=== PATIENT | male | born 1975 | race Caucasian/White ===

== ENCOUNTER 2018-12-25 16:19 | Inpatient (IN) | payer MEDICAID, SELFPAY ==
[2018-12-25] VITALS (9 sets, daily range): BP systolic 140–163; BP diastolic 78–88; PULSE 87–121; RESP 17–20; TEMP 36.7–37.1; O2SAT 92–99; BMI 40.1; BMI 36.1; BMI 36.2
--- NOTE | 2018-12-25 16:33 | EKG12_ITS ---
Test Reason : Blood Pressure : / mmHG Vent. Rate : 119 BPM Atrial Rate : 119 BPM P-R Int : 146 ms QRS Dur : 096 ms QT Int : 334 ms P-R-T Axes : 067 111 047 degrees QTc Int : 469 ms Sinus tachycardia Left posterior fascicular block Abnormal ECG Confirmed by HERB CHAIREZ, DAQUAN ([id number]), editorial specialist ELIZABETH JACQUES ([id number] on 12/29/2018 12:01:39 PM Referred By: Nichelle Salazar Confirmed By:RIO ESTEVEZ MD
--- NOTE | 2018-12-25 16:33 | RAD_ITS ---
STUDY: X-RAY CHEST REASON FOR EXAM: Male, 43 years old. Shortness of breath TECHNIQUE: Single AP portable view of the chest. COMPARISON: Previous study of 07/13/2016 FINDINGS: There is a right-sided dialysis catheter with tip projecting over the atriocaval junction. There is linear fibrosis or atelectasis of the left lung base. There is a small calcified granuloma of the right lung base. There is a small left-sided effusion. Normal size heart. Normal mediastinum and tony. Normal visualized pulmonary arteries. Normal visualized aortic arch and descending thoracic aorta. Normal visualized thoracic spine. Normal visualized ribs, clavicles, and shoulders. There is no demonstrated abnormality of the visualized soft tissue structures of the upper abdomen. RAD/Chest 1 View (Portable) IMPRESSION: Right-sided dialysis catheter with tip projecting over the atriocaval junction. Left basilar fibrosis or atelectasis and small left basilar effusion, representing new interval findings. Electronically Signed: Kelvin Dubose MD at 17:06 EDT , Service support ,
--- NOTE | 2018-12-25 17:00 | ED.RN ---
PATIENT IS REFUSING IVF AT THIS TIME
[2018-12-25 17:37] LABS: Absolute Lymphocyte Count 1.58 X10^3/uL (0.83-4.51); Absolute Neutrophil Count 3.2 X10^3/uL (2.0-7.7); Basophil# 0.02 X10^3/uL; Basophil% 0.4 % (0-1); Eosinophil# 0.29 X10^3/uL; Eosinophils% 5.3 % (0-5); Hematocrit 32.4 % (40-54); Hemoglobin 10.6 g/dL (13.0-16.5); Lymphocyte # 1.58 X10^3/ul (4.0); Lymphocyte % 28.6 % (19-41); Mean Corp Hgb Conc 32.7 g/dL (32-36); Mean Corpuscular Hgb 31.5 pg (27.0-32.0); Mean Corpuscular Volume 96.4 fL (80-94); Mean Platelet Vol. 10.9 fl (6.2-12.0); Monocyte# 0.44 X10^3/uL; NRBC Flagged by Analyzer 0 % (0-5); Neutrophil # 3.17 X10^3/uL (2.7-7.7); Neutrophil % 57.3 % (47-70); Platelet Count 142 K/mm3 (150-450); RBC Distribution Width CV 17.6 % (11.6-14.6); RBC Distribution Width SD 62.8 fl (35.1-43.9); Red Blood Count 3.36 M/mm3 (4.6-6.2); White Blood Count 5.5 K/mm3 (4.4-11.0)
[2018-12-25 17:45] LABS: Anion Gap 7 (5-15); BUN 14 mg/dL (7-18); Chloride 115 mmol/L (98-107); Creatinine, Serum 1.08 mg/dL (0.70-1.30); EST Glomerular Filtration Rate 79 mL/min (>60); Est Glom Filt Rate - Afr Amer 95 mL/min (>60); Glucose 129 mg/dL (74-106); Potassium 3.7 mmol/L (3.5-5.1); Sodium Level 143 mmol/L (136-145)
[2018-12-25 17:59] LABS: Lactic Acid 2.8 mmol/L (0.4-2.0)
--- NOTE | 2018-12-25 18:01 | ED.RN ---
lactic2.8 called from [address] lab. dr jack aware
--- NOTE | 2018-12-25 18:06 | ED.RN ---
lactic 2.8 called from [address] lab. dr jack aware
--- NOTE | 2018-12-25 18:08 | ED.RN ---
PATIENT STATES THE MED LIST FROM DOCTOR'S VISIT IS NOT CORRECT. HE STATES THOSE ARE THE MEDS HE WANTED ME TO TAKE BUT I DIDN'T LIKE THAT DOCTOR HE IS UNSURE OF ALL THE MEDS THAT ARE MISSING, BUT KNOWS XANAX AND FLEXERIL ARE TWO OF THEM.
[2018-12-25 18:52] LABS: D-Dimer Quantitative (DVT/PE) 6.25 FEU/ug/m (0.27-0.49)
--- NOTE | 2018-12-25 18:52 | ED.RN ---
dr. jack aware of d-dimer 6.25.
--- NOTE | 2018-12-25 18:54 | CT_ITS ---
We are attempting to reach an attending provider to discuss findings. An addendum with communication details will be sent when the communication is complete. STUDY: CTA CHEST REASON FOR EXAM: Male, 43 years old. Shortness of breath and elevated d-dimer. History of hypertension, hypothyroidism, alcoholic cirrhosis. Prior surgery: Hernia repair and cholecystectomy. RADIATION DOSAGE (If Supplied By Facility): CTDIvol = ( 15.75 ) mGy, DLP = ( 536.62 ) mGycm TECHNIQUE: The examination was performed with the intravenous administration of 100ML IV Isovue 370. Post-processing of the angiographic images was performed, with multiplanar reformation and 3D reconstruction. Individualized dose optimization techniques were used for this CT. COMPARISON: None. FINDINGS: The study is not optimal for visualization of pulmonary embolus secondary to a diffuse bolus which causes considerable nonopacified flow defect in the pulmonary arteries. Nevertheless, I am certain that there is at least one substantial embolus in a right upper lobe segmental branch extending into subsegmental branches. Additionally exam of the lung bases/lower lobes and middle lung zones limited by motion artifact. Normal thoracic aorta and visualized great vessels. There is no demonstrated aortic dissection. Normal heart and pericardium. Normal mediastinum. Calcified right hilar lymph nodes. The right lung is expanded. Calcified granulomata of the right lower lobe. Minimal atelectasis or scarring in the anterior right costophrenic angle. Moderate size dependent left pleural effusion with multifocal areas of platelike atelectasis and generalized atelectatic changes. Normal chest wall structures. There are degenerative changes of thoracic spine. Nodular liver consistent with cirrhosis, splenomegaly and ascites. CT/CTA Chest W/WO Contrast IMPRESSION: Limited exam for pulmonary embolus secondary to a diffuse pulmonary bolus and motion artifact. However, nevertheless positive for at least one moderate size embolus in a large segmental artery of the right upper lobe. Additional emboli may certainly be present in the peripheral arteries particularly the lower lobes where motion artifact also degrades imaging. Moderate size dependent left pleural effusion with multifocal areas of platelike atelectasis as well as generalized atelectatic changes of the left lower lobe. Minimal anterior basilar atelectasis of the right lung without pleural effusion. Stigmata of old granulomatous disease. Cirrhosis, ascites and splenomegaly. Electronically Signed: Maral David MD at 19:51 EDT , Service support ,
--- NOTE | 2018-12-25 20:01 | HP.PCM_ITS ---
Problem List (1) Acute pulmonary embolism Status: Acute Qualifiers: Pulmonary embolism type: unspecified Acute cor pulmonale presence: without acute cor pulmonale Qualified Code(s): I26.99 - Other pulmonary embolism without acute cor pulmonale (2) Acute kidney injury Status: Resolved (3) Patient requiring acute dialysis Status: Resolved (4) Polysubstance abuse Status: Chronic (5) Hypothyroidism Status: Chronic Qualifiers: Hypothyroidism type: unspecified Qualified Code(s): E03.9 - Hypothyroidism, unspecified (6) HTN (hypertension) Status: Chronic Qualifiers: Hypertension type: essential hypertension Qualified Code(s): I10 - Essential (primary) hypertension (7) Alcoholic cirrhosis of liver Status: Chronic Qualifiers: Ascites presence: with ascites Qualified Code(s): K70.31 - Alcoholic cirrhosis of liver with ascites History of Present Illness Date of Admission: 12/25/18 Chief Complaint: Dyspnea, ESRD access discomfort The patient is a 43 y/o M w/ PMHx: Polysubstance abuse, previously incarcerated, Hx EtOH Abuse, Anxiety and Depression, Seizure disorder, Alcoholic Cirrhosis, Hypothyroidism, HTN, HLD, Morbid Obesity, Hx recent [facility] evaluation secondary to encephalopathy w/ recent ALEKSEY requiring HD with temporary access placement with questionable dressing change timeline and patient/family concern for site infection with resolution of renal function, transitioned to SNF and then home but R chest catheter remained with ongoing dyspnea, worse with any exertional effort with no specific cough, congestion or recent upper respiratory symptoms with ongoing right-sided chest discomfort since discharge from hospital, more pronounced at the insertion site of the dialysis catheter with patient admission that he has not been caring for the site with unclear last timeline of dressing change. He does note that the chest discomfort is sharp in nature, 10 out of 10 when it does occur and again primarily focally around the dialysis catheter region. He denies any worsened chest discomfort with deep inspiratory and expiratory effort. Work-up in the ED included T 98.1, heart rate 121, BP 163/3, respiratory rate 17, 93% on room air, CBC with W BC 5.5, heme globin 10.6, platelet 142 with out any left shift evident, d-dimer elevated 6.25, BMP with quad 115, glucose 129, lactic acid 2.8, calcium 8, troponin less than 0.015, chest x-ray with right-sided dialysis catheter with tip projecting over the atriocaval junction, left basilar fibrosis or atelectasis and small left basilar effusion, CTPA limited secondary to diffuse pulmonary bolus and motion artifact however nevertheless positive for at least one moderate sized embolus and a large segmental artery of the right upper lobe, additional emboli possibly present in the peripheral arteries particularly lower lobes were motion artifact also degrades imaging, moderate size dependent left pleural effusion with multifocal areas of platelike atelectasis as well as generalized atelectatic changes of the left lower lobe, minimal anterior basilar atelectasis of the right lung without pleural effusion, stigmata of old granulomatous disease, cirrhosis, ascites and splenomegaly evident. In the ED patient administered Eliquis. Past Medical History Past Medical History (Chronic Problems): Chronic Problems Polysubstance abuse (Chronic) Heroin abuse (Chronic) Cocaine abuse (Chronic) Hypothyroidism (Chronic) HTN (hypertension) (Chronic) Alcoholic cirrhosis of liver (Chronic) Allergies iron Adverse Reaction (Verified 12/25/18 16:24) Nausea Home Medications: Ambulatory Orders Medication Instructions Recorded levETIRAcetam tablet [Keppra] 1,000 mg PO Q12H #30 tablet 11/06/15 Carbidopa/Levodopa [Carbidopa-Levo 1 ea PO DAILY 12/25/18 25-100 mg Odt] Cyclobenzaprine HCl 10 mg PO TID PRN 12/25/18 Flexeril 12/25/18 Ibuprofen 800 mg PO Q6H PRN 12/25/18 Levothyroxine [Synthroid] 100 mcg PO DAILY 12/25/18 Omeprazole 20 mg PO DAILY 12/25/18 Pantoprazole Sodium 40 mg PO DAILY 12/25/18 Potassium Chloride 10 meq PO DAILY 12/25/18 Propranolol HCl 40 mg PO BID 12/25/18 Rifaximin [Xifaxan] 550 mg PO BID 12/25/18 Spironolactone [Aldactone] 25 mg PO BID 12/25/18 Tizanidine HCl 2 mg PO DAILY 12/25/18 Triamcinolone 0.1% Cream [Kenalog] 1 applic TOPICAL BID 12/25/18 Xanax 12/25/18 Surgical History: cholecystectomy, herniorrhaphy, - - Temporary HD access. Psychiatric History: Anxiety, Depression Lives: Alone Smoking Status: Current every day smoker - 3 to 5 cigarettes daily currently. Tobacco Use: Cigarettes Alcohol: Occasional - Patient does state that he is not completely sober but has rare alcohol intake these days, 2 beers today because he saw family. Drugs: - - Patient notes that he is currently clean, prior history of cocaine, heroin, cannabis usage. - *Family History Maternal History Items: - - Patient denies any market maternal family history including heart disease, diabetes, cancer. Paternal History Items: Heart Disease Review of Systems Constitutional: Reports: Malaise, Weakness, Fatigue. Denies: Chills, Fever, Weight Change HEENT: Denies: Head Aches, Sinus Congestion, Sinus Drainage Cardiovascular: Reports: Chest Pain. Denies: Light Headedness, Orthopnea, Palpitations, Syncope Respiratory: Reports: Shortness of Breath, Shortness of breath at rest, Shortness of breath upon exertion. Denies: Cough, Sputum production Gastrointestinal: Denies: Abdominal Pain, Nausea, Vomiting Genitourinary: Denies: Dysuria Musculoskeletal: Reports: Joint Pain. Denies: Joint Tenderness Skin: Reports: Skin Changes. Denies: Rash, Wounds Neurological: Denies: Numbness, Tingling, Focal weakness Psychiatric: Reports: Anxiety, Depression. Denies: Homicidal Ideations, S uicidal Ideations Hematologic/ Lymphatic: Reports: Easy Bruising, Easy Bleeding VTE Information - Inpt Only VTE Present on Admission: No VTE Mechan Device Prophylaxis: SCD's VTE Pharm Prophylaxis ordered?: Yes Patient Problems: Active and Suspected Problems Acute pulmonary embolism (Acute) Subjective: Seated upright in ED bed, fatigued appearance, no acute distress. Objective: Physical Examination: General: awake, alert, oriented x 3 and cooperative, seated upright in the ED bed in no apparent distress. Skin: normal color, turgor, no icterus, cyanosis temporary dialysis catheter to right chest in place, mild erythema only around insertion site specifically with no purulent drainage, no market tenderness palpation of the region, does not appear infected. HEENT: AT/NC, EOMI, PERRLA, dry MM, no carotid bruits or JVD noted. Lungs: CTA bilaterally, decreased effort, moderate decrease BL bases, no rales, ronchi or wheezing. Heart: Mildly tachycardic with regular rhythm; no gallop, rub audible. Abdomen: soft, morbidly obese, NTTP, ND, normal BS, positive HM with ascites. Extremities: no cyanosis, clubbing, bilateral lower extremity ankle to distal rodriguez edema. Neurological: patient awake, alert, oriented x 3; cognitive function intact; pupils equally reactive to light and accomodation; cranial nerves II-XII grossly normal, moving all 4 extremities, no focal deficits, strength fairly global decrease secondary to acute presentation. Psychiatric: affect appears fatigued, no acute evidence of depressive or anxiety feelings. - Physical Exam Vital Signs Temp Pulse Resp BP Pulse Ox 98.1 F 113 H 18 140/87 H 93 12/25/18 18:57 12/25/18 18:57 12/25/18 18:57 12/25/18 18:57 12/25/18 18:57 Oxygen Delivery Method Room Air Weight: 255 lb 15.307 oz Body Mass Index (BMI) 40.1 Finger Stick Blood Glucose 96 Laboratory Tests Past 24 Hrs 12/25/18 12/25/18 12/25/18 17:15 17:15 17:15 WBC 5.5 RBC 3.36 L Hgb 10.6 L Hct 32.4 L MCV 96.4 H MCH 31.5 MCHC 32.7 RDW Std Deviation 62.8 H RDW Coeff of Raghu 17.6 H Plt Count 142 L MPV 10.9 Immature Gran % (Auto) 0.400 Neut % (Auto) 57.3 Lymph % (Auto) 28.6 Dorado % (Auto) 8.0 Eos % (Auto) 5.3 H Baso % (Auto) 0.4 Absolute Neuts (auto) 3.2 Absolute Lymphs (auto) 1.58 Nucleated RBC % 0 D-Dimer Quant (PE/DVT) Sodium 143 Potassium 3.7 Chloride 115 H Carbon Dioxide 21.0 Anion Gap 7 BUN 14 Creatinine 1.08 Estim Creat Clear Calc 81.60 Est GFR (MDRD) Af Amer 95 Est GFR (MDRD) Non-Af 79 BUN/Creatinine Ratio 13.0 Glucose 129 H Lactic Acid 2.8 H Calcium 8.0 L Troponin I < 0.015 12/25/18 17:58 WBC RBC Hgb Hct MCV MCH MCHC RDW Std Deviation RDW Coeff of Raghu Plt Count MPV Immature Gran % (Auto) Neut % (Auto) Lymph % (Auto) Dorado % (Auto) Eos % (Auto) Baso % (Auto) Absolute Neuts (auto) Absolute Lymphs (auto) Nucleated RBC % D-Dimer Quant (PE/DVT) 6.25 H* Sodium Potassium Chloride Carbon Dioxide Anion Gap BUN Creatinine Estim Creat Clear Calc Est GFR (MDRD) Af Amer Est GFR (MDRD) Non-Af BUN/Creatinine Ratio Glucose Lactic Acid Calcium Troponin I Assessment/Plan All Active Problems Acute pulmonary embolism (Acute) Acute kidney injury (Resolved) Patient requiring acute dialysis (Resolved) Overdose (Resolved) The patient is a 43 y/o M w/ PMHx: Polysubstance abuse, previously incarcerated, Hx EtOH Abuse, Anxiety and Depression, Seizure disorder, Alcoholic Cirrhosis, Hypothyroidism, HTN, HLD, Morbid Obesity, Hx recent [facility] evaluation secondary to encephalopathy w/ recent ALEKSEY requiring HD with temporary access placement with questionable dressing change timeline and patient/family concern for site infection with resolution of renal function, transitioned to SNF and then home but R chest catheter remained who presents to the [facility] on 12/25/18 with ongoing dyspnea, progressively worsening and R sided chest pain more so at the dialysis catheter site. 1. Dyspnea, chest pain secondary to Pulmonary Embolism: EKG without acute findings, CXR no acute process, D-dimer elevated, CTPA limited secondary to diffuse pulmonary bolus and motion artifact however nevertheless positive for at least one moderate sized embolus and a large segmental artery of the right upper lobe, additional emboli possibly present in the peripheral arteries particularly lower lobes were motion artifact also degrades imaging, moderate size dependent left pleural effusion with multifocal areas of platelike atelectasis as well as generalized atelectatic changes of the left lower lobe, minimal anterior basilar atelectasis of the right lung without pleural effusion, stigmata of old granulomatous disease, cirrhosis, ascites and splenomegaly ev ident, trop x 1 normal. No family history of hypercoaguable state. Patient with recent hospitalization, prolonged immobility secondary to cirrhotic encephalopathy from description. Will admit to PCU, maintain on cardiac telemetry. Will obtain ECHO, BNP, defer BL LE DVT as presumed source. Will continue therapeutic eliquis regimen with pending AM insurance oral regimen investigation. 2. Recent ALEKSEY, Temporary HD: ALEKSEY with temporary HD, resolved, will consult surgery for temporary access removal as patient high risk for infection is not caring for the access and unclear last timeline of dressing change. 3. Alcoholic cirrhosis with ascites: We will continue patient home regimen propranolol, rifaximin, spironolactone. 4. Seizure disorder: Will continue home keppra regimen. 5. Hypertension: Continue home regimen including spironolactone, propranolol, PRN hydralazine. 6. Anxiety and Depression: Need clarification of regimen, will continue once obtained. 7. Hypothyroidism: Continue home synthroid regimen. 8. Hx Polysubstance abuse: Prior polysubstance abuse, EtOH abuse, previously incarcerated, encourage continued sobriety. UDS requested. 9. Morbid Obesity: Weight loss and lifestyle changes encouraged, nutrition consulted. 10. GERD: Continue home PPI. 11. DVT Prophylaxis: rasheed Vaz. Code Visit Inpatient E&M: 20268 Init Hosp L3
--- NOTE | 2018-12-25 20:02 | ED.DCSUM_ITS ---
- ER Visit Summary Date of Service: 12/25/18 Chief Complaint: [Shortness of breath and concern for dialysis catheter infection] History of Present Illness: The patient is a 43 M [presents to the emergency department with shortness of breath for several weeks. Patient states that about 4 months ago he was admitted to [facility] because he was encephalopathic and they had to induce him into a coma. Patient apparently had renal failure and had to be dialyzed as well so they placed a dialysis catheter in his right chest. Patient subsequently went to a long term for a time and he was discharged to home but they never took out his dialysis catheter. Patient was told by nephrology that he would no longer needed because his kidney function resolved and normalized. Patient states that since coming out of the coma is been feeling short of breath. He describes right-sided chest pain and i s concerned that his catheter might be infected because he has pain over that area. Patient complains of shortness of breath. He said some chills. He denies any fevers however. Patient continues to drink occasionally. He has a history of hypertension and hypothyroidism.] Physical Examination: [HEENT-PERRLA, EOMI. Cranial nerves II through XII grossly intact. TMs clear. Mucous membranes moist. No adenopathy. Cardiovascular-regular rate and rhythm without murmur or ectopy. Right chest- patient has a dialysis catheter in place there is no drainage from it or erythe ma. Patient does have some mild tenderness to palpation over the area. Lungs-clear to auscultation, chest wall stable without crepitus or subcu emphysema Abdomen-normoactive bowel sounds, soft, nontender, no rebound or rigidity, no peritoneal signs. Extremities-intact ?4, normal range of motion, normal pulses, atraumatic] Test Results: [TG obtained showed a sinus tachycardia with a ventricular rate of 119 bpm. CBC with differential shows a white count of 5.5, hemoglobin 10.6, hematocrit 32, plates 142. Chemistries unremarkable. BUN was 14 and creatinine 1.08. Troponin is less than 0.15. Lactate was elevated 2.8. His d-dimer was 6.25. Chest x-ray obtained showed left basilar fibrosis and a small left effusion. CTA of the chest obtained showed a right upper lobe moderate-sized pulmonary embolism and ascites. This study was not ideal and the timing of the bolus therefore radiology cannot exclude other peripheral PEs.] Emergency Department Course and Treatment: [Patient was started on Eliquis p.o.] Treatment Plan: [Admit] Disposition: [Admit] Impression: [Pulmonary embolism Tachycardia] This note was generated with [employer] dictation software. It may contain incorrect words, spelling, and punctuation that were not noted in review of the chart prior to signing ED Disposition - Plan for ED Patient: Referrals: Care Physician,No Primary [Primary Care Provider] -
[2018-12-25] MEDS: 0.9% Normal Saline 1,000 ML 150 ML IV (20:15)
[2018-12-25] MEDS: APIXABAN 5 MG TABLET 10 MG PO (20:33)
[2018-12-25 21:22] LABS: Reflex Lactate? Y
[2018-12-25 21:44] LABS: International Normalized Ratio 1.2; Prothrombin Time (Protime)PT. 14.9 SECONDS (11.7-14.9)
[2018-12-25 21:45] LABS: Partial Thromboplast Time 40.5 Seconds (24.1-36.2)
[2018-12-25 21:47] LABS: Magnesium 1.6 mg/dL (1.6-2.6); Phosphorus 3.3 mg/dL (2.5-4.9)
[2018-12-25 21:58] LABS: BNP,B-Type NATRIURETIC PEPTIDE 90.5 pg/mL (0-100)
[2018-12-25 22:16] LABS: Lactic Acid 1.9 mmol/L (0.4-2.0)
[2018-12-25] MEDS: 0.9% Normal Saline 1,000 ML 100 ML IV (22:38)
[2018-12-25] MEDS: Propranolol 40 MG Tablet PO (22:39)
[2018-12-25] MEDS: levETIRAcetam 1,000 MG Tablet 1000 MG PO (22:39)
[2018-12-25] MEDS: rifAXIMin 550 MG Tablet PO (22:39)
[2018-12-25] MEDS: Spironolactone 25 MG Tablet PO (22:40)
[2018-12-26] VITALS (11 sets, daily range): BP systolic 119–138; BP diastolic 71–80; PULSE 65–83; RESP 15–18; TEMP 36.6–36.7; O2SAT 91–94
[2018-12-26] MEDS: oxyCODONE 5 MG Tablet PO ×3 (01:07→21:34)
[2018-12-26] MEDS: Temazepam 15 MG Capsule PO ×2 (01:09→21:36)
[2018-12-26 02:03] LABS: Amphetamine Urine VISTA NEGATIVE (<1000 ng/mL); Barbiturate Urine VISTA NEGATIVE (< 200 ng/mL); Benzodiazepine Urine VISTA NEGATIVE (< 200 ng/mL); Cocaine Urine VISTA NEGATIVE (< 300 ng/mL); Ecstacy Urine VISTA NEGATIVE (< 500 ng/mL); Methadone Urine VISTA NEGATIVE (< 300 ng/mL); PCP Urine VISTA NEGATIVE (< 25 ng/mL); THC Urine VISTA NEGATIVE (< 50 ng/mL); Vista UDS pH Range 7
[2018-12-26] MEDS: Carbidopa/Levodopa 25/100 Tablet PO (05:55)
[2018-12-26] MEDS: Levothyroxine 100 MCG Tablet PO (05:55)
--- NOTE | 2018-12-26 05:55 | ECHOD_ITS ---
Reason For Study: Dyspnea/SOB Procedure This was a 2D Doppler, Color Flow transthoracic echocardiogram. Exam performed portable in patient room. Left Ventricle Normal LV size. The estimated ejection fraction is 65 %. Diastolic function is indeterminate. No regional wall motion abnormalities noted. Right Ventricle Mildly dilated right ventricle. Mild to moderate global right ventricular systolic dysfunction. Atria The left atrium is mildly enlarged. Normal right atrium. No doppler evidence for ASD. Mitral Valve There is no mitral valve stenosis. Trivial mitral valve insufficiency. Tricuspid Valve There is no tricuspid stenosis. Trivial tricuspid valve insufficiency. Pulmonary artery systolic pressure is 60 mmHg. Aortic Valve Trisinus/trileaflet aortic valve. There is no aortic stenosis. No aortic valve insufficiency. Pulmonic Valve There is no pulmonic valvular stenosis. Trivial pulmonic valve insufficiency. Great Vessels Normal aortic root. Pericardium/Pleural No pericardial effusion. MMode/2D Measurements & Calculations LVIDd: 4.8 cm IVSd: 1.2 cm Ao root diam: 2.9 cm LVIDs: 3.2 cm LVPWd: 1.3 cm RVDd: 4.3 cm FS: 32.8 % LAV(MOD-bp): 91.3 ml LVAd ap4: 31.6 cm2 SV(MOD-sp4): 66.3 ml LAV(MOD-bp) Indexed: 39.4 ml/m2 EDV(MOD-sp4): 101.2 ml LAV(MOD-sp2): 92.2 ml EDV(sp4-el): 101.5 ml LAV(MOD-sp4): 80.5 ml LVAs ap4: 17.3 cm2 ESV(MOD-sp4): 34.9 ml ESV(sp4-el): 36.0 ml EF(MOD-sp4): 65.5 % EF(sp4-el): 64.6 % SV(sp4-el): 65.5 ml LA A4 area: 25.4 cm2 LA dimension(2D): 5.2 cm RA A4 area: 15.7 cm2 Doppler Measurements & Calculations MV E max brenden: 111.4 cm/sec Lat Peak E' Brenden: 12.6 cm/sec Med Peak E' Brenden: 9.2 cm/sec MV A max brenden: 67.9 cm/sec E/E' lat: 8.8 E/E' med: 12.2 MV E/A: 1.6 Ao V2 max: 141.2 cm/sec LV V1 max: 118.1 cm/sec PA V2 max: 105.9 cm/sec Ao max P.0 mmHg LV V1 max P.6 mmHg Ao V2 mean: 95.7 cm/sec Ao mean P.1 mmHg Ao V2 VTI: 27.6 cm TR max brenden: 375.0 cm/sec TR max P.2 mmHg Interpretation Summary The estimated ejection fraction is 65 %. Diastolic function is indeterminate. Pulmonary artery systolic pressure is 60 mmHg. Mildly dilated right ventricle. Mild to moderate global right ventricular systolic dysfunction. The left atrium is mildly enlarged. Trivial mitral valve insufficiency. Ordering Physician: Nichelle Salazar Referring Physician: Nichelle Salazar Performed By: Ciara Crystal, CONCHITA, RVT
[2018-12-26 07:48] LABS: ALB/GLOB Ratio 0.3 RATIO (0.9-2.4); AST(SGOT) 43 U/L (15-37); Alanine Aminotransfer ALT/SGPT 14 U/L (16-61); Albumin, Serum 1.5 g/dL (3.2-5.0); Alkaline Phosphatase 153 U/L (45-117); Anion Gap 2 (5-15); BUN 13 mg/dL (7-18); BUN/Creat Ratio 13.7 RATIO (10-20); Calcium,Total 7.5 mg/dL (8.5-10.1); Chloride 115 mmol/L (98-107); Creatinine, Serum 0.95 mg/dL (0.70-1.30); EST Glomerular Filtration Rate 92 mL/min (>60); Est Glom Filt Rate - Afr Amer 111 mL/min (>60); Estimated Creatinine Clearance 102.46 ml/min; Globulin 4.5 g/dL (2.2-4.2); Glucose 99 mg/dL (74-106); Potassium 4.2 mmol/L (3.5-5.1); Sodium Level 141 mmol/L (136-145)
--- NOTE | 2018-12-26 09:00 | PCM.CONS.GEN ---
Problem List (1) Vascular catheter fitting or adjustment Status: Acute Reason for Consult Date of Consultation: 12/26/18 History of Present Illness: The patient is a 43 year old M presents to the emergency department with shortness of breath for several weeks. Patient states that about 4 months ago he was admitted to [facility] because he was encephalopathic and they had to induce him into a coma. Patient apparently had renal failure and had to be dialyzed as well so they placed a dialysis catheter in his right chest. Patient subsequently went to a [facility] for a time and he was discharged to home but they never took out his dialysis catheter. Patient was told by nephrology that he would no longer needed because his kidney function resolved and normalized. Patient states that since coming out of the coma is been feeling short of breath. He describes right-sided chest pain and is concerned that his catheter might be infected because he has pain over that area. Patient complains of shortness of breath. He said some chills. He denies any fevers however. Patient continues to drink occasionally. He has a history of hypertension and hypothyroidism. Past Medical History Past Medical History (Chronic Problems): Chronic Problems Polysubstance abuse (Chronic) Heroin abuse (Chronic) Cocaine abuse (Chronic) Hypothyroidism (Chronic) HTN (hypertension) (Chronic) Alcoholic cirrhosis of liver (Chronic) Allergies iron Adverse Reaction (Verified 12/25/18 16:24) Nausea Home Medications: Ambulatory Orders Medication Instructions Recorded levETIRAcetam tablet [Keppra] 1,000 mg PO Q12H #30 tablet 11/06/15 Carbidopa/Levodopa [Carbidopa-Levo 1 ea PO DAILY 12/25/18 25-100 mg Odt] Cyclobenzaprine HCl 10 mg PO TID PRN 12/25/18 Flexeril 12/25/18 Ibuprofen 800 mg PO Q6H PRN 12/25/18 Levothyroxine [Synthroid] 100 mcg PO DAILY 12/25/18 Omeprazole 20 mg PO DAILY 12/25/18 Pantoprazole Sodium 40 mg PO DAILY 12/25/18 Potassium Chloride 10 meq PO DAILY 12/25/18 Propranolol HCl 40 mg PO BID 12/25/18 Rifaximin [Xifaxan] 550 mg PO BID 12/25/18 Spironolactone [Aldactone] 25 mg PO BID 12/25/18 Tizanidine HCl 2 mg PO DAILY 12/25/18 Triamcinolone 0.1% Cream [Kenalog] 1 applic TOPICAL BID 12/25/18 Xanax 12/25/18 Surgical History: cholecystectomy, herniorrhaphy, - - Temporary HD access. Psychiatric History: Anxiety, Depression Lives: Alone Smoking Status: Current every day smoker Tobacco Use: Cigarettes Alcohol: Occasional - Patient does state that he is not completely sober but has rare alcohol intake these days, 2 beers today because he saw family. Drugs: - - Patient notes that he is currently clean, prior history of cocaine, heroin, cannabis usage. - *Family History Paternal History Items: Heart Disease Maternal History Items: - - Patient denies any market maternal family history including heart disease, diabetes, cancer. Review of Systems Constitutional: Denies: Chills, Fever, Weight Change Skin: Denies: Lesions, Rash, Wounds Patient Problems: Active and Suspected Problems Acute pulmonary embolism (Acute) Vascular catheter fitting or adjustment (Acute) - Physical Exam General: Alert, Oriented x3 Skin: No rashes - Catheter site is clean. There is no signs of any infection. There is no tenderness at the skin site on the chest nor in the neck., No breakdown Vital Signs Temp Pulse Resp BP Pulse Ox 97.8 F 75 18 132/80 H 91 12/26/18 05:52 12/26/18 07:39 12/26/18 05:52 12/26/18 05:52 12/26/18 07:45 Oxygen Delivery Method Room Air Weight: 254 lb 12.8 oz Body Mass Index (BMI) 36.1 Finger Stick Blood Glucose 96 Intake and Output for Last 24 Hours 12/24/18 12/25/18 12/26/18 23:59 23:59 23:59 Intake Total 230 / 590 1473.33 / 1473.33 Balance 230 / 590 1473.33 / 1473.33 Laboratory Tests Past 24 Hrs 12/25/18 12/25/18 12/25/18 17:15 17:15 17:15 WBC 5.5 Corrected WBC RBC 3.36 L Hgb 10.6 L Hct 32.4 L MCV 96.4 H MCH 31.5 MCHC 32.7 RDW Std Deviation 62.8 H RDW Coeff of Raghu 17.6 H Plt Count 142 L MPV 10.9 Immature Gran % (Auto) 0.400 Neut % (Auto) 57.3 Lymph % (Auto) 28.6 Marshall % (Auto) 8.0 Eos % (Auto) 5.3 H Baso % (Auto) 0.4 Absolute Neuts (auto) 3.2 Absolute Lymphs (auto) 1.58 Total Counted Neutrophils % (Manual) Band Neutrophils % Lymphocytes % (Manual) Monocytes % (Manual) Eosinophils % (Manual) Basophils % (Manual) Metamyelocytes % Myelocytes % Promyelocytes % Blast Cells % Plasma Cell % (Manual) Other Cells % Nucleated RBC % 0 Nucleated RBCs/100 WBC Differential Comment Diff Path Review Hypersegmented Neuts Atypical Lymphocytes Reactive Lymphocytes Smudge Cells Toxic Granulation Toxic Vacuolation Dohle Bodies Magy Rods Platelet Estimate Plt Morphology Comment RBC Morphology Polychromasia Hypochromasia Poikilocytosis Basophilic Stippling Anisocytosis Microcytosis Macrocytosis Spherocytes Sickle Cells Target Cells Tear Drop Cells Ovalocytes Stomatocytes [place]-Zarephath Bodies Constance Cells Bite Cells Crenated Cell Acanthocytes (Spur) Rouleaux Schistocytes PT INR APTT D-Dimer Quant (PE/DVT) Sodium 143 Potassium 3.7 Chloride 115 H Carbon Dioxide 21.0 Anion Gap 7 BUN 14 Creatinine 1.08 Estim Creat Clear Calc 81.60 Est GFR (MDRD) Af Amer 95 Est GFR (MDRD) Non-Af 79 BUN/Creatinine Ratio 13.0 Glucose 129 H Lactic Acid 2.8 H Calcium 8.0 L Phosphorus Magnesium Total Bilirubin AST ALT Alkaline Phosphatase Troponin I < 0.015 B-Natriuretic Peptide Total Protein Albumin Globulin Albumin/Globulin Ratio Urine Opiates Screen Urine Methadone Screen Ur Barbiturates Screen Ur Phencyclidine Scrn Ur Amphetamines Screen U Methamphetamin-MDMA U Benzodiazepines Scrn Urine Cocaine Screen U Cannabinoids Screen Ur Drug Screen Comment 12/25/18 12/25/18 12/25/18 17:15 17:15 17:58 WBC Corrected WBC RBC Hgb Hct MCV MCH MCHC RDW Std Deviation RDW Coeff of Raghu Plt Count MPV Immature Gran % (Auto) Neut % (Auto) Lymph % (Auto) Marshall % (Auto) Eos % (Auto) Baso % (Auto) Absolute Neuts (auto) Absolute Lymphs (auto) Total Counted Neutrophils % (Manual) Band Neutrophils % Lymphocytes % (Manual) Monocytes % (Manual) Eosinophils % (Manual) Basophils % (Manual) Metamyelocytes % Myelocytes % Promyelocytes % Blast Cells % Plasma Cell % (Manual) Other Cells % Nucleated RBC % Nucleated RBCs/100 WBC Differential Comment Diff Path Review Hypersegmented Neuts Atypical Lymphocytes Reactive Lymphocytes Smudge Cells Toxic Granulation Toxic Vacuolation Dohle Bodies Magy Rods Platelet Estimate Plt Morphology Comment RBC Morphology Polychromasia Hypochromasia Poikilocytosis Basophilic Stippling Anisocytosis Microcytosis Macrocytosis Spherocytes Sickle Cells Target Cells Tear Drop Cells Ovalocytes Stomatocytes [place]-Zarephath Bodies Constance Cells Bite Cells Crenated Cell Acanthocytes (Spur) Rouleaux Schistocytes PT INR APTT D-Dimer Quant (PE/DVT) 6.25 H* Sodium Potassium Chloride Carbon Dioxide Anion Gap BUN Creatinine Estim Creat Clear Calc Est GFR (MDRD) Af Amer Est GFR (MDRD) Non-Af BUN/Creatinine Ratio Glucose Lactic Acid Calcium Phosphorus 3.3 Magnesium 1.6 Total Bilirubin AST ALT Alkaline Phosphatase Troponin I B-Natriuretic Peptide 90.5 Total Protein Albumin Globulin Albumin/Globulin Ratio Urine Opiates Screen Urine Methadone Screen Ur Barbiturates Screen Ur Phencyclidine Scrn Ur Amphetamines Screen U Methamphetamin-MDMA U Benzodiazepines Scrn Urine Cocaine Screen U Cannabinoids Screen Ur Drug Screen Comment 12/25/18 12/25/18 12/26/18 17:58 21:43 01:30 WBC Corrected WBC RBC Hgb Hct MCV MCH MCHC RDW Std Deviation RDW Coeff of Raghu Plt Count MPV Immature Gran % (Auto) Neut % (Auto) Lymph % (Auto) Marshall % (Auto) Eos % (Auto) Baso % (Auto) Absolute Neuts (auto) Absolute Lymphs (auto) Total Counted Neutrophils % (Manual) Band Neutrophils % Lymphocytes % (Manual) Monocytes % (Manual) Eosinophils % (Manual) Basophils % (Manual) Metamyelocytes % Myelocytes % Promyelocytes % Blast Cells % Plasma Cell % (Manual) Other Cells % Nucleated RBC % Nucleated RBCs/100 WBC Differential Comment Diff Path Review Hypersegmented Neuts Atypical Lymphocytes Reactive Lymphocytes Smudge Cells Toxic Granulation Toxic Vacuolation Dohle Bodies Magy Rods Platelet Estimate Plt Morphology Comment RBC Morphology Polychromasia Hypochromasia Poikilocytosis Basophilic Stippling Anisocytosis Microcytosis Macrocytosis Spherocytes Sickle Cells Target Cells Tear Drop Cells Ovalocytes Stomatocytes [place]-Zarephath Bodies Constance Cells Bite Cells Crenated Cell Acanthocytes (Spur) Rouleaux Schistocytes PT 14.9 INR 1.2 APTT 40.5 H D-Dimer Quant (PE/DVT) Sodium Potassium Chloride Carbon Dioxide Anion Gap BUN Creatinine Estim Creat Clear Calc Est GFR (MDRD) Af Amer Est GFR (MDRD) Non-Af BUN/Creatinine Ratio Glucose Lactic Acid 1.9 Calcium Phosphorus Magnesium Total Bilirubin AST ALT Alkaline Phosphatase Troponin I B-Natriuretic Peptide Total Protein Albumin Globulin Albumin/Globulin Ratio Urine Opiates Screen NEGATIVE Urine Methadone Screen NEGATIVE Ur Barbiturates Screen NEGATIVE Ur Phencyclidine Scrn NEGATIVE Ur Amphetamines Screen NEGATIVE U Methamphetamin-MDMA NEGATIVE U Benzodiazepines Scrn NEGATIVE Urine Cocaine Screen NEGATIVE U Cannabinoids Screen NEGATIVE Ur Drug Screen Comment 12/26/18 12/26/18 07:12 07:12 WBC Cancelled Corrected WBC Cancelled RBC Cancelled Hgb Cancelled Hct Cancelled MCV Cancelled MCH Cancelled MCHC Cancelled RDW Std Deviation Cancelled RDW Coeff of Raghu Cancelled Plt Count Cancelled MPV Cancelled Immature Gran % (Auto) Cancelled Neut % (Auto) Cancelled Lymph % (Auto) Cancelled Marshall % (Auto) Cancelled Eos % (Auto) Cancelled Baso % (Auto) Cancelled Absolute Neuts (auto) Cancelled Absolute Lymphs (auto) Cancelled Total Counted Cancelled Neutrophils % (Manual) Cancelled Band Neutrophils % Cancelled Lymphocytes % (Manual) Cancelled Monocytes % (Manual) Cancelled Eosinophils % (Manual) Cancelled Basophils % (Manual) Cancelled Metamyelocytes % Cancelled Myelocytes % Cancelled Promyelocytes % Cancelled Blast Cells % Cancelled Plasma Cell % (Manual) Cancelled Other Cells % Cancelled Nucleated RBC % Cancelled Nucleated RBCs/100 WBC Cancelled Differential Comment Cancelled Diff Path Review Cancelled Hypersegmented Neuts Cancelled Atypical Lymphocytes Cancelled Reactive Lymphocytes Cancelled Smudge Cells Cancelled Toxic Granulation Cancelled Toxic Vacuolation Cancelled Dohle Bodies Cancelled Magy Rods Cancelled Platelet Estimate Cancelled Plt Morphology Comment Cancelled RBC Morphology Cancelled Polychromasia Cancelled Hypochromasia Cancelled Poikilocytosis Cancelled Basophilic Stippling Cancelled Anisocytosis Cancelled Microcytosis Cancelled Macrocytosis Cancelled Spherocytes Cancelled Sickle Cells Cancelled Target Cells Cancelled Tear Drop Cells Cancelled Ovalocytes Cancelled Stomatocytes Cancelled [place]-Zarephath Bodies Cancelled Kaycee Cells Cancelled Bite Cells Cancelled Crenated Cell Cancelled Acanthocytes (Spur) Cancelled Rouleaux Cancelled Schistocytes Cancelled PT INR APTT D-Dimer Quant (PE/DVT) Sodium 141 Potassium 4.2 Chloride 115 H Carbon Dioxide 24.0 Anion Gap 2 L BUN 13 Creatinine 0.95 Estim Creat Clear Calc 102.46 Est GFR (MDRD) Af Amer 111 Est GFR (MDRD) Non-Af 92 BUN/Creatinine Ratio 13.7 Glucose 99 Lactic Acid Calcium 7.5 L Phosphorus Magnesium Total Bilirubin 1.20 H AST 43 H ALT 14 L Alkaline Phosphatase 153 H Troponin I B-Natriuretic Peptide Total Protein 6.0 L Albumin 1.5 L Globulin 4.5 H Albumin/Globulin Ratio 0.3 L Urine Opiates Screen Urine Methadone Screen Ur Barbiturates Screen Ur Phencyclidine Scrn Ur Amphetamines Screen U Methamphetamin-MDMA U Benzodiazepines Scrn Urine Cocaine Screen U Cannabinoids Screen Ur Drug Screen Comment Assessment/Plan All Active Problems Acute pulmonary embolism (Acute) Acute kidney injury (Resolved) Patient requiring acute dialysis (Resolved) Vascular catheter fitting or adjustment (Acute) Overdose (Resolved) I will see the patient in the office and remove his catheter there.
[2018-12-26 09:15] LABS: Absolute Lymphocyte Count 1.14 X10^3/uL (0.83-4.51); Absolute Neutrophil Count 2.3 X10^3/uL (2.0-7.7); Basophil# 0.03 X10^3/uL; Basophil% 0.7 % (0-1); Eosinophil# 0.24 X10^3/uL; Eosinophils% 5.7 % (0-5); Hemoglobin 10.4 g/dL (13.0-16.5); Lymphocyte # 1.14 X10^3/ul (4.0); Lymphocyte % 27.2 % (19-41); Mean Corp Hgb Conc 32.5 g/dL (32-36); Mean Corpuscular Hgb 31.6 pg (27.0-32.0); Mean Corpuscular Volume 97.3 fL (80-94); Monocyte# 0.44 X10^3/uL; Monocyte% 10.5 % (0-10); NRBC Flagged by Analyzer 0 % (0-5); Neutrophil # 2.32 X10^3/uL (2.7-7.7); Neutrophil % 55.4 % (47-70); Platelet Count 127 K/mm3 (150-450); RBC Distribution Width CV 17.7 % (11.6-14.6); RBC Distribution Width SD 63.4 fl (35.1-43.9); Red Blood Count 3.29 M/mm3 (4.6-6.2); White Blood Count 4.2 K/mm3 (4.4-11.0)
[2018-12-26] MEDS: APIXABAN 5 MG TABLET 10 MG PO ×2 (11:10→21:33)
[2018-12-26] MEDS: Pantoprazole Sodium 40 MG Tablet PO (11:11)
[2018-12-26] MEDS: Propranolol 40 MG Tablet PO ×2 (11:11→21:33)
[2018-12-26] MEDS: rifAXIMin 550 MG Tablet PO ×2 (11:12→21:33)
[2018-12-26] MEDS: levETIRAcetam 1,000 MG Tablet 1000 MG PO ×2 (11:12→21:34)
[2018-12-26] MEDS: tiZANidine HCl 2 MG Tablet PO (11:12)
[2018-12-26] MEDS: Spironolactone 25 MG Tablet PO ×2 (11:13→21:33)
--- NOTE | 2018-12-26 11:42 | PCM.PN.HOSP ---
Patient Problems: Active and Suspected Problems Acute pulmonary embolism (Acute) Vascular catheter fitting or adjustment (Acute) Subjective: Patient seen and examined. He was admitted with a complaint of dyspnea and discomfort at the ESRD access. He had recently been admitted at [facility] due to encephalopathy. He was found to have ALEKSEY requiring temporary dialysis catheter placement. He was subsequently discharged to a SNF, but the right sided catheter had been left in place. He was found to have elevated lactic acid and troponin was not elevated. CTA showed at least one moderate sized embolus and a large segmental artery of the right upper lobe and additional possible emboli in the peripheral arteries, zulma lower lobes. he is being managed for PE. Patient has no complaints this morning. SOB has resolved and he denies any chest pain. Review of systems is otherwise negative. Labs and vitals reviewed. He has been started on eliquis. Vitals/I&O's: Vital Signs Temp Pulse Resp BP Pulse Ox 98 F 71 16 127/75 H 94 12/26/18 11:07 12/26/18 11:29 12/26/18 11:07 12/26/18 11:07 12/26/18 11:07 Oxygen Delivery Method Room Air Weight: 254 lb 12.8 oz Body Mass Index (BMI) 36.1 Finger Stick Blood Glucose 96 Intake and Output for Last 24 Hours 12/24/18 12/25/18 12/26/18 23:59 23:59 23:59 Intake Total 230 / 590 1473.33 / 1473.33 Balance 230 / 590 1473.33 / 1473.33 General: Alert, Oriented x3, Cooperative, No apparent distress HEENT: Atraumatic, PERRLA, EOMI, Normocephalic Oral: Moist Mucosa Neck: Supple, No JVD, Negative Carotid Bruits Lungs: - - decreased breath sounds bibasally, no wheezes or crackles. Cardiovascular: Regular rate, Regular Rhythm, Normal S1, Normal S2, No murmurs Abdomen: Bowel Sounds Present, Soft, Non Tender, - - mild distension of abdomen, with positive shifting dullness Extremities: No clubbing, No cyanosis, - - mild 2+ edema of LE bilaterally Skin: No rashes, No breakdown, - - multiple tattoos Musculoskeletal: No Tenderness to Palpation of Joints or Extremities, - - right sided dialysis catheter in place; no erythema or discharge noted. Neurological: Cranial nerves II-XII grossly intact, Neuro grossly intact, Motor Exam 5/5 strength throughout Psych/Mental Status: Normal Affect, Appropriate, Alert and oriented to time, place, person, mood and affect Laboratory Results 12/25/18 17:15: WBC 5.5, RBC 3.36 L, Hgb 10.6 L, Hct 32.4 L, MCV 96.4 H, MCH 31.5, MCHC 32.7, RDW Std Deviation 62.8 H, RDW Coeff of Raghu 17.6 H, Plt Count 142 L, MPV 10.9, Immature Gran % (Auto) 0.400, Neut % (Auto) 57.3, Lymph % (Auto) 28.6, Hopkins % (Auto) 8.0, Eos % (Auto) 5.3 H, Baso % (Auto) 0.4, Absolute Neuts (auto) 3.2, Absolute Lymphs (auto) 1.58, Nucleated RBC % 0 12/25/18 17:15: Sodium 143, Potassium 3.7, Chloride 115 H, Carbon Dioxide 21.0, Anion Gap 7, BUN 14, Creatinine 1.08, Estim Creat Clear Calc 81.60, Est GFR (MDRD) Af Amer 95, Est GFR (MDRD) Non-Af 79, BUN/Creatinine Ratio 13.0, Glucose 129 H, Calcium 8.0 L, Troponin I < 0.015 12/25/18 17:15: Lactic Acid 2.8 H 12/25/18 17:15: Phosphorus 3.3, Magnesium 1.6 12/25/18 17:15: B-Natriuretic Peptide 90.5 12/25/18 17:58: D-Dimer Quant (PE/DVT) 6.25 H* 12/25/18 17:58: PT 14.9, INR 1.2, APTT 40.5 H 12/25/18 21:43: Lactic Acid 1.9 12/26/18 01:30: Urine Opiates Screen NEGATIVE, Urine Methadone Screen NEGATIVE, Ur Barbiturates Screen NEGATIVE, Ur Phencyclidine Scrn NEGATIVE, Ur Amphetamines Screen NEGATIVE, U Methamphetamin-MDMA NEGATIVE, U Benzodiazepines Scrn NEGATIVE, Urine Cocaine Screen NEGATIVE, U Cannabinoids Screen NEGATIVE, Ur Drug Screen Comment 12/26/18 07:12: WBC Cancelled, Corrected WBC Cancelled, RBC Cancelled, Hgb Cancelled, Hct Cancelled, MCV Cancelled, MCH Cancelled, MCHC Cancelled, RDW Std Deviation Cancelled, RDW Coeff of Raghu Cancelled, Plt Count Cancelled, MPV Cancelled, Immature Gran % (Auto) Cancelled, Neut % (Auto) Cancelled, Lymph % (Auto) Cancelled, Hopkins % (Auto) Cancelled, Eos % (Auto) Cancelled, Baso % (Auto) Cancelled, Absolute Neuts (auto) Cancelled, Absolute Lymphs (auto) Cancelled, Total Counted Cancelled, Neutrophils % (Manual) Cancelled, Band Neutrophils % Cancelled, Lymphocytes % (Manual) Cancelled, Monocytes % (Manual) Cancelled, Eosinophils % (Manual) Cancelled, Basophils % (Manual) Cancelled, Metamyelocytes % Cancelled, Myelocytes % Cancelled, Promyelocytes % Cancelled, Blast Cells % Cancelled, Plasma Cell % (Manual) Cancelled, Other Cells % Cancelled, Nucleated RBC % Cancelled, Nucleated RBCs/100 WBC Cancelled, Differential Comment Cancelled, Diff Path Review Cancelled, Hypersegmented Neuts Cancelled, Atypical Lymphocytes Cancelled, Reactive Lymphocytes Cancelled, Smudge Cells Cancelled, Toxic Granulation Cancelled, Toxic Vacuolation Cancelled, Dohle Bodies Cancelled, Magy Rods Cancelled, Platelet Estimate Cancelled, Plt Morphology Comment Cancelled, RBC Morphology Cancelled, Polychromasia Cancelled, Hypochromasia Cancelled, Poikilocytosis Cancelled, Basophilic Stippling Cancelled, Anisocytosis Cancelled, Microcytosis Cancelled, Macrocytosis Cancelled, Spherocytes Cancelled, Sickle Cells Cancelled, Target Cells Cancelled, Tear Drop Cells Cancelled, Ovalocytes Cancelled, Stomatocytes Cancelled, [place] Bodies Cancelled, Constance Cells Cancelled, Bite Cells Cancelled, Crenated Cell Cancelled, Acanthocytes (Spur) Cancelled, Rouleaux Cancelled, Schistocytes Cancelled 12/26/18 07:12: Sodium 141, Potassium 4.2, Chloride 115 H, Carbon Dioxide 24.0, Anion Gap 2 L, BUN 13, Creatinine 0.95, Estim Creat Clear Calc 102.46, Est GFR (MDRD) Af Amer 111, Est GFR (MDRD) Non-Af 92, BUN/Creatinine Ratio 13.7, Glucose 99, Calcium 7.5 L, Total Bilirubin 1.20 H, AST 43 H, ALT 14 L, Alkaline Phosphatase 153 H, Total Protein 6.0 L, Albumin 1.5 L, Globulin 4.5 H, Albumin/Globulin Ratio 0.3 L 12/26/18 09:00: WBC 4.2 L, RBC 3.29 L, Hgb 10.4 L, Hct 32.0 L, MCV 97.3 H, MCH 31.6, MCHC 32.5, RDW Std Deviation 63.4 H, RDW Coeff of Raghu 17.7 H, Plt Count 127 L, MPV 11.0, Immature Gran % (Auto) 0.500, Neut % (Auto) 55.4, Lymph % (Auto) 27.2, Hopkins % (Auto) 10.5 H, Eos % (Auto) 5.7 H, Baso % (Auto) 0.7, Absolute Neuts (auto) 2.3, Absolute Lymphs (auto) 1.14, Nucleated RBC % 0 Diagnostic Data Chest X-Ray 12/25/18 16:33 IMPRESSION: Right-sided dialysis catheter with tip projecting over the atriocaval junction. Left basilar fibrosis or atelectasis and small left basilar effusion, representing new interval findings. Electronically Signed: Kelvin Dubose MD at 17:06 EDT , Service support , Chest CTA 12/25/18 18:54 IMPRESSION: Limited exam for pulmonary embolus secondary to a diffuse pulmonary bolus and motion artifact. However, nevertheless positive for at least one moderate size embolus in a large segmental artery of the right upper lobe. Additional emboli may certainly be present in the peripheral arteries particularly the lower lobes where motion artifact also degrades imaging. Moderate size dependent left pleural effusion with multifocal areas of platelike atelectasis as well as generalized atelectatic changes of the left lower lobe. Minimal anterior basilar atelectasis of the right lung without pleural effusion. Stigmata of old granulomatous disease. Cirrhosis, ascites and splenomegaly. Electronically Signed: Maral David MD at 19:51 EDT , Service support , ADDENDUM: 12/25/182009 IMPRESSION: Limited exam for pulmonary embolus secondary to a diffuse pulmonary bolus and motion artifact. However, nevertheless positive for at least one moderate size embolus in a large segmental artery of the right upper lobe. Additional emboli may certainly be present in the peripheral arteries particularly the lower lobes where motion artifact also degrades imaging. Moderate size dependent left pleural effusion with multifocal areas of platelike atelectasis as well as generalized atelectatic changes of the left lower lobe. Minimal anterior basilar atelectasis of the right lung without pleural effusion. Stigmata of old granulomatous disease. Cirrhosis, ascites and splenomegaly. N.B. : The above information has been verbally conveyed by Maral David MD to Dr. Henrry Huang MD, on 12/25/2018 20:03:47 (ET). Electronically Signed: Maral David MD at 19:51 EDT , Service support , Current Medications Acetaminophen (Tylenol) 650 mg PO Q6H PRN PRN PRN Reason: Non-cardiac pain (mod-severe) Acetaminophen (Tylenol) 650 mg PO Q6H PRN PRN PRN Reason: Mild Pain (scale 0-3)/T>100.7 Al Hydroxide/Mg Hydroxide (Mylanta Ii) 15 - 30 ml PO Q4H PRN PRN PRN Reason: INDIGESTION Albuterol Sulfate (Ventolin Aerosols) 2.5 mg INHALATION Q2H PRN PRN PRN Reason: dyspnea, wheezing Apixaban (Eliquis) 10 mg PO BID [facility] Last Admin: 12/26/18 11:10 Dose: 10 mg Documented by: Carbidopa/Levodopa (Sinemet) 1 tablet PO DAILY@0730 [facility] Last Admin: 12/26/18 05:55 Dose: 1 tablet Documented by: Cyclobenzaprine HCl (Flexeril) 10 mg PO TID PRN PRN PRN Reason: SPASMS Dextrose (D50w Syringe) 0 gm IV X1 PRN; Protocol PRN Reason: Hypoglycemia Glucagon () 1 mg IM .X1 PRN PRN Reason: Hypoglycemia Hydralazine HCl (Apresoline Iv) 10 mg IV Q4H PRN PRN PRN Reason: SBP > 160 Sodium Chloride () 250 mls @ 15 mls/hr IV .[id number] PRN PRN Reason: SALINE FLUSH Levetiracetam (Keppra Tablet) 1,000 mg PO Q12 [facility] Last Admin: 12/26/18 11:12 Dose: 1,000 mg Documented by: Levothyroxine Sodium (Synthroid) 100 mcg PO DAILY@0600 [facility] Last Admin: 12/26/18 05:55 Dose: 100 mcg Documented by: Magnesium Hydroxide (Milk Of Magnesia) 30 ml PO DAILY PRN PRN Reason: Constipation Morphine Sulfate () 2 - 4 mg IV Q3H PRN PRN PRN Reason: Severe Pain (pain scale 6-10) Morphine Sulfate () 1 - 2 mg IV Q4H PRN PRN PRN Reason: Moderate Pain (pain scale 4-5) Morphine Sulfate () 2 - 4 mg IV Q3H PRN PRN PRN Reason: Severe Pain (pain scale 6-10) Ondansetron HCl (Zofran) 4 mg IV Q8H PRN PRN PRN Reason: NAUSEA/VOMITING Oxycodone HCl (Oxyir) 5 mg PO Q4H PRN PRN PRN Reason: Moderate Pain (pain scale 4-5) Last Admin: 12/26/18 08:23 Dose: 5 mg Documented by: Pantoprazole Sodium (Protonix) 40 mg PO DAILY [facility] Last Admin: 12/26/18 11:11 Dose: 40 mg Documented by: Potassium Chloride (K-Dur) 10 meq PO DAILY [facility] Last Admin: 12/26/18 11:13 Dose: 10 meq Documented by: Propranolol HCl (Inderal) 40 mg PO BID [facility] Last Admin: 12/26/18 11:11 Dose: 40 mg Documented by: Rifaximin (Xifaxan) 550 mg PO BID [facility] Last Admin: 12/26/18 11:12 Dose: 550 mg Documented by: Sodium Chloride () 10 - 40 ml IV UD PRN PRN Reason: SALINE FLUSH Spironolactone (Aldactone) 25 mg PO BID [facility] Last Admin: 12/26/18 11:13 Dose: 25 mg Documented by: Temazepam (Restoril) 15 mg PO QHS PRN PRN PRN Reason: INSOMNIA Last Admin: 12/26/18 01:09 Dose: 15 mg Documented by: Tizanidine HCl (Zanaflex) 2 mg PO DAILY [facility] Last Admin: 12/26/18 11:12 Dose: 2 mg Documented by: Medical Necessity - Tobacco Use Smoking Status: Current every day smoker Tobacco Use: Cigarettes Assessment/Plan All Active Problems Acute pulmonary embolism (Acute) Acute kidney injury (Resolved) Patient requiring acute dialysis (Resolved) Vascular catheter fitting or adjustment (Acute) Overdose (Resolved) 1. Acute pulmonary embolism SOB and chest pain have resolved CTPA showed one moderate sized embolus (right) and possible additional emboli in peripheral arteries, particularly lower lobes. still has dialysis catheter in place, which may be a source of thombosis; bilateral LE DVT howevere cannot be ruled out also on eliquis 2D echo pending. general surgery consulted for catheter removal; per discussion wiht Dr Marques, to remove cathter on outpatient basis with follow up. Patient being on therapeutic anticoagulation shouldnt preclude removing catheter, per general surgery. 2. History of recent ALEKSEY not dialysis dependent anymore. however, catheter still in place Cr was 0.95 on admission. general surgery prefers to remove catheter on outpatient basis 3. History of alcoholic cirrhosis on propranolol, rifaximin and spironolactone. liver enzymes mildly elevated; total nick is 1.2, AST is 43 and ALP is 153 4. Seizure disorder: on Keppra 5. Hypertension: on propranolol, spironolactone and IV hydralazine prn. 6. Hypothyroidism: on synthroid. 7. Anxiety and depression: stable 8. History of polysubstance abuse: now sober. 9. GERD: on PPI DVT prophylaxis: on therapeutic eliquis Code Visit Inpatient E&M: 72162 Subs Hosp L2
--- NOTE | 2018-12-26 16:34 | CM.ED ---
SOCIAL WORK ASSESSMENT INFORMANT: DA BOOTHE REASON FOR REFERRAL: HOMELESS/RESOURCES LIVING SITUATION: PATIENT REPORTS IS HOMELESS AND UNABLE TO GO TO HOMELESS CARE HOME D/T [employer]SI CHARGE. PATIENT STATES WILL BE TALKING TO HIS SISTER ABOUT STAYING AT HER HOME. PCP: NONE TRANSPORTATION: PATIENT STATES TRANSPORTATION IS AN ISSUE. OPTIONS DISCUSSED. MENTAL HEALTH HX: PATIENT DENIES ANY HX OF MENTAL HEALTH. SUBSTANCE ABUSE HX: PATIENT DENYING ANY HX OF SUBSTANCE ABUSE. ASSESSMENT: MET WITH PATIENT AND PATIENT'S MOTHER IN ROOM. INTRODUCED ROLE AND REASON FOR REFERRAL. PATIENT GAVE PERMISSION FOR THIS WORKER TO SPEAK OPENLY WITH MOTHER IN ROOM. PATIENT REPORTS HAS BEEN HOMELESS SINCE RELEASE FROM [facility]. PATIENT STATES DOES HAVE A GSI CHARGE AND UNABLE TO FIND A CARE HOME THAT WILL ACCOMMODATE PATIENT. DISCUSSED TRANSPORTATION ISSUES AND INFORMED PATIENT IS ELIGIBLE FOR TRANSPORTATION THROUGH INSURANCE. PATIENT DOES NOT HAVE A PRIMARY CARE PHYSICIAN-LIST PROVIDED TO PATIENT. INFORMED PATIENT CASE DA NICE DID REPORT PATIENT WILL NOT HAVE ANY CO-PAYS FOR MEDICATIONS. PATIENT DENIES ANY FURTHER NEEDS. PLAN: PATIENT IS HOMELESS. RESOURCES PROVIDED. DELLA CARPENTER MSW, CERTIFIED MIDWIFE.
--- NOTE | 2018-12-26 18:23 | CM.UR ---
RN CM Assessment Met with patient earlier today, face to face. Introduced role of RN CM to patient. Patient is alert and able to participate in RN CM Assessment. Care providers, pharmacy, and demographics verified. Mother at bedside. Presentation: Chest pain Admit Dx: PE Re-Admit: No Barriers/Issues: Homeless. Animal Daycare Provider's license suspended. Alerted SW PCP: None Preferred Pharmacy: [facility] Insurance: [employer] Rx Benefit: yes [employer]. states no copays. Explained that he will have no copay with any ant-coag he is ordered, then too. LNOK: Mother Leisa Laguna LW/HPOA: none, booklet given. Living Arrangements: Homeless. Has mothers info in chart for mail purposes. ADL?s: Independent Transportation: Walks most places d/t suspended license. DME: None DME co: no preference HHC: None SNF: [facility] Goal: Home DC PLAN: TBD. Sunshine Salinas RN, CCM.
[2018-12-26] MEDS: 0.9% NaCl Peripheral Flush Adult/Peds IV (21:40)
[2018-12-27] VITALS (7 sets, daily range): BP systolic 99–127; BP diastolic 61–69; PULSE 62–70; RESP 12–16; TEMP 36.4–36.6; O2SAT 90–94
[2018-12-27] MEDS: Levothyroxine 100 MCG Tablet PO (05:22)
[2018-12-27] MEDS: rifAXIMin 550 MG Tablet PO (09:32)
[2018-12-27] MEDS: tiZANidine HCl 2 MG Tablet PO (09:33)
[2018-12-27] MEDS: Propranolol 40 MG Tablet PO (09:33)
[2018-12-27] MEDS: APIXABAN 5 MG TABLET 10 MG PO (09:33)
[2018-12-27] MEDS: Spironolactone 25 MG Tablet PO (09:33)
[2018-12-27] MEDS: levETIRAcetam 1,000 MG Tablet 1000 MG PO (09:33)
[2018-12-27] MEDS: Carbidopa/Levodopa 25/100 Tablet PO (09:33)
[2018-12-27] MEDS: Pantoprazole Sodium 40 MG Tablet PO (09:33)
--- NOTE | 2018-12-27 09:57 | DCINST_ITS ---
- Discharge Diagnoses Current Active Problems: Current Active and Chronic Problems Acute pulmonary embolism (Acute) Polysubstance abuse (Chronic) Vascular catheter fitting or adjustment (Acute) You will use the following diet at home:: Cardiac Your food should be the consistency of: Regular Discharge Activity: Return to Normal Activity Weight Bearing Status: Weight bearing as tolerated Call your doctor if you observe: Fever of 101 or Higher, Shortness of breath, Chest pain Instructions: Pulmonary Embolism Additional Instructions: will be on anticoagulants for at least 3-6 months Allergies/Adverse Reactions: Allergies iron Adverse Reaction (Verified 12/25/18 16:24) Nausea Medications to take at Discharge levETIRAcetam tablet [Keppra tablet] 1,000 mg PO Q12H #30 tablet 11/06/15 Carbidopa/Levodopa [Carbidopa-Levo 25-100 mg Odt] 1 ea PO DAILY 12/25/18 Cyclobenzaprine HCl 10 mg PO TID PRN 12/25/18 Flexeril 12/25/18 Ibuprofen 800 mg PO Q6H PRN 12/25/18 Levothyroxine [Synthroid] 100 mcg PO DAILY 12/25/18 Omeprazole 20 mg PO DAILY 12/25/18 Pantoprazole Sodium 40 mg PO DAILY 12/25/18 Potassium Chloride 10 meq PO DAILY 12/25/18 Propranolol HCl 40 mg PO BID 12/25/18 Rifaximin [Xifaxan] 550 mg PO BID 12/25/18 Spironolactone [Aldactone] 25 mg PO BID 12/25/18 Tizanidine HCl 2 mg PO DAILY 12/25/18 Triamcinolone 0.1% Cream [Kenalog] 1 applic TOPICAL BID 12/25/18 Xanax 12/25/18 Apixaban [Eliquis] 10 mg PO UD #60 tab 12/27/18 The following prescriptions were given: Apixaban [Eliquis] 10 mg PO UD #60 tab Transmission Status: Received by [id number] Primary Care Physician: Care Physician,No Primary [Primary Care Provider] - Please follow up with your Primary Care Physician in: Refer to Dr Kincaid to set up PCP appointment in 1-2 weeks- [phone] Test Results: Test results from this visit will be discussed in further detail at your follow- up appointment, if applicable. Please Follow Up With: Wilder Marques MD When: on Friday12/28/18 to arrange removal of dialysis catheter Proposed Discharge Date: 12/27/18
--- NOTE | 2018-12-27 10:01 | DS.PCM_ITS ---
Discharge Date and Diagnosis - Problem List Patient Problems: Active and Suspected Problems Acute pulmonary embolism (Acute) Vascular catheter fitting or adjustment (Acute) Date of Admission: 12/25/18 Date of Discharge: 12/27/18 - Primary Discharge Diagnosis Active and Suspected Problems Acute pulmonary embolism (Acute) - Secondary Discharge Diagnosis Chronic Problems Polysubstance abuse (Chronic) Heroin abuse (Chronic) Cocaine abuse (Chronic) Hypothyroidism (Chronic) HTN (hypertension) (Chronic) Alcoholic cirrhosis of liver (Chronic) Hospital Course and Treatment Imaging Results: Diagnostic Data Chest X-Ray 12/25/18 16:33 IMPRESSION: Right-sided dialysis catheter with tip projecting over the atriocaval junction. Left basilar fibrosis or atelectasis and small left basilar effusion, representing new interval findings. Electronically Signed: Kelvin Dubose MD at 17:06 EDT , Service support , Chest CTA 12/25/18 18:54 IMPRESSION: Limited exam for pulmonary embolus secondary to a diffuse pulmonary bolus and motion artifact. However, nevertheless positive for at least one moderate size embolus in a large segmental artery of the right upper lobe. Additional emboli may certainly be present in the peripheral arteries particularly the lower lobes where motion artifact also degrades imaging. Moderate size dependent left pleural effusion with multifocal areas of platelike atelectasis as well as generalized atelectatic changes of the left lower lobe. Minimal anterior basilar atelectasis of the right lung without pleural effusion. Stigmata of old granulomatous disease. Cirrhosis, ascites and splenomegaly. Electronically Signed: Maral David MD at 19:51 EDT , Service support , ADDENDUM: 12/25/182009 IMPRESSION: Limited exam for pulmonary embolus secondary to a diffuse pulmonary bolus and motion artifact. However, nevertheless positive for at least one moderate size embolus in a large segmental artery of the right upper lobe. Additional emboli may certainly be present in the peripheral arteries particularly the lower lobes where motion artifact also degrades imaging. Moderate size dependent left pleural effusion with multifocal areas of platelike atelectasis as well as generalized atelectatic changes of the left lower lobe. Minimal anterior basilar atelectasis of the right lung without pleural effusion. Stigmata of old granulomatous disease. Cirrhosis, ascites and splenomegaly. N.B. : The above information has been verbally conveyed by Maral David MD to Dr. Henrry Huang MD, on 12/25/2018 20:03:47 (ET). Electronically Signed: Maral David MD at 19:51 EDT , Service support , general surgery- Dr Marques Operations: None Procedures: None Summary of Care Provided: The patient is a 43 year old M with a past medical history as listed. He was admitted through the ED on 12/25/2018 with a complaint of shortness of breath and discomfort around his dialysis catheter site in his chest. Patient had recently been admitted at [facility] due to encephalopathy and was found to have ALEKSEY requiring temporary dialysis catheter placement. He was subsequently [facility] but he states that dialysis catheter was left in place. He came in with a complaint of shortness of breath and was found to have elevated lactic acid. Troponin was normal. CT angiogram done showed at least one moderate-sized embolus in the large segmental artery of the right upper lobe and additional possible emboli in the peripheral arteries especially lower lobes. He was admitted and managed for pulmonary embolism. Duplex of the lower extremities was not done as it would not change the management. Was also thought that the dialysis catheter in the chest was a thrombogenic source of his abdomen therefore several weeks. General surgery was consulted for catheter removal as patient said he was told he did not require any dialysis anymore and his creatinine was actually normal during this admission. General surgery decided to remove the catheter on outpatient basis and for patient follow-up upon discharge. Patient was started on p.o. Eliquis. He had a 2D echo which showed normal left ventricular size with EF of 65% and indeterminate diastolic dysfunction and no regional wall motion abnormalities noted. Pulmonary artery systolic pressure was 60 mmHg, with mild to moderate global right ventricular systolic dysfunction and enlarged left atrium. Patient was counseled that this is secondary pulmonary hypertension was likely due to the PE and should improve once the clot had dissolved. He remained stable and was discharged home on 12/27/2018. He is to follow-up with his primary care doctor within 1 week. Of note, patient did not have a primary care doctor so was referred to Dr. Ela moses of the [facility] internal medicine to establish PCP relationship. He is also to follow-up with Dr. Marques of general surgery on 12/28/2018 to arrange removal of catheter. Must be noted that hospitalist discussed with general surgeon about removal of catheter was patient was on anticoagulation and general surgery stated that it would not be a problem. Patient seen and examined prior to discharge. He has no complaints and felt well, ready to go home. Review of systems was otherwise negative. Labs and vitals reviewed. Home medications reviewed and reconciled. o/e: Vital Signs Height 5 ft 10 in Weight: 252 lb 3.341 oz Weight in Pounds 252.2 lbs Pulse Ox 90 Temperature 97.9 F Pulse Rate 70 Respiratory Rate 12 Blood Pressure 127/61 Blood Pressure Position Semi-Fowlers [] General: Alert, Oriented x3, Cooperative, No apparent distress HEENT: Atraumatic, PERRLA, EOMI, Normocephalic Oral: Moist Mucosa Neck: Supple, No JVD, Negative Carotid Bruits Lungs: - - decreased breath sounds bibasally, no wheezes or crackles. Cardiovascular: Regular rate, Regular Rhythm, Normal S1, Normal S2, No murmurs Abdomen: Bowel Sounds Present, Soft, Non Tender, - - mild distension of abdomen, with positive shifting dullness Extremities: No clubbing, No cyanosis, - - mild 2+ edema of LE bilaterally Skin: No rashes, No breakdown, - - multiple tattoos Musculoskeletal: No Tenderness to Palpation of Joints or Extremities, - - right sided dialysis catheter in place; no erythema or discharge noted. Neurological: Cranial nerves II-XII grossly intact, Neuro grossly intact, Motor Exam 5/5 strength throughout Psych/Mental Status: Normal Affect, Appropriate, Alert and oriented to time, place, person, mood and affect Patient counseled that he would need to be compliant with his anticoagulation and will need to be on medication for about 3 to 6 months. Patient Problems: Active and Suspected Problems Acute pulmonary embolism (Acute) Vascular catheter fitting or adjustment (Acute) - Physical Exam Vital Signs Temp Pulse Resp BP Pulse Ox 97.9 F 70 12 127/61 H 90 12/27/18 09:27 12/27/18 09:27 12/27/18 09:27 12/27/18 09:27 12/27/18 09:27 Oxygen Delivery Method Room Air Weight: 252 lb 3.341 oz Body Mass Index (BMI) 36.1 Finger Stick Blood Glucose 96 Intake and Output for Last 24 Hours 12/25/18 12/26/18 12/27/18 23:59 23:59 23:59 Intake Total 230 / 590 3073.33 / 3073.33 940 / 940 Balance 230 / 590 3073.33 / 3073.33 940 / 940 Discharge Diet: Low fat/ Low Cholesterol, - - low salt diet Discharge Activity: Return to Normal Activity Weight Bearing Status: Weight bearing as tolerated Call your doctor if you observe: Fever of 101 or Higher, Shortness of breath, Chest pain Home Medications: Medications to take at Discharge levETIRAcetam tablet [Keppra tablet] 1,000 mg PO Q12H #30 tablet 11/06/15 Carbidopa/Levodopa [Carbidopa-Levo 25-100 mg Odt] 1 ea PO DAILY 12/25/18 Cyclobenzaprine HCl 10 mg PO TID PRN 12/25/18 Flexeril 12/25/18 Ibuprofen 800 mg PO Q6H PRN 12/25/18 Levothyroxine [Synthroid] 100 mcg PO DAILY 12/25/18 Omeprazole 20 mg PO DAILY 12/25/18 Pantoprazole Sodium 40 mg PO DAILY 12/25/18 Potassium Chloride 10 meq PO DAILY 12/25/18 Propranolol HCl 40 mg PO BID 12/25/18 Rifaximin [Xifaxan] 550 mg PO BID 12/25/18 Spironolactone [Aldactone] 25 mg PO BID 12/25/18 Tizanidine HCl 2 mg PO DAILY 12/25/18 Triamcinolone 0.1% Cream [Kenalog] 1 applic TOPICAL BID 12/25/18 Xanax 12/25/18 Apixaban [Eliquis] 10 mg PO UD #60 tab 12/27/18 Following Prescrptions Were Given to Patient: Apixaban [Eliquis] 10 mg PO UD #60 tab Transmission Status: Received by [facility] Primary Care Physician: Care Physician,No Primary [Primary Care Provider] - Please follow up with your Primary Care Physician in: Refer to Dr Kincaid to set up PCP appointment in 1-2 weeks- [phone] Please Follow Up With: Wilder Marques MD When: on Friday12/28/18 to arrange removal of dialysis catheter Patient Instructions: Pulmonary Embolism Disposition: Home Minutes spent on discharge:: 45 Patient Condition:: Stable Medical Necessity - Tobacco Use Smoking Status: Current every day smoker Tobacco Use: Cigarettes Meaningful Use Info Meaningful Use Diagnoses (Choose all that apply): None applicable Code Visit Inpatient E&M: 82582 Disch Hosp
--- NOTE | 2018-12-28 15:23 | CASEMGMT ---
SHARMILA CM DC PHONE CALL DC DATE: 12/27/18 DC Disposition: Home Diagnosis on Discharge: PE LACE/STRATA: 01/14 Attempted call to phone, No answer and no message machine with name identifier. Florencio ALMARAZN RN ACM
--- NOTE | 2018-12-30 11:58 | CASEMGMT ---
Prior authorization form received from [employer] regarding pt's prescription for Xifaxan. Call placed to [employer] who confirms that pt did not receive this medication due to the need for prior authorization. No previous prescriptions noted for this medication by another provider. (This medication was listed on pt's home medication list prior to admission.) Call placed to pt. 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 Reviewed reason for this medication which pt understands it is to keep his ammonia level down. Pt states that he does have his ammonia level checked and states it has been good. Pt unable to state the last time it was checked and states Dr. Juarez was the ordering physician for these.(Last ammonia level in [facility] was in 2017. Pt may have had others obtained at [facility].) This RN CM asked pt if he currently has a primary care physician and pt states he does not. Pt states he follow-up with Dr. Mcfadden after Dr. Juarez retired but states he did not like this physician. Noted DC instructions included a referral to Dr. Kincaid which pt was amenable to trying. He has not called to schedule a follow-up appointment as instructed. Phone number to Dr. Kincaid's office provided to pt. Discussed transportation and pt states he does have people who can assist him but he doesn't like to inconvenience them. Provided pt with the phone number for the [facility] transportation service. Reinforced the need for the pt to follow-up with a PCP to maintain his prescriptions and to monitor his ammonia level. This RN CM placed a call to Dr. Kincaid's office to inform them of the anticipated call and need for Xifaxan authorization and monitoring, return call pending. Discussed follow-up with Dr. Marques regarding the removal of his hemodialysis catheter. Pt, with the assistance of his mother, was able to state that he has an appointment for this on 01/14/19. This RN CM placed a call to Dr. Marques's office and confirmed pt does have an appointment with Dr. Marques on 01/14/19 at 1315. Will continue to follow for coordination of post-acute care.
--- NOTE | 2018-12-30 12:59 | CASEMGMT ---
Return call received from Mayelin at Dr. Kincaid's office. Referral for PCP follow-up discussed including pt's past medical hx, Xifaxan preauthorization, ammonia monitoring, and planned HD cath removal. Mayelin states pt does have an appointment scheduled for January [address] Kincaid. Jamar Arredondo RN
== END 2018-12-27 16:29 | disposition home or self-care (01) | DRG 134 ==
LOC: ED 17:21 → PCU 20:27
PROVIDERS: Admitting Provider Family Medicine; Emergency Provider Emergency Medicine; Referring Provider Family Medicine; Visit Provider Student in an Organized Health Care Education/Training Program
DX: I26.99 Other pulmonary embolism without acute cor pulmonale (principal); E03.9 Hypothyroidism, unspecified; K70.31 Alcoholic cirrhosis of liver with ascites; G40.909 Epilepsy, unspecified, not intractable, without status epilepticus; E66.01 Morbid (severe) obesity due to excess calories; F14.10 Cocaine abuse, uncomplicated; F11.10 Opioid abuse, uncomplicated; I10 Essential (primary) hypertension; Z68.36 Body mass index [BMI] 36.0-36.9, adult; F17.210 Nicotine dependence, cigarettes, uncomplicated
CPT/HCPCS: 36415; 71045; 71275; 80048; 80053; 80307; 83605; 83735; 83880; 84100; 84484; 85025; 85379; 85610; 85730; 93005; 93306; 97162; 97166; 97802; 99284; 99406; J7030; Q9957; Q9967; A4216

== ENCOUNTER 2019-07-30 23:10 | Emergency (ER) | payer MEDICAID, SELFPAY ==
[2019-01-14 13:08] VITALS: BMI 36.1
[2019-07-30 23:10] VITALS: BP 163/85; PULSE 96; RESP 18; TEMP 36.3; O2SAT 95; BMI 39.5
--- NOTE | 2019-07-30 23:40 | EKG12_ITS ---
Test Reason : ABDOMINAL PAIN Blood Pressure : / mmHG Vent. Rate : 092 BPM Atrial Rate : 092 BPM P-R Int : 168 ms QRS Dur : 106 ms QT Int : 388 ms P-R-T Axes : 067 105 045 degrees QTc Int : 479 ms Normal sinus rhythm Rightward axis Borderline ECG Confirmed by TAYLOR CHAIREZ, ROBBIN ([id number]), manuscript editor ELIZABETH JACQUES ([id number]) on 08/03/2019 9:01:02 AM Referred By: LILI THOMPSON Confirmed By:ROBBIN VAZQUEZ MD
[2019-07-30] MEDS: Morphine 4 MG/ML Syringe IV (23:48)
[2019-07-30] MEDS: 0.9% Normal Saline 1,000 ML 1000 ML IV (23:48)
[2019-07-30] MEDS: Metoclopramide 10 MG/2 ML Vial IV (23:49)
[2019-07-31 00:02] LABS: Absolute Lymphocyte Count 1.78 X10^3/uL (0.83-4.51); Absolute Neutrophil Count 3.5 X10^3/uL (2.0-7.7); Basophil# 0.05 X10^3/uL; Basophil% 0.8 % (0-1); Eosinophil# 0.34 X10^3/uL; Eosinophils% 5.6 % (0-5); Hematocrit 42.9 % (40-54); Hemoglobin 14.2 g/dL (13.0-16.5); Lymphocyte # 1.78 X10^3/ul (4.0); Lymphocyte % 29.1 % (19-41); Mean Corp Hgb Conc 33.1 g/dL (32-36); Mean Corpuscular Hgb 30.9 pg (27.0-32.0); Mean Corpuscular Volume 93.5 fL (80-94); Mean Platelet Vol. 12.2 fl (6.2-12.0); Monocyte# 0.44 X10^3/uL; Monocyte% 7.2 % (0-10); NRBC Flagged by Analyzer 0 % (0-5); Neutrophil # 3.49 X10^3/uL (2.7-7.7); Neutrophil % 57.1 % (47-70); POSITIVE COUNT YES; Platelet Count 89 K/mm3 (150-450); RBC Distribution Width CV 14.6 % (11.6-14.6); RBC Distribution Width SD 49.9 fl (35.1-43.9); Red Blood Count 4.59 M/mm3 (4.6-6.2); White Blood Count 6.1 K/mm3 (4.4-11.0)
[2019-07-31 00:04] LABS: Differential Indicated SCAN CRITERIA MET
--- NOTE | 2019-07-31 00:14 | ED.RN ---
PT PULLED IV OUT OF HAND AND WALKED OUT OF ER STATING I AM FINE, I DONT NEED TO BE SEEN. IF ANYTHING GETS WORSE I WILL CALL THE [facility].
[2019-07-31 00:17] LABS: ALB/GLOB Ratio 0.7 RATIO (0.9-2.4); AST(SGOT) 100 U/L (15-37); Alanine Aminotransfer ALT/SGPT 46 U/L (16-61); Albumin, Serum 2.8 g/dL (3.2-5.0); Alkaline Phosphatase 88 U/L (45-117); Anion Gap 6 (5-15); BUN 21 mg/dL (7-18); BUN/Creat Ratio 17.8 RATIO (10-20); Calcium,Total 8.7 mg/dL (8.5-10.1); Chloride 117 mmol/L (98-107); Creatinine, Serum 1.18 mg/dL (0.70-1.30); EST Glomerular Filtration Rate 71 mL/min (>60); Est Glom Filt Rate - Afr Amer 86 mL/min (>60); Estimated Creatinine Clearance 81.63 ml/min; Glucose 96 mg/dL (74-106); Lipase 658 U/L (73-393); Potassium 4.9 mmol/L (3.5-5.1); Protein, Total 6.8 g/dL (6.4-8.2); Sodium Level 148 mmol/L (136-145)
[2019-07-31 00:24] LABS: Differential Comment SCANNED
--- NOTE | 2019-07-31 00:25 | ED.DCSUM_ITS ---
History of Present Illness Chief Complaint: Abd Pain Informant: Patient Narrative: Patient presenting with multiple symptoms. He states he came to the ER because he vomited lots of blood 3 or 4 times this evening. For the past 3 days he states he has been having diffuse chest and abdominal pain along with a sudden onset headache that started at the same time that is also diffuse. He has never had a headache like this. He states he has been chronically dyspneic and coughing up small amount of blood for 6 months or more. He states recently when he wipes after a bowel movement, he sees some small amount of bright red blood. He has had no major amounts of rectal bleeding or melena. He states he has not felt the need to urinate in 3 days. He also has had no bowel movements in the past 3 days. He does not feel the need to urinate now. He states the abdominal and chest pain radiate into his mid back. He has had no lapses in consciousness. He does have some mild photophobia and nausea with occasional blurry vision globally associated with his headache, no diplopia or peripheral neurologic symptoms in his arms/legs. He has had edema in his legs, he has no idea how long it is been there. I saw this patient back in 2016 and diagnosed him with cirrhosis of the liver based on imaging and portal venous hypertension findings. He states he followed up and had a biopsy of his liver somewhere in [place], he states as a result he was told that his cirrhosis healed. He also was seen in this ER and diagnosed with pulmonary embolus, placed on Eliquis. I asked him about that. He states that he was subsequently imprisoned and they refused to give me my blood thinner. When he got out of group home, he never followed up and so basically has been off of it for a year or 2. - Past Medical History (1) Acute pulmonary embolism Status: Suspected (2) Alcoholic cirrhosis of liver Status: Chronic (3) Cocaine abuse Status: Chronic (4) HTN (hypertension) Status: Chronic (5) Heroin abuse Status: Chronic (6) Hypothyroidism Status: Chronic (7) Polysubstance abuse Status: Chronic (8) Acute kidney injury Status: Resolved (9) Patient requiring acute dialysis Status: Resolved Past Medical History - Allergies and Home Meds Allergies/Adverse Reactions: Allergies No Known Allergies Allergy (Verified 07/30/19 23:16) Primary Care Physician: Care Physician,No Primary [Primary Care Provider] - Surgical History: cholecystectomy, herniorrhaphy Smoking Status: Current every day smoker - Family History Paternal Family History: Reports: Heart Disease Maternal Family History: Reports: - - Patient denies any market maternal family history including heart disease, diabetes, cancer. Review of Systems General: Reports: Malaise. Denies: Chills, Fever, Sweats Eyes: Reports: Blurred Vision - bilaterally. Denies: Diplopia ENT: Denies: Bilateral ear pain, Rhinorrhea, Sore throat Cardiovascular: Reports: Chest pain. Denies: Palpitations Respiratory: Reports: Dyspnea, Cough - w/ hemoptysis. Denies: Dyspnea on exertion Gastrointestinal: Reports: Abdominal pain, Nausea, Vomiting, Hematochezia. Denies: Diarrhea, Melena Genitourinary: Reports: - - decreased UOP. Denies: Dysuria, Hematuria, Frequency Musculoskeletal: Reports: Back pain, Swelling. Denies: Neck pain, Extremity Pain Skin: Denies: Rash, Wounds Neurological: Reports: Headache. Denies: Weakness, Numbness Physical Exam Vital Signs/Narrative: Vital Signs Temp Pulse Resp BP Pulse Ox 07/30/19 23:10 97.4 F L 96 18 163/85 H 95 Inital Vital Signs reviewed: Yes General: Well nourished, Well developed, No Acute Distress - conversive in full sentences, well-appearing Head: Normocephalic, Atraumatic Eyes: Perrl, EOMI, - - no objective photophobia. Negative for: Scleral icterus ENT: Moist mucous membranes, No rhinorrhea, TM's clear Neck: Supple, Nontender, No lymphadenopathy, No JVD Cardiovascular: Regular rate, Regular rhythm, No murmurs, Normal S1, Normal S2 Respiratory: No distress, CTA bilaterally, Chest nontender Abdomen: Soft, Nondistended, Normal bowel sounds, Tender - diffusely. Negative for: Guarding, Rebound tenderness, Pulsatile mass Back: Nontender, Normal Inspection. Negative for: CVA tenderness Extremities: Nontender, Edema - 2+ BLE to knees, symmetric Skin: Normal color, No rash, No Trauma Neurological: Alert, Oriented x3, Cranial nerves II-XII grossly intact, Normal Strength, Normal Sensation, Normal Gait Psychological: Normal affect, Normal Mood Diagnostic/Tx/Re-eval Laboratory Results 07/30/19 07/30/19 23:25 23:25 WBC 6.1 RBC 4.59 L Hgb 14.2 Hct 42.9 MCV 93.5 MCH 30.9 MCHC 33.1 RDW Std Deviation 49.9 H RDW Coeff of Raghu 14.6 Plt Count 89 L MPV 12.2 H Immature Gran % (Auto) 0.200 Neut % (Auto) 57.1 Lymph % (Auto) 29.1 Schleicher % (Auto) 7.2 Eos % (Auto) 5.6 H Baso % (Auto) 0.8 Absolute Neuts (auto) 3.5 Absolute Lymphs (auto) 1.78 Nucleated RBC % 0 Differential Comment SCANNED Sodium 148 H Potassium 4.9 Chloride 117 H Carbon Dioxide 25.0 Anion Gap 6 BUN 21 H Creatinine 1.18 Estim Creat Clear Calc 81.63 Est GFR (MDRD) Af Amer 86 Est GFR (MDRD) Non-Af 71 BUN/Creatinine Ratio 17.8 Glucose 96 Calcium 8.7 Total Bilirubin 1.30 H AST 100 H ALT 46 Alkaline Phosphatase 88 Troponin I < 0.015 Total Protein 6.8 Albumin 2.8 L Globulin 4.0 Albumin/Globulin Ratio 0.7 L Lipase 658 H - Rhythm Strip Rhythm Strip: Sinus Rhythm Rate: 92 Ectopy: None - EKG Initial EKG Interpretation: Sinus Rhythm, No Acute Injury Pattern - rightward axis; otherwise normal EKG - Medical Decision Making I have is concerned about this patient for multiple reasons. He could potentially have another untreated pulmonary embolus, he could have an intracranial emergency, bleeding esophageal varices or other cause of upper GI acute bleeding, perforated viscus, blood loss anemia, just to mention a few. A large work-up was ordered including CT of the head, CT angiography of the chest, and CT with IV contrast of the abdomen/pelvis. He was ordered morphine and Reglan for his symptoms. According to nursing, immediately after receiving the morphine he ripped out his IV and eloped and said I am getting out of here, EMS will bring me back if I get worse. This is suspicious for drug-seeking behavior. His labs, as above, returned well after he eloped. There certainly were some abnormalities, nothing that would necessarily require admission on their own. ED Disposition - Plan for ED Patient: Disposition: Home or Assisted Living Diagnosis: Drug-seeking behavior, Chest pain, unspecified, Diffuse abdominal pain, Hemoptysis, Hematemesis, Medical non-compliance, Acute headache Referrals: Care Physician,No Primary [Primary Care Provider] -
== END 2019-07-31 00:24 | disposition home or self-care (01) ==
LOC: ED 23:51
PROVIDERS: Emergency Provider Emergency Medicine
DX: R07.9 Chest pain, unspecified (principal); Z76.5 Malingerer [conscious simulation]; R10.84 Generalized abdominal pain; R04.2 Hemoptysis; K92.0 Hematemesis; Z91.14 Patient's other noncompliance with medication regimen; R51 Headache; K70.30 Alcoholic cirrhosis of liver without ascites; E03.9 Hypothyroidism, unspecified; F14.10 Cocaine abuse, uncomplicated; F11.10 Opioid abuse, uncomplicated; Z86.711 Personal history of pulmonary embolism; Z79.01 Long term (current) use of anticoagulants; F17.200 Nicotine dependence, unspecified, uncomplicated; Z79.899 Other long term (current) drug therapy
CPT/HCPCS: 80053; 83690; 84484; 85025; 93005; 96361; 96374; 96375; 99283; J7030; A4216

== ENCOUNTER 2019-08-09 17:20 | Emergency (ER) | payer MEDICAID, SELFPAY ==
[2019-08-09 17:21] VITALS: BP 137/88; PULSE 75; RESP 19; TEMP 36.6; O2SAT 95; BMI 38.8
--- NOTE | 2019-08-09 17:41 | ED.VIS.GEN ---
History of Present Illness Chief Complaint: Shortness of Breath Narrative: This patient is a 44-year-old male who presents with multiple complaints. He states he has been sick for about 4 days. He complains of subjective fever. He complains of headache abdominal pain and diffuse myalgias and arthralgias. He also complains of shortness of breath and productive cough. He is not anticoagulated but states that he did have bloody emesis with last episode of bloody emesis 2 days ago. He has vomited since that time but it is no longer been bloody. No diarrhea. He states he was recently admitted at [facility] [place] and discharged 2 days ago. At that time he was evaluated and diagnosed with hypothyroidism. Additionally he had an endoscopy and was told that he had varices. Per review of prior records from our facility he was previously diagnosed with liver cirrhosis. Of note he was here 10 days ago with multiple similar complaints and after administration of IV morphine pulled out his IV and left. The previous physician raised concern for possible drug-seeking behavior. Past Medical History - Allergies and Home Meds Allergies/Adverse Reactions: Allergies No Known Allergies Allergy (Verified 08/09/19 17:24) Primary Care Physician: Care Physician,No Primary [Primary Care Provider] - Past Medical History: - - Cirrhosis, gastric/esophageal varices, hypothyroidism Surgical History: cholecystectomy, herniorrhaphy Smoking Status: Current every day smoker - Family History Paternal Family History: Reports: Heart Disease Maternal Family History: Reports: - - Patient denies any market maternal family history including heart disease, diabetes, cancer. Review of Systems All systems negative except as indicated General: Denies: Fever Eyes: Denies: Visual changes - bilaterally ENT: Denies: Bilateral ear pain Respiratory: Reports: Dyspnea, Cough, Sputum Gastrointestinal: Reports: Abdominal pain, Nausea, Vomiting. Denies: Diarrhea Musculoskeletal: Reports: Myalgias, Arthralgias Skin: Denies: Rash Neurological: Reports: Headache Endocrine: Denies: Polyuria Hematologic: Denies: Easy bruising Allergy: Denies: Uticaria Physical Exam Vital Signs/Narrative: Vital Signs Temp Pulse Resp BP Pulse Ox 08/09/19 17:21 97.8 F 75 19 H 137/88 H 95 Inital Vital Signs reviewed: Yes General: Well nourished, Well developed Head: Normocephalic Eyes: EOMI ENT: Moist mucous membranes Neck: Supple Cardiovascular: Regular rate, Regular rhythm Respiratory: No distress, CTA bilaterally Abdomen: Soft, Tender - Diffuse, nonfocal. Negative for: Guarding, Rebound tenderness Extremities: Nontender Skin: Normal color Neurological: Alert Psychological: Normal affect Diagnostic/Tx/Re-eval Impressions Chest X-Ray 08/09/19 18:16 IMPRESSION: Left midlung and right basilar atelectasis. Electronically Signed: Everton Rosas MD at 18:35 EDT Tel , Service support , 08/09/19 18:16 Chest 1 View (Portable) [RAD] Stat Laboratory Results 08/09/19 08/09/19 08/09/19 18:10 18:10 18:10 WBC 5.5 RBC 4.82 Hgb 15.2 Hct 44.8 MCV 92.9 MCH 31.5 MCHC 33.9 RDW Std Deviation 51.8 H RDW Coeff of Raghu 15.4 H Plt Count 95 L MPV 11.7 Immature Gran % (Auto) 0.500 Neut % (Auto) 54.8 Lymph % (Auto) 30.3 Josephine % (Auto) 8.8 Eos % (Auto) 4.9 Baso % (Auto) 0.7 Absolute Neuts (auto) 3.0 Absolute Lymphs (auto) 1.66 Nucleated RBC % 0 Sodium 148 H Potassium 4.6 Chloride 118 H Carbon Dioxide 25.0 Anion Gap 5 BUN 15 Creatinine 1.21 Estim Creat Clear Calc 79.60 Est GFR (MDRD) Af Amer 83 Est GFR (MDRD) Non-Af 69 BUN/Creatinine Ratio 12.4 Glucose 127 H Calcium 8.6 Total Bilirubin 1.70 H AST 75 H ALT 40 Alkaline Phosphatase 100 Total Protein 6.6 Albumin 2.5 L Globulin 4.1 Albumin/Globulin Ratio 0.6 L Lipase 144 Urine Color Straw Urine Clarity Clear Urine pH 8.0 Ur Specific [place] 1.015 Urine Protein 30 H Urine Glucose (UA) Normal Urine Ketones Negative Urine Occult Blood 10 H Urine Nitrite Negative Urine Bilirubin Negative Urine Urobilinogen Normal Ur Leukocyte Esterase Negative Urine RBC 0 SEEN Urine WBC 0 SEEN Ur Squamous Epith Cells 0 SEEN Urine Bacteria 0 SEEN Urine Mucus 0 SEEN - Medical Decision Making Patient was given IV Toradol for pain as well as IV Zofran. Patient underwent the above work-up. Chest x-ray shows atelectasis, no focal infiltrate. Labs are notable for mild elevation of bilirubin and AST similar to prior. Patient does not have any acute findings on his work-up today. Given that he was recently hospitalized for this I do not see an indication for rehospitalization. Patient reports that he was referred to gastroenterology but not to a primary care physician, however Dr. Brewer is listed as a follow-up on the discharge paperwork he brought with him. He also denied ever having been prescribed pain medications however Percocet is listed as a new prescription on his discharge paperwork and [place] report shows this was filled 08/05. Patient states that it must of been his mother who picked up the prescription. Again this behavior is concerning for possible drug-seeking behavior. At this point I see no indications for hospitalization. Patient will be discharged to follow-up as an outpatient. ED Disposition - Plan for ED Patient: Disposition: Home or Assisted Living Diagnosis: Cirrhosis, Abdominal pain, Bronchitis, Headache Instructions: ED Cirrhosis, Acute Bronchitis Referrals: Care Physician,No Primary [Primary Care Provider] -
[2019-08-09] MEDS: Ondansetron 4 MG/2 ML Vial IV (18:15)
[2019-08-09] MEDS: 0.9% Normal Saline 1,000 ML 1000 ML IV (18:15)
[2019-08-09] MEDS: Ketorolac 30 MG/ML Syringe IV (18:15)
--- NOTE | 2019-08-09 18:16 | RAD_ITS ---
STUDY: X-RAY CHEST REASON FOR EXAM: Male, 44 years old. abdominal pain headache with sob and fever TECHNIQUE: Single frontal view of the chest. COMPARISON: 12/25/2018 FINDINGS: Calcified pulmonary granulomata. Left midlung and right basilar atelectasis. There is no demonstrated pleural abnormality. Normal size heart. Normal mediastinum and tony. Normal visualized pulmonary arteries. Normal visualized aortic arch and descending thoracic aorta. Normal visualized thoracic spine. Normal visualized ribs, clavicles, and shoulders. There is no demonstrated abnormality of the visualized soft tissue structures of the upper abdomen. RAD/Chest 1 View (Portable) IMPRESSION: Left midlung and right basilar atelectasis. Electronically Signed: Everton Rosas MD at 18:35 EDT Tel , Service support ,
[2019-08-09 18:17] LABS: Bacteria 0 SEEN /hpf (None Seen); Mucous, Urine 0 SEEN /hpf (<or=2+); Red Blood Cells-Urine 0 SEEN /hpf (0-5); Squamous Epithelial Cells - UA 0 SEEN /hpf (0-5); White Blood Cells 0 SEEN /hpf (0-5)
[2019-08-09 18:19] LABS: Color, Urine Straw (Yellow); Glucose, Dipstick Normal (Normal); Ketone-Dipstick Negative (Negative); Leukocyte Esterase-Dipstick Negative /ul (Negative); Nitrite-Dipstick Negative (Negative); Occult Blood-Urine 10 /ul (Negative); Protein-Dipstick 30 mg/dl (Negative); Specific Gravity, Urine 1.015 (1.002-1.030); Urine Bilirubin Dipstick Negative (Negative); Urine Clarity Clear (Clear); Urine Urobilinogen Normal (Normal)
[2019-08-09 18:21] LABS: Absolute Lymphocyte Count 1.66 X10^3/uL (0.83-4.51); Basophil# 0.04 X10^3/uL; Basophil% 0.7 % (0-1); Eosinophil# 0.27 X10^3/uL; Eosinophils% 4.9 % (0-5); Hematocrit 44.8 % (40-54); Hemoglobin 15.2 g/dL (13.0-16.5); Lymphocyte # 1.66 X10^3/ul (4.0); Lymphocyte % 30.3 % (19-41); Mean Corp Hgb Conc 33.9 g/dL (32-36); Mean Corpuscular Hgb 31.5 pg (27.0-32.0); Mean Corpuscular Volume 92.9 fL (80-94); Mean Platelet Vol. 11.7 fl (6.2-12.0); Monocyte# 0.48 X10^3/uL; Monocyte% 8.8 % (0-10); NRBC Flagged by Analyzer 0 % (0-5); Neutrophil % 54.8 % (47-70); POSITIVE COUNT YES; Platelet Count 95 K/mm3 (150-450); RBC Distribution Width CV 15.4 % (11.6-14.6); RBC Distribution Width SD 51.8 fl (35.1-43.9); Red Blood Count 4.82 M/mm3 (4.6-6.2); White Blood Count 5.5 K/mm3 (4.4-11.0)
[2019-08-09 18:29] LABS: Differential Indicated SCAN CRITERIA MET
[2019-08-09 18:40] LABS: ALB/GLOB Ratio 0.6 RATIO (0.9-2.4); AST(SGOT) 75 U/L (15-37); Alanine Aminotransfer ALT/SGPT 40 U/L (16-61); Albumin, Serum 2.5 g/dL (3.2-5.0); Alkaline Phosphatase 100 U/L (45-117); Anion Gap 5 (5-15); BUN 15 mg/dL (7-18); BUN/Creat Ratio 12.4 RATIO (10-20); Calcium,Total 8.6 mg/dL (8.5-10.1); Chloride 118 mmol/L (98-107); Creatinine, Serum 1.21 mg/dL (0.70-1.30); EST Glomerular Filtration Rate 69 mL/min (>60); Est Glom Filt Rate - Afr Amer 83 mL/min (>60); Globulin 4.1 g/dL (2.2-4.2); Glucose 127 mg/dL (74-106); Lipase 144 U/L (73-393); Potassium 4.6 mmol/L (3.5-5.1); Protein, Total 6.6 g/dL (6.4-8.2); Sodium Level 148 mmol/L (136-145)
[2019-08-09 19:11] VITALS: BP 138/72; PULSE 68; RESP 15; O2SAT 97
[2019-08-09 19:24] LABS: Anisocytosis 1+; Differential Comment SCANNED; Platelet Estimate MOD DEC (ADEQ)
[2019-08-09 19:25] LABS: Atypical Lymphocyte RARE %; Reactive Lymphocyte RARE
== END 2019-08-09 19:12 | disposition home or self-care (01) ==
PROVIDERS: Emergency Provider Emergency Medicine
DX: K74.60 Unspecified cirrhosis of liver (principal); J40 Bronchitis, not specified as acute or chronic; R51 Headache; J98.11 Atelectasis; E03.9 Hypothyroidism, unspecified; Z79.899 Other long term (current) drug therapy; F17.200 Nicotine dependence, unspecified, uncomplicated
CPT/HCPCS: 71045; 80053; 81001; 83690; 85025; 96361; 96374; 96375; 99284; J7030; A4216; J2405

== ENCOUNTER 2019-08-25 00:22 | Emergency (ER) | payer MEDICAID, SELFPAY ==
[2019-08-25 00:23] VITALS: BP 141/84; PULSE 83; RESP 19; TEMP 36.4; O2SAT 94; BMI 41.0
[2019-08-25 00:30] VITALS: BP 133/74; PULSE 82; RESP 19; TEMP 36.4; O2SAT 94
--- NOTE | 2019-08-25 00:58 | EKG12_ITS ---
Test Reason : DYSRHYTHMIA Blood Pressure : / mmHG Vent. Rate : 079 BPM Atrial Rate : 079 BPM P-R Int : 182 ms QRS Dur : 104 ms QT Int : 384 ms P-R-T Axes : 011 102 038 degrees QTc Int : 440 ms Normal sinus rhythm Normal ECG Confirmed by ROYER WORRELL ([id number]), development editor ELIZABETH JACQUES ([id number] on 08/30/2019 1:50:07 PM Referred By: DAY Confirmed By:ROYER WORRELL
[2019-08-25 01:09] LABS: Absolute Lymphocyte Count 2.37 X10^3/uL (0.83-4.51); Absolute Neutrophil Count 4.6 X10^3/uL (2.0-7.7); Basophil# 0.09 X10^3/uL; Basophil% 1.1 % (0-1); Eosinophil# 0.38 X10^3/uL; Eosinophils% 4.7 % (0-5); Hematocrit 43.4 % (40-54); Hemoglobin 14.3 g/dL (13.0-16.5); Lymphocyte # 2.37 X10^3/ul (4.0); Lymphocyte % 29.1 % (19-41); Mean Corp Hgb Conc 32.9 g/dL (32-36); Mean Corpuscular Hgb 31.5 pg (27.0-32.0); Mean Corpuscular Volume 95.6 fL (80-94); Mean Platelet Vol. 11.8 fl (6.2-12.0); Monocyte# 0.59 X10^3/uL; Monocyte% 7.2 % (0-10); NRBC Flagged by Analyzer 0 % (0-5); Neutrophil # 4.64 X10^3/uL (2.7-7.7); Neutrophil % 56.9 % (47-70); Platelet Count 138 K/mm3 (150-450); RBC Distribution Width CV 16.9 % (11.6-14.6); RBC Distribution Width SD 57.4 fl (35.1-43.9); Red Blood Count 4.54 M/mm3 (4.6-6.2); White Blood Count 8.2 K/mm3 (4.4-11.0)
[2019-08-25] MEDS: Ketorolac 15 MG/ML Vial IV (01:11)
[2019-08-25] MEDS: 0.9% Normal Saline 1,000 ML 150 ML IV (01:11)
[2019-08-25] MEDS: Ondansetron 4 MG/2 ML Vial IV (01:11)
[2019-08-25 01:16] LABS: D-Dimer Quantitative (DVT/PE) 1.12 FEU/ug/m (0.27-0.49)
--- NOTE | 2019-08-25 01:19 | CT_ITS ---
STUDY: CT ABDOMEN AND PELVIS WITHOUT CONTRAST REASON FOR EXAM: Male, 44 years old. DIFFUSE ABDOMEN AND BACK PAIN X 3 DAYS,SOB,ETOH -- HX:HTN,HYPOTHYROID,CIRRHOSIS,SEIZURES,PE, -- POLYSUBSTANCE ABUSE RADIATION DOSAGE (If Supplied By Facility): CTDIvol = ( 25.06 ) mGy, DLP = ( 2539.06 ) mGycm TECHNIQUE: Transaxial images were obtained from the dome of the diaphragm to the symphysis pubis without oral contrast, and without intravenous contrast. Sagittal and coronal images were reconstructed. Individualized dose optimization techniques were used for this CT. COMPARISON: None. FINDINGS: Minimal posterior dependent atelectasis, remainder of the lung bases are clear. The visualized portions of the heart are within normal limits. There is a diffuse contour abnormality of the liver consistent with cirrhotic changes. Questionable severe contraction versus prior cholecystectomy. Mild thyromegaly, 3 measuring 16 cm. Normal pancreas. Splenic varices noted. Normal bilateral adrenal glands. Normal right kidney. Normal left kidney. Normal visualized stomach. Nonspecific borderline thickening of the wall to the small bowel which may be due to underlying cirrhosis, cannot exclude enteritis. Normal colon. The appendix is visualized and appears normal. Normal abdominal aorta. Normal inferior vena cava. Significant dilatation of the right gonadal vein up to 1.3 cm with right intra-abdominal varicosities Normal retroperitoneum. Incompletely distended urinary bladder with thickening of the wall, nonspecific given decompression. Normal abdominal wall. Normal osseous structures. 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 No signs of bowel obstruction. No acute appendicitis. Cannot exclude mild enteritis versus small bowel changes related to cirrhosis. Mild prostatomegaly with no evidence of ascites. Electronically Signed: Jessica Mast MD at 2:37 EDT , Service support ,
--- NOTE | 2019-08-25 01:19 | CT_ITS ---
STUDY: CTA CHEST REASON FOR EXAM: Male, 44 years old. DIFFUSE ABDOMEN AND BACK PAIN X 3 DAYS,SOB,ETOH -- HX:HTN,HYPOTHYROID,CIRRHOSIS,SEIZURES,PE, -- POLYSUBSTANCE ABUSE RADIATION DOSAGE (If Supplied By Facility): CTDIvol = ( 25.06 ) mGy, DLP = ( 2539.06 ) mGycm TECHNIQUE: The examination was performed with the intravenous administration of IV 100mL [id number]-[id number]. Post-processing of the angiographic images was performed, with multiplanar reformation and 3D reconstruction. Individualized dose optimization techniques were used for this CT. COMPARISON: None. FINDINGS: Normal enhancement of the main pulmonary artery and right and left pulmonary arteries. Normal enhancement of the bilateral peripheral pulmonary arteries. There is no demonstrated pulmonary embolism. Normal thoracic aorta and visualized great vessels. There is no demonstrated aortic dissection. Normal heart and pericardium. Normal mediastinum. Normal hilar regions. Normal visualized trachea and bronchi. The lungs are well expanded. Minimal bilateral posterior subpleural atelectasis otherwise normal pulmonary parenchyma. Normal pleura. Normal chest wall structures. There are degenerative changes of thoracic spine. Calcified granuloma within the spleen measuring 3.5 mm. Spleen not entirely included in the [id number] although there is suggestion of splenomegaly. Nodular margins of the liver suggestive of cirrhosis. Tortuous vessels along the splenic region suggestive of splenic varices. Status post cholecystectomy. CT/CTA Chest W/WO Contrast IMPRESSION: Negative CTA chest examination, without a demonstrated pulmonary embolism or arterial dissection. Minimal posterior dependent atelectasis otherwise no acute cardiac disease. Underlying cirrhosis with possible splenomegaly. Electronically Signed: Jessica Mast MD at 2:32 EDT , Service support ,
--- NOTE | 2019-08-25 01:21 | ED.DCSUM_ITS ---
- ER Visit Summary Date of Service: 08/25/19 Chief Complaint: Abdominal pain History of Present Illness: The patient is a 44 M with no primary care physician. He reports that he has abdominal pain again 3 days ago. Says sharp pain that began in the right upper quadrant is now diffuse. Is 10 of 10 in héctor rity. Stated there is no change with food or movement. Is relieved by sitting up. Patient reports that he was discharged from [facility] 1 week ago. He states he was admitted for leg swelling and abdominal pain. He reports that he had a CT from head to toe. He has an appointment to see a guest relation officer Dr. Brennan in 1 week. Patient denies fever. Reports he has a sore throat is 4-10 in severity. He is had a cough for the past week this productive yellow sputum without blood. He reports that he has severe shortness of breath at worst and mild currently. He denies any wheezing. He is not been using an inhaler. He reports that he is had nausea without vomiting. No diarrhea. He reports that he is having multiple loose stools per day. No blood in his stools or black tarry stools. He complains of a headache a 7 on 10 severity. He does have a history of similar headaches. Physical Examination: Vitals: Stable. Afebrile. General: Well-nourished and well-developed. Head: Normocephalic atraumatic. Neck: Supple, no lymphadenopathy. No JVD. Nontender. Cardiovascular: Regular rate and rhythm. No murmurs. Respiratory: No respiratory distress. Clear to auscultation bilaterally. Abdominal: Soft, mild diffuse tenderness palpation is the worst in the right upper quadrant, nondistended, normal bowel sounds. No guarding, rebound, or peritoneal signs. Back: Nontender. Extremities: Nontender, 3+ pitting edema of lower extremities bilaterally. Skin: Normal color, no rash. Neurologic: Alert and oriented ?3. Cranial nerves II through XII are intact. Normal strength and sensation. Psych: Normal affect. Test Results: EKG is sinus at [address] changes. Is unchanged from July 302019. CBC shows platelets of 138 and immature granulocytes of 1%. D-dimer is 1.12. Chem-7 shows a chloride 112, glucose 125, BUN of 19. LFTs show an albumin of 2.3, globulin 4.8, AST of 67. Lipase is 315. Ammonia level is 84. Alcohol is 314. 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 No signs of bowel obstruction. No acute appendicitis. Cannot exclude mild enteritis versus small bowel changes related to cirrhosis. Mild prostatomegaly with no evidence of ascites. Electronically Signed: Jessica Mast MD at 2:37 EDT , Service support , Chest CTA 08/25/19 01:19 IMPRESSION: Negative CTA chest examination, without a demonstrated pulmonary embolism or arterial dissection. Minimal posterior dependent atelectasis otherwise no acute cardiac disease. Underlying cirrhosis with possible splenomegaly. Electronically Signed: Jessica Mast MD at 2:32 EDT , Service support , Chest X-Ray 08/25/19 01:43 IMPRESSION: Mild bilateral atelectasis, otherwise no acute process identified. Electronically Signed: Jessica Mast MD at 2:22 EDT , Service support , Emergency Department Course and Treatment: Patient had an IV placed. He was given Toradol and Zofran IV. He is resting more comfortably. Patient reports that he was not discharged from [facility] with the lactulose. Treatment Plan: Patient is asking for transfer back to [facility] as he was recently there and saw a guest relation officer and GI doctor. Patient was discussed with the transfer line at [facility] is been accepted. Disposition: Transferred in stable condition. Impression: 1. Alcohol intoxication. 2. Elevated ammonia. 3. Cirrhosis with ascites. 4. Medical noncompliance. This note was generated with [employer] software. It may contain incorrect words, spelling, and punctuation that were not noted in review of the chart prior to signing ED Disposition - Plan for ED Patient: Referrals: Care Physician,No Primary [Primary Care Provider] -
[2019-08-25 01:26] LABS: ALB/GLOB Ratio 0.5 RATIO (0.9-2.4); AST(SGOT) 67 U/L (15-37); Alanine Aminotransfer ALT/SGPT 43 U/L (16-61); Albumin, Serum 2.3 g/dL (3.2-5.0); Alkaline Phosphatase 98 U/L (45-117); Anion Gap 9 (5-15); BUN 19 mg/dL (7-18); BUN/Creat Ratio 14.8 RATIO (10-20); Calcium,Total 8.6 mg/dL (8.5-10.1); Chloride 112 mmol/L (98-107); Creatinine, Serum 1.28 mg/dL (0.70-1.30); EST Glomerular Filtration Rate 65 mL/min (>60); Est Glom Filt Rate - Afr Amer 78 mL/min (>60); Estimated Creatinine Clearance 75.25 ml/min; Globulin 4.8 g/dL (2.2-4.2); Glucose 125 mg/dL (74-106); Lipase 315 U/L (73-393); Potassium 4.1 mmol/L (3.5-5.1); Protein, Total 7.1 g/dL (6.4-8.2); Sodium Level 145 mmol/L (136-145)
[2019-08-25 01:33] VITALS: BP 135/80; PULSE 89; RESP 22; TEMP 36.6; O2SAT 95
--- NOTE | 2019-08-25 01:43 | RAD_ITS ---
STUDY: X-RAY CHEST REASON FOR EXAM: Male, 44 years old. SOB X5 DAYS -- ABD. PAIN X3 DAYS -- BACK PAIN TECHNIQUE: Single AP portable view of the chest. COMPARISON: 08/09/2019. FINDINGS: The lungs are slightly underexpanded with vascular crowding. There is mild right basilar and lingular atelectasis, stable. Small right-sided calcified granuloma, measuring 5 mm. There is no demonstrated pleural abnormality. Normal size heart. Normal mediastinum and tony. Normal visualized pulmonary arteries. Normal visualized aortic arch and descending thoracic aorta. Normal visualized thoracic spine. Normal visualized ribs, clavicles, and shoulders. There is no demonstrated abnormality of the visualized soft tissue structures of the upper abdomen. RAD/Chest 1 View (Portable) IMPRESSION: Mild bilateral atelectasis, otherwise no acute process identified. Electronically Signed: Jessica Mast MD at 2:22 EDT , Service support ,
[2019-08-25 02:36] VITALS: BP 111/68; PULSE 76; RESP 15; O2SAT 92
[2019-08-25 03:54] VITALS: BP 125/87; PULSE 74; RESP 22; O2SAT 91
== END 2019-08-25 03:00 | disposition short-term general hospital (02) ==
LOC: ED 01:55
PROVIDERS: Emergency Provider Emergency Medicine
DX: F10.129 Alcohol abuse with intoxication, unspecified (principal); Y90.9 Presence of alcohol in blood, level not specified; E72.20 Disorder of urea cycle metabolism, unspecified; K74.60 Unspecified cirrhosis of liver; R18.8 Other ascites; Z91.14 Patient's other noncompliance with medication regimen; Z86.711 Personal history of pulmonary embolism; Z79.899 Other long term (current) drug therapy; F17.200 Nicotine dependence, unspecified, uncomplicated
CPT/HCPCS: 71045; 71275; 74177; 80053; 80320; 82140; 83690; 84484; 85025; 85379; 93005; 96361; 96374; 96375; 99285; J7030; Q9967; A4216; G0480; J2405

== ENCOUNTER 2019-09-03 10:16 | Emergency (ER) | payer MEDICAID, SELFPAY ==
[2019-09-03] VITALS (10 sets, daily range): BP systolic 128–156; BP diastolic 80–99; PULSE 85–99; RESP 15–25; TEMP 36.6; O2SAT 94–100; BMI 39.6
--- NOTE | 2019-09-03 10:45 | EKG12_ITS ---
Test Reason : Blood Pressure : / mmHG Vent. Rate : 096 BPM Atrial Rate : 096 BPM P-R Int : 162 ms QRS Dur : 106 ms QT Int : 358 ms P-R-T Axes : 077 104 057 degrees QTc Int : 452 ms Normal sinus rhythm Normal ECG Confirmed by TAYLOR CHAIREZ, ROBBIN ([id number]), news editor ELIZABETH JACQUES ([id number]) on 09/07/2019 3:00:01 PM Referred By: HUSAM Confirmed By:ROBBIN VAZQUEZ MD
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
[2019-09-03 11:08] LABS: Amphetamine Urine VISTA NEGATIVE (<1000 ng/mL); Barbiturate Urine VISTA NEGATIVE (< 200 ng/mL); Benzodiazepine Urine VISTA NEGATIVE (< 200 ng/mL); Cocaine Urine VISTA NEGATIVE (< 300 ng/mL); Ecstacy Urine VISTA NEGATIVE (< 500 ng/mL); Methadone Urine VISTA NEGATIVE (< 300 ng/mL); PCP Urine VISTA NEGATIVE (< 25 ng/mL); THC Urine VISTA NEGATIVE (< 50 ng/mL); Vista UDS pH Range 6
[2019-09-03 11:19] LABS: Bacteria 0 SEEN /hpf (None Seen); Mucous, Urine 0 SEEN /hpf (<or=2+); White Blood Cells 0 SEEN /hpf (0-5)
[2019-09-03 11:20] LABS: Color, Urine Straw (Yellow); Glucose, Dipstick Normal (Normal); Ketone-Dipstick Negative (Negative); Leukocyte Esterase-Dipstick Negative /ul (Negative); Nitrite-Dipstick Negative (Negative); Occult Blood-Urine 10 /ul (Negative); Protein-Dipstick 100 mg/dl (Negative); Urine Bilirubin Dipstick Negative (Negative); Urine Clarity Clear (Clear); Urine Urobilinogen Normal (Normal); Urine pH 6.5 (5.0 - 8.0)
[2019-09-03 11:26] LABS: Red Blood Cells-Urine 0-5 SEEN /hpf (0-5); Squamous Epithelial Cells - UA 0-5 SEEN /hpf (0-5)
--- NOTE | 2019-09-03 11:40 | RAD_ITS ---
STUDY: X-RAY CHEST REASON FOR EXAM: Male, 44 years old. COUGH, SOB, SORE THROAT x1 WEEK TECHNIQUE: Single AP portable view of the chest. COMPARISON: 08/25/2019 FINDINGS: There is a calcified granuloma in the right lung base. Subsegmental atelectases are noted in the right and left lung bases. There is no demonstrated pleural abnormality. Normal size heart. Normal mediastinum and tony. Normal visualized pulmonary arteries. Normal visualized aortic arch and descending thoracic aorta. Normal visualized thoracic spine. Normal visualized ribs, clavicles, and shoulders. There is no demonstrated abnormality of the visualized soft tissue structures of the upper abdomen. RAD/Chest 1 View (Portable) IMPRESSION: No demonstrated acute cardiopulmonary process. Electronically Signed: Shantell Del Valle, at 13:19 EDT Tel , Service support ,
[2019-09-03 11:41] LABS: Absolute Neutrophil Count 2.9 X10^3/uL (2.0-7.7); Basophil# 0.02 X10^3/uL; Basophil% 0.4 % (0-1); Eosinophil# 0.11 X10^3/uL; Eosinophils% 2.2 % (0-5); Hematocrit 43.2 % (40-54); Hemoglobin 14.4 g/dL (13.0-16.5); Lymphocyte % 29.8 % (19-41); Mean Corp Hgb Conc 33.3 g/dL (32-36); Mean Corpuscular Hgb 31.6 pg (27.0-32.0); Mean Corpuscular Volume 94.7 fL (80-94); Mean Platelet Vol. 11.1 fl (6.2-12.0); Monocyte% 9.9 % (0-10); NRBC Flagged by Analyzer 0 % (0-5); Neutrophil # 2.88 X10^3/uL (2.7-7.7); Neutrophil % 57.3 % (47-70); Platelet Count 118 K/mm3 (150-450); Red Blood Count 4.56 M/mm3 (4.6-6.2)
[2019-09-03 11:46] LABS: International Normalized Ratio 1.1
[2019-09-03 11:55] LABS: ALB/GLOB Ratio 0.5 RATIO (0.9-2.4); AST(SGOT) 73 U/L (15-37); Alanine Aminotransfer ALT/SGPT 47 U/L (16-61); Albumin, Serum 2.6 g/dL (3.2-5.0); Alkaline Phosphatase 96 U/L (45-117); Anion Gap 5 (5-15); BUN 17 mg/dL (7-18); BUN/Creat Ratio 16.3 RATIO (10-20); Calcium,Total 8.5 mg/dL (8.5-10.1); Chloride 117 mmol/L (98-107); Creatinine, Serum 1.04 mg/dL (0.70-1.30); EST Glomerular Filtration Rate 82 mL/min (>60); Est Glom Filt Rate - Afr Amer 99 mL/min (>60); Estimated Creatinine Clearance 92.61 ml/min; Globulin 4.8 g/dL (2.2-4.2); Glucose 140 mg/dL (74-106); Potassium 3.8 mmol/L (3.5-5.1); Protein, Total 7.4 g/dL (6.4-8.2); Sodium Level 146 mmol/L (136-145)
[2019-09-03 12:03] LABS: Lactic Acid 1.5 mmol/L (0.4-1.9)
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
[2019-09-03] MEDS: Ketorolac 15 MG/ML Vial IV (12:18)
--- NOTE | 2019-09-03 13:33 | CM.ED ---
Social Work Patient noted to have a blood alcohol level of 303.3, patient will require an extended period of medical observation prior to being cleared for inpatient psychiatric placement. Majority of psychiatric facilities require a blood alcohol level less than 100 to be able to be accepted. Patient also continues to be pending further medical work-up. Medical team aware of above information. Will continue to follow as needed. Jamie Avila MSW, DARBY
--- NOTE | 2019-09-03 15:03 | ED.RN ---
PT ANGRY, DEPENDING GIVE ME THE PROPER PAPERWORK AND I WILL SIGN MYSELF OUT. EXPLAINED THAT HIS BLOOD ALCOHOL LEVEL IS TO HIGH, THAT HIS ALCOHOL LEVEL NEEDS TO COME DOWN BEFORE A PSYCHIATRIC HOSPITAL WILL SPEAK WITH SOCIAL WORK. AWARE.
[2019-09-03] MEDS: HYDROcodone Bitartrate/Apap 5/325 Tablet PO (15:23)
--- NOTE | 2019-09-03 17:47 | CM.ED ---
Social Work Telephone call to [facility], [facility]. They are able to review clinicals with current alcohol level of 232. Clinical information faxed. Pending review. Jamie SIMON, DARBY
--- NOTE | 2019-09-03 18:01 | CM.ED ---
Social Work Met with patient in room. Patient presenting with depressed and flat affected. Patient responding to questions and presenting as calm. Educated patient on plan to transition patient to inpatient psychiatric hospital, patient is agreeable to this plan. Patient stating to believe that patient would benefit from inpatient psychiatric placement. Patient voicing no further questions. Will continue to follow as needed. Jamie SIMON, DARBY
--- NOTE | 2019-09-03 18:04 | ED.RN ---
MOTHER, YULIANA [phone]. SPOKE WITH MOTHER EXPLAINED AT THIS TIME THAT I WAS NOT SURE WHERE HE WAS GOING AND HOW LONG HE WILL BE HERE.
--- NOTE | 2019-09-03 19:25 | CM.ED ---
Social Work Telephone call from [facility]. Per psychiatrist review, does not believe that patient is medically cleared at this time and are unable to accept patient. Telephone call to [facility], patient blood alcohol level is too high for acceptance. Updated Dr. Fulton and medical team. Patient blood alcohol level is currently too high for patient to be cleared for transfer per psychiatric facilities guidelines. Will continue to follow as needed. Jamie Avila MSW, DARBY
--- NOTE | 2019-09-03 19:27 | CM.ED ---
Social Work Met with patient in room to update on current status/plan. Patient voicing understanding but wanting to discharge to home. Educated patient on concern of patient returning to home due to suicidal thoughts. Patient stating I don't want to kill myself, I just want to go home. Patient is unable to confirm how patient will be safe at home as patient lives with patient mother and patient mother works outside of the home. Patient confirming to have been depressed lately. Patient stating reason for living is multiple past accomplishments. Patient stating that main reason for living is living for self. Voicing concern for patient safety as patient is making risky choices through consumption of alcohol that puts patient at risk for suicide completion along with current depression. Patient admitting to need help. Patient calmly resting in bed. Collaborating further with Dr. Fulton, plan continues to be for inpatient psychiatric placement once patient is medically cleared. Will continue to follow as needed. Jamie Avila MSW, DARBY
[2019-09-03] MEDS: Dicyclomine 10 MG Capsule 20 MG PO (20:26)
--- NOTE | 2019-09-03 23:45 | NURSING ---
TALKED TO TAWNYA AT CRISIS AT [phone]
[2019-09-04 02:15] VITALS: BP 137/79; PULSE 77; RESP 18; TEMP 36.8; O2SAT 93
[2019-09-04] MEDS: Ketorolac 15 MG/ML Vial IV (02:49)
--- NOTE | 2019-09-04 05:26 | NURSING ---
ACCEPTED TO [facility]
--- NOTE | 2019-09-04 05:27 | NURSING ---
CALLED [facility] AND WAS INFORMED BY THEIR TRAVEL AGENT LASHAWN THEY DID NOT SEE THEY HAD A CONTRACT WITH [facility] AND HAD NO AVAILABILITY AND WOULD NOT CALL ANY OTHER [facility] FOR [facility]. CALLED [facility] AND SET UP A 7:30AM DIRECTOR OF ADVERTISING SALES
[2019-09-04 06:10] VITALS: BP 142/95; PULSE 77; RESP 18; O2SAT 96
[2019-09-04 07:20] VITALS: BP 142/95; PULSE 77; RESP 15; TEMP 36.7; O2SAT 96
== END 2019-09-04 07:48 ==
PROVIDERS: Emergency Provider Emergency Medicine
DX: F32.9 Major depressive disorder, single episode, unspecified (principal); J06.9 Acute upper respiratory infection, unspecified; F10.129 Alcohol abuse with intoxication, unspecified; Y90.9 Presence of alcohol in blood, level not specified; K70.31 Alcoholic cirrhosis of liver with ascites; I10 Essential (primary) hypertension; E03.9 Hypothyroidism, unspecified; Z79.899 Other long term (current) drug therapy; F17.200 Nicotine dependence, unspecified, uncomplicated
CPT/HCPCS: 71045; 80053; 80307; 80320; 81001; 83605; 85025; 85610; 87635; 93005; 96374; 96375; 96376; 99285; A4216; G0480; U0004

== ENCOUNTER 2019-09-13 14:21 | Emergency (ER) | payer MEDICAID, SELFPAY ==
[2019-09-03 10:18] VITALS: BMI 39.6
[2019-09-13 14:23] VITALS: BP 137/87; PULSE 58; RESP 12; TEMP 36.3; O2SAT 95; BMI 35.3
--- NOTE | 2019-09-13 14:39 | ED.RN ---
called mother to get more information on patient. per mother, pt began acting abnormal as of this morning while on his video call with Dr. Mcfadden. Mother states pt repeats the same phrases over and over not bad, not good, not bad, not good.
--- NOTE | 2019-09-13 14:50 | CT_ITS ---
STUDY: CT BRAIN WITHOUT CONTRAST REASON FOR EXAM: Male, 44 years old. Altered mental status, elevated ammonia RADIATION DOSAGE (If Supplied By Facility): CTDIvol = ( 44.99 ) mGy, DLP = ( 863.60 ) mGycm TECHNIQUE: Transaxial CT imaging of the brain was performed without administration of intravenous contrast material. Individualized dose optimization techniques were used for this CT. COMPARISON: 2016 FINDINGS: Normal soft tissue structures. Normal calvarium. Normal size ventricles and extra-axial spaces for the patient''s age. There are areas of decreased attenuation within the white matter tracts of the supratentorial brain, consistent with microvascular disease changes. There are small punctate calcifications of the basal ganglia which are seen in the aging brain as a normal variant. Normal brainstem. Normal cerebellum. There is no intracranial hemorrhage. There are no findings of an acute ischemic infarction. Normal visualized paranasal sinuses. CT/Brain/Head without Contrast IMPRESSION: Chronic involutional changes of the brain. No acute hemorrhage or significant interval change Electronically Signed: éCsar Vinson MD at 16:41 EDT , Service support ,
--- NOTE | 2019-09-13 14:50 | EKG12_ITS ---
Test Reason : ALT LOC Blood Pressure : / mmHG Vent. Rate : 062 BPM Atrial Rate : 062 BPM P-R Int : 174 ms QRS Dur : 100 ms QT Int : 438 ms P-R-T Axes : 058 092 058 degrees QTc Int : 444 ms Normal sinus rhythm Rightward axis Borderline ECG Confirmed by ROLA CHAIREZ, BEAU ([id number]), television news video editor ELIZABETH JACQUES ([id number]) on 09/16/2019 10:34:47 AM Referred By: Confirmed By:BEAU CANELA MD
--- NOTE | 2019-09-13 14:59 | ED.VIS.GEN ---
History of Present Illness Chief Complaint: Alt LOC Informant: PCP Narrative: Patient presents to the emergency department via EMS with altered mental status. He has a history of alcoholic cirrhosis and PCP wonders if his ammonia levels are high. There was reports that he has had a couple episodes of vomiting in the past week with blood with it. He is prescribed lactulose is unknown if he has been taking it. He continues to drink notes unknown when his last drink was as he cannot tell me. Past Medical History - Allergies and Home Meds Allergies/Adverse Reactions: Allergies No Known Allergies Allergy (Verified 09/13/19 14:33) Primary Care Physician: Care Physician,No Primary [NON-STAFF] - Surgical History: cholecystectomy, herniorrhaphy Smoking Status: Current every day smoker - Family History Paternal Family History: Reports: Heart Disease Maternal Family History: Reports: - - Patient denies any market maternal family history including heart disease, diabetes, cancer. Review of Systems ROS: Unable to Obtain Physical Exam Vital Signs/Narrative: Vital Signs Temp Pulse Resp BP Pulse Ox 09/13/19 14:23 97.3 F L 58 L 12 137/87 H 95 Inital Vital Signs reviewed: Yes General: Well nourished, Well developed, No Acute Distress Head: Normocephalic, Atraumatic Eyes: EOMI, - - Pupils are 7 mm bilaterally ENT: Moist mucous membranes, No rhinorrhea Neck: Supple, Nontender Cardiovascular: Regular rate, Regular rhythm, No murmurs Respiratory: No distress, CTA bilaterally, Chest nontender Abdomen: Soft, Nontender, Nondistended, Normal bowel sounds Back: Nontender, Normal Inspection Extremities: Nontender, No edema Skin: Normal color, No rash Neurological: Cranial nerves II-XII grossly intact, Normal Strength, Normal Sensation, Lethargic Diagnostic/Tx/Re-eval Laboratory Last Values WBC 5.3 K/mm3 (4.4-11.0) 09/13/19 15:40 RBC 4.57 M/mm3 (4.6-6.2) L 09/13/19 15:40 Hgb 14.7 g/dL (13.0-16.5) 09/13/19 15:40 Hct 43.4 % (40-54) 09/13/19 15:40 MCV 95.0 fL (80-94) H 09/13/19 15:40 MCH 32.2 pg (27.0-32.0) H 09/13/19 15:40 MCHC 33.9 g/dL (32-36) 09/13/19 15:40 RDW Std Deviation 57.3 fl (35.1-43.9) H 09/13/19 15:40 RDW Coeff of Raghu 16.7 % (11.6-14.6) H 09/13/19 15:40 Plt Count 142 K/mm3 (150-450) L 09/13/19 15:40 MPV 11.6 fl (6.2-12.0) 09/13/19 15:40 Immature Gran % (Auto) 0.900 % (0.0-0.9) 09/13/19 15:40 Neut % (Auto) 69.7 % (47-70) 09/13/19 15:40 Lymph % (Auto) 14.0 % (19-41) L 09/13/19 15:40 [place] % (Auto) 9.5 % (0-10) 09/13/19 15:40 Eos % (Auto) 5.1 % (0-5) H 09/13/19 15:40 Baso % (Auto) 0.8 % (0-1) 09/13/19 15:40 Absolute Neuts (auto) 3.7 X10^3/uL (2.0-7.7) 09/13/19 15:40 Absolute Lymphs (auto) 0.74 X10^3/uL (0.83-4.51) L 09/13/19 15:40 Nucleated RBC % 0 % (0-5) 09/13/19 15:40 PT 14.3 SECONDS (11.7-14.9) 09/13/19 15:40 INR 1.2 09/13/19 15:40 APTT 38.2 Seconds (24.1-36.2) H 09/13/19 15:40 Sodium 139 mmol/L (136-145) 09/13/19 15:40 Potassium 5.1 mmol/L (3.5-5.1) 09/13/19 15:40 Chloride 107 mmol/L (98-107) 09/13/19 15:40 Carbon Dioxide 28.0 mmol/L (21.0-32.0) 09/13/19 15:40 Anion Gap 4 (5-15) L 09/13/19 15:40 BUN 24 mg/dL (7-18) H 09/13/19 15:40 Creatinine 1.38 mg/dL (0.70-1.30) H 09/13/19 15:40 Estim Creat Clear Calc 78.59 ml/min 09/13/19 15:40 Est GFR (MDRD) Af Amer 72 mL/min (>60) 09/13/19 15:40 Est GFR (MDRD) Non-Af 59 mL/min (>60) L 09/13/19 15:40 BUN/Creatinine Ratio 17.4 RATIO (10-20) 09/13/19 15:40 Glucose 177 mg/dL (74-106) H 09/13/19 15:40 Calcium 9.2 mg/dL (8.5-10.1) 09/13/19 15:40 Total Bilirubin 1.20 mg/dL (0.20-1.00) H 09/13/19 15:40 Direct Bilirubin 0.50 mg/dL (0.00-0.30) H 09/13/19 15:40 AST 36 U/L (15-37) 09/13/19 15:40 ALT 32 U/L (16-61) 09/13/19 15:40 Alkaline Phosphatase 95 U/L (45-117) 09/13/19 15:40 Ammonia 285.0 umol/L (11-32) H 09/13/19 15:41 Troponin I 0.018 ng/mL (<0.045) 09/13/19 15:40 Total Protein 7.5 g/dL (6.4-8.2) 09/13/19 15:40 Albumin 2.5 g/dL (3.2-5.0) L 09/13/19 15:40 Globulin 5.0 g/dL (2.2-4.2) H 09/13/19 15:40 Lipase 136 U/L (73-393) 09/13/19 15:40 Urine Color Yellow (Yellow) 09/13/19 16:33 Urine Clarity Clear (Clear) 09/13/19 16:33 Urine pH 8.0 (5.0 - 8.0) 09/13/19 16:33 Ur Specific [place] 1.010 (1.002-1.030) 09/13/19 16:33 Urine Protein 30 mg/dl (Negative) H 09/13/19 16:33 Urine Glucose (UA) Normal mg/dl (Normal) 09/13/19 16:33 Urine Ketones Negative mg/dl (Negative) 09/13/19 16:33 Urine Occult Blood Negative /ul (Negative) 09/13/19 16:33 Urine Nitrite Negative (Negative) 09/13/19 16:33 Urine Bilirubin Negative mg/dL (Negative) 09/13/19 16:33 Urine Urobilinogen 4 mg/dl (Normal) H 09/13/19 16:33 Ur Leukocyte Esterase Negative /ul (Negative) 09/13/19 16:33 Urine RBC 0 SEEN /hpf (0-5) 09/13/19 16:33 Urine WBC 0 SEEN /hpf (0-5) 09/13/19 16:33 Ur Squamous Epith Cells 0-5 SEEN /hpf (0-5) 09/13/19 16:33 Urine Bacteria 0 SEEN /hpf (None Seen) 09/13/19 16:33 Urine Mucus 0 SEEN /hpf (<or=2+) 09/13/19 16:33 Urine Opiates Screen NEGATIVE (< 300 ng/mL) 09/13/19 16:33 Urine Methadone Screen NEGATIVE (< 300 ng/mL) 09/13/19 16:33 Ur Barbiturates Screen NEGATIVE (< 200 ng/mL) 09/13/19 16:33 Ur Phencyclidine Scrn NEGATIVE (< 25 ng/mL) 09/13/19 16:33 Ur Amphetamines Screen NEGATIVE (<1000 ng/mL) 09/13/19 16:33 U Methamphetamin-MDMA NEGATIVE (< 500 ng/mL) 09/13/19 16:33 U Benzodiazepines Scrn NEGATIVE (< 200 ng/mL) 09/13/19 16:33 Urine Cocaine Screen NEGATIVE (< 300 ng/mL) 09/13/19 16:33 U Cannabinoids Screen NEGATIVE (< 50 ng/mL) 09/13/19 16:33 Ur Drug Screen Comment 09/13/19 16:33 Ethyl Alcohol < 3.0 mg/dL 09/13/19 15:40 - EKG Initial EKG Interpretation: Sinus Rhythm - NSR 62 without ectopy or concerning features of ACS - Medical Decision Making Patient's ammonia level is significantly elevated at 285. He received lactulose p.o. His hemoglobin is stable. There is no stool in the rectal vault to test. Though if he is having a upper GI bleed it is most likely mild given his normal vital signs and hemoglobin. Family is reportedly requesting transfer to [facility]. Did speak directly with his PCP.. ED Disposition - Plan for ED Patient: Disposition: Acute Care Hospital - Other Diagnosis: Alcoholic cirrhosis of liver, Hepatic encephalopathy Referrals: Care Physician,No Primary [NON-STAFF] -
--- NOTE | 2019-09-13 15:05 | RAD_ITS ---
STUDY: X-RAY CHEST REASON FOR EXAM: Male, 44 years old. Liver failure, patient unable to follow instructions TECHNIQUE: Single AP portable view of the chest. COMPARISON: Comparison is made with prior examination dated September 03, 2019. FINDINGS: EKG electrodes are seen. There is evidence of passive congestion. Mild increased markings at the lung bases suggestive of atelectasis. There is no demonstrated pleural abnormality. Normal size heart. Normal mediastinum and tony. Normal visualized pulmonary arteries. Normal visualized aortic arch and descending thoracic aorta. Normal visualized thoracic spine. Normal visualized ribs, clavicles, and shoulders. There is no demonstrated abnormality of the visualized soft tissue structures of the upper abdomen. RAD/Chest 1 View (Portable) IMPRESSION: Vascular congestion with mild increased markings at the lung bases possibly atelectasis. Electronically Signed: Des Gr, at 15:27 EDT , Service support ,
[2019-09-13 15:52] LABS: Absolute Lymphocyte Count 0.74 X10^3/uL (0.83-4.51); Absolute Neutrophil Count 3.7 X10^3/uL (2.0-7.7); Basophil# 0.04 X10^3/uL; Basophil% 0.8 % (0-1); Eosinophil# 0.27 X10^3/uL; Eosinophils% 5.1 % (0-5); Hematocrit 43.4 % (40-54); Hemoglobin 14.7 g/dL (13.0-16.5); Lymphocyte # 0.74 X10^3/ul (4.0); Mean Corp Hgb Conc 33.9 g/dL (32-36); Mean Corpuscular Hgb 32.2 pg (27.0-32.0); Mean Platelet Vol. 11.6 fl (6.2-12.0); Monocyte% 9.5 % (0-10); NRBC Flagged by Analyzer 0 % (0-5); Neutrophil # 3.68 X10^3/uL (2.7-7.7); Neutrophil % 69.7 % (47-70); Platelet Count 142 K/mm3 (150-450); RBC Distribution Width CV 16.7 % (11.6-14.6); RBC Distribution Width SD 57.3 fl (35.1-43.9); Red Blood Count 4.57 M/mm3 (4.6-6.2); White Blood Count 5.3 K/mm3 (4.4-11.0)
[2019-09-13] MEDS: 0.9% Normal Saline 1,000 ML 150 ML IV (15:55)
[2019-09-13 16:24] LABS: Alcohol, Blood (Medical)-Serum < 3.0 mg/dL
[2019-09-13 16:28] LABS: AST(SGOT) 36 U/L (15-37); Alanine Aminotransfer ALT/SGPT 32 U/L (16-61); Albumin, Serum 2.5 g/dL (3.2-5.0); Alkaline Phosphatase 95 U/L (45-117); Anion Gap 4 (5-15); BUN 24 mg/dL (7-18); BUN/Creat Ratio 17.4 RATIO (10-20); Calcium,Total 9.2 mg/dL (8.5-10.1); Chloride 107 mmol/L (98-107); Creatinine, Serum 1.38 mg/dL (0.70-1.30); EST Glomerular Filtration Rate 59 mL/min (>60); Est Glom Filt Rate - Afr Amer 72 mL/min (>60); Estimated Creatinine Clearance 78.59 ml/min; Glucose 177 mg/dL (74-106); Lipase 136 U/L (73-393); Potassium 5.1 mmol/L (3.5-5.1); Protein, Total 7.5 g/dL (6.4-8.2); Sodium Level 139 mmol/L (136-145)
[2019-09-13 16:39] VITALS: BP 126/75; PULSE 66; RESP 14; O2SAT 96
[2019-09-13 16:45] LABS: Bacteria 0 SEEN /hpf (None Seen); Mucous, Urine 0 SEEN /hpf (<or=2+); Red Blood Cells-Urine 0 SEEN /hpf (0-5); White Blood Cells 0 SEEN /hpf (0-5)
[2019-09-13 16:50] LABS: Color, Urine Yellow (Yellow); Glucose, Dipstick Normal (Normal); Ketone-Dipstick Negative (Negative); Leukocyte Esterase-Dipstick Negative /ul (Negative); Nitrite-Dipstick Negative (Negative); Occult Blood-Urine Negative /ul (Negative); Protein-Dipstick 30 mg/dl (Negative); Urine Bilirubin Dipstick Negative (Negative); Urine Clarity Clear (Clear); Urine Urobilinogen 4 mg/dl (Normal)
[2019-09-13 16:55] LABS: Squamous Epithelial Cells - UA 0-5 SEEN /hpf (0-5)
[2019-09-13 17:00] LABS: International Normalized Ratio 1.2; Prothrombin Time (Protime)PT. 14.3 SECONDS (11.7-14.9)
[2019-09-13 17:01] LABS: Partial Thromboplast Time 38.2 Seconds (24.1-36.2)
[2019-09-13] MEDS: Lactulose 20 GM/30 ML UDC PO (17:12)
[2019-09-13 17:37] LABS: Amphetamine Urine VISTA NEGATIVE (<1000 ng/mL); Barbiturate Urine VISTA NEGATIVE (< 200 ng/mL); Benzodiazepine Urine VISTA NEGATIVE (< 200 ng/mL); Cocaine Urine VISTA NEGATIVE (< 300 ng/mL); Ecstacy Urine VISTA NEGATIVE (< 500 ng/mL); Methadone Urine VISTA NEGATIVE (< 300 ng/mL); PCP Urine VISTA NEGATIVE (< 25 ng/mL); THC Urine VISTA NEGATIVE (< 50 ng/mL); Vista UDS pH Range 7
--- NOTE | 2019-09-13 18:02 | NURSING ---
1748 CALLED CC TRANSFER LINE, TALKED TO RALF TRIED TO FAX FACES[facility], DIDN'T GO THROUGH 1800 FAXED FACESHEET AGAIN
--- NOTE | 2019-09-13 18:03 | NURSING ---
REQUESTED RAD AND CT TO BE TRANSMITTED.
--- NOTE | 2019-09-13 18:15 | NURSING ---
DR GABI AVILA FOR DR TALAMANTES
[2019-09-13 19:09] VITALS: BP 131/84; PULSE 64; RESP 14; O2SAT 98
[2019-09-13 20:06] VITALS: PULSE 68; O2SAT 95
== END 2019-09-13 21:13 | disposition short-term general hospital (02) ==
PROVIDERS: Emergency Provider Emergency Medicine; PCP Family Medicine
DX: K70.30 Alcoholic cirrhosis of liver without ascites (principal); K72.90 Hepatic failure, unspecified without coma; Z79.899 Other long term (current) drug therapy; F17.200 Nicotine dependence, unspecified, uncomplicated
CPT/HCPCS: 70450; 71045; 80048; 80076; 80307; 80320; 81001; 82140; 83690; 84484; 85025; 85610; 85730; 93005; 96360; 96361; 99285; J7030; A4216; G0480

== ENCOUNTER 2019-10-01 11:20 | Emergency (ER) | payer MEDICAID, SELFPAY ==
--- NOTE | 2019-10-01 11:48 | ED.VISSUMM ---
- ER Visit Summary Date of Service: 10/01/19 Chief Complaint: Questing detox for alcohol and heroin abuse. History of Present Illness: The patient is a 44 M history of polysubstance abuse including alcoholism and heroin. Prior PE. History of depression. History of hypertension. Patient states he has been drinking heavily. And wants to get help. Says the last detox is only detox was around 10 years ago at [facility]. Denies any recent admissions. Denies any falls or trauma. Denies any other complaints. Physical Examination: Middle-aged male no acute distress vital signs stable afebrile. H EENT exam unremarkable. Neck nontender. Lungs clear to auscultation bilaterally. Heart regular rhythm no murmur. Abdomen soft nontender. Extremities moves all 4. Neurovascular intact. Multiple tattoos. Neurologically is awake and alert moving all 4 extremities. No signs of trauma to his head or face. Test Results: CBC shows white count of 6. Hemoglobin 13. Platelets 126. Chemistries unremarkable. Liver enzymes are slightly elevated consistent with his history of alcohol abuse. Tox screen negative. Alcohol is elevated at 454 consistent with acute intoxication. Emergency Department Course and Treatment: Patient requesting detox specifically at [facility] in [place]. Treatment Plan: Patient resting comfortably in the room at 1305 p.m. His mom is present in the room. They keep insisting he already has a bed at [facility]. I spoke to [facility] he does not have a bed nor have they even accepted him in transfer. Were going through that process at this time. Disposition: [] Impression: Requesting detox for alcoholism Acute alcohol intoxication. History of alcoholic liver disease. History of drug and alcohol abuse History of prior pulmonary emboli This note was generated with [employer] dictation software. It may contain incorrect words, spelling, and punctuation that were not noted in review of the chart prior to signing ED Disposition - Plan for ED Patient: Referrals: Pawan Mcfadden MD [Primary Care Provider] -
[2019-10-01 12:21] LABS: Absolute Lymphocyte Count 1.73 X10^3/uL (0.83-4.51); Absolute Neutrophil Count 3.4 X10^3/uL (2.0-7.7); Basophil# 0.05 X10^3/uL; Basophil% 0.8 % (0-1); Eosinophil# 0.31 X10^3/uL; Eosinophils% 5.1 % (0-5); Hematocrit 40.1 % (40-54); Hemoglobin 13.5 g/dL (13.0-16.5); Lymphocyte # 1.73 X10^3/ul (4.0); Lymphocyte % 28.7 % (19-41); Mean Corp Hgb Conc 33.7 g/dL (32-36); Mean Corpuscular Hgb 31.9 pg (27.0-32.0); Mean Corpuscular Volume 94.8 fL (80-94); Mean Platelet Vol. 11.3 fl (6.2-12.0); Monocyte# 0.47 X10^3/uL; Monocyte% 7.8 % (0-10); NRBC Flagged by Analyzer 0 % (0-5); Neutrophil # 3.44 X10^3/uL (2.7-7.7); Neutrophil % 57.3 % (47-70); Platelet Count 126 K/mm3 (150-450); RBC Distribution Width CV 15.9 % (11.6-14.6); RBC Distribution Width SD 55.2 fl (35.1-43.9); Red Blood Count 4.23 M/mm3 (4.6-6.2)
[2019-10-01 12:37] LABS: AST(SGOT) 107 U/L (15-37); Alanine Aminotransfer ALT/SGPT 70 U/L (16-61); Albumin, Serum 2.8 g/dL (3.2-5.0); Alkaline Phosphatase 123 U/L (45-117); Anion Gap 6 (5-15); BUN 18 mg/dL (7-18); BUN/Creat Ratio 14.1 RATIO (10-20); Bilirubin, Direct 0.79 mg/dL (0.00-0.30); Calcium,Total 8.2 mg/dL (8.5-10.1); Chloride 111 mmol/L (98-107); Creatinine, Serum 1.28 mg/dL (0.70-1.30); EST Glomerular Filtration Rate 65 mL/min (>60); Est Glom Filt Rate - Afr Amer 78 mL/min (>60); Globulin 4.8 g/dL (2.2-4.2); Glucose 101 mg/dL (74-106); Potassium 4.5 mmol/L (3.5-5.1); Protein, Total 7.6 g/dL (6.4-8.2); Sodium Level 139 mmol/L (136-145)
[2019-10-01 12:45] VITALS: BP 107/66; PULSE 62; RESP 18; O2SAT 90
[2019-10-01 12:47] VITALS: BP 103/66; PULSE 62; RESP 18; TEMP 37; O2SAT 88; BMI 35.9
[2019-10-01 12:47] LABS: Amphetamine Urine VISTA NEGATIVE (<1000 ng/mL); Barbiturate Urine VISTA NEGATIVE (< 200 ng/mL); Benzodiazepine Urine VISTA NEGATIVE (< 200 ng/mL); Cocaine Urine VISTA NEGATIVE (< 300 ng/mL); Ecstacy Urine VISTA NEGATIVE (< 500 ng/mL); Methadone Urine VISTA NEGATIVE (< 300 ng/mL); PCP Urine VISTA NEGATIVE (< 25 ng/mL); THC Urine VISTA NEGATIVE (< 50 ng/mL); Vista UDS pH Range 5
[2019-10-01 13:02] VITALS: BP 121/80; PULSE 84; RESP 18; O2SAT 97
--- NOTE | 2019-10-01 14:39 | ED.RN ---
180 sent pt here saying that pt had a bed at [facility] but had to go to [facility] to be evaluated. Pt angry about staying here and wants to go to [place]. Pt upset his mother and she refused to drive him to [place] and wants nothing to do with the pt. Aneudy called back and it was Laly and Dr Patiño. Dr Patiño stated that she talked to the dr at [facility] and that he would direct admit him and that they had beds. Call center was called again because they called back about pts insurance. Dr Patiño was made aware of this. She called the call center and talked to Zaheer. Laly called back and wanted us to call Bill again at the call center. I called and talked to Zaheer. Zaheer was given the information and chart was faxed to them. Now waiting on acceptance.
[2019-10-01 15:43] VITALS: BP 109/77; PULSE 66; RESP 16; O2SAT 95
[2019-10-01 19:47] VITALS: BP 104/72; PULSE 72; RESP 14; O2SAT 95
--- NOTE | 2019-10-01 20:06 | DCINST.ED_ITS ---
ED Disposition - Plan for ED Patient: Instructions: ED Alcohol Abuse Additional Instructions: Follow up at [facility] as planned.
[2019-10-01 20:15] VITALS: RESP 16
== END 2019-10-01 20:16 | disposition home or self-care (01) ==
LOC: ED 12:46
PROVIDERS: Emergency Medicine; Emergency Provider Emergency Medicine; PCP Family Medicine
DX: F10.229 Alcohol dependence with intoxication, unspecified (principal); F11.10 Opioid abuse, uncomplicated; F19.11 Other psychoactive substance abuse, in remission; F32.9 Major depressive disorder, single episode, unspecified; I10 Essential (primary) hypertension; K70.9 Alcoholic liver disease, unspecified; Z86.711 Personal history of pulmonary embolism
CPT/HCPCS: 80048; 80076; 80307; 80320; 85025; 87635; 99285; C9803; G2023; G0480; U0003

== ENCOUNTER 2019-10-11 16:55 | Inpatient (IN) | payer MEDICAID, SELFPAY ==
[2019-10-11 16:56] VITALS: BP 121/74; PULSE 73; RESP 18; TEMP 36.3; O2SAT 92; BMI 35.9
--- NOTE | 2019-10-11 18:27 | ED.DCSUM_ITS ---
History of Present Illness Chief Complaint: Fall Detail of Chief Complaint: Requesting detox Informant: Patient Narrative: Patient brought in by EMS after a fall at home. Initial report I was given was at the patient was using heroin and was too high and could not stand up and fell. Patient tells me that he tripped on his porch and fell. He states that he is here because of upper abdominal pain for the past 1 month with subjective fever and chills. He states pain does not change when he eats. He was eating [employer] when I entered the room. Patient does state that he would like help with detox from alcohol. He states his last drink was 2 hours ago. He is only had a couple cans of beer today. He states that a normal day he will drink a 12 pack of beer. He will occasionally drink vodka and red wine as well. He does report having seizures with withdrawal in the past. He does admit to using heroin with last use being last night. He states he typically uses daily. He will also occasionally smoke marijuana. - Past Medical History (1) History of depression Status: Chronic (2) Alcoholic cirrhosis of liver Status: Chronic (3) HTN (hypertension) Status: Chronic (4) Heroin abuse Status: Chronic (5) Hypothyroidism Status: Chronic (6) Polysubstance abuse Status: Chronic Past Medical History - Allergies and Home Meds Allergies/Adverse Reactions: Allergies No Known Allergies Allergy (Verified 10/11/19 16:58) Primary Care Physician: Pawan Mcfadden MD [Primary Care Provider] - Prior records reviewed: Yes Surgical History: cholecystectomy, herniorrhaphy Smoking Status: Current every day smoker - Family History Paternal Family History: Reports: Heart Disease Maternal Family History: Reports: - - Patient denies any market maternal family history including heart disease, diabetes, cancer. Review of Systems General: Reports: Chills, Fever, Subjective Eyes: Denies: Visual changes - bilaterally ENT: Denies: Bilateral ear pain Cardiovascular: Denies: Chest pain Respiratory: Denies: Dyspnea, Cough Gastrointestinal: Reports: Abdominal pain. Denies: Vomiting, Diarrhea Genitourinary: Denies: Dysuria Musculoskeletal: Denies: Swelling, Extremity Pain Skin: Denies: Rash Neurological: Denies: Headache Hematologic: Denies: Easy bruising, Easy bleeding Allergy: Denies: Uticaria Physical Exam Vital Signs/Narrative: Vital Signs Temp Pulse Resp BP Pulse Ox 10/11/19 16:56 97.4 F L 73 18 121/74 H 92 Inital Vital Signs reviewed: Yes General: Well nourished, Well developed Head: Normocephalic ENT: Moist mucous membranes Neck: Supple Cardiovascular: Regular rate, Regular rhythm Respiratory: No distress, CTA bilaterally Abdomen: Soft, Nontender, Hypoactive bowel sounds Extremities: Nontender Skin: Normal color Neurological: Alert, Oriented x3 Psychological: Normal affect Diagnostic/Tx/Re-eval Laboratory Results 10/11/19 10/11/19 10/11/19 18:55 18:55 18:55 WBC 4.8 RBC 4.40 L Hgb 14.1 Hct 42.2 MCV 95.9 H MCH 32.0 MCHC 33.4 RDW Std Deviation 55.9 H RDW Coeff of Raghu 15.9 H Plt Count 97 L MPV 11.2 Immature Gran % (Auto) 0.200 Neut % (Auto) 55.5 Lymph % (Auto) 28.9 [place] % (Auto) 10.3 H Eos % (Auto) 4.3 Baso % (Auto) 0.8 Absolute Neuts (auto) 2.7 Absolute Lymphs (auto) 1.40 Nucleated RBC % 0 Platelet Estimate MOD DEC RBC Morphology N CHROM Anisocytosis 1+ PT 15.0 H INR 1.2 Sodium 142 Potassium 3.5 Chloride 113 H Carbon Dioxide 24.0 Anion Gap 5 BUN 18 Creatinine 1.36 H Estim Creat Clear Calc 70.82 Est GFR (MDRD) Af Amer 73 Est GFR (MDRD) Non-Af 60 BUN/Creatinine Ratio 13.2 Glucose 103 Calcium 8.2 L Total Bilirubin 1.70 H AST 38 H ALT 31 Alkaline Phosphatase 88 Total Protein 7.5 Albumin 2.8 L Globulin 4.7 H Albumin/Globulin Ratio 0.6 L Lipase 150 Urine Opiates Screen Urine Methadone Screen Ur Barbiturates Screen Ur Phencyclidine Scrn Ur Amphetamines Screen U Methamphetamin-MDMA U Benzodiazepines Scrn Urine Cocaine Screen U Cannabinoids Screen Ur Drug Screen Comment Ethyl Alcohol 10/11/19 10/11/19 18:55 19:20 WBC RBC Hgb Hct MCV MCH MCHC RDW Std Deviation RDW Coeff of Raghu Plt Count MPV Immature Gran % (Auto) Neut % (Auto) Lymph % (Auto) [place] % (Auto) Eos % (Auto) Baso % (Auto) Absolute Neuts (auto) Absolute Lymphs (auto) Nucleated RBC % Platelet Estimate RBC Morphology Anisocytosis PT INR Sodium Potassium Chloride Carbon Dioxide Anion Gap BUN Creatinine Estim Creat Clear Calc Est GFR (MDRD) Af Amer Est GFR (MDRD) Non-Af BUN/Creatinine Ratio Glucose Calcium Total Bilirubin AST ALT Alkaline Phosphatase Total Protein Albumin Globulin Albumin/Globulin Ratio Lipase Urine Opiates Screen NEGATIVE Urine Methadone Screen NEGATIVE Ur Barbiturates Screen POSITIVE H Ur Phencyclidine Scrn NEGATIVE Ur Amphetamines Screen NEGATIVE U Methamphetamin-MDMA NEGATIVE U Benzodiazepines Scrn NEGATIVE Urine Cocaine Screen NEGATIVE U Cannabinoids Screen NEGATIVE Ur Drug Screen Comment Ethyl Alcohol 338.0 H* - Medical Decision Making Patient was shown the agreement that he would need to abide by if he comes in for detox. He agrees and signed the form. Blood work has returned and I will speak with hospitalist regarding admission. ED Disposition - Plan for ED Patient: Disposition: Acute Care Hospital [facility] Diagnosis: Desire for detoxification Referrals: Pawan Mcfadden MD [Primary Care Provider] -
--- NOTE | 2019-10-11 18:40 | ED.RN ---
Pt read and signed agreement for detox. verbalized understanding and asked about phones. I read that portion of the agreement aloud to him. He verbally agreed to this as well.
[2019-10-11 19:03] LABS: Absolute Neutrophil Count 2.7 X10^3/uL (2.0-7.7); Basophil# 0.04 X10^3/uL; Basophil% 0.8 % (0-1); Eosinophil# 0.21 X10^3/uL; Eosinophils% 4.3 % (0-5); Hematocrit 42.2 % (40-54); Hemoglobin 14.1 g/dL (13.0-16.5); Lymphocyte % 28.9 % (19-41); Mean Corp Hgb Conc 33.4 g/dL (32-36); Mean Corpuscular Volume 95.9 fL (80-94); Mean Platelet Vol. 11.2 fl (6.2-12.0); Monocyte% 10.3 % (0-10); NRBC Flagged by Analyzer 0 % (0-5); Neutrophil # 2.68 X10^3/uL (2.7-7.7); Neutrophil % 55.5 % (47-70); POSITIVE COUNT YES; Platelet Count 97 K/mm3 (150-450); RBC Distribution Width CV 15.9 % (11.6-14.6); RBC Distribution Width SD 55.9 fl (35.1-43.9); White Blood Count 4.8 K/mm3 (4.4-11.0)
--- NOTE | 2019-10-11 19:10 | CM.ED ---
SOCIAL WORK Informant: NurseSheila Reason for Consult: Substance Abuse Chief compliant: Patient brought to ED after fall. Patient wanted admitted for detox Marital/Social History: Single Living Situation: Patient reports lives with mother in an apartment Mental Health Treatment/History: Patient reports history of anxiety and depression. Patient states was prescribed Zoloft and Wellbutrin in the past by Dr. Juarez. Patient states no current treatment. Substance Abuse History: Patient states I've been an addict for many years. Patients states was in detox a few weeks ago at [facility]. Patient reports history of heroin and alcohol abuse. Patient reports daily use and states last use was today. Patient report injects heroin. Patient reports to have followed with [facility] in the past and is hoping after detox to complete inpatient or residential treatment. Patient reporting I want fixed. Patient has reviewed patient agreement for [facility] with nurse. Collaboration with Dr. Henderson. Anticipate admission to [facility]. This worker to update [facility] Treatment Navigator once patient admitted. Mauricio Jones, WORKING SECOND HAND, BASKETBALL COMMENTATOR.
[2019-10-11 19:11] LABS: Differential Indicated SCAN CRITERIA MET
[2019-10-11 19:14] LABS: International Normalized Ratio 1.2
[2019-10-11 19:22] LABS: ALB/GLOB Ratio 0.6 RATIO (0.9-2.4); AST(SGOT) 38 U/L (15-37); Alanine Aminotransfer ALT/SGPT 31 U/L (16-61); Albumin, Serum 2.8 g/dL (3.2-5.0); Alkaline Phosphatase 88 U/L (45-117); Anion Gap 5 (5-15); BUN 18 mg/dL (7-18); BUN/Creat Ratio 13.2 RATIO (10-20); Calcium,Total 8.2 mg/dL (8.5-10.1); Chloride 113 mmol/L (98-107); Creatinine, Serum 1.36 mg/dL (0.70-1.30); EST Glomerular Filtration Rate 60 mL/min (>60); Est Glom Filt Rate - Afr Amer 73 mL/min (>60); Estimated Creatinine Clearance 70.82 ml/min; Globulin 4.7 g/dL (2.2-4.2); Glucose 103 mg/dL (74-106); Lipase 150 U/L (73-393); Potassium 3.5 mmol/L (3.5-5.1); Protein, Total 7.5 g/dL (6.4-8.2); Sodium Level 142 mmol/L (136-145)
[2019-10-11 19:55] LABS: Amphetamine Urine VISTA NEGATIVE (<1000 ng/mL); Barbiturate Urine VISTA POSITIVE (< 200 ng/mL); Benzodiazepine Urine VISTA NEGATIVE (< 200 ng/mL); Cocaine Urine VISTA NEGATIVE (< 300 ng/mL); Ecstacy Urine VISTA NEGATIVE (< 500 ng/mL); Methadone Urine VISTA NEGATIVE (< 300 ng/mL); PCP Urine VISTA NEGATIVE (< 25 ng/mL); THC Urine VISTA NEGATIVE (< 50 ng/mL); Vista UDS pH Range 6
[2019-10-11 20:09] LABS: Anisocytosis 1+; Platelet Estimate MOD DEC (ADEQ); Red Cell Morphology N CHROM NORMAL (NORM C&C)
--- NOTE | 2019-10-11 20:48 | HP.PCM_ITS ---
Problem List (1) History of depression Status: Chronic (2) Polysubstance abuse Status: Chronic (3) Heroin abuse Status: Acute (4) Hypothyroidism Status: Chronic Qualifiers: Hypothyroidism type: unspecified Qualified Code(s): E03.9 - Hypothyroidism, unspecified (5) HTN (hypertension) Status: Chronic Qualifiers: Hypertension type: essential hypertension Qualified Code(s): I10 - Essential (primary) hypertension (6) Alcoholic cirrhosis of liver Status: Chronic Qualifiers: Ascites presence: with ascites Qualified Code(s): K70.31 - Alcoholic cirrh osis of liver with ascites (7) Alcohol abuse Status: Acute History of Present Illness Date of Admission: 10/11/19 Chief Complaint: alcohol detox and heroine abuse The patient is a 44 year old male patient with a past medical history of heroin abuse, alcohol abuse, hypertension, hypothyroidism, depression who presents to the emergency room intoxicated however he is also requesting detoxification. Patient currently denies chest pain shortness of breath, fevers or chills or na usea vomiting or diarrhea. He states his last alcohol was 3:00 PM today and he drank a screwdriver, and last use of heroin was 5 hours ago. He currently denies taking any medications and denies any allergies. He will be admitted to medical surgical floor and placed on detoxification protocol with consult in a.m. Past Medical History Past Medical History (Chronic Problems): Chronic Problems (Last Reviewed 01/14/19 @ 13:06 by Kathy Stephenson) History of depression (Chronic) Polysubstance abuse (Chronic) Cocaine abuse (Chronic) Hypothyroidism (Chronic) HTN (hypertension) (Chronic) Alcoholic cirrhosis of liver (Chronic) Medical History: Medical History (Last Reviewed 01/14/19 @ 13:06 by Kathy Stephenson) Acute pulmonary embolism (Suspected) I26.99 Polysubstance abuse (Chronic) F19.10 Acute kidney injury (Resolved) N17.9 Patient requiring acute dialysis (Resolved) Z99.2 Vascular catheter fitting or adjustment (Acute) Z45.2 Heroin abuse (Acute) F11.10 Cocaine abuse (Chronic) F14.10 Hypothyroidism (Chronic) E03.9 HTN (hypertension) (Chronic) I10 Alcoholic cirrhosis of liver (Chronic) K70.30 Allergies No Known Allergies Allergy (Verified 10/11/19 16:58) Home Medications: Ambulatory Orders Medication Instructions Recorded Furosemide [Lasix] 40 mg PO DAILY 08/25/19 Lisinopril [Zestril] 5 mg PO DAILY 08/25/19 Duloxetine Hcl [Cymbalta] 60 mg PO DAILY 09/13/19 Hydroxyzine Pamoate [Vistaril] 50 mg PO TID PRN PRN 09/13/19 Lactulose 45 ml PO Q6H 09/13/19 Levothyroxine [Synthroid] 75 mcg PO DAILY 09/13/19 Meloxicam 7.5 mg PO DAILY 09/13/19 Olanzapine 10 mg PO QHS 09/13/19 Spironolactone 25 mg PO DAILY 09/13/19 Surgical History: Surgical History (Last Updated 01/14/19 @ 13:07 by Kathy Stephenson) Status post insertion of dialysis catheter Z95.828, Z99.2 Surgical History: cholecystectomy, herniorrhaphy Psychiatric History: Anxiety, Depression Smoking Status: Current every day smoker - *Family History Paternal History Items: Heart Disease Maternal History Items: - - Patient denies any market maternal family history including heart disease, diabetes, cancer. Review of Systems Constitutional: Denies: Chills, Fever, Weight Change HEENT: Denies: Head Aches, Sinus Congestion, Sinus Drainage Cardiovascular: Denies: Chest Pain, Palpitations Respiratory: Denies: Cough, Shortness of breath at rest, Sputum production Gastrointestinal: Denies: Abdominal Pain, Nausea, Vomiting Genitourinary: Denies: Dysuria Musculoskeletal: Denies: Joint Pain, Joint Tenderness Skin: Denies: Rash, Wounds Neurological: Denies: Numbness, Tingling, Focal weakness Psychiatric: Reports: Anxiety, Depression. Denies: Homicidal Ideations, Suicidal Ideations Hematologic/ Lymphatic: Denies: Easy Bruising, Easy Bleeding VTE Information - Inpt Only VTE Present on Admission: No VTE Mechan Device Prophylaxis: None VTE Pharm Prophylaxis ordered?: Yes Patient Problems: Active and Suspected Problems Desire for detoxification (Acute) Alcohol abuse (Acute) - Physical Exam Vitals/I&O's: Vital Signs Temp Pulse Resp BP Pulse Ox 97.4 F L 73 18 121/74 H 92 10/11/19 16:56 10/11/19 16:56 10/11/19 16:56 10/11/19 16:56 10/11/19 16:56 Oxygen Delivery Method Room Air Weight: 250 lb Body Mass Index (BMI) 35.9 Finger Stick Blood Glucose 96 General: Alert, Oriented x3, Cooperative, Lethargic HEENT: Atraumatic, PERRLA, EOMI, Normocephalic Neck: Supple, Negative Carotid Bruits Lungs: Clear to auscultation, Normal air movement, No rhonchi, No wheeze, No rales Cardiovascular: Regular rate, Normal S1, Normal S2, No murmurs Abdomen: Bowel Sounds Present, Soft, Non Tender Extremities: No edema, Capillary Refill Less than 3 Seconds Skin: No rashes Musculoskeletal: No Tenderness to Palpation of Joints or Extremities Neurological: Neuro grossly intact Psych/Mental Status: Normal Affect, Appropriate Laboratory Results 10/11/19 18:55: WBC 4.8, RBC 4.40 L, Hgb 14.1, Hct 42.2, MCV 95.9 H, MCH 32.0, MCHC 33.4, RDW Std Deviation 55.9 H, RDW Coeff of Raghu 15.9 H, Plt Count 97 L, MPV 11.2, Immature Gran % (Auto) 0.200, Neut % (Auto) 55.5, Lymph % (Auto) 28.9, Montgomery % (Auto) 10.3 H, Eos % (Auto) 4.3, Baso % (Auto) 0.8, Absolute Neuts (auto) 2.7, Absolute Lymphs (auto) 1.40, Nucleated RBC % 0, Platelet Estimate MOD DEC, RBC Morphology N CHROM, Anisocytosis 1+ 10/11/19 18:55: PT 15.0 H, INR 1.2 10/11/19 18:55: Sodium 142, Potassium 3.5, Chloride 113 H, Carbon Dioxide 24.0, Anion Gap 5, BUN 18, Creatinine 1.36 H, Estim Creat Clear Calc 70.82, Est GFR (MDRD) Af Amer 73, Est GFR (MDRD) Non-Af 60, BUN/Creatinine Ratio 13.2, Glucose 103, Calcium 8.2 L, Total Bilirubin 1.70 H, AST 38 H, ALT 31, Alkaline Phosphatase 88, Total Protein 7.5, Albumin 2.8 L, Globulin 4.7 H, Albumin/Gl obulin Ratio 0.6 L, Lipase 150 06/29/20 18:55: Ethyl Alcohol 338.0 H* 10/11/19 19:20: Urine Opiates Screen NEGATIVE, Urine Methadone Screen NEGATIVE, Ur Barbiturates Screen POSITIVE H, Ur Phencyclidine Scrn NEGATIVE, Ur Amphetamines Screen NEGATIVE, U Methamphetamin-MDMA NEGATIVE, U Benzodiazepines Scrn NEGATIVE, Urine Cocaine Screen NEGATIVE, U Cannabinoids Screen NEGATIVE, Ur Drug Screen Comment Assessment/Plan All Active Problems (Last Reviewed 01/14/19 @ 13:06 by Kathy Stephenson) Desire for detoxification (Acute) Alcohol abuse (Acute) Acute kidney injury (Resolved) Patient requiring acute dialysis (Resolved) Vascular catheter fitting or adjustment (Acute) Heroin abuse (Acute) Overdose (Resolved) Chronic Problems (Last Reviewed 01/14/19 @ 13:06 by Kathy Stephenson) History of depression (Chronic) Polysubstance abuse (Chronic) Cocaine abuse (Chronic) Hypothyroidism (Chronic) HTN (hypertension) (Chronic) Alcoholic cirrhosis of liver (Chronic) Plan 1. Alcohol/heroine abuse requesting detoxification?admit patient to general medical floor, initiate alcohol withdrawal protocol, consult case management for assistance with outpatient alcohol and heroin abuse 2. Nicotine addiction?NicoDerm patch 3. DVT prophylaxis?low molecular weight heparin OBSV E&M: [id number] Initial observation care L2
[2019-10-11 20:50] VITALS: BP 94/46; PULSE 65; RESP 18; TEMP 37.2; O2SAT 93
[2019-10-11 21:28] VITALS: BMI 38.9
[2019-10-11 21:50] VITALS: BP 95/47; PULSE 66; RESP 18; TEMP 36.8; O2SAT 94
[2019-10-11 21:56] VITALS: BMI 38.9
[2019-10-11] MEDS: OLANZapine 10 MG Tablet PO (22:16)
[2019-10-11] MEDS: Methocarbamol 750 MG Tablet 1500 MG PO (22:16)
--- NOTE | 2019-10-11 23:00 | NURSING ---
Per patient request, this RN called patient's mother to have her call development officer in the morning. Patient was supposed to have meeting with development officer, mother to call and notify in morning.
[2019-10-12] VITALS (7 sets, daily range): BP systolic 102–139; BP diastolic 66–78; PULSE 64–79; RESP 18; TEMP 36–37.3; O2SAT 78–94
[2019-10-12] MEDS: Dicyclomine 10 MG Capsule 20 MG PO ×2 (00:03→09:14)
[2019-10-12] MEDS: Buprenorphine HCl 2 MG TAB.SUBL SL ×4 (00:03→22:46)
[2019-10-12] MEDS: Ondansetron 8 MG Tablet PO ×3 (00:03→22:38)
[2019-10-12] MEDS: traZODone 100 MG Tablet PO ×2 (00:03→22:38)
[2019-10-12 06:02] LABS: Absolute Lymphocyte Count 1.14 X10^3/uL (0.83-4.51); Absolute Neutrophil Count 1.9 X10^3/uL (2.0-7.7); Basophil# 0.04 X10^3/uL; Basophil% 1.1 % (0-1); Eosinophil# 0.22 X10^3/uL; Eosinophils% 5.8 % (0-5); Hemoglobin 13.4 g/dL (13.0-16.5); Lymphocyte # 1.14 X10^3/ul (4.0); Lymphocyte % 30.2 % (19-41); Mean Corp Hgb Conc 32.7 g/dL (32-36); Mean Corpuscular Hgb 32.4 pg (27.0-32.0); Mean Platelet Vol. 10.9 fl (6.2-12.0); Monocyte% 13.3 % (0-10); NRBC Flagged by Analyzer 0 % (0-5); Neutrophil # 1.86 X10^3/uL (2.7-7.7); Neutrophil % 49.3 % (47-70); POSITIVE COUNT YES; RBC Distribution Width CV 16.4 % (11.6-14.6); Red Blood Count 4.14 M/mm3 (4.6-6.2); White Blood Count 3.8 K/mm3 (4.4-11.0)
[2019-10-12 06:13] LABS: Platelet Count 92 K/mm3 (150-450)
[2019-10-12] MEDS: Levothyroxine 75 MCG Tablet PO (06:13)
[2019-10-12] MEDS: Methocarbamol 750 MG Tablet 1500 MG PO ×3 (06:49→22:38)
[2019-10-12 06:52] LABS: ALB/GLOB Ratio 0.6 RATIO (0.9-2.4); AST(SGOT) 37 U/L (15-37); Alanine Aminotransfer ALT/SGPT 29 U/L (16-61); Albumin, Serum 2.6 g/dL (3.2-5.0); Alkaline Phosphatase 89 U/L (45-117); Anion Gap 4 (5-15); BUN 20 mg/dL (7-18); BUN/Creat Ratio 15.2 RATIO (10-20); Chloride 112 mmol/L (98-107); Creatinine, Serum 1.32 mg/dL (0.70-1.30); EST Glomerular Filtration Rate 62 mL/min (>60); Est Glom Filt Rate - Afr Amer 75 mL/min (>60); Estimated Creatinine Clearance 72.97 ml/min; Globulin 4.1 g/dL (2.2-4.2); Glucose 110 mg/dL (74-106); Potassium 4.2 mmol/L (3.5-5.1); Protein, Total 6.7 g/dL (6.4-8.2); Sodium Level 143 mmol/L (136-145)
--- NOTE | 2019-10-12 08:50 | CASEMGMT ---
Social Work Note Pt is RAMP pt. SW placed a call to Sherri at [facility] and left message that pt will need to be seen. Mitra Garza SENIOR PREMIUM AUDITOR, FIRE OBSERVER
[2019-10-12] MEDS: Enoxaparin 40 MG/0.4 ML Syringe SC (09:09)
[2019-10-12] MEDS: Thiamine Hydrochloride 100 MG Tablet PO (09:09)
[2019-10-12] MEDS: DULoxetine Hcl 60 MG Capsule PO (09:10)
[2019-10-12] MEDS: Folic Acid 1 MG Tablet PO (09:10)
[2019-10-12] MEDS: Lisinopril 5 MG Tablet PO (09:10)
[2019-10-12] MEDS: hydrOXYzine PAM 25 MG Capsule 50 MG PO (09:14)
--- NOTE | 2019-10-12 09:44 | RAD_ITS ---
STUDY: X-RAY CHEST REASON FOR EXAM: Male, 44 years old. COUGH, CURRENTLY GOING THRU WITHDRAWL TECHNIQUE: Single AP portable view of the chest. COMPARISON: September 13, 2019. FINDINGS: Cardiac silhouette unremarkable. Pulmonary congestion. Aorta unremarkable. Bilateral multifocal airspace opacities. No pleural effusions. Upper abdomen unremarkable. Osseous structures intact with degenerative features. No pneumothorax. RAD/Chest PA and Lateral IMPRESSION: Multifocal bilateral airspace opacities/congestion Electronically Signed: Jonathan Youngblood DO at 10:24 EDT Tel , Service support ,
[2019-10-12] MEDS: Phenobarbital 32.4 MG Tablet 64.8 MG PO ×4 (10:26→22:39)
--- NOTE | 2019-10-12 11:12 | PN_ITS ---
Patient Problems: Active and Suspected Problems Desire for detoxification (Acute) Alcohol abuse (Acute) Reason for Visit: alcohol/heroin withdrawal Subjective: C/ restlessness, upper ext tremor, toe tingling, nausea, diarrhea, runny nose. Also hypoxic last night and has a productive cough. No fever/leukocytosis. Currently homeless. Vitals/I&O's: Vital Signs Temp Pulse Resp BP Pulse Ox 97.7 F L 74 18 115/78 94 10/12/19 08:58 10/12/19 08:58 10/12/19 08:58 10/12/19 08:58 10/12/19 08:58 Oxygen Flow Rate (L/min) 2 Oxygen Delivery Method Room Air Weight: 271 lb 2.697 oz Body Mass Index (BMI) 38.9 Finger Stick Blood Glucose 96 Intake and Output for Last 24 Hours 10/10/19 10/11/19 10/12/19 23:59 23:59 23:59 Intake Total 450 / 450 450 / 450 Balance 450 / 450 450 / 450 General: Alert, Oriented x3, Cooperative HEENT: Atraumatic, PERRLA, EOMI, Normocephalic Neck: Supple, No JVD, Negative Carotid Bruits Lungs: Normal air movement, No rales - BL L>R Cardiovascular: Regular rate, No murmurs Abdomen: Bowel Sounds Present, Soft, Non Tender Extremities: No edema, Capillary Refill Less than 3 Seconds Skin: No rashes, No breakdown Musculoskeletal: No Tenderness to Palpation of Joints or Extremities Neurological: Cranial nerves II-XII grossly intact Psych/Mental Status: Normal Affect, Appropriate, Alert and oriented to time, place, person, mood and affect Laboratory Results 10/11/19 18:55: WBC 4.8, RBC 4.40 L, Hgb 14.1, Hct 42.2, MCV 95.9 H, MCH 32.0, MCHC 33.4, RDW Std Deviation 55.9 H, RDW Coeff of Raghu 15.9 H, Plt Count 97 L, MPV 11.2, Immature Gran % (Auto) 0.200, Neut % (Auto) 55.5, Lymph % (Auto) 28.9, Amelia % (Auto) 10.3 H, Eos % (Auto) 4.3, Baso % (Auto) 0.8, Absolute Neuts (auto) 2.7, Absolute Lymphs (auto) 1.40, Nucleated RBC % 0, Platelet Estimate MOD DEC, RBC Morphology N CHROM, Anisocytosis 1+ 10/11/19 18:55: PT 15.0 H, INR 1.2 10/11/19 18:55: Sodium 142, Potassium 3.5, Chloride 113 H, Carbon Dioxide 24.0, Anion Gap 5, BUN 18, Creatinine 1.36 H, Estim Creat Clear Calc 70.82, Est GFR (MDRD) Af Amer 73, Est GFR (MDRD) Non-Af 60, BUN/Creatinine Ratio 13.2, Glucose 103, Calcium 8.2 L, Total Bilirubin 1.70 H, AST 38 H, ALT 31, Alkaline Phosphatase 88, Total Protein 7.5, Albumin 2.8 L, Globulin 4.7 H, Albumin/Globulin Ratio 0.6 L, Lipase 150 10/11/19 18:55: Ethyl Alcohol 338.0 H* 10/11/19 19:20: Urine Opiates Screen NEGATIVE, Urine Methadone Screen NEGATIVE, Ur Barbiturates Screen POSITIVE H, Ur Phencyclidine Scrn NEGATIVE, Ur Amphetamines Screen NEGATIVE, U Methamphetamin-MDMA NEGATIVE, U Benzodiazepines Scrn NEGATIVE, Urine Cocaine Screen NEGATIVE, U Cannabinoids Screen NEGATIVE, Ur Drug Screen Comment 10/12/19 05:40: Sodium 143, Potassium 4.2, Chloride 112 H, Carbon Dioxide 27.0, Anion Gap 4 L, BUN 20 H, Creatinine 1.32 H, Estim Creat Clear Calc 72.97, Est GFR (MDRD) Af Amer 75, Est GFR (MDRD) Non-Af 62, BUN/Creatinine Ratio 15.2, Glucose 110 H, Calcium 8.0 L, Total Bilirubin 1.10 H, AST 37, ALT 29, Alkaline Phosphatase 89, Total Protein 6.7, Albumin 2.6 L, Globulin 4.1, Albumin/Globulin Ratio 0.6 L 10/12/19 05:40: B-Natriuretic Peptide Pending 10/12/19 05:42: WBC 3.8 L, RBC 4.14 L, Hgb 13.4, Hct 41.0, MCV 99.0 H, MCH 32.4 H, MCHC 32.7, RDW Std Deviation 59.0 H, RDW Coeff of Raghu 16.4 H, Plt Count 92 L, MPV 10.9, Immature Gran % (Auto) 0.300, Neut % (Auto) 49.3, Lymph % (Auto) 30.2, Amelia % (Auto) 13.3 H, Eos % (Auto) 5.8 H, Baso % (Auto) 1.1 H, Absolute Neuts (auto) 1.9 L, Absolute Lymphs (auto) 1.14, Nucleated RBC % 0 Current Medications Buprenorphine HCl (Buprenorphine Hcl) 4 mg SL Q8H [facility]; Taper Stop: 10/14/19 23:44 Last Admin: 10/12/19 06:49 Dose: 4 mg Documented by: Clonidine (Catapres) 0.1 mg PO Q8H PRN PRN PRN Reason: RESTLESSNESS Dextrose (D50w Syringe) 0 gm IV X1 PRN; Protocol PRN Reason: Hypoglycemia Dicyclomine HCl (Bentyl) 20 mg PO Q6H PRN PRN PRN Reason: abdominal discomfort Last Admin: 10/12/19 09:14 Dose: 20 mg Documented by: Duloxetine HCl (Cymbalta) 60 mg PO DAILY [facility] Last Admin: 10/12/19 09:10 Dose: 60 mg Documented by: Enoxaparin Sodium (Lovenox) 40 mg SC DAILY [facility] Last Admin: 10/12/19 09:09 Dose: 40 mg Documented by: Folic Acid (Folic Acid) 1 mg PO DAILY@0800 [facility] Last Admin: 10/12/19 09:10 Dose: 1 mg Documented by: Folic Acid (Folic Acid) 1 mg PO DAILY@0800 [facility] Gabapentin (Neurontin) 300 mg PO Q8H PRN PRN PRN Reason: moderate to severe anxiety Glucagon () 1 mg IM .X1 PRN PRN Reason: Hypoglycemia Hydroxyzine Pamoate (Vistaril Pamoate Capsule) 50 mg PO Q4H PRN PRN PRN Reason: mild anxiety Last Admin: 10/12/19 09:14 Dose: 50 mg Documented by: Levothyroxine Sodium (Synthroid) 75 mcg PO DAILY@0600 [facility] Last Admin: 10/12/19 06:13 Dose: 75 mcg Documented by: Lisinopril (Zestril) 5 mg PO DAILY [facility] Last Admin: 10/12/19 09:10 Dose: 5 mg Documented by: Loperamide HCl (Imodium) 2 mg PO Q4H PRN PRN PRN Reason: LOOSE STOOLS Loperamide HCl (Imodium) 2 mg PO Q4H PRN PRN PRN Reason: LOOSE STOOLS Methocarbamol (Methocarbamol) 1,500 mg PO Q6H PRN PRN PRN Reason: MUSCLE SPASM Last Admin: 10/12/19 06:49 Dose: 1,500 mg Documented by: Olanzapine (Zyprexa) 10 mg PO QHS [facility] Last Admin: 10/11/19 22:16 Dose: 10 mg Documented by: Ondansetron HCl (Zofran) 8 mg PO Q8H PRN PRN PRN Reason: NAUSEA Last Admin: 10/12/19 09:08 Dose: 8 mg Documented by: Ondansetron HCl (Zofran) 8 mg PO Q8H PRN PRN PRN Reason: NAUSEA Phenobarbital (Phenobarbital) 97.2 mg PO Q4H [facility]; Taper Stop: 10/16/19 17:59 Last Admin: 10/12/19 10:26 Dose: 97.2 mg Documented by: Sodium Chloride () 10 - 40 ml IV UD PRN PRN Reason: SALINE FLUSH Thiamine HCl (Vitamin B1) 100 mg PO DAILYCM [facility] Last Admin: 10/12/19 09:09 Dose: 100 mg Documented by: Thi[facility]1) [facility] Trazodone [facility] (Desyrel) 100 mg PO QHS PRN PRN Reason: INSOMNIA Last Admin: 10/12/19 00:03 Dose: 100 mg Documented by: STROKE Vital Signs/Narrative: Vital Signs Temp Pulse Resp BP Pulse Ox 10/12/19 08:58 97.7 F L 74 18 115/78 94 Medical Necessity - Tobacco Use Smoking Status: Current every day smoker Tobacco Use: Cigarettes Assessment/Plan All Active Problems (Last Reviewed 01/14/19 @ 13:06 by Kathy Stephenson) Desire for detoxification (Acute) Alcohol abuse (Acute) Acute kidney injury (Resolved) Patient requiring acute dialysis (Resolved) Vascular catheter fitting or adjustment (Acute) Heroin abuse (Acute) Overdose (Resolved) 1. Polysubstance abuse with alcohol and heroin withdrawal - phenobarb and subutex tapers. 2. Acute hypoxia - unclear etiology. 78% on RA last night now stable on 2 lpm. No SOB. opacities BL on CXR and audible rales on exam. No fever/leukocytosis. Check covid. check BNP. Start IS and mucinex. 3. Alcoholic cirrhosis - LFTs mildly abnormal. Low platelets. Needs o/p follow up and complete alcohol cessation. 4. Hypothyroidism - synthroid DVT ppx: Early ambulation, hold lovenox with thrombocytopenia. This patient was seen by Rakesh Hernandez PA-C under the supervision of Dr. Ag.
[2019-10-12 11:52] LABS: BNP,B-Type NATRIURETIC PEPTIDE 128.7 pg/mL (0-100)
[2019-10-12 12:51] LABS: Probe Check PASS; Specimen Processing Control PASS
--- NOTE | 2019-10-12 14:18 | CT_ITS ---
STUDY: CT CHEST WITHOUT CONTRAST REASON FOR EXAM: Male, 44 years old. ABNORMAL CHEST XRAY RADIATION DOSAGE (If Supplied By Facility): CTDIvol = ( 19.36 ) mGy, DLP = ( 712.61 ) mGycm TECHNIQUE: Transaxial imaging was performed without the administration of intravenous contrast material. Multiplanar coronal and sagittal images were reformatted. Individualized dose optimization techniques were used for this CT. COMPARISON: Comparison is made with prior chest radiograph done earlier in the day as well as prior CT scan of thorax dated August 25, 2019. FINDINGS: Small benign-appearing bilateral axillary lymph nodes. Calcified granulomas are seen in the right upper and right middle lobes. Minimal increased linear markings are seen in the medial aspect of the right middle lobe as well as the lateral aspect of the lingular segment of the left upper lobe. Minimal increased markings are also seen in the posterior medial segments of both lower lobes suggestive of scarring. Patchy infiltrate is seen in the medial segment of the left lower lobe as well as in the anterior segment of the left lower lobe. There is no demonstrated pleural abnormality. Normal heart and pericardium. Normal mediastinum. Normal hilar regions. Normal unenhanced pulmonary arteries. Normal aorta arch and descending thoracic aorta. There are degenerative changes of the thoracic spine. There is no demonstrated abnormality of the visualized upper abdomen. CT/Chest without Contrast IMPRESSION: Mild focal infiltrate in the left lower lobe as described. Mild scarring at the lung bases. Electronically Signed: Des Gr, at 15:42 EDT , Service support ,
--- NOTE | 2019-10-12 15:37 | ADDICTION ---
This insurance underwriter was informed by nurse, Cary, and professor of social work, Mitra, that patient was not available for assessment today due to COVID screening and scheduled CT scan. This insurance underwriter will attempt to meet with patient on 10/13/2019.
[2019-10-12] MEDS: Gabapentin 300 MG Capsule PO (20:02)
[2019-10-12] MEDS: guaiFENesin 1,200 MG Tablet 1200 MG PO (22:39)
[2019-10-12] MEDS: OLANZapine 10 MG Tablet PO (22:39)
[2019-10-12] MEDS: Lactulose 20 GM/30 ML UDC 30 GM PO (22:43)
[2019-10-13] VITALS (8 sets, daily range): BP systolic 125–160; BP diastolic 65–87; PULSE 75–92; RESP 16–20; TEMP 36.6–37.1; O2SAT 85–95
[2019-10-13] MEDS: Phenobarbital 32.4 MG Tablet 64.8 MG PO ×6 (02:12→22:18)
[2019-10-13] MEDS: Lactulose 20 GM/30 ML UDC 30 GM PO ×3 (06:14→22:18)
[2019-10-13] MEDS: Levothyroxine 75 MCG Tablet PO (06:14)
[2019-10-13] MEDS: Methocarbamol 750 MG Tablet 1500 MG PO ×3 (06:18→20:50)
[2019-10-13] MEDS: Acetaminophen 325 MG Tablet 650 MG PO (06:18)
[2019-10-13 07:11] LABS: Absolute Lymphocyte Count 0.62 X10^3/uL (0.83-4.51); Absolute Neutrophil Count 3.7 X10^3/uL (2.0-7.7); Basophil# 0.03 X10^3/uL; Basophil% 0.6 % (0-1); Eosinophil# 0.27 X10^3/uL; Eosinophils% 5.3 % (0-5); Hematocrit 41.3 % (40-54); Hemoglobin 13.5 g/dL (13.0-16.5); Lymphocyte # 0.62 X10^3/ul (4.0); Lymphocyte % 12.1 % (19-41); Mean Corp Hgb Conc 32.7 g/dL (32-36); Mean Corpuscular Hgb 32.1 pg (27.0-32.0); Mean Corpuscular Volume 98.3 fL (80-94); Mean Platelet Vol. 11.8 fl (6.2-12.0); Monocyte# 0.45 X10^3/uL; Monocyte% 8.8 % (0-10); NRBC Flagged by Analyzer 0 % (0-5); Neutrophil # 3.73 X10^3/uL (2.7-7.7); Neutrophil % 72.8 % (47-70); POSITIVE COUNT YES; Platelet Count 68 K/mm3 (150-450); RBC Distribution Width CV 15.8 % (11.6-14.6); RBC Distribution Width SD 56.5 fl (35.1-43.9); White Blood Count 5.1 K/mm3 (4.4-11.0)
[2019-10-13 07:42] LABS: Differential Indicated SCAN CRITERIA MET
[2019-10-13] MEDS: guaiFENesin 1,200 MG Tablet 1200 MG PO ×2 (07:49→22:18)
[2019-10-13] MEDS: Folic Acid 1 MG Tablet PO (07:50)
[2019-10-13] MEDS: Thiamine Hydrochloride 100 MG Tablet PO (07:50)
[2019-10-13] MEDS: Furosemide 40 MG Tablet PO (07:50)
[2019-10-13] MEDS: DULoxetine Hcl 60 MG Capsule PO (07:51)
[2019-10-13] MEDS: Lisinopril 5 MG Tablet PO (07:51)
[2019-10-13] MEDS: Spironolactone 25 MG Tablet PO (07:51)
[2019-10-13] MEDS: Buprenorphine HCl 2 MG TAB.SUBL SL ×3 (07:53→23:09)
[2019-10-13] MEDS: cloNIDine HCl 0.1 MG Tablet PO ×2 (08:03→20:50)
[2019-10-13] MEDS: Gabapentin 300 MG Capsule PO ×2 (11:54→20:50)
[2019-10-13] MEDS: hydrOXYzine PAM 25 MG Capsule 50 MG PO (11:54)
--- NOTE | 2019-10-13 12:43 | ADDICTION ---
This tag writer briefly met with patient in his room to conduct ASAM assessment and begin discharge planning. He appeared to have barriers to concentration and effective communication, due to withdrawal by his report. Patient amiable to brief conversation but refused full ASAM assessment. Immediate Need Profile completed today. Patient refused to sign JOHNIE for correction officer reformatory. Patient did not sign JOHNIE for [employer] but states that he would like to engage in treatment following discharge. Patient asked to meet tomorrow 10/14/2019 to continue assessment and discharge planning due to really bad dt's. Patient's speech was slurred and he appeared to have some barriers to concentration. Patient reports that he has been unsuccessful in finding Residential placement due to sex offender status. [facility] LOC RECOMMENDATION: 4.0 Medically Managed Intensive Inpatient Services Dimension1: Acute Intoxication and/or Withdrawal Potential Patient reports that his last use was 10/11/2019. He reports that he was using alcohol and heroin. He states that he is experiencing the following symptoms of active withdrawal: anxiety, shakiness, headache, nausea, confusion, insomnia, sweating, abdominal pain, agitation, cravings to use. He will likely experience more severe symptoms if medical withdrawal management protocol is not completed. Dimension2: Biomedical Conditions and Complications Patient's chart indicates the following medical conditions: hypothyroidism, hypertension, alcoholic cirrhosis of liver. Patient reports that these conditions interfere with activities of daily life. He reports no unstable conditions at this time. Dimension3: Emotional, Behavioral or Cognitive Conditions/Concerns E: Patient presented with depressed mood and congruent affect. Reports SI history. Reports history of depression symptoms. B: Patient resistant to this interview but was emotionally regulated and in control of impulses. C: Patient reports barriers to caring for self do to ongoing AOD use. Patient was alert and oriented to person, place and situation but did not appear to understand content of conversation due to withdrawal effects. Dimension4: Readiness to Change Patient appears to be in the contemplation stage of change as evidenced by his identification of treatment needs and barriers without desire or plans to modify behaviors to increase sobriety success. Patient refused to complete full assessment and was unwilling to sign JOHNIE for his Vice President Of Talent Management. Dimension5: Relapse, Continued Use or Continued Problem Potential Patient is currently engaged in medical withdrawal management and reports that his urges to use are being addressed, however, he reports a history of relapse following treatment and believes that he will likely relapse if he does not engage in treatment following hospitalization. He will likely experience severe withdrawal if he does not complete medical withdrawal management protocol. Patient does not appear to be a danger to self or others. Dimension6: Recovery Environment Patient reports limited sober support people. Patient ended session prior to completing asam assessment. To be assessed further.
[2019-10-13] MEDS: Ipratropium/Albuterol Sulfate 3 ML AMPUL.NEB INHALATION ×2 (13:02→21:16)
--- NOTE | 2019-10-13 13:10 | PCM.PN.HOSP ---
Patient Problems: Active and Suspected Problems Desire for detoxification (Acute) Alcohol abuse (Acute) Reason for Visit: Alc/Heroin detox Subjective: Pt resting comfortably in bed NAD. C/o increased paraesthesias and itching BL LE. He noticed that he is hearing voices that are not there. He has no SOB. He does have an occasional cough with clear sputum production. No fever/chills. Vitals/I&O's: Vital Signs Temp Pulse Resp BP Pulse Ox 98.4 F 90 18 125/71 H 90 10/13/19 11:48 10/13/19 11:48 10/13/19 11:48 10/13/19 11:48 10/13/19 11:48 Oxygen Flow Rate (L/min) 2 Oxygen Delivery Method Room Air Weight: 271 lb 2.697 oz Body Mass Index (BMI) 38.9 Finger Stick Blood Glucose 96 Intake and Output for Last 24 Hours 10/11/19 10/12/19 10/13/19 23:59 23:59 23:59 Intake Total 450 / 450 1950 / 1950 600 / 600 Balance 450 / 450 1950 / 1950 600 / 600 General: Alert, Oriented x3, Cooperative HEENT: Atraumatic, PERRLA, EOMI, Normocephalic Neck: Supple, No JVD, Negative Carotid Bruits Lungs: Normal air movement, Rales - L base Cardiovascular: Regular rate, No murmurs Abdomen: Bowel Sounds Present, Soft, Non Tender Extremities: No edema, Capillary Refill Less than 3 Seconds Skin: No rashes, No breakdown Musculoskeletal: No Tenderness to Palpation of Joints or Extremities Neurological: Cranial nerves II-XII grossly intact Psych/Mental Status: Normal Affect, Appropriate, Alert and oriented to time, place, person, mood and affect Laboratory Results 10/13/19 06:44: WBC 5.1, RBC 4.20 L, Hgb 13.5, Hct 41.3, MCV 98.3 H, MCH 32.1 H, MCHC 32.7, RDW Std Deviation 56.5 H, RDW Coeff of Raghu 15.8 H, Plt Count 68 L, MPV 11.8, Immature Gran % (Auto) 0.400, Neut % (Auto) 72.8 H, Lymph % (Auto) 12.1 L, [place] % (Auto) 8.8, Eos % (Auto) 5.3 H, Baso % (Auto) 0.6, Absolute Neuts (auto) 3.7, Absolute Lymphs (auto) 0.62 L, Nucleated RBC % 0 Current Medications Acetaminophen (Tylenol) 650 mg PO Q8H PRN PRN PRN Reason: Pain Score 1-10/10 Last Admin: 10/13/19 06:18 Dose: 650 mg Documented by: Albuterol/Ipratropium (Duoneb) 3 ml INHALATION Q4HWA.RT [facility] Last Admin: 10/13/19 13:02 Dose: 3 ml Documented by: Buprenorphine HCl (Buprenorphine Hcl) 2 mg SL Q8H [facility]; Taper Stop: 10/14/19 23:44 Last Admin: 10/13/19 07:53 Dose: 2 mg Documented by: Clonidine (Catapres) 0.1 mg PO Q8H PRN PRN PRN Reason: RESTLESSNESS Last Admin: 10/13/19 08:03 Dose: 0.1 mg Documented by: Dextrose (D50w Syringe) 0 gm IV X1 PRN; Protocol PRN Reason: Hypoglycemia Dicyclomine HCl (Bentyl) 20 mg PO Q6H PRN PRN PRN Reason: abdominal discomfort Last Admin: 10/12/19 09:14 Dose: 20 mg Documented by: Duloxetine HCl (Cymbalta) 60 mg PO DAILY [facility] Last Admin: 10/13/19 07:51 Dose: 60 mg Documented by: Folic Acid (Folic Acid) 1 mg PO DAILY@0800 [facility] Last Admin: 10/13/19 07:50 Dose: 1 mg Documented by: Furosemide (Lasix) 40 mg PO DAILY [facility] Last Admin: 10/13/19 07:50 Dose: 40 mg Documented by: Gabapentin (Neurontin) 300 mg PO Q8H PRN PRN PRN Reason: moderate to severe anxiety Last Admin: 10/13/19 11:54 Dose: 300 mg Documented by: Glucagon () 1 mg IM .X1 PRN PRN Reason: Hypoglycemia Guaifenesin (Mucinex) 1,200 mg PO BID [facility] Last Admin: 10/13/19 07:49 Dose: 1,200 mg Documented by: Hydroxyzine Pamoate (Vistaril Pamoate Capsule) 50 mg PO Q4H PRN PRN PRN Reason: mild anxiety Last Admin: 10/13/19 11:54 Dose: 50 mg Documented by: Lactulose (Chronulac, Cephulac) 30 gm PO TID [facility] Last Admin: 10/13/19 06:14 Dose: 30 gm Documented by: Levothyroxine Sodium (Synthroid) 75 mcg PO DAILY@0600 [facility] Last Admin: 10/13/19 06:14 Dose: 75 mcg Documented by: Lisinopril (Zestril) 5 mg PO DAILY [facility] Last Admin: 10/13/19 07:51 Dose: 5 mg Documented by: Loperamide HCl (Imodium) 2 mg PO Q4H PRN PRN PRN Reason: LOOSE STOOLS Loperamide HCl (Imodium) 2 mg PO Q4H PRN PRN PRN Reason: LOOSE STOOLS Methocarbamol (Methocarbamol) 1,500 mg PO Q6H PRN PRN PRN Reason: MUSCLE SPASM Last Admin: 10/13/19 11:54 Dose: 1,500 mg Documented by: Olanzapine (Zyprexa) 10 mg PO QHS [facility] Last Admin: 10/12/19 22:39 Dose: 10 mg Documented by: Ondansetron HCl (Zofran) 8 mg PO Q8H PRN PRN PRN Reason: NAUSEA Last Admin: 10/12/19 22:38 Dose: 8 mg Documented by: Ondansetron HCl (Zofran) 8 mg PO Q8H PRN PRN PRN Reason: NAUSEA Phenobarbital (Phenobarbital) 97.2 mg PO Q4H [facility]; Taper Stop: 10/16/19 17:59 Last Admin: 10/13/19 10:08 Dose: 97.2 mg Documented by: Sodium Chloride () 10 - 40 ml IV UD PRN PRN Reason: SALINE FLUSH Spironolactone (Aldactone) 25 mg PO DAILY [facility] Last Admin: 10/13/19 07:51 Dose: 25 mg Documented by: [facility]) [facility] Last Admin: 10/13/19 07:50 Dose: 100 mg Documented by: Trazodone HCl (Desyrel) 100 mg PO QHS PRN PRN Reason: INSOMNIA Last Admin: 10/12/19 22:38 Dose: 100 mg Documented by: STROKE Vital Signs/Narrative: Vital Signs Temp Pulse Resp BP Pulse Ox 10/13/19 11:48 98.4 F 90 18 125/71 H 90 Medical Necessity - Tobacco Use Smoking Status: Current every day smoker Tobacco Use: Cigarettes Assessment/Plan All Active Problems (Last Reviewed 01/14/19 @ 13:06 by Kathy Stephenson) Desire for detoxification (Acute) Alcohol abuse (Acute) Acute kidney injury (Resolved) Patient requiring acute dialysis (Resolved) Vascular catheter fitting or adjustment (Acute) Heroin abuse (Acute) Overdose (Resolved) 1. Polysubstance abuse with alcohol and heroin withdrawal - phenobarb and subutex tapers. + hx withdrawal seizure. currently with auditory hallucinations. 2. Acute hypoxia - resolved. Likely underlying COPD. CTA with chronic changes poss infiltrate but does not appear to have an acute infection. Continue bronchodilators and incentive spirometer. 3. Alcoholic cirrhosis - LFTs mildly abnormal. Low platelets. Needs o/p follow up and complete alcohol cessation. 4. Hypothyroidism - synthroid 5. Nicotine abuse - patch. smokes 5 cig/day DVT ppx: Early ambulation, hold lovenox with thrombocytopenia. This patient was seen by Rakesh Hernandez PA-C under the supervision of Dr. Ag.
--- NOTE | 2019-10-13 14:18 | CASEMGMT ---
Social Work Telephone call from patient mother, Leisa. Leisa aware that this social sciences instructor is unable to give patient information. Leisa only wanting to inform this social sciences instructor that patient has been accepted at a [facility] in [place], [place] ([facility]). Leisa states that all we need is medical clearance. Leisa states that patient combat information center officer will not allow patient to be transferred due to medical complications and needs a note from a doctor stating that patient is cleared. This social sciences instructor thanked Leisa and informed Leisa that this social sciences instructor will pass this information on to the social sciences instructor managing patient care. Patient is apart of the [facility] program. Sherri SIMON, DARBY-S is following patient care for discharge planning. Telephone call to Sherri, This social sciences instructor updating Sherri on above information. Sherri also noting that patient has not given permission for Sherri to speak with patient combat information center officer. Sherri states that patient was not open to assessment today and Sherri will try to complete assessment with patient tomorrow. This social sciences instructor also updated Anneliese Garza, DIRECTOR PHARMACY SERVICES, DEBONING TEAM LEADER on above information. Jamie Avila DIRECTOR PHARMACY SERVICES, TRANSPORT CONDUCTOR
[2019-10-13 16:27] LABS: Differential Comment SCANNED; Platelet Estimate MOD DEC (ADEQ)
[2019-10-13] MEDS: Dicyclomine 10 MG Capsule 20 MG PO (20:50)
[2019-10-13] MEDS: OLANZapine 10 MG Tablet PO (22:19)
[2019-10-14] VITALS (11 sets, daily range): BP systolic 130–142; BP diastolic 56–78; PULSE 87–106; RESP 12–20; TEMP 36.4–36.9; O2SAT 80–96
[2019-10-14] MEDS: Phenobarbital 32.4 MG Tablet 64.8 MG PO ×2 (02:04→06:48)
[2019-10-14] MEDS: Levothyroxine 75 MCG Tablet PO (06:48)
[2019-10-14] MEDS: Lactulose 20 GM/30 ML UDC 30 GM PO (06:48)
[2019-10-14] MEDS: Ipratropium/Albuterol Sulfate 3 ML AMPUL.NEB INHALATION ×4 (07:31→19:39)
[2019-10-14] MEDS: Furosemide 40 MG Tablet PO (08:16)
[2019-10-14] MEDS: Lisinopril 5 MG Tablet PO (08:16)
[2019-10-14] MEDS: guaiFENesin 1,200 MG Tablet 1200 MG PO ×2 (08:16→21:53)
[2019-10-14] MEDS: Spironolactone 25 MG Tablet PO (08:16)
[2019-10-14] MEDS: Folic Acid 1 MG Tablet PO (08:16)
[2019-10-14] MEDS: DULoxetine Hcl 60 MG Capsule PO (08:16)
[2019-10-14] MEDS: Thiamine Hydrochloride 100 MG Tablet PO (08:16)
--- NOTE | 2019-10-14 10:37 | PN_ITS ---
Patient Problems: Active and Suspected Problems Desire for detoxification (Acute) Alcohol abuse (Acute) Subjective: Patient seen and examined. Talking incoherently. Drowsy during assessment. - Physical Exam Vitals/I&O's: Vital Signs Temp Pulse Resp BP Pulse Ox 98.4 F 106 H 18 130/74 H 90 10/14/19 08:15 10/14/19 08:15 10/14/19 08:15 10/14/19 08:15 10/14/19 08:15 Oxygen Flow Rate (L/min) 3 Oxygen Delivery Method Nasal Cannula Weight: 271 lb 2.697 oz Body Mass Index (BMI) 38.9 Finger Stick Blood Glucose 96 Intake and Output for Last 24 Hours 10/12/19 10/13/19 10/14/19 23:59 23:59 23:59 Intake Total 1949 1200 / 1200 1400 / 1400 Balance 1949 1200 / 1200 1400 / 1400 General: Cooperative, No apparent distress, - - Drowsy HEENT: Atraumatic, PERRLA, EOMI, Normocephalic Neck: Supple, No JVD, Negative Carotid Bruits Lungs: Clear to auscultation, Normal air movement Cardiovascular: Regular rate, No murmurs Abdomen: Bowel Sounds Present, Soft, Non Tender Extremities: No clubbing, No cyanosis, No edema, Capillary Refill Less than 3 Seconds Skin: No rashes, No breakdown Musculoskeletal: No Tenderness to Palpation of Joints or Extremities Neurological: Cranial nerves II-XII grossly intact, Neuro grossly intact Psych/Mental Status: Flat Affect Laboratory Results 10/13/19 06:44: Differential Comment SCANNED, Platelet Estimate MOD DEC Current Medications Acetaminophen (Tylenol) 650 mg PO Q8H PRN PRN PRN Reason: Pain Score 1-10/10 Last Admin: 10/13/19 06:18 Dose: 650 mg Documented by: Albuterol/Ipratropium (Duoneb) 3 ml INHALATION Q4HWA.RT [facility] Last Admin: 10/14/19 07:31 Dose: 3 ml Documented by: Buprenorphine HCl (Buprenorphine Hcl) 2 mg SL Q12H [facility]; Taper Stop: 10/14/19 23:44 Last Admin: 10/13/19 23:09 Dose: 2 mg Documented by: Duloxetine HCl (Cymbalta) 60 mg PO DAILY [facility] Last Admin: 10/14/19 08:16 Dose: 60 mg Documented by: Folic Acid (Folic Acid) 1 mg PO DAILY@0800 [facility] Last Admin: 10/14/19 08:16 Dose: 1 mg Documented by: Furosemide (Lasix) 40 mg PO DAILY [facility] Last Admin: 10/14/19 08:16 Dose: 40 mg Documented by: Guaifenesin (Mucinex) 1,200 mg PO BID [facility] Last Admin: 10/14/19 08:16 Dose: 1,200 mg Documented by: Lactulose (Chronulac, Cephulac) 30 gm PO TID [facility] Last Admin: 10/14/19 06:48 Dose: 30 gm Documented by: Levothyroxine Sodium (Synthroid) 75 mcg PO DAILY@0600 [facility] Last Admin: 10/14/19 06:48 Dose: 75 mcg Documented by: Lisinopril (Zestril) 5 mg PO DAILY [facility] Last Admin: 10/14/19 08:16 Dose: 5 mg Documented by: Loperamide HCl (Imodium) 2 mg PO Q4H PRN PRN PRN Reason: LOOSE STOOLS Loperamide HCl (Imodium) 2 mg PO Q4H PRN PRN PRN Reason: LOOSE STOOLS Olanzapine (Zyprexa) 10 mg PO QHS [facility] Last Admin: 10/13/19 22:19 Dose: 10 mg Documented by: Ondansetron HCl (Zofran) 8 mg PO Q8H PRN PRN PRN Reason: NAUSEA Last Admin: 10/12/19 22:38 Dose: 8 mg Documented by: Ondansetron HCl (Zofran) 8 mg PO Q8H PRN PRN PRN Reason: NAUSEA Phenobarbital (Phenobarbital) 64.8 mg PO Q4H [facility]; Taper Stop: 10/16/19 17:59 Last Admin: 10/14/19 06:48 Dose: 64.8 mg Documented by: Sodium Chloride () 10 - 40 ml IV UD PRN PRN Reason: SALINE FLUSH Spironolactone (Aldactone) 25 mg PO DAILY [facility] Last Admin: 10/14/19 08:16 Dose: 25 mg Documented by: Th[facility] Last Admin: 10/14/19 08:16 Dose: 100 mg Documented by: Medical Necessity - Tobacco Use Smoking Status: Current every day smoker Tobacco Use: Cigarettes Assessment/Plan All Active Problems (Last Reviewed 01/14/19 @ 13:06 by Kathy Stephenson) Desire for detoxification (Acute) Alcohol abuse (Acute) Acute kidney injury (Resolved) Patient requiring acute dialysis (Resolved) Vascular catheter fitting or adjustment (Acute) Heroin abuse (Acute) Overdose (Resolved) 1. Acute alcohol and heroin withdrawal, polysubstance abuse-medical stabilization per protocol. Will complete Subutex taper today. Phenobarb taper reduced to 32 mg twice daily given lethargy and confusion. CIWA. [employer] consult pending. 2. Transient hypoxia-resolved. CTA with chronic changes. Continue incentive spirometer, bronchodilators. 3. Alcoholic cirrhosis-outpatient follow-up. CMP, ammonia pending. 4. Hypothyroidism-continue Synthroid regimen. 5. Nicotine dependence-encourage cessation. Nicotine replacement patch. DVT prophylaxis-not indicated, early ambulation This patient was seen by NELY Harrison under the supervision of Dr. Ag.
[2019-10-14 12:10] LABS: ALB/GLOB Ratio 0.6 RATIO (0.9-2.4); AST(SGOT) 39 U/L (15-37); Alanine Aminotransfer ALT/SGPT 30 U/L (16-61); Albumin, Serum 2.9 g/dL (3.2-5.0); Alkaline Phosphatase 105 U/L (45-117); Anion Gap 7 (5-15); BUN 13 mg/dL (7-18); BUN/Creat Ratio 10.2 RATIO (10-20); Calcium,Total 8.6 mg/dL (8.5-10.1); Chloride 100 mmol/L (98-107); Creatinine, Serum 1.28 mg/dL (0.70-1.30); EST Glomerular Filtration Rate 65 mL/min (>60); Est Glom Filt Rate - Afr Amer 78 mL/min (>60); Estimated Creatinine Clearance 75.25 ml/min; Globulin 4.8 g/dL (2.2-4.2); Glucose 113 mg/dL (74-106); Potassium 3.8 mmol/L (3.5-5.1); Protein, Total 7.7 g/dL (6.4-8.2); Sodium Level 133 mmol/L (136-145)
[2019-10-14] MEDS: Buprenorphine HCl 2 MG TAB.SUBL SL (12:11)
--- NOTE | 2019-10-14 13:50 | ADDICTION ---
This law writer was informed by patient's nurse that he is not capable of completing [facility] assessment or discharge planning today due to withdrawal-related barriers. Based on nurses report, this law writer did not attempt to engage with patient today.
[2019-10-14] MEDS: Lactulose 20 GM/30 ML UDC 45 GM PO ×2 (14:02→21:54)
[2019-10-14] MEDS: OLANZapine 10 MG Tablet PO (21:54)
[2019-10-15] VITALS (10 sets, daily range): BP systolic 108–153; BP diastolic 65–91; PULSE 84–98; RESP 14–18; TEMP 36.7–37.2; O2SAT 90–96
[2019-10-15] MEDS: Lactulose 20 GM/30 ML UDC 45 GM PO ×3 (05:13→21:45)
[2019-10-15] MEDS: Levothyroxine 75 MCG Tablet PO (05:13)
[2019-10-15] MEDS: Ipratropium/Albuterol Sulfate 3 ML AMPUL.NEB INHALATION ×4 (07:14→19:47)
[2019-10-15] MEDS: Folic Acid 1 MG Tablet PO (08:13)
[2019-10-15] MEDS: Thiamine Hydrochloride 100 MG Tablet PO (08:13)
--- NOTE | 2019-10-15 08:45 | RAD_ITS ---
STUDY: X-RAY CHEST REASON FOR EXAM: Male, 44 years old. HYPOXIA TECHNIQUE: Frontal view COMPARISON: October 12, 2019 FINDINGS: The lungs are expanded. Possible right basilar infiltrate. Normal size heart. Normal mediastinum and tony. Normal visualized pulmonary arteries. Normal visualized aortic arch and descending thoracic aorta. Normal visualized thoracic spine. Normal visualized ribs, clavicles, and shoulders. There is no demonstrated abnormality of the visualized soft tissue structures of the upper abdomen. RAD/Chest 1 View (Portable) IMPRESSION: Possible right basilar focal infiltrate. Electronically Signed: Luis Tam DO at 9:20 EDT Tel [phone], Service support ,
[2019-10-15] MEDS: Furosemide 40 MG Tablet PO (10:07)
[2019-10-15] MEDS: guaiFENesin 1,200 MG Tablet 1200 MG PO ×2 (10:08→21:45)
[2019-10-15] MEDS: Spironolactone 25 MG Tablet PO (10:08)
[2019-10-15] MEDS: Lisinopril 5 MG Tablet PO (10:09)
[2019-10-15] MEDS: DULoxetine Hcl 60 MG Capsule PO (10:09)
--- NOTE | 2019-10-15 10:41 | PCM.PROGNOTE ---
<Karissa Owens - Last Filed: 10/15/19 10:51> Patient Problems: Active and Suspected Problems (Last Reviewed 01/14/19 @ 13:06 by Kathy Stephenson) Aspiration pneumonia (Suspected) Acute opioid withdrawal (Acute) Acute alcohol withdrawal (Acute) Subjective: Patient seen and examined. More alert today. Reports he saw to black birds in his room this morning and has been hallucinating. Reports diaphoresis. Patient also complains of wet, nonproductive cough. - Physical Exam Vitals/I&O's: Vital Signs Temp Pulse Resp BP Pulse Ox 98.3 F 94 18 145/75 H 93 10/15/19 10:00 10/15/19 10:00 10/15/19 10:00 10/15/19 10:00 10/15/19 10:00 Oxygen Flow Rate (L/min) 2 Oxygen Delivery Method Room Air Weight: 271 lb 2.697 oz Body Mass Index (BMI) 38.9 Finger Stick Blood Glucose 96 Intake and Output for Last 24 Hours 10/13/19 10/14/19 10/15/19 23:59 23:59 23:59 Intake Total 1200 / 1200 2100 / 2400 500 / 500 Balance 1200 / 1200 2100 / 2400 500 / 500 General: Alert, Cooperative, No apparent distress HEENT: Atraumatic, PERRLA, EOMI, Normocephalic Oral: Dry Mucosa Neck: Supple, No JVD, Negative Carotid Bruits Lungs: Diminished, - - Fine crackles bilateral bases Cardiovascular: Regular rate, No murmurs Abdomen: Bowel Sounds Present, Soft, Non Tender, Non-Distended Extremities: No clubbing, No cyanosis, No edema, Capillary Refill Less than 3 Seconds Skin: No rashes, No breakdown Musculoskeletal: No Tenderness to Palpation of Joints or Extremities Neurological: Cranial nerves II-XII grossly intact, Neuro grossly intact Psych/Mental Status: Normal Affect, Appropriate Laboratory Results 10/14/19 11:28: Sodium 133 L, Potassium 3.8, Chloride 100, Carbon Dioxide 26.0, Anion Gap 7, BUN 13, Creatinine 1.28, Estim Creat Clear Calc 75.25, Est GFR (MDRD) Af Amer 78, Est GFR (MDRD) Non-Af 65, BUN/Creatinine Ratio 10.2, Glucose 113 H, Calcium 8.6, Total Bilirubin 1.20 H, AST 39 H, ALT 30, Alkaline Phosphatase 105, Total Protein 7.7, Albumin 2.9 L, Globulin 4.8 H, Albumin/Globulin Ratio 0.6 L 10/14/19 11:28: Ammonia 88.0 H Current Medications Acetaminophen (Tylenol) 650 mg PO Q8H PRN PRN PRN Reason: Pain Score 1-10/10 Last Admin: 10/13/19 06:18 Dose: 650 mg Documented by: Albuterol/Ipratropium (Duoneb) 3 ml INHALATION Q4HWA.RT [facility] Last Admin: 10/15/19 07:14 Dose: 3 ml Documented by: Duloxetine HCl (Cymbalta) 60 mg PO DAILY [facility] Last Admin: 10/15/19 10:09 Dose: 60 mg Documented by: Folic Acid (Folic Acid) 1 mg PO DAILY@0800 [facility] Last Admin: 10/15/19 08:13 Dose: 1 mg Documented by: Furosemide (Lasix) 40 mg PO DAILY [facility] Last Admin: 10/15/19 10:07 Dose: 40 mg Documented by: Guaifenesin (Mucinex) 1,200 mg PO BID [facility] Last Admin: 10/15/19 10:08 Dose: 1,200 mg Documented by: Piperacillin Sod/Tazobactam (Sod 3.375 gm/ Sodium Chloride) 50 mls @ 12.5 mls/hr IV Q8 [facility] Lactulose (Chronulac, Cephulac) 45 gm PO TID [facility] Last Admin: 10/15/19 05:13 Dose: 45 gm Documented by: Levothyroxine Sodium (Synthroid) 75 mcg PO DAILY@0600 [facility] Last Admin: 10/15/19 05:13 Dose: 75 mcg Documented by: Lisinopril (Zestril) 5 mg PO DAILY [facility] Last Admin: 10/15/19 10:09 Dose: 5 mg Documented by: Loperamide HCl (Imodium) 2 mg PO Q4H PRN PRN PRN Reason: LOOSE STOOLS Loperamide HCl (Imodium) 2 mg PO Q4H PRN PRN PRN Reason: LOOSE STOOLS Olanzapine (Zyprexa) 10 mg PO QHS [facility] Last Admin: 10/14/19 21:54 Dose: 10 mg Documented by: Ondansetron HCl (Zofran) 8 mg PO Q8H PRN PRN PRN Reason: NAUSEA Last Admin: 10/12/19 22:38 Dose: 8 mg Documented by: Ondansetron HCl (Zofran) 8 mg PO Q8H PRN PRN PRN Reason: NAUSEA Phenobarbital (Phenobarbital) 32.4 mg PO BID [facility] Last Admin: 10/15/19 10:08 Dose: 32.4 mg Documented by: Sodium Chloride () 10 - 40 ml IV UD PRN PRN Reason: SALINE FLUSH Spironolactone (Aldactone) 25 mg PO DAILY [facility] Last Admin: 10/15/19 10:08 Dose: 25 mg Documented by: Thiamine HCl (Vitamin B1) 100 mg PO DAILYCM [facility] Last Admin: 10/15/19 08:13 Dose: 100 mg Documented by: Medical Necessity - Tobacco Use Smoking Status: Current every day smoker Tobacco Use: Cigarettes Assessment/Plan All Active Problems (Last Reviewed 01/14/19 @ 13:06 by Kathy Stephenson) Acute opioid withdrawal (Acute) Acute alcohol withdrawal (Acute) Overdose (Resolved) 1. Acute alcohol and heroin withdrawal, polysubstance abuse-medical stabilization per protocol. Completed Subutex taper 10/13. Phenobarb taper reduced to 32 mg twice daily given lethargy and confusion. More alert today. Reports hallucinations and diaphoresis. Will increase phenobarb to 32 mg 3 times daily. CIWA/CINA. [employer] consult pending. 2. Acute hypoxia, right basilar infiltrate-requiring increased O2 this morning. Prior CT showed mild infiltrate in the left lower lobe. Repeat chest x-ray this morning shows right basilar infiltrate. Possible aspiration pneumonia? Initiate IV Zosyn. Continue DuoNeb aerosols and incentive spirometer. Aspiration precautions. Continue supplement oxygen to maintain O2 at or above 90%, wean as tolerated. 3. Alcoholic cirrhosis-outpatient follow-up. Ammonia 88. Continue lactulose, Aldactone, Lasix regimen. 4. Hypothyroidism-continue Synthroid regimen. 5. Nicotine dependence-encourage cessation. Nicotine replacement patch. 6. Hypertension-stable, continue lisinopril, Aldactone, Lasix. DVT prophylaxis-not indicated, early ambulation This patient was seen by NELY Harrison under the supervision of Dr. Witt. <Maday Witt E - Last Filed: 10/15/19 11:21> - Physical Exam Vitals/I&O's: Vital Signs Temp Pulse Resp BP Pulse Ox 98.3 F 94 18 145/75 H 93 10/15/19 10:00 10/15/19 10:00 10/15/19 10:00 10/15/19 10:00 10/15/19 10:00 Oxygen Flow Rate (L/min) 2 Oxygen Delivery Method Room Air Weight: 271 lb 2.697 oz Body Mass Index (BMI) 38.9 Finger Stick Blood Glucose 96 Intake and Output for Last 24 Hours 10/13/19 10/14/19 10/15/19 23:59 23:59 23:59 Intake Total 1200 / 1200 2100 / 2400 500 / 500 Balance 1200 / 1200 2100 / 2400 500 / 500 Laboratory Results 10/14/19 11:28: Sodium 133 L, Potassium 3.8, Chloride 100, Carbon Dioxide 26.0, Anion Gap 7, BUN 13, Creatinine 1.28, Estim Creat Clear Calc 75.25, Est GFR (MDRD) Af Amer 78, Est GFR (MDRD) Non-Af 65, BUN/Creatinine Ratio 10.2, Glucose 113 H, Calcium 8.6, Total Bilirubin 1.20 H, AST 39 H, ALT 30, Alkaline Phosphatase 105, Total Protein 7.7, Albumin 2.9 L, Globulin 4.8 H, Albumin/Globulin Ratio 0.6 L 10/14/19 11:28: Ammonia 88.0 H Current Medications Acetaminophen (Tylenol) 650 mg PO Q8H PRN PRN PRN Reason: Pain Score 1-10/10 Last Admin: 10/13/19 06:18 Dose: 650 mg Documented by: Albuterol/Ipratropium (Duoneb) 3 ml INHALATION Q4HWA.RT [facility] Last Admin: 10/15/19 11:12 Dose: 3 ml Documented by: Duloxetine HCl (Cymbalta) 60 mg PO DAILY [facility] Last Admin: 10/15/19 10:09 Dose: 60 mg Documented by: Folic Acid (Folic Acid) 1 mg PO DAILY@0800 [facility] Last Admin: 10/15/19 08:13 Dose: 1 mg Documented by: Furosemide (Lasix) 40 mg PO DAILY [facility] Last Admin: 10/15/19 10:07 Dose: 40 mg Documented by: Guaifenesin (Mucinex) 1,200 mg PO BID [facility] Last Admin: 10/15/19 10:08 Dose: 1,200 mg Documented by: Piperacillin Sod/Tazobactam (Sod 3.375 gm/ Sodium Chloride) 50 mls @ 12.5 mls/hr IV Q8 [facility] Lactulose (Chronulac, Cephulac) 45 gm PO TID [facility] Last Admin: 10/15/19 05:13 Dose: 45 gm Documented by: Levothyroxine Sodium (Synthroid) 75 mcg PO DAILY@0600 [facility] Last Admin: 10/15/19 05:13 Dose: 75 mcg Documented by: Lisinopril (Zestril) 5 mg PO DAILY [facility] Last Admin: 10/15/19 10:09 Dose: 5 mg Documented by: Loperamide HCl (Imodium) 2 mg PO Q4H PRN PRN PRN Reason: LOOSE STOOLS Loperamide HCl (Imodium) 2 mg PO Q4H PRN PRN PRN Reason: LOOSE STOOLS Olanzapine (Zyprexa) 10 mg PO QHS [facility] Last Admin: 10/14/19 21:54 Dose: 10 mg Documented by: Ondansetron HCl (Zofran) 8 mg PO Q8H PRN PRN PRN Reason: NAUSEA Last Admin: 10/12/19 22:38 Dose: 8 mg Documented by: Ondansetron HCl (Zofran) 8 mg PO Q8H PRN PRN PRN Reason: NAUSEA Phenobarbital (Phenobarbital) 32.4 mg PO TID [facility] Sodium Chloride () 10 - 40 ml IV UD PRN PRN Reason: SALINE FLUSH Spironolactone (Aldactone) 25 mg PO DAILY [facility] Last Admin: 10/15/19 10:08 Dose: 25 mg Documented by: Thiamine HCl (Vitamin B1) 100 mg PO DAILYCM [facility] Last Admin: 10/15/19 08:13 Dose: 100 mg Documented by: Assessment/Plan Hospitalist note: I am seeing this patient in conjunction with Karissa Owens. I independently seen and examined the patient. Progress note above, laboratory data and imaging studies reviewed and I concur with above treatment plan. Today, patient is more alert, oriented. He goes back into sleep very quick and he has been hallucinating. He complained of cough with yellow-colored sputum. He denies fever chills. Overnight, he required up to 4 L of oxygen, down to 2 L this morning and we were able to take him off oxygen, last pulse ox was 90% on room air. He has been afebrile, other vital signs are stable. - Physical Exam General: Alert, Oriented x3, Cooperative, No apparent distress. Falls asleep very quickly. HEENT: Atraumatic, PERRLA, EOMI. Neck: Supple, No JVD, Negative Carotid Bruits, Trachea Midline, Thyroid Normal. Lungs: Decreased breath sounds at the bases, faint crackles at the bases as well, no rhonchi, No wheeze. Cardiovascular: Regular rate, Regular Rhythm, Normal S1, Normal S2, PMI Normal. Abdomen: Bowel Sounds Present, Soft, Non Tender, Non-Distended, No Hepato-splenomegaly. Extremities: No clubbing, No cyanosis, No edema Skin: No rashes, No breakdown Neurological: Cranial nerves are intact, neuro grossly intact Vital Signs are stable. Assessment and plan: #1 acute alcohol withdrawal/acute opiate withdrawal: He completed tapering course of Subutex yesterday, currently on tapering phenobarbital, dose adjusted because of oversedation. He is on thiamine and folic acid. His vital signs has been stable. He has been sleepy and lethargic but arousable, appropriate. Routine blood work reviewed. Urine drug screen was positive for barbiturates. Blood alcohol level was 338 on admission. Plan to continue same treatment. #2 probable aspiration pneumonia/hypoxia: Chest x-ray and CT chest done and reviewed. Patient has been requiring oxygen up to 4 L but oxygen requirement has been decreasing. He has been complaining of productive cough with yellow sputum. Afebrile. Right basilar infiltrate is suspected. Since patient has been sleepy and lethargic, aspiration pneumonia is a possibility. Plan to start him on IV Zosyn. PCR for COVID-19 done and came back negative on October 12, 2019. #3 other chronic medical problems: Stable, continue current medications as above. This note was generated with [employer] dictation software. It may contain incorrect words, spelling, and punctuation that were not noted in checking the note before signing. Inpatient E&M: 30484 Subs Hosp L2
[2019-10-15] MEDS: Phenobarbital 32.4 MG Tablet PO ×2 (14:33→21:45)
[2019-10-15] MEDS: 0.9% Saline Lock 10 ML Syringe IV (18:41)
--- NOTE | 2019-10-15 21:42 | NURSING ---
update given to pt's mother, Leisa. pt aware.
[2019-10-15] MEDS: OLANZapine 10 MG Tablet PO (21:45)
[2019-10-15] MEDS: Ondansetron 8 MG Tablet PO (21:45)
[2019-10-16] VITALS (8 sets, daily range): BP systolic 118–132; BP diastolic 52–80; PULSE 76–99; RESP 16–20; TEMP 36.4–36.8; O2SAT 90–96
[2019-10-16] MEDS: Phenobarbital 32.4 MG Tablet PO ×2 (05:14→22:52)
[2019-10-16] MEDS: Lactulose 20 GM/30 ML UDC 45 GM PO (05:14)
[2019-10-16] MEDS: Levothyroxine 75 MCG Tablet PO (05:14)
[2019-10-16 06:01] LABS: Hematocrit 37.9 % (40-54); Hemoglobin 12.6 g/dL (13.0-16.5); Mean Corp Hgb Conc 33.2 g/dL (32-36); Mean Corpuscular Hgb 32.5 pg (27.0-32.0); Mean Corpuscular Volume 97.7 fL (80-94); POSITIVE COUNT YES; Platelet Count 81 K/mm3 (150-450); RBC Distribution Width CV 15.9 % (11.6-14.6); RBC Distribution Width SD 56.3 fl (35.1-43.9); Red Blood Count 3.88 M/mm3 (4.6-6.2); White Blood Count 5.1 K/mm3 (4.4-11.0)
[2019-10-16 06:10] LABS: Scan Indicated on CBC? Y/N YES- FLAGS NOTED
[2019-10-16 06:26] LABS: ALB/GLOB Ratio 0.6 RATIO (0.9-2.4); AST(SGOT) 41 U/L (15-37); Alanine Aminotransfer ALT/SGPT 30 U/L (16-61); Albumin, Serum 2.4 g/dL (3.2-5.0); Alkaline Phosphatase 102 U/L (45-117); Anion Gap 6 (5-15); BUN 11 mg/dL (7-18); BUN/Creat Ratio 9.9 RATIO (10-20); Calcium,Total 7.6 mg/dL (8.5-10.1); Chloride 99 mmol/L (98-107); Creatinine, Serum 1.11 mg/dL (0.70-1.30); EST Glomerular Filtration Rate 76 mL/min (>60); Est Glom Filt Rate - Afr Amer 92 mL/min (>60); Estimated Creatinine Clearance 86.77 ml/min; Globulin 4.1 g/dL (2.2-4.2); Glucose 112 mg/dL (74-106); Potassium 3.2 mmol/L (3.5-5.1); Protein, Total 6.5 g/dL (6.4-8.2); Sodium Level 132 mmol/L (136-145)
[2019-10-16] MEDS: Thiamine Hydrochloride 100 MG Tablet PO (08:12)
[2019-10-16] MEDS: Furosemide 40 MG Tablet PO (08:12)
[2019-10-16] MEDS: Folic Acid 1 MG Tablet PO (08:12)
[2019-10-16] MEDS: DULoxetine Hcl 60 MG Capsule PO (08:12)
[2019-10-16] MEDS: guaiFENesin 1,200 MG Tablet 1200 MG PO ×2 (08:13→22:49)
[2019-10-16] MEDS: Lisinopril 5 MG Tablet PO (08:13)
[2019-10-16] MEDS: Spironolactone 25 MG Tablet PO (08:13)
--- NOTE | 2019-10-16 09:55 | PN_ITS ---
<Karissa Owens - Last Filed: 10/16/19 10:14> Patient Problems: Active and Suspected Problems (Last Updated 10/15/19 @ 11:[address] Maday Witt MD) Aspiration pneumonia (Suspected) Acute opioid withdrawal (Acute) Acute alcohol withdrawal (Acute) Subjective: Patient seen and examined. Reports continued hallucinations. Speech improved however still mildly garbled. Shortness of breath improved. Continues to have intermittent cough. - Physical Exam Vitals/I&O's: Vital Signs Temp Pulse Resp BP Pulse Ox 97.6 F L 90 16 128/77 H 96 10/16/19 08:44 10/16/19 08:44 10/16/19 08:44 10/16/19 08:44 10/16/19 08:44 Oxygen Flow Rate (L/min) 2 Oxygen Delivery Method Nasal Cannula Weight: 271 lb 2.697 oz Body Mass Index (BMI) 38.9 Finger Stick Blood Glucose 96 Intake and Output for Last 24 Hours 10/14/19 10/15/19 10/16/19 23:59 23:59 23:59 Intake Total 2100 / 2400 1850.00 / 2170.00 870 / 870 Balance 2100 / 2400 1850.00 / 2170.00 870 / 870 General: Alert, Oriented x3, Cooperative, - - Hallucinations HEENT: Atraumatic, PERRLA, EOMI, Normocephalic Oral: Dry Mucosa Neck: Supple, No JVD, Negative Carotid Bruits Lungs: Clear to auscultation, Diminished Cardiovascular: Regular rate, No murmurs Abdomen: Bowel Sounds Present, Soft, Non Tender, Non-Distended, Obese Extremities: No clubbing, No cyanosis, No edema, Capillary Refill Less than 3 Seconds Skin: No rashes, No breakdown Musculoskeletal: No Tenderness to Palpation of Joints or Extremities Neurological: Cranial nerves II-XII grossly intact, Neuro grossly intact Psych/Mental Status: Impulsive Laboratory Results 10/16/19 05:35: WBC 5.1, RBC 3.88 L, Hgb 12.6 L, Hct 37.9 L, MCV 97.7 H, MCH 32.5 H, MCHC 33.2, RDW Std Deviation 56.3 H, RDW Coeff of Raghu 15.9 H, Plt Count 81 L, MPV 12.0, Differential Comment COMMENT 10/16/19 05:35: Sodium 132 L, Potassium 3.2 L, Chloride 99, Carbon Dioxide 27.0, Anion Gap 6, BUN 11, Creatinine 1.11, Estim Creat Clear Calc 86.77, Est GFR (MDRD) Af Amer 92, Est GFR (MDRD) Non-Af 76, BUN/Creatinine Ratio 9.9 L, Glucose 112 H, Calcium 7.6 L, Total Bilirubin 1.30 H, AST 41 H, ALT 30, Alkaline Phosphatase 102, Total Protein 6.5, Albumin 2.4 L, Globulin 4.1, Albumin/Globulin Ratio 0.6 L 10/16/19 05:35: Ammonia 110.0 H Current Medications Acetaminophen (Tylenol) 650 mg PO Q8H PRN PRN PRN Reason: Pain Score 1-1010 Last Admin: 10/13/19 06:18 Dose: 650 mg Documented by: Albuterol/Ipratropium (Duoneb) 3 ml INHALATION Q4HWA.RT [facility] Last Admin: 10/16/19 07:40 Dose: Not Given Documented by: Duloxetine HCl (Cymbalta) 60 mg PO DAILY [facility] Last Admin: 10/16/19 08:12 Dose: 60 mg Documented by: Folic Acid (Folic Acid) 1 mg PO DAILY@0800 [facility] Last Admin: 10/16/19 08:12 Dose: 1 mg Documented by: Furosemide (Lasix) 40 mg PO DAILY [facility] Last Admin: 10/16/19 08:12 Dose: 40 mg Documented by: Guaifenesin (Mucinex) 1,200 mg PO BID [facility] Last Admin: 10/16/19 08:13 Dose: 1,200 mg Documented by: Piperacillin Sod/Tazobactam (Sod 3.375 gm/ Sodium Chloride) 50 mls @ 12.5 mls/hr IV Q8 [facility] Last Infusion: 10/16/19 09:15 Dose: Infused Documented by: Lactulose (Chronulac, Cephulac) 45 gm PO TID [facility] Last Admin: 10/16/19 05:14 Dose: 45 gm Documented by: Levothyroxine Sodium (Synthroid) 75 mcg PO DAILY@0600 [facility] Last Admin: 10/16/19 05:14 Dose: 75 mcg Documented by: Lisinopril (Zestril) 5 mg PO DAILY [facility] Last Admin: 10/16/19 08:13 Dose: 5 mg Documented by: Loperamide HCl (Imodium) 2 mg PO Q4H PRN PRN PRN Reason: LOOSE STOOLS Loperamide HCl (Imodium) 2 mg PO Q4H PRN PRN PRN Reason: LOOSE STOOLS Olanzapine (Zyprexa) 10 mg PO QHS [facility] Last Admin: 10/15/19 21:45 Dose: 10 mg Documented by: Ondansetron HCl (Zofran) 8 mg PO Q8H PRN PRN PRN Reason: NAUSEA Last Admin: 10/15/19 21:45 Dose: 8 mg Documented by: Ondansetron HCl (Zofran) 8 mg PO Q8H PRN PRN PRN Reason: NAUSEA Phenobarbital (Phenobarbital) 32.4 mg PO TID [facility] Last Admin: 10/16/19 05:14 Dose: 32.4 mg Documented by: Sodium Chloride () 10 - 40 ml IV UD PRN PRN Reason: SALINE FLUSH Last Admin: 10/15/19 18:41 Dose: 10 ml Documented by: Spironolactone (Aldactone) 25 mg PO DAILY [facility] Last Admin: 10/16/19 08:13 Dose: 25 mg Documented by: [facility] Last Admin: 10/16/19 08:12 Dose: 100 mg Documented by: Medical Necessity - Tobacco Use Smoking Status: Current every day smoker Tobacco Use: Cigarettes Assessment/Plan All Active Problems (Last Updated 10/15/19 @ 11:[address] Maday Witt MD) Acute opioid withdrawal (Acute) Acute alcohol withdrawal (Acute) 1. Acute alcohol and heroin withdrawal, polysubstance abuse-medical stabilization per protocol. Completed Subutex taper 10/13. Phenobarb taper. CI [place]/CINA. [employer] consult pending. 2. Acute hypoxia, right basilar infiltrate-Prior CT showed mild infiltrate in the left lower lobe. Repeat chest x-ray showed right basilar infiltrate. Possible aspiration pneumonia? Continue IV Zosyn. Continue DuoNeb aerosols and incentive spirometer. Aspiration precautions. Continue supplement oxygen to maintain O2 at or above 90%, wean as tolerated. Send sputum for culture. 3. Alcoholic cirrhosis-outpatient follow-up. Ammonia 110. Continue lactulose, Aldactone, Lasix regimen. 4. Hypothyroidism-continue Synthroid regimen. 5. Nicotine dependence-encourage cessation. Nicotine replacement patch. 6. Hypertension-stable, continue lisinopril, Aldactone, Lasix. DVT prophylaxis-not indicated, early ambulation This patient was seen by NELY Harrison under the supervision of Dr. Witt. <EduarMaday E - Last Filed: 10/16/19 10:23> - Physical Exam Vitals/I&O's: Vital Signs Temp Pulse Resp BP Pulse Ox 97.6 F L 90 16 128/77 H 96 10/16/19 08:44 10/16/19 08:44 10/16/19 08:44 10/16/19 08:44 10/16/19 08:44 Oxygen Flow Rate (L/min) 2 Oxygen Delivery Method Nasal Cannula Weight: 271 lb 2.697 oz Body Mass Index (BMI) 38.9 Finger Stick Blood Glucose 96 Intake and Output for Last 24 Hours 10/14/19 10/15/19 10/16/19 23:59 23:59 23:59 Intake Total 2100 / 2400 1850.00 / 2170.00 870 / 870 Balance 2100 / 2400 1850.00 / 2170.00 870 / 870 Laboratory Results 10/16/19 05:35: WBC 5.1, RBC 3.88 L, Hgb 12.6 L, Hct 37.9 L, MCV 97.7 H, MCH 32.5 H, MCHC 33.2, RDW Std Deviation 56.3 H, RDW Coeff of Raghu 15.9 H, Plt Count 81 L, MPV 12.0, Differential Comment COMMENT 10/16/19 05:35: Sodium 132 L, Potassium 3.2 L, Chloride 99, Carbon Dioxide 27.0, Anion Gap 6, BUN 11, Creatinine 1.11, Estim Creat Clear Calc 86.77, Est GFR (MDRD) Af Amer 92, Est GFR (MDRD) Non-Af 76, BUN/Creatinine Ratio 9.9 L, Glucose 112 H, Calcium 7.6 L, Total Bilirubin 1.30 H, AST 41 H, ALT 30, Alkaline Phosphatase 102, Total Protein 6.5, Albumin 2.4 L, Globulin 4.1, Albumin/Globulin Ratio 0.6 L 10/16/19 05:35: Ammonia 110.0 H Current Medications Acetaminophen (Tylenol) 650 mg PO Q8H PRN PRN PRN Reason: Pain Score 1-10 Last Admin: 10/13/19 06:18 Dose: 650 mg Documented by: Albuterol/Ipratropium (Duoneb) 3 ml INHALATION Q4HWA.RT [facility] Last Admin: 10/16/19 07:40 Dose: Not Given Documented by: Duloxetine HCl (Cymbalta) 60 mg PO DAILY [facility] Last Admin: 10/16/19 08:12 Dose: 60 mg Documented by: Folic Acid (Folic Acid) 1 mg PO DAILY@0800 [facility] Last Admin: 10/16/19 08:12 Dose: 1 mg Documented by: Furosemide (Lasix) 40 mg PO DAILY [facility] Last Admin: 10/16/19 08:12 Dose: 40 mg Documented by: Guaifenesin (Mucinex) 1,200 mg PO BID [facility] Last Admin: 10/16/19 08:13 Dose: 1,200 mg Documented by: Piperacillin Sod/Tazobactam (Sod 3.375 gm/ Sodium Chloride) 50 mls @ 12.5 mls/hr IV Q8 [facility] Last Infusion: 10/16/19 09:15 Dose: Infused Documented by: Lactulose (Chronulac, Cephulac) 45 gm PO TID [facility] Last Admin: 10/16/19 05:14 Dose: 45 gm Documented by: Levothyroxine Sodium (Synthroid) 75 mcg PO DAILY@0600 [facility] Last Admin: 10/16/19 05:14 Dose: 75 mcg Documented by: Lisinopril (Zestril) 5 mg PO DAILY [facility] Last Admin: 10/16/19 08:13 Dose: 5 mg Documented by: Loperamide HCl (Imodium) 2 mg PO Q4H PRN PRN PRN Reason: LOOSE STOOLS Loperamide HCl (Imodium) 2 mg PO Q4H PRN PRN PRN Reason: LOOSE STOOLS Olanzapine (Zyprexa) 10 mg PO QHS [facility] Last Admin: 10/15/19 21:45 Dose: 10 mg Documented by: Ondansetron HCl (Zofran) 8 mg PO Q8H PRN PRN PRN Reason: NAUSEA Last Admin: 07/03/20 21:45 Dose: 8 mg Documented by: Ondansetron HCl (Zofran) 8 mg PO Q8H PRN PRN PRN Reason: NAUSEA Phenobarbital (Phenobarbital) 32.4 mg PO BID [facility] Potassium Chloride (K-Dur) 40 meq PO X1 ONE Stop: 10/16/19 10:13 Sodium Chloride () 10 - 40 ml IV UD PRN PRN Reason: SALINE FLUSH Last Admin: 10/15/19 18:41 Dose: 10 ml Documented by: Spironolactone (Aldactone) 25 mg PO DAILY [facility] Last Admin: 10/16/19 08:13 Dose: 25 mg Documented by: Thiamine HCl (Vitamin B1) 100 mg PO DAILYCM [facility] Last Admin: 10/16/19 08:12 Dose: 100 mg Documented by: Assessment/Plan Hospitalist note: I am seeing this patient in conjunction with Karissa Owens. I independently seen and examined the patient. Progress note above, laboratory data and imaging studies reviewed and I concur with above treatment plan. Patient still complaining of hallucination. Still having mild cough, shortness of breath improved. He has been afebrile, blood pressure and heart rate are stable, pulse ox is 96% on 2 L. - Physical Exam General: Alert, Oriented x3, Cooperative, No apparent distress. Falls asleep very quickly. HEENT: Atraumatic, PERRLA, EOMI. Neck: Supple, No JVD, Negative Carotid Bruits, Trachea Midline, Thyroid Normal. Lungs: Decreased breath sounds at the bases, faint crackles at the bases as well, no rhonchi, No wheeze. Cardiovascular: Regular rate, Regular Rhythm, Normal S1, Normal S2, PMI Normal. Abdomen: Bowel Sounds Present, Soft, Non Tender, Non-Distended, No Hepato- splenomegaly. Extremities: No clubbing, No cyanosis, No edema Skin: No rashes, No breakdown Neurological: Cranial nerves are intact, neuro grossly intact Vital Signs are stable. Assessment and plan: #1 acute alcohol withdrawal/acute opiate withdrawal: Currently on phenobarbital taper, completed Subutex taper course. He is on thiamine and folic acid. His vital signs has been stable. Today, he is more alert and oriented but still having hallucination. Routine blood work reviewed. Urine drug screen was positive for barbiturates. Blood alcohol level was 338 on admission. Plan to continue same treatment, replace potassium. #2 probable aspiration pneumonia/hypoxia: He is on IV Zosyn. He has been afebrile, no leukocytosis. Symptoms started to improve, remained on 2 L of oxygen. PCR for COVID-19 done and came back negative on October 12, 2019. Plan to continue IV Zosyn, incentive spirometer, wean off oxygen as tolerated. #3 other chronic medical problems: Stable, continue current medications as above. This note was generated with [employer] dictation software. It may contain incorrect words, spelling, and punctuation that were not noted in checking the note before signing. Inpatient E&M: 67910 Subs Hosp L2
--- NOTE | 2019-10-16 10:58 | NURSING ---
spoke with evangelina his mother update given
[2019-10-16] MEDS: Ipratropium/Albuterol Sulfate 3 ML AMPUL.NEB INHALATION ×2 (11:28→20:36)
[2019-10-16] MEDS: OLANZapine 10 MG Tablet PO (22:49)
[2019-10-17] VITALS (8 sets, daily range): BP systolic 130–154; BP diastolic 68–88; PULSE 78–89; RESP 16–21; TEMP 36.6–36.8; O2SAT 92–97
[2019-10-17] MEDS: Levothyroxine 75 MCG Tablet PO (06:40)
[2019-10-17] MEDS: Lactulose 20 GM/30 ML UDC 45 GM PO ×3 (06:40→21:11)
[2019-10-17 08:13] LABS: Anion Gap 5 (5-15); BUN 10 mg/dL (7-18); BUN/Creat Ratio 11.3 RATIO (10-20); Calcium,Total 8.2 mg/dL (8.5-10.1); Chloride 98 mmol/L (98-107); Creatinine, Serum 0.88 mg/dL (0.70-1.30); EST Glomerular Filtration Rate 99 mL/min (>60); Est Glom Filt Rate - Afr Amer 120 mL/min (>60); Estimated Creatinine Clearance 109.45 ml/min; Glucose 111 mg/dL (74-106); Potassium 3.4 mmol/L (3.5-5.1); Sodium Level 133 mmol/L (136-145)
[2019-10-17] MEDS: Thiamine Hydrochloride 100 MG Tablet PO (08:25)
[2019-10-17] MEDS: Folic Acid 1 MG Tablet PO (08:26)
--- NOTE | 2019-10-17 10:03 | PN_ITS ---
<Karissa Owens - Last Filed: 10/17/19 10:23> Subjective: Patient seen and examined. Reports continued hallucinations. Denies other withdrawal symptoms. Denies further shortness of breath. Oxygen stable on room air. - Physical Exam Vitals/I&O's: Vital Signs Temp Pulse Resp BP Pulse Ox 98.0 F 80 18 154/80 H 94 10/17/19 08:23 10/17/19 08:23 10/17/19 08:23 10/17/19 08:23 10/17/19 08:23 Oxygen Flow Rate (L/min) 2 Oxygen Delivery Method Room Air Weight: 271 lb 2.697 oz Body Mass Index (BMI) 38.9 Finger Stick Blood Glucose 96 Intake and Output for Last 24 Hours 10/15/19 10/16/19 10/17/19 23:59 23:59 23:59 Intake Total 1850.00 / 2170.00 2370 / 2870 750 / 750 Balance 1850.00 / 2170.00 2370 / 2870 750 / 750 General: Alert, Oriented x3, Cooperative HEENT: Atraumatic, PERRLA, EOMI, Normocephalic Oral: Dry Mucosa Neck: Supple, No JVD, Negative Carotid Bruits Lungs: Clear to auscultation, Normal air movement Cardiovascular: Regular rate, No murmurs Abdomen: Bowel Sounds Present, Soft, Non Tender Extremities: No clubbing, No cyanosis, No edema, Capillary Refill Less than 3 Seconds Skin: No rashes, No breakdown Musculoskeletal: No Tenderness to Palpation of Joints or Extremities Neurological: Cranial nerves II-XII grossly intact, Neuro grossly intact Psych/Mental Status: Impulsive Laboratory Results 10/17/19 06:40: Sodium Cancelled, Potassium Cancelled, Chloride Cancelled, Carbon Dioxide Cancelled, Anion Gap Cancelled, BUN Cancelled, Creatinine Cancelled, Estim Creat Clear Calc Cancelled, Est GFR (MDRD) Af Amer Cancelled, Est GFR (MDRD) Non-Af Cancelled, BUN/Creatinine Ratio Cancelled, Glucose Cancelled, Calcium Cancelled 10/17/19 06:40: Ammonia Cancelled 10/17/19 07:36: Ammonia 116.0 H 10/17/19 07:36: Sodium 133 L, Potassium 3.4 L, Chloride 98, Carbon Dioxide 30.0, Anion Gap 5, BUN 10, Creatinine 0.88, Estim Creat Clear Calc 109.45, Est GFR (MDRD) Af Amer 120, Est GFR (MDRD) Non-Af 99, BUN/Creatinine Ratio 11.3, Glucose 111 H, Calcium 8.2 L Current Medications Acetaminophen (Tylenol) 650 mg PO Q8H PRN PRN PRN Reason: Pain Score 1-10/10 Last Admin: 10/13/19 06:18 Dose: 650 mg Documented by: Albuterol/Ipratropium (Duoneb) 3 ml INHALATION Q4HWA.RT [facility] Last Admin: 10/16/19 20:36 Dose: 3 ml Documented by: Duloxetine HCl (Cymbalta) 60 mg PO DAILY [facility] Last Admin: 10/16/19 08:12 Dose: 60 mg Documented by: Folic Acid (Folic Acid) 1 mg PO DAILY@0800 [facility] Last Admin: 10/17/19 08:26 Dose: 1 mg Documented by: Furosemide (Lasix) 40 mg PO DAILY [facility] Last Admin: 10/16/19 08:12 Dose: 40 mg Documented by: Guaifenesin (Mucinex) 1,200 mg PO BID [facility] Last Admin: 10/16/19 22:49 Dose: 1,200 mg Documented by: Piperacillin Sod/Tazobactam (Sod 3.375 gm/ Sodium Chloride) 50 mls @ 12.5 mls/h r IV Q8 [facility] Last Admin: 10/17/19 06:40 Dose: 12.5 mls/hr Documented by: Lactulose (Chronulac, Cephulac) 45 gm PO TID [facility] Last Admin: 10/17/19 06:40 Dose: 45 gm Documented by: Levothyroxine Sodium (Synthroid) 75 mcg PO DAILY@0600 [facility] Last Admin: 10/17/19 06:40 Dose: 75 mcg Documented by: Lisinopril (Zestril) 5 mg PO DAILY [facility] Last Admin: 10/16/19 08:13 Dose: 5 mg Documented by: Loperamide HCl (Imodium) 2 mg PO Q4H PRN PRN PRN Reason: LOOSE STOOLS Loperamide HCl (Imodium) 2 mg PO Q4H PRN PRN PRN Reason: LOOSE STOOLS Olanzapine (Zyprexa) 10 mg PO QHS [facility] Last Admin: 10/16/19 22:49 Dose: 10 mg Documented by: Ondansetron HCl (Zofran) 8 mg PO Q8H PRN PRN PRN Reason: NAUSEA Last Admin: 10/15/19 21:45 Dose: 8 mg Documented by: Ondansetron HCl (Zofran) 8 mg PO Q8H PRN PRN PRN Reason: NAUSEA Phenobarbital (Phenobarbital) 32.4 mg PO BID [facility] Last Admin: 10/16/19 22:52 Dose: 32.4 mg Documented by: Sodium Chloride () 10 - 40 ml IV UD PRN PRN Reason: SALINE FLUSH Last Admin: 10/15/19 18:41 Dose: 10 ml Documented by: Spironolactone (Aldactone) 25 mg PO DAILY [facility] Last Admin: 10/16/19 08:13 Dose: 25 mg Documented by: Thiamine HCl (Vitamin B1) 100 mg PO DAILYCM [facility] Last Admin: 10/17/19 08:25 Dose: 100 mg Documented by: Medical Necessity - Tobacco Use Smoking Status: Current every day smoker Tobacco Use: Cigarettes Assessment/Plan All Active Problems (Last Updated 10/15/19 @ 11:[address] Maday Witt MD) Acute opioid withdrawal (Acute) Acute alcohol withdrawal (Acute) 1. Acute alcohol and heroin withdrawal, polysubstance abuse-medical stabilization per protocol. Completed Subutex taper 10/13. Phenobarb taper completed. CIWA/CINA. [facility] consult pending. 2. Acute hypoxia, right basilar infiltrate-Prior CT showed mild infiltrate in the left lower lobe. Repeat chest x-ray showed right basilar infiltrate. Possible aspiration pneumonia? Continue IV Zosyn, transition to oral regimen in a.m. Continue DuoNeb aerosols and incentive spirometer. Aspiration precautions. Continue supplement oxygen to maintain O2 at or above 90%, wean as tolerated. Send sputum for culture. Oxygen now stable on room air. 3. Alcoholic cirrhosis with suspected hepatic encephalopathy-patient continues to have hallucinations with no other withdrawal symptoms. Ammonia 116, slightly trending up. Continue lactulose, Aldactone, Lasix regimen. Patient reports multiple bowel movements per day. 4. Hypothyroidism-continue Synthroid regimen. 5. Nicotine dependence-encourage cessation. Nicotine replacement patch. 6. Hypertension-stable, continue lisinopril, Aldactone, Lasix. DVT prophylaxis-not indicated, early ambulation This patient was seen by NELY Harrison under the supervision of Dr. Witt. <Maday Witt E - Last Filed: 10/17/19 10:45> - Physical Exam Vitals/I&O's: Vital Signs Temp Pulse Resp BP Pulse Ox 98.0 F 80 18 154/80 H 94 10/17/19 08:23 10/17/19 08:23 10/17/19 08:23 10/17/19 08:23 10/17/19 08:23 Oxygen Flow Rate (L/min) 2 Oxygen Delivery Method Room Air Weight: 271 lb 2.697 oz Body Mass Index (BMI) 38.9 Finger Stick Blood Glucose 96 Intake and Output for Last 24 Hours 10/15/19 10/16/19 10/17/19 23:59 23:59 23:59 Intake Total 1850.00 / 2170.00 2370 / 2870 750 / 750 Balance 1850.00 / 2170.00 2370 / 2870 750 / 750 Laboratory Results 10/17/19 06:40: Sodium Cancelled, Potassium Cancelled, Chloride Cancelled, Carbon Dioxide Cancelled, Anion Gap Cancelled, BUN Cancelled, Creatinine Cancelled, Estim Creat Clear Calc Cancelled, Est GFR (MDRD) Af Amer Cancelled, Est GFR (MDRD) Non-Af Cancelled, BUN/Creatinine Ratio Cancelled, Glucose Cancelled, Calcium Cancelled 10/17/19 06:40: Ammonia Cancelled 10/17/19 07:36: Ammonia 116.0 H 10/17/19 07:36: Sodium 133 L, Potassium 3.4 L, Chloride 98, Carbon Dioxide 30.0, Anion Gap 5, BUN 10, Creatinine 0.88, Estim Creat Clear Calc 109.45, Est GFR (MDRD) Af Amer 120, Est GFR (MDRD) Non-Af 99, BUN/Creatinine Ratio 11.3, Glucose 111 H, Calcium 8.2 L Current Medications Acetaminophen (Tylenol) 650 mg PO Q8H PRN PRN PRN Reason: Pain Score 1-10/10 Last Admin: 10/13/19 06:18 Dose: 650 mg Documented by: Albuterol/Ipratropium (Duoneb) 3 ml INHALATION Q4HWA.RT [facility] Last Admin: 10/17/19 10:27 Dose: Not Given Documented by: Duloxetine HCl (Cymbalta) 60 mg PO DAILY [facility] Last Admin: 10/16/19 08:12 Dose: 60 mg Documented by: Folic Acid (Folic Acid) 1 mg PO DAILY@0800 [facility] Last Admin: 10/17/19 08:26 Dose: 1 mg Documented by: Furosemide (Lasix) 40 mg PO DAILY [facility] Last Admin: 10/16/19 08:12 Dose: 40 mg Documented by: Guaifenesin (Mucinex) 1,200 mg PO BID [facility] Last Admin: 10/16/19 22:49 Dose: 1,200 mg Documented by: Piperacillin Sod/Tazobactam (Sod 3.375 gm/ Sodium Chloride) 50 mls @ 12.5 mls/hr IV Q8 [facility] Last Admin: 10/17/19 06:40 Dose: 12.5 mls/hr Documented by: Lactulose (Chronulac, Cephulac) 45 gm PO TID [facility] Last Admin: 10/17/19 06:40 Dose: 45 gm Documented by: Levothyroxine Sodium (Synthroid) 75 mcg PO DAILY@0600 [facility] Last Admin: 10/17/19 06:40 Dose: 75 mcg Documented by: Lisinopril (Zestril) 5 mg PO DAILY [facility] Last Admin: 10/16/19 08:13 Dose: 5 mg Documented by: Loperamide HCl (Imodium) 2 mg PO Q4H PRN PRN PRN Reason: LOOSE STOOLS Loperamide HCl (Imodium) 2 mg PO Q4H PRN PRN PRN Reason: LOOSE STOOLS Olanzapine (Zyprexa) 10 mg PO QHS [facility] Last Admin: 10/16/19 22:49 Dose: 10 mg Documented by: Ondansetron HCl (Zofran) 8 mg PO Q8H PRN PRN PRN Reason: NAUSEA Last Admin: 10/15/19 21:45 Dose: 8 mg Documented by: Ondansetron HCl (Zofran) 8 mg PO Q8H PRN PRN PRN Reason: NAUSEA Potassium Chloride (K-Dur) 40 meq PO X1 ONE Stop: 10/17/19 10:46 Sodium Chloride () 10 - 40 ml IV UD PRN PRN Reason: SALINE FLUSH Last Admin: 10/15/19 18:41 Dose: 10 ml Documented by: Spironolactone (Aldactone) 25 mg PO DAILY [facility] Last Admin: 10/16/19 08:13 Dose: 25 mg Documented by: Thiamine [facility] ([facility]itamin B1) [facility] Last Admin: 10/17/19 08:25 Dose: 100 mg Documented by: Assessment/Plan Hospitalist note: I am seeing this patient in conjunction with Karissa Owens. I independently seen and examined the patient. Progress note above, laboratory data and imaging studies reviewed and I concur with above treatment plan. Patient reported hallucination. Shortness of breath has been improving and he is off oxygen at this time. He has been afebrile, other vital signs are stable. - Physical Exam General: Alert, Oriented x3, Cooperative, No apparent distress. Falls asleep very quickly. HEENT: Atraumatic, PERRLA, EOMI. Neck: Supple, No JVD, Negative Carotid Bruits, Trachea Midline, Thyroid Normal. Lungs: Decreased breath sounds at the bases, faint crackles at the bases as well, no rhonchi, No wheeze. Cardiovascular: Regular rate, Regular Rhythm, Normal S1, Normal S2, PMI Normal. Abdomen: Bowel Sounds Present, Soft, Non Tender, Non-Distended, No Hepato- splenomegaly. Extremities: No clubbing, No cyanosis, No edema Skin: No rashes, No breakdown Neurological: Cranial nerves are intact, neuro grossly intact Vital Signs are stable. Assessment and plan: #1 acute alcohol withdrawal/acute opiate withdrawal: He completed Subutex and feel part stable. Withdrawal symptoms improved. He slept well last night. Still having some hallucinations. 180 program consulted. He is on thiamine and folic acid. His vital signs has been stable. Urine drug screen was positive for barbiturates. Blood alcohol level was 338 on admission. Plan to continue same treatment, 180 program consult is pending, anticipate discharge home tomorrow. #2 probable aspiration pneumonia/hypoxia: Remained on IV Zosyn. He has been afebrile, no leukocytosis. Symptoms has been improving, he is off oxygen today, pulse ox is maintained on room air. PCR for COVID-19 done and came back negative on October 12, 2019. Plan as above. #3 other chronic medical problems: Stable, continue current medications as above. This note was generated with [employer] software. It may contain incorrect words, spelling, and punctuation that were not noted in checking the note before signing. Inpatient E&M: 00674 Subs Hosp L2
[2019-10-17] MEDS: DULoxetine Hcl 60 MG Capsule PO (10:57)
[2019-10-17] MEDS: Lisinopril 5 MG Tablet PO (10:58)
[2019-10-17] MEDS: guaiFENesin 1,200 MG Tablet 1200 MG PO ×2 (10:58→21:11)
[2019-10-17] MEDS: Furosemide 40 MG Tablet PO (10:58)
[2019-10-17] MEDS: Spironolactone 25 MG Tablet PO (10:58)
--- NOTE | 2019-10-17 13:45 | NURSING ---
talked with pt's mother evangelina and gave her an update per pt's permission
[2019-10-17] MEDS: Ipratropium/Albuterol Sulfate 3 ML AMPUL.NEB INHALATION (14:10)
[2019-10-17] MEDS: Acetaminophen 325 MG Tablet 650 MG PO (18:58)
[2019-10-17] MEDS: OLANZapine 10 MG Tablet PO (21:10)
[2019-10-18 05:30] VITALS: BP 126/78; PULSE 80; RESP 16; TEMP 36.9; O2SAT 94
[2019-10-18] MEDS: Levothyroxine 75 MCG Tablet PO (05:40)
[2019-10-18] MEDS: Lactulose 20 GM/30 ML UDC 45 GM PO ×2 (05:41→14:10)
[2019-10-18 06:30] VITALS: PULSE 85; RESP 18; O2SAT 90
[2019-10-18] MEDS: Ipratropium/Albuterol Sulfate 3 ML AMPUL.NEB INHALATION (06:30)
[2019-10-18 06:36] LABS: ALB/GLOB Ratio 0.5 RATIO (0.9-2.4); AST(SGOT) 31 U/L (15-37); Alanine Aminotransfer ALT/SGPT 27 U/L (16-61); Albumin, Serum 2.3 g/dL (3.2-5.0); Alkaline Phosphatase 96 U/L (45-117); Anion Gap 4 (5-15); BUN 11 mg/dL (7-18); BUN/Creat Ratio 11.4 RATIO (10-20); Calcium,Total 8.8 mg/dL (8.5-10.1); Chloride 100 mmol/L (98-107); Creatinine, Serum 0.97 mg/dL (0.70-1.30); EST Glomerular Filtration Rate 89 mL/min (>60); Est Glom Filt Rate - Afr Amer 108 mL/min (>60); Globulin 4.3 g/dL (2.2-4.2); Glucose 102 mg/dL (74-106); Potassium 3.8 mmol/L (3.5-5.1); Protein, Total 6.6 g/dL (6.4-8.2); Sodium Level 133 mmol/L (136-145)
--- NOTE | 2019-10-18 08:54 | CASEMGMT ---
Sherri Zhou from [facility] will be here this afternoon to see pt. ERICKA Arreaga
[2019-10-18] MEDS: Furosemide 40 MG Tablet PO (09:07)
[2019-10-18] MEDS: Folic Acid 1 MG Tablet PO (09:07)
[2019-10-18] MEDS: Spironolactone 25 MG Tablet PO (09:07)
[2019-10-18] MEDS: Thiamine Hydrochloride 100 MG Tablet PO (09:08)
[2019-10-18] MEDS: DULoxetine Hcl 60 MG Capsule PO (09:08)
[2019-10-18] MEDS: guaiFENesin 1,200 MG Tablet 1200 MG PO (09:08)
[2019-10-18] MEDS: Lisinopril 5 MG Tablet PO (09:08)
[2019-10-18 11:30] VITALS: BP 133/74; PULSE 81; RESP 18; TEMP 36.7; O2SAT 96
--- NOTE | 2019-10-18 11:43 | DCINST_ITS ---
- Discharge Diagnoses Current Active Problems: Current Active and Chronic Problems Alcohol abuse (Chronic) You will use the following diet at home:: No restrictions Discharge Activity: Return to Normal Activity Call your doctor if you observe: Shortness of breath, Dizziness, Fainting spells, Chest pain Allergies/Adverse Reactions: Allergies No Known Allergies Allergy (Verified 10/11/19 16:58) Medications to take at Discharge Furosemide [Lasix] 40 mg PO DAILY 08/25/19 Hydroxyzine Pamoate [Vistaril] 50 mg PO TID PRN PRN 09/13/19 Lactulose 45 ml PO TID 09/13/19 Levothyroxine [Synthroid] 75 mcg PO DAILY 09/13/19 Olanzapine 10 mg PO QHS 09/13/19 Spironolactone 25 mg PO DAILY 09/13/19 traZODone [Desyrel] 100 mg PO QHS 10/11/19 Amox/Clavulanate Tablet [Augmentin Tablet] 875 mg PO Q12H #8 tab 10/18/19 The following prescriptions were given: Amox/Clavulanate Tablet [Augmentin Tablet] 875 mg PO Q12H #8 tab Transmission Status: Pending to [facility] [facility] Primary Care Physician: Pawan Mcfadden MD [Primary Care Provider] - Please follow up with your Primary Care Physician in: 1 Week Test Results: Test results from this visit will be discussed in further detail at your follow- up appointment, if applicable. Please Follow Up With: EIGHTY,ONE When: As scheduled Proposed Discharge Date: 10/18/19
--- NOTE | 2019-10-18 11:45 | DS.PCM_ITS ---
<Karissa Owens - Last Filed: 10/18/19 12:08> Discharge Date and Diagnosis Date of Admission: 10/11/19 Date of Discharge: 10/18/19 - Primary Discharge Diagnosis Acute Problems: 1. Acute alcohol and heroin withdrawal, polysubstance abuse 2. Acute hypoxia, right basilar infiltrate-Probable aspiration pneumonia 3. Alcoholic cirrhosis with suspected hepatic encephalopathy 4. Hypothyroidism 5. Nicotine dependence 6. Hypertension - Secondary Discharge Diagnosis Chronic Problems: Chronic Problems (Last Updated 10/15/19 @ 11:[address] Maday Witt MD) History of depression (Chronic) Alcohol abuse (Chronic) Polysubstance abuse (Chronic) Heroin abuse (Chronic) Cocaine abuse (Chronic) Hypothyroidism (Chronic) HTN (hypertension) (Chronic) Alcoholic cirrhosis of liver (Chronic) Hospital Course and Treatment Imaging Results: Diagnostic Data Chest CT 10/12/19 14:18 IMPRESSION: Mild focal infiltrate in the left lower lobe as described. Mild scarring at the lung bases. Electronically Signed: Des Gr, at 15:42 EDT , Service support , Chest X-Ray 10/15/19 08:45 IMPRESSION: Possible right basilar focal infiltrate. Electronically Signed: Luis Tam DO at 9:20 EDT Tel [phone], Service support , [facility] Operations: None Procedures: None Summary of Care Provided: The patient is a 44 year old M admitted 10/11/2019 due to alcohol detox and heroin abuse. 1. Acute alcohol and heroin withdrawal, polysubstance abuse-medical stabilization per protocol. Completed Subutex taper 10/13. Phenobarb taper completed. [facility] follow up at discharge. 2. Acute hypoxia, right basilar infiltrate-Prior CT showed mild infiltrate in the left lower lobe. Repeat chest x-ray showed right basilar infiltrate. Possible aspiration pneumonia. IV Zosyn during admission, transition to Augmentin at discharge to complete course. Oxygen is now stable on room air. 3. Alcoholic cirrhosis with suspected hepatic encephalopathy-Continue lactulose, Aldactone, Lasix regimen. Patient reports multiple bowel movements per day. Suspect patient was not taking his prescribed regimen prior to admission. 4. Hypothyroidism-continue Synthroid regimen. 5. Nicotine dependence-encourage cessation. Nicotine replacement patch. 6. Hypertension-stable, continue lisinopril, Aldactone, Lasix. General: Alert, Oriented x3, Cooperative HEENT: Atraumatic, PERRLA, EOMI, Normocephalic Oral: Dry Mucosa Neck: Supple, No JVD, Negative Carotid Bruits Lungs: Clear to auscultation, Normal air movement Cardiovascular: Regular rate, No murmurs Abdomen: Bowel Sounds Present, Soft, Non Tender Extremities: No clubbing, No cyanosis, No edema, Capillary Refill Less than 3 Seconds Skin: No rashes, No breakdown Musculoskeletal: No Tenderness to Palpation of Joints or Extremities Neurological: Cranial nerves II-XII grossly intact, Neuro grossly intact Psych/Mental Status: Impulsive Patient seen and examined prior to discharge. Physical assessment as noted above. Patient is stable for discharge with follow up recommendations as noted above. This patient was seen by NELY Harrison under the supervision of Dr. Witt. - Physical Exam Vitals/I&O's: Vital Signs Temp Pulse Resp BP Pulse Ox 98.4 F 85 18 126/78 H 90 10/18/19 05:30 10/18/19 06:30 10/18/19 06:30 10/18/19 05:30 10/18/19 06:30 Oxygen Flow Rate (L/min) 2 Oxygen Delivery Method Room Air Weight: 271 lb 2.697 oz Body Mass Index (BMI) 38.9 Finger Stick Blood Glucose 96 Intake and Output for Last 24 Hours 10/16/19 10/17/19 10/18/19 23:59 23:59 23:59 Intake Total 2370 / 2870 2550 / 2550 100 / 100 Balance 2370 / 2870 2550 / 2550 100 / 100 Laboratory Results 10/18/19 05:54: Sodium 133 L, Potassium 3.8, Chloride 100, Carbon Dioxide 29.0, Anion Gap 4 L, BUN 11, Creatinine 0.97, Estim Creat Clear Calc 99.30, Est GFR (MDRD) Af Amer 108, Est GFR (MDRD) Non-Af 89, BUN/Creatinine Ratio 11.4, Glucose 102, Calcium 8.8, Total Bilirubin 0.90, AST 31, ALT 27, Alkaline Phosphatase 96, Total Protein 6.6, Albumin 2.3 L, Globulin 4.3 H, Albumin/Globulin Ratio 0.5 L Current Medications Acetaminophen (Tylenol) 650 mg PO Q8H PRN PRN PRN Reason: Pain Score 1-10/10 Last Admin: 10/17/19 18:58 Dose: 650 mg Documented by: Albuterol/Ipratropium (Duoneb) 3 ml INHALATION Q4HWA.RT COUNT INCLUDES THE [facility] Last Admin: 10/18/19 11:27 Dose: Not Given Documented by: Duloxetine HCl (Cymbalta) 60 mg PO DAILY COUNT INCLUDES THE [facility] Last Admin: 10/18/19 09:08 Dose: 60 mg Documented by: Folic Acid (Folic Acid) 1 mg PO DAILY@0800 COUNT INCLUDES THE [facility] Last Admin: 10/18/19 09:07 Dose: 1 mg Documented by: Furosemide (Lasix) 40 mg PO DAILY COUNT INCLUDES THE [facility] Last Admin: 10/18/19 09:07 Dose: 40 mg Documented by: Guaifenesin (Mucinex) 1,200 mg PO BID COUNT INCLUDES THE [facility] Last Admin: 10/18/19 09:08 Dose: 1,200 mg Documented by: Piperacillin Sod/Tazobactam (Sod 3.375 gm/ Sodium Chloride) 50 mls @ 12.5 mls/hr IV Q8 COUNT INCLUDES THE [facility] Last Infusion: 10/18/19 09:40 Dose: Infused Documented by: Lactulose (Chronulac, Cephulac) 45 gm PO TID COUNT INCLUDES THE [facility] Last Admin: 10/18/19 05:41 Dose: 45 gm Documented by: Levothyroxine Sodium (Synthroid) 75 mcg PO DAILY@0600 COUNT INCLUDES THE [facility] Last Admin: 10/18/19 05:40 Dose: 75 mcg Documented by: Lisinopril (Zestril) 5 mg PO DAILY COUNT INCLUDES THE [facility] Last Admin: 10/18/19 09:08 Dose: 5 mg Documented by: Loperamide HCl (Imodium) 2 mg PO Q4H PRN PRN PRN Reason: LOOSE STOOLS Loperamide HCl (Imodium) 2 mg PO Q4H PRN PRN PRN Reason: LOOSE STOOLS Olanzapine (Zyprexa) 10 mg PO QHS COUNT INCLUDES THE [facility] Last Admin: 10/17/19 21:10 Dose: 10 mg Documented by: Ondansetron HCl (Zofran) 8 mg PO Q8H PRN PRN PRN Reason: NAUSEA Last Admin: 10/15/19 21:45 Dose: 8 mg Documented by: Ondansetron HCl (Zofran) 8 mg PO Q8H PRN PRN PRN Reason: NAUSEA Sodium Chloride () 10 - 40 ml IV UD PRN PRN Reason: SALINE FLUSH Last Admin: 10/15/19 18:41 Dose: 10 ml Documented by: Spironolactone (Aldactone) 25 mg PO DAILY COUNT INCLUDES THE [facility] Last Admin: 10/18/19 09:07 Dose: 25 mg Documented by: [facility] Last Admin: 10/18/19 09:08 Dose: 100 mg Documented by: Discharge Diet: No Restrictions Discharge Activity: Return to Normal Activity Call your doctor if you observe: Shortness of breath, Dizziness, Fainting spells, Chest pain Home Medications: Medications to take at Discharge Furosemide [Lasix] 40 mg PO DAILY 08/25/19 Hydroxyzine Pamoate [Vistaril] 50 mg PO TID PRN PRN 09/13/19 Lactulose 45 ml PO TID 09/13/19 Levothyroxine [Synthroid] 75 mcg PO DAILY 09/13/19 Olanzapine 10 mg PO QHS 09/13/19 Spironolactone 25 mg PO DAILY 09/13/19 traZODone [Desyrel] 100 mg PO QHS 10/11/19 Amox/Clavulanate Tablet [Augmentin Tablet] 875 mg PO Q12H #8 tab 10/18/19 Following Prescrptions Were Given to Patient: Amox/Clavulanate Tablet [Augmentin Tablet] 875 mg PO Q12H #8 tab Transmission Status: Received by [facility] Primary Care Physician: Pawan Mcfadden MD [Primary Care Provider] - Please follow up with your Primary Care Physician in: 1 Week Please Follow Up With: E[facility],ONE When: As scheduled Disposition: Home Minutes spent on discharge:: 35 Patient Condition:: Stable Medical Necessity - Tobacco Use Smoking Status: Current every day smoker Tobacco Use: Cigarettes Meaningful Use Info Meaningful Use Diagnoses (Choose all that apply): None applicable <Maday Witt - Last Filed: 10/18/19 12:53> Discharge Date and Diagnosis - Secondary Discharge Diagnosis Chronic Problems: Chronic Problems (Last Updated 10/15/19 @ 11:[address] Maday Witt MD) History of depression (Chronic) Alcohol abuse (Chronic) Polysubstance abuse (Chronic) Heroin abuse (Chronic) Cocaine abuse (Chronic) Hypothyroidism (Chronic) HTN (hypertension) (Chronic) Alcoholic cirrhosis of liver (Chronic) Hospital Course and Treatment Summary of Care Provided: Hospitalist note: Discharge summary above reviewed and I concur with above discharge treatment plan. Patient presented to the emergency room requesting admission for medical stabilization due to acute alcohol withdrawal as well as acute opioid w ithdrawal. He was started on tapering Subutex as well as tapering course of phenobarbital for acute alcohol withdrawal. During this hospital stay, patient became hypoxic and he started having cough with sputum production. Initial chest x-ray revealed multifocal bilateral airspace disease versus congestion. CT scan chest revealed mild focal infiltrate of the left lower lobe. Patient was started on IV Zosyn for probable aspiration pneumonia. PCR for COVID-19 test was done and it was negative. With above-mentioned treatment, symptoms of withdrawal improved and patient sleep also improved. With IV antibiotics, symptoms of productive cough and shortness of breath improved and patient was able to come off oxygen. His pulse ox remained normal afterwards on room air. Patient was seen and evaluated by [facility] and plan is to have him follow-up with them as outpatient. Patient discharged home in a stable medical condition, discharged on Augmentin to complete total of 7 days of treatment, discharged on Lasix and lactulose as well as Aldactone for liver cirrhosis, continued on his previous home medications, plan to follow-up with [facility] as scheduled, recommended from with PCP in 1 week. - Physical Exam General: Alert, Oriented x3, Cooperative, No apparent distress. Falls asleep very quickly. HEENT: Atraumatic, PERRLA, EOMI. Neck: Supple, No JVD, Negative Carotid Bruits, Trachea Midline, Thyroid Normal. Lungs: Decreased breath sounds at the bases, faint crackles at the bases as well, no rhonchi, No wheeze. Cardiovascular: Regular rate, Regular Rhythm, Normal S1, Normal S2, PMI Normal. Abdomen: Bowel Sounds Present, Soft, Non Tender, Non-Distended, No Hepato- splenomegaly. Extremities: No clubbing, No cyanosis, No edema Skin: No rashes, No breakdown Neurological: Cranial nerves are intact, neuro grossly intact Vital Signs are stable. This note was generated with [employer] dictation software. It may contain incorrect words, spelling, and punctuation that were not noted in checking the note before signing. - Physical Exam Vitals/I&O's: Vital Signs Temp Pulse Resp BP Pulse Ox 98.0 F 81 18 133/74 H 96 10/18/19 11:30 10/18/19 11:30 10/18/19 11:30 10/18/19 11:30 10/18/19 11:30 Oxygen Flow Rate (L/min) 2 Oxygen Delivery Method Room Air Weight: 271 lb 2.697 oz Body Mass Index (BMI) 38.9 Finger Stick Blood Glucose 96 Intake and Output for Last 24 Hours 10/16/19 10/17/19 10/18/19 23:59 23:59 23:59 Intake Total 2370 / 2870 2550 / 2550 100 / 100 Balance 2370 / 2870 2550 / 2550 100 / 100 Laboratory Results 10/18/19 05:54: Sodium 133 L, Potassium 3.8, Chloride 100, Carbon Dioxide 29.0, Anion Gap 4 L, BUN 11, Creatinine 0.97, Estim Creat Clear Calc 99.30, Est GFR (MDRD) Af Amer 108, Est GFR (MDRD) Non-Af 89, BUN/Creatinine Ratio 11.4, Glucose 102, Calcium 8.8, Total Bilirubin 0.90, AST 31, ALT 27, Alkaline Phosphatase 96, Total Protein 6.6, Albumin 2.3 L, Globulin 4.3 H, Albumin/Globulin Ratio 0.5 L Current Medications Acetaminophen (Tylenol) 650 mg PO Q8H PRN PRN PRN Reason: Pain Score 1-10/10 Last Admin: 10/17/19 18:58 Dose: 650 mg Documented by: Albuterol/Ipratropium (Duoneb) 3 ml INHALATION Q4HWA.RT COUNT INCLUDES THE [facility] Last Admin: 10/18/19 11:27 Dose: Not Given Documented by: Duloxetine HCl (Cymbalta) 60 mg PO DAILY COUNT INCLUDES THE [facility] Last Admin: 10/18/19 09:08 Dose: 60 mg Documented by: Folic Acid (Folic Acid) 1 mg PO DAILY@0800 COUNT INCLUDES THE [facility] Last Admin: 10/18/19 09:07 Dose: 1 mg Documented by: Furosemide (Lasix) 40 mg PO DAILY COUNT INCLUDES THE [facility] Last Admin: 10/18/19 09:07 Dose: 40 mg Documented by: Guaifenesin (Mucinex) 1,200 mg PO BID COUNT INCLUDES THE [facility] Last Admin: 10/18/19 09:08 Dose: 1,200 mg Documented by: Piperacillin Sod/Tazobactam (Sod 3.375 gm/ Sodium Chloride) 50 mls @ 12.5 mls/hr IV Q8 COUNT INCLUDES THE [facility] Last Infusion: 10/18/19 09:40 Dose: Infused Documented by: Lactulose (Chronulac, Cephulac) 45 gm PO TID COUNT INCLUDES THE [facility] Last Admin: 10/18/19 05:41 Dose: 45 gm Documented by: Levothyroxine Sodium (Synthroid) 75 mcg PO DAILY@0600 COUNT INCLUDES THE [facility] Last Admin: 10/18/19 05:40 Dose: 75 mcg Documented by: Lisinopril (Zestril) 5 mg PO DAILY COUNT INCLUDES THE [facility] Last Admin: 10/18/19 09:08 Dose: 5 mg Documented by: Loperamide HCl (Imodium) 2 mg PO Q4H PRN PRN PRN Reason: LOOSE STOOLS Loperamide HCl (Imodium) 2 mg PO Q4H PRN PRN PRN Reason: LOOSE STOOLS Olanzapine (Zyprexa) 10 mg PO QHS COUNT INCLUDES THE [facility] Last Admin: 10/17/19 21:10 Dose: 10 mg Documented by: Ondansetron HCl (Zofran) 8 mg PO Q8H PRN PRN PRN Reason: NAUSEA Last Admin: 10/15/19 21:45 Dose: 8 mg Documented by: Ondansetron HCl (Zofran) 8 mg PO Q8H PRN PRN PRN Reason: NAUSEA Sodium Chloride () 10 - 40 ml IV UD PRN PRN Reason: SALINE FLUSH Last Admin: 10/15/19 18:41 Dose: 10 ml Documented by: Spironolactone (Aldactone) 25 mg PO DAILY COUNT INCLUDES THE [facility] Last Admin: 10/18/19 09:07 Dose: 25 mg Documented by: Thiamine [facility] B[facility]) [facility] Last Admin: 10/18/19 09:08 Dose: 100 mg Documented by: Disposition: Home Minutes spent on discharge:: 33 Patient Condition:: Stable Meaningful Use Info Meaningful Use Diagnoses (Choose all that apply): None applicable Inpatient E&M: [id number] [facility]
--- NOTE | 2019-10-18 14:57 | ADDICTION ---
This commercial underwriter met with patient, in his room, shortly before his planned discharge to encourage him to engage in follow-up care with a local agency after he is discharged from medical withdrawal management. Patient had been resistant to treatment in past conversations, however, shared that he wants to engage in services with [facility] upon discharge from [facility]. This commercial underwriter provided patient with [facility] contact information and stated that he will be able to come into the office tomorrow for a biopsychosocial assessment and to obtain a treatment recommendation. Patient stated that he will report to [facility] at 9am tomorrow to begin treatment. Patient was alert and oriented x4 and presented with euthymic mood and affect. He shared that he is feeling much better and is excited to be going home. This commercial underwriter completed ASA assessment during this visit. ASA LOC: [facility]idential 1. Acute Intoxication and/or Withdrawal Potential Patient reports ongoing restless leg, muscle cramps and sporadic nausea. Reports history of seizures due to heroin/alcohol withdrawal. 2. Biomedical Conditions/Complications Patient reports the following medical conditions/complications: Spleen issues, thyroid issues, pneumonia, HTN (currently stable)/ 3. Emotional, Behavioral, Cognitive Conditions/Complications No SI or HI reported. Was emotionally regulated. Chart indicated history of depression. 4. Readiness to Change Patient agreeable to follow-up treatment with [facility] on 10/[facility]. Presents in the preparation stage of change as evidenced by his identification of problem behaviors with some plans to modify problem behaviors. 5. Relapse/Continued Use/Continued Problem Potential Patient is at a high risk of relapse based on past relapse, early onset of use, length of use, limited understanding of addiction and limited supports. 6. Recovery Environment Patient reports safe housing and healthy family engagement. Is currently on [place].
== END 2019-10-18 14:50 | disposition home or self-care (01) | DRG 773 ==
LOC: ED 20:31 → MS3 10-12 00:41
PROVIDERS: Nurse Practitioner Family; Physician Assistant; Admitting Provider Family Medicine; Emergency Provider Emergency Medicine; PCP Family Medicine; Visit Provider Hospitalist
DX: F10.239 Alcohol dependence with withdrawal, unspecified (principal); K70.31 Alcoholic cirrhosis of liver with ascites; K70.40 Alcoholic hepatic failure without coma; Y90.8 Blood alcohol level of 240 mg/100 ml or more; F11.23 Opioid dependence with withdrawal; F12.90 Cannabis use, unspecified, uncomplicated; F14.10 Cocaine abuse, uncomplicated; F17.210 Nicotine dependence, cigarettes, uncomplicated; F32.9 Major depressive disorder, single episode, unspecified; J69.0 Pneumonitis due to inhalation of food and vomit; R09.02 Hypoxemia; I10 Essential (primary) hypertension; E03.9 Hypothyroidism, unspecified; Z59.0 Homelessness; Z79.899 Other long term (current) drug therapy
CPT/HCPCS: 36415; 71045; 71046; 71250; 80048; 80053; 80307; 80320; 82140; 83690; 83880; 85025; 85027; 85610; 87635; 94640; 99251; 99284; G2023; A4216; G0463; G0480; U0003

== ENCOUNTER 2020-01-22 22:57 | Emergency (ER) | payer MEDICAID, SELFPAY ==
[2020-01-22 22:58] VITALS: BP 161/84; PULSE 95; RESP 18; TEMP 36.4; O2SAT 97; O2SAT 98; BMI 41.8
--- NOTE | 2020-01-22 23:19 | RAD_ITS ---
STUDY: X-RAY - LEFT KNEE REASON FOR EXAM: Male, 44 years old patient with left knee pain and swelling. TECHNIQUE: 4 view(s) of the knee. COMPARISON: Radiographs of the left knee dated 12/11/2013. FINDINGS: Normal visualized distal femur. Normal visualized proximal tibia and fibula. Normal proximal tibiofibular articulation. Normal medial femorotibial compartment. Normal lateral femorotibial compartment. Normal patellofemoral articulation. There is no demonstrated joint effusion. There is soft tissue edema most noticeable within the lateral distal thigh and knee. Has the patient had recent trauma? Some of this appearance may be secondary to varicosities. RAD/Knee 4 or More Views IMPRESSION: 1. No definite evidence for acute fracture. 2. Heterogeneous attenuation of the superficial soft tissues of the left thigh and knee may be secondary to recent soft tissue contusion, infection or varicosities. Electronically Signed: Elyse Szymanski MD at 0:51 EDT , Service support ,
[2020-01-22] MEDS: Ketorolac 60 MG/2 ML Vial IM (23:25)
--- NOTE | 2020-01-23 00:26 | ED.VISSUMM ---
- ER Visit Summary Date of Service: 01/23/20 Chief Complaint: Left knee pain History of Present Illness: The patient is a [address] Mcfadden. Reports that he has left knee pain is been present for approximately 1 week. States that he had a seizure at [facility] and was in a coma. When he woke from this he had left knee pain. States has not had a seizure since then. Patient describes the knee pain as a sharp pain is 10 of 10 at worst and currently. Is worsened by walking. Is relieved by tramadol. Patient also complains of back pain is 7 on 10 severity. He states this is chronic and unchanged. He describes this as sharp. He has paresthesias in his left foot that he has not had previously. He denies any problems with his bowels or his bladder. No groin numbness. Physical Examination: Vitals: Stable. Afebrile. General: Well-nourished and well-developed. Head: Normocephalic atraumatic. Neck: Supple, no lymphadenopathy. No JVD. Nontender. Cardiovascular: Regular rate and rhythm. No murmurs. Respiratory: No respiratory distress. Clear to auscultation bilaterally. Abdominal: Soft, nontender, nondistended, normal bowel sounds. No guarding, rebound, or peritoneal signs. Back: Mild diffuse tenderness to palpation over his lumbar spine. There is no point tenderness. He has a negative straight leg raise bilaterally. Is 5-5 dorsiflexion, plantarflexion and extensor hallucis longus bilaterally. He reports decrease in station light touch in his first webspace and medial foot on the left. He has normal sensation otherwise. He has a 2+ dorsalis pedis pulse bilaterally. Extremities: Moderate diffuse tenderness to palpation. No appreciable joint effusion. He has no overlying erythema or warmth to suggest a septic joint. He has pain, but no ligamentous instability with anterior/posterior drawer and medial/lateral stress. Skin: Normal color, no rash. Neurologic: Alert and oriented ?3. Cranial nerves II through XII are intact. Normal strength and sensation. Psych: Normal affect. Test Results: Left knee x-ray shows no acute disease. Emergency Department Course and Treatment: Patient was given Toradol IM. I reviewed the discharge summary from [facility] from January 20. He had bilateral lower extremity Dopplers on the that were negative. He was actually at [facility] for alcohol and heroin withdrawal. I do not think that treating him with an opiate-based medication is in his best interest. Treatment Plan: Patient will be discharged with naproxen. He refused crutches. He is instructed to follow-up his primary care physician in 1 week if not improving. He is given the name of Dr. Cox, the orthopedic surgeon on-call, as well. Return to the emergency department for any worsening symptoms. The signs and symptoms of cauda equina syndrome were discussed. He is instructed to return for these. Disposition: To home in improved and stable condition. Impression: 1. Left knee pain, acute. 2. Chronic low back pain. This note was generated with [employer] dictation software. It may contain incorrect words, spelling, and punctuation that were not noted in review of the chart prior to signing ED Disposition - Plan for ED Patient: Disposition: Home or Assisted Living Instructions: ED Knee Pain [facility] Prescriptions: Naproxen [Naprosyn] 500 mg PO BID #14 tab Prescription Printed Referrals: Pawan Mcfadden MD [Primary Care Provider] - 1 Week if not improving Harlan Cox DO [STAFF PHYSICIAN] - 1 Week if not improving
[2020-01-23 01:16] VITALS: BP 136/69; PULSE 75; RESP 16; O2SAT 96
--- NOTE | 2020-01-23 01:18 | ED.RN ---
AT 0110 THIS NURSE LEFT A MESSAGE FOR PT TO BE PICKED UP. ARIAN IMMEDIATELY CALLED BACK AND STATED I'LL BE THERE IN A FEW
== END 2020-01-23 01:21 | disposition home or self-care (01) ==
LOC: ED 23:25
PROVIDERS: Emergency Provider Emergency Medicine; PCP Family Medicine
DX: M25.562 Pain in left knee (principal); M54.5 Low back pain; G89.29 Other chronic pain; R20.2 Paresthesia of skin; K74.60 Unspecified cirrhosis of liver; G40.909 Epilepsy, unspecified, not intractable, without status epilepticus; Z79.899 Other long term (current) drug therapy; F17.200 Nicotine dependence, unspecified, uncomplicated
CPT/HCPCS: 73564; 96372; 99281

== ENCOUNTER → 2020-02-02 22:09 | Emergency (ER) | payer MEDICAID, SELFPAY ==
[2020-01-22 22:58] VITALS: BMI 41.8
[2020-02-02 22:10] VITALS: BP 161/75; PULSE 111; RESP 26; TEMP 37.1; O2SAT 96; BMI 41.8
[2020-02-02 22:12] VITALS: O2SAT 90
[2020-02-02 22:13] VITALS: O2SAT 99
--- NOTE | 2020-02-02 22:17 | CT_ITS ---
History: SEIZURING ON AND OFF X 15 MINUTES,Tquot; DRINKING ENERGY DRINKS ALL DAYTquot;HX:HTN,HYPOTHYROID,SEIZURES,CIRRHOSIS,POLYSUBSTANCE ABUSE EXAMINATION: CT Head or Brain W/O Contrast Injection .Sagittal and coronal 2-D reformats TECHNIQUE: Multiple axial images were obtained of the head without intravenous contrast. A radiation dose optimization technique was used for this scan. IV Contrast dosage and agent: None 264 COMPARISON: Of the patient's 51 previous radiologic exams at this institution alone, the [address] scans of the brain are from September 13, 2019, July 13, 2006, November 04, 2015, and October 31, 2015. FINDINGS: Physiologic calcification within the medial aspect of bilateral lentiform nuclei persists. BRAIN PARENCHYMA: No intra- or extra-axial hemorrhage. No evidence of acute infarct. No intracranial mass or mass effect. There is preservation of the gomes/white matter interface. Posterior fossa structures are unremarkable. CSF SPACES: Appropriate for age. No hydrocephalus. Basal cisterns are patent. CALVARIUM, SKULL BASE, PARANASAL SINUSES AND MASTOID AIR CELLS: Clear. No discrete lytic or blastic abnormalities. ORBITS: Both globes, extraocular muscles, optic nerves and retrobulbar fat appear unremarkable. ASPECTS Score for Acute Strokes: 10 CT/Brain/Head without Contrast IMPRESSION: Negative Brain CT without contrast. Individualized dose optimization techniques were used for this CT. at 2307 Reported and signed by: Jackson Ridley MD Electronically Signed: Jackson Ridley MD at 23:06 EDT Tel , Service support ,
--- NOTE | 2020-02-02 22:25 | ED.DCSUM_ITS ---
- ER Visit Summary Date of Service: 02/02/20 Chief Complaint: Seizure History of Present Illness: The patient is a 44 M who presents with seizure like activity that began today. EMS reports that for the past 15 minutes the patient has been going in and out of seizure-like activity. EMS reports the patient had several energy drinks today. Patient is somnolent on examination and is a poor historian. Chart review shows that the patient has a history of alcohol abuse, substance abuse, and alcohol withdrawal seizures. Patient also has a history of hepatic encephalopathy and cirrhosis. There is no evidence of urine or stool incontinence. Physical Examination: Vital signs are stable except for mild tachycardia of 111 and mild tachypnea of 26. Patient is afebrile. Patient is in no acute distress. Pupils are equal, round, and reactive to light bilaterally. Conjunctiva is clear. Oral mucosa is pink and moist. There are no abrasions or lacerations of the mucosal surfaces or tongue. Gag reflex is intact. Neck is supple. Trachea is midline. There is no JVD. Heart was regular rate and rhythm. Lungs are clear and equal bilaterally. Abdomen is soft. Bowel sounds are normal. There is no apparent tenderness. Cranial nerves II through XII are grossly intact. When I check his gag reflex, patient opened his eyes and started to sit up. Patient was still nonverbal at that time. Patient then laid his head back down. Nursing also reports that the patient became more alert when they discussed inserting a catheter into his bladder to obtain the urine. Test Results: CBC and comprehensive metabolic profile were obtained and were essentially within normal limits. Creatinine was slightly elevated at 1.32 and total bilirubin was slightly elevated at 1.20. Lipase was normal. PT with INR and PTT were normal. Ammonia level is normal. CT scan of the brain was obtained and was within normal limits. This was interpreted by the radiologist and reviewed by myself. Urinalysis does not show any evidence of urinary tract infection. Urine tox urine was positive for barbiturates but was otherwise negative. Emergency Department Course and Treatment: Seizure precautions were maintained. Patient had no further seizure activity here in the emergency department. Reevaluation, patient was complaining of pain in his left knee and numbness to his left foot. When I touched his left foot he withdrew his foot and stated that feels funny. Strength is 5/5 bilaterally in the lower extremities. Pedal pulses are equal bilaterally. Because of the pain in his left knee, x- rays of the left knee were obtained. Disposition: Discharge home Impression: Seizure-like activity This note was generated with [employer] dictation software. It may contain incorrect words, spelling, and punctuation that were not noted in review of the chart prior to signing ED Disposition - Plan for ED Patient: Disposition: Home or Assisted Living Diagnosis: Seizure-like activity Instructions: ED Seizure Recurrent Adult Referrals: Pawan Mcfadden MD [Primary Care Provider] - 3-5 Days
[2020-02-02] MEDS: 0.9% Normal Saline 1,000 ML 1000 ML IV (22:38)
[2020-02-02 22:50] LABS: Bedside Glucose 87 mg/dL (70-110)
[2020-02-02 22:54] LABS: Absolute Lymphocyte Count 1.33 X10^3/uL (0.83-4.51); Absolute Neutrophil Count 3.9 X10^3/uL (2.0-7.7); Basophil# 0.07 X10^3/uL; Basophil% 1.1 % (0-1); Eosinophil# 0.44 X10^3/uL; Eosinophils% 6.9 % (0-5); Hematocrit 42.5 % (40-54); Hemoglobin 14.2 g/dL (13.0-16.5); International Normalized Ratio 1.2; Lymphocyte # 1.33 X10^3/ul (4.0); Lymphocyte % 20.8 % (19-41); Mean Corp Hgb Conc 33.4 g/dL (32-36); Mean Corpuscular Hgb 31.7 pg (27.0-32.0); Mean Corpuscular Volume 94.9 fL (80-94); Mean Platelet Vol. 11.9 fl (6.2-12.0); Monocyte% 9.4 % (0-10); NRBC Flagged by Analyzer 0 % (0-5); Neutrophil # 3.94 X10^3/uL (2.7-7.7); Neutrophil % 61.6 % (47-70); Platelet Count 144 K/mm3 (150-450); Prothrombin Time (Protime)PT. 14.6 SECONDS (11.7-14.9); RBC Distribution Width CV 15.5 % (11.6-14.6); RBC Distribution Width SD 54.5 fl (35.1-43.9); Red Blood Count 4.48 M/mm3 (4.6-6.2); White Blood Count 6.4 K/mm3 (4.4-11.0)
[2020-02-02 22:56] LABS: Partial Thromboplast Time 33.5 Seconds (24.1-36.2)
[2020-02-02 23:06] LABS: ALB/GLOB Ratio 0.8 RATIO (0.9-2.4); AST(SGOT) 77 U/L (15-37); Alanine Aminotransfer ALT/SGPT 53 U/L (16-61); Albumin, Serum 3.1 g/dL (3.2-5.0); Alkaline Phosphatase 90 U/L (45-117); Anion Gap 7 (5-15); BUN 11 mg/dL (7-18); BUN/Creat Ratio 8.3 RATIO (10-20); Calcium,Total 9.8 mg/dL (8.5-10.1); Chloride 108 mmol/L (98-107); Creatinine, Serum 1.32 mg/dL (0.70-1.30); EST Glomerular Filtration Rate 62 mL/min (>60); Est Glom Filt Rate - Afr Amer 75 mL/min (>60); Estimated Creatinine Clearance 75.27 ml/min; Globulin 4.1 g/dL (2.2-4.2); Glucose 87 mg/dL (74-106); Lipase 128 U/L (73-393); Potassium 3.9 mmol/L (3.5-5.1); Protein, Total 7.2 g/dL (6.4-8.2); Sodium Level 141 mmol/L (136-145)
[2020-02-02 23:09] VITALS: BP 152/79; PULSE 104; RESP 18; O2SAT 99
[2020-02-02 23:15] LABS: Bacteria 0 SEEN /hpf (None Seen); Mucous, Urine 0 SEEN /hpf (<or=2+); Red Blood Cells-Urine 0 SEEN /hpf (0-5)
[2020-02-02 23:17] LABS: Color, Urine Yellow (Yellow); Glucose, Dipstick Normal (Normal); Ketone-Dipstick Negative (Negative); Leukocyte Esterase-Dipstick Negative /ul (Negative); Nitrite-Dipstick Negative (Negative); Occult Blood-Urine 10 /ul (Negative); Protein-Dipstick 30 mg/dl (Negative); Urine Bilirubin Dipstick Negative (Negative); Urine Clarity Clear (Clear); Urine Urobilinogen Normal (Normal)
[2020-02-02 23:29] LABS: Squamous Epithelial Cells - UA 0-5 SEEN /hpf (0-5); White Blood Cells 0-5 SEEN /hpf (0-5)
[2020-02-02 23:31] LABS: Amphetamine Urine VISTA NEGATIVE (<1000 ng/mL); Barbiturate Urine VISTA POSITIVE (< 200 ng/mL); Benzodiazepine Urine VISTA NEGATIVE (< 200 ng/mL); Cocaine Urine VISTA NEGATIVE (< 300 ng/mL); Ecstacy Urine VISTA NEGATIVE (< 500 ng/mL); Methadone Urine VISTA NEGATIVE (< 300 ng/mL); PCP Urine VISTA NEGATIVE (< 25 ng/mL); THC Urine VISTA NEGATIVE (< 50 ng/mL); Vista UDS pH Range 7
--- NOTE | 2020-02-02 23:36 | RAD_ITS ---
HISTORY: LEFT KNEE PAIN. SEIZURE. Technique: Left Knee; AP, lateral, and oblique radiographs Comparison: Previous imaging of the left knee is from January 23, 2020. Findings: No acute fracture or dislocation. Osseous mineralization, joint spaces, and alignment otherwise appear preserved as imaged. The subcutaneous fat is prominent. Edema is present within the fat. This edema is greater medially than laterally. The edema within subcutaneous fat similar to that of the previous study. Lateral patellar tilting persists. RAD/Knee 4 or More Views IMPRESSION: No acute fracture. No significant arthritis. Subcutaneous edema. Lateral tilting to the patella is chronic at 2355 Reported and signed by: Jackson Ridley MD Electronically Signed: Jackson Ridley MD at 23:54 EDT Tel , Service support ,
[2020-02-03] VITALS: BP 153/81; PULSE 102; RESP 18; O2SAT 97
[2020-02-03] MEDS: Ibuprofen 600 MG Tablet PO (00:14)
== END | disposition home or self-care (01) ==
PROVIDERS: Emergency Provider Emergency Medicine; PCP Family Medicine
DX: R56.9 Unspecified convulsions (principal); K74.60 Unspecified cirrhosis of liver; K72.90 Hepatic failure, unspecified without coma; E66.9 Obesity, unspecified; Z87.898 Personal history of other specified conditions; Z79.899 Other long term (current) drug therapy
CPT/HCPCS: 70450; 73564; 80053; 80307; 80320; 81001; 82140; 82962; 83690; 85025; 85610; 85730; 96360; 99285; A4216; G0480

== ENCOUNTER 2020-02-15 12:31 | Emergency (ER) | payer MEDICAID, SELFPAY ==
[2020-02-02 22:10] VITALS: BMI 41.8
[2020-02-15 12:32] VITALS: BP 165/84; PULSE 102; RESP 18; TEMP 36.6; O2SAT 97; BMI 40.8
--- NOTE | 2020-02-15 12:50 | ED.DCSUM_ITS ---
- ER Visit Summary Date of Service: 02/15/20 Chief Complaint: Abdominal pain History of Present Illness: The patient is a 44 M who presents with abdominal pain that began last night. Patient states his pain is diffuse across his abdomen. Patient also states he has been feeling lightheaded. Patient states nothing makes it better or worse. Patient has a history of cirrhosis. Patient states he saw his primary care physician recently who dom labs. Patient states he was called by his primary care physician yesterday to come to the emergency department because his blood counts are low. Patient does not know what blood count was low but states he was told it was less than 100. Physical Examination: Vital signs are stable. Patient is afebrile. Patient is in no acute distress. Oral mucosa is pink and moist. Neck is supple. Trachea is midline. There is no JVD noted. Heart was regular rate and rhythm. Lungs are clear and equal bilaterally. Abdomen is soft. Bowel sounds are normal. There is diffuse tenderness. There is no rebound or guarding noted. Skin is wa rm dry. Cranial nerves II through XII are intact. There are no focal motor or sensory deficits noted. Extremities are intact. There is no calf tenderness or edema. Test Results: CBC shows a mild thrombocytopenia of 97. White blood cell count was normal. Comprehensive metabolic profile shows a mild hypokalemia of 3.3. Total bilirubin was 1.3. Lipase was only slightly elevated at 605. Ammonia level was normal at 32. Emergency Department Course and Treatment: Patient was given IV fluids and Zofran. Patient is feeling better on reevaluation. Patient was advised of his findings. Patient was instructed to start with a liquid diet then advance to a bland diet and then to a regular diet as he starts to feel better. Patient was instructed to follow-up with his primary care physician in 3 to 5 days. Patient understood and was agreeable with the plan. All questions were answered. Disposition: Discharge home Impression: 1. Abdominal pain This note was generated with [employer] dictation software. It may contain incorrect words, spelling, and punctuation that were not noted in review of the chart prior to signing ED Disposition - Plan for ED Patient: Disposition: Home or Assisted Living Diagnosis: Abdominal pain Instructions: ED Unknown Causes of Abdominal Pain Male, ED Pancreatitis Referrals: Pawan Mcfadden MD [Primary Care Provider] - 5-7 Days
[2020-02-15] MEDS: Ondansetron 4 MG/2 ML Vial IV (13:08)
[2020-02-15] MEDS: 0.9% Normal Saline 1,000 ML 1000 ML IV (13:08)
--- NOTE | 2020-02-15 13:38 | NURSING ---
CHEMISTRIES AND COAGS HEMOLIZED
[2020-02-15 13:45] LABS: Absolute Lymphocyte Count 1.24 X10^3/uL (0.83-4.51); Absolute Neutrophil Count 4.4 X10^3/uL (2.0-7.7); Basophil# 0.05 X10^3/uL; Basophil% 0.7 % (0-1); Eosinophil# 0.43 X10^3/uL; Eosinophils% 6.3 % (0-5); Hematocrit 48.3 % (40-54); Hemoglobin 16.3 g/dL (13.0-16.5); Lymphocyte # 1.24 X10^3/ul (4.0); Lymphocyte % 18.2 % (19-41); Mean Corp Hgb Conc 33.7 g/dL (32-36); Mean Corpuscular Hgb 31.4 pg (27.0-32.0); Mean Corpuscular Volume 93.1 fL (80-94); Mean Platelet Vol. 12.2 fl (6.2-12.0); Monocyte# 0.62 X10^3/uL; Monocyte% 9.1 % (0-10); NRBC Flagged by Analyzer 0 % (0-5); Neutrophil # 4.43 X10^3/uL (2.7-7.7); Neutrophil % 65.3 % (47-70); POSITIVE COUNT YES; Platelet Count 97 K/mm3 (150-450); RBC Distribution Width CV 14.6 % (11.6-14.6); RBC Distribution Width SD 49.9 fl (35.1-43.9); Red Blood Count 5.19 M/mm3 (4.6-6.2); White Blood Count 6.8 K/mm3 (4.4-11.0)
[2020-02-15 13:47] LABS: Differential Indicated SCAN CRITERIA MET
[2020-02-15 14:08] LABS: International Normalized Ratio 1.2; Prothrombin Time (Protime)PT. 14.9 SECONDS (11.7-14.9)
[2020-02-15 14:09] LABS: Partial Thromboplast Time 35.5 Seconds (24.1-36.2)
[2020-02-15 14:15] LABS: ALB/GLOB Ratio 0.7 RATIO (0.9-2.4); AST(SGOT) 52 U/L (15-37); Alanine Aminotransfer ALT/SGPT 39 U/L (16-61); Albumin, Serum 2.7 g/dL (3.2-5.0); Alkaline Phosphatase 92 U/L (45-117); Anion Gap 6 (5-15); BUN 11 mg/dL (7-18); BUN/Creat Ratio 9.2 RATIO (10-20); Calcium,Total 8.8 mg/dL (8.5-10.1); Chloride 108 mmol/L (98-107); Creatinine, Serum 1.19 mg/dL (0.70-1.30); EST Glomerular Filtration Rate 70 mL/min (>60); Est Glom Filt Rate - Afr Amer 85 mL/min (>60); Estimated Creatinine Clearance 80.94 ml/min; Globulin 3.8 g/dL (2.2-4.2); Glucose 95 mg/dL (74-106); Lipase 605 U/L (73-393); Potassium 3.3 mmol/L (3.5-5.1); Protein, Total 6.5 g/dL (6.4-8.2); Sodium Level 139 mmol/L (136-145)
[2020-02-15 14:16] LABS: Platelet Estimate MOD DEC (ADEQ)
[2020-02-15 14:33] VITALS: BP 149/91; PULSE 88; RESP 16; O2SAT 97
== END 2020-02-15 14:48 | disposition home or self-care (01) ==
PROVIDERS: Emergency Provider Emergency Medicine; PCP Family Medicine
DX: R10.84 Generalized abdominal pain (principal); D69.6 Thrombocytopenia, unspecified; E87.6 Hypokalemia; I10 Essential (primary) hypertension; K74.60 Unspecified cirrhosis of liver; E03.9 Hypothyroidism, unspecified; Z79.899 Other long term (current) drug therapy; F17.200 Nicotine dependence, unspecified, uncomplicated
CPT/HCPCS: 80053; 82140; 83690; 85025; 85610; 85730; 96361; 96374; 99283; J7030; A4216; J2405

== ENCOUNTER 2020-02-16 23:22 | Emergency (ER) | payer MEDICAID, SELFPAY ==
[2020-02-15 12:32] VITALS: BMI 40.8
[2020-02-16 23:24] VITALS: BP 137/118; PULSE 103; RESP 19; TEMP 36.7; O2SAT 93; BMI 41.5
[2020-02-16 23:27] VITALS: BP 137/118; PULSE 104; RESP 20; TEMP 36.7; O2SAT 96
--- NOTE | 2020-02-16 23:37 | ED.VIS.GEN ---
History of Present Illness Chief Complaint: Seizure Informant: Patient Onset: Today Context: Sudden Onset Timing: Intermittent Current Severity: Mild Maximum Severity: Moderate Narrative: Patient is a 44-year-old male with medical history significant for seizure disorder who is on Keppra presents to the emergency department 2 seizures today. Patient states he has not taken his medications in about 3 days. He states he had a partial seizure this morning. States he went to [facility] and was discharged. Tonight, he had another seizure. He states he was mildly confused afterwards but feels like he is back to his baseline. He states he has not taken his medication because I have 17 different medications and sometimes I get tired of it. He does have a prior history of alcohol abuse and dependence, but states he has been sober for a month now. He denies tongue biting or urine incontinence. He denies any head trauma. He is otherwise been in his normal state of health. Prior similar symptoms: Yes Recent Illness/Hospitalization: No Past Medical History - Allergies and Home Meds Allergies/Adverse Reactions: Allergies No Known Allergies Allergy (Verified 02/15/20 12:34) Primary Care Physician: Pawan Mcfadden MD [Primary Care Provider] - Prior records reviewed: Yes Past Medical History: - - Seizure disorder, alcohol abuse, cirrhosis, hypertension, diabetes Surgical History: cholecystectomy, herniorrhaphy Smoking Status: Current every day smoker - Family History Paternal Family History: Reports: Heart Disease Maternal Family History: Reports: - - Patient denies any market maternal family history including heart disease, diabetes, cancer. Review of Systems General: Denies: Chills, Fever, Sweats Eyes: Denies: Visual changes - bilaterally, Diplopia ENT: Denies: Rhinorrhea, Sore throat Cardiovascular: Denies: Chest pain, Palpitations Respiratory: Denies: Dyspnea, Cough, Dyspnea on exertion Gastrointestinal: Denies: Abdominal pain, Nausea, Vomiting, Diarrhea, Melena, Hematochezia Genitourinary: Denies: Dysuria, Hematuria, Frequency Musculoskeletal: Denies: Back pain, Extremity Pain Skin: Denies: Rash, Wounds Neurological: Denies: Headache, Weakness, Numbness Physical Exam Vital Signs/Narrative: Vital Signs Temp Pulse Resp BP Pulse Ox 02/16/20 23:27 98.0 F 104 H 20 H 137/118 H 96 02/16/20 23:24 98.0 F 103 H 19 H 137/118 H 93 Inital Vital Signs reviewed: Yes General: Well nourished, Well developed, No Acute Distress Head: Normocephalic, Atraumatic Eyes: Perrl, EOMI ENT: Moist mucous membranes, No rhinorrhea Neck: Supple, Nontender Cardiovascular: Regular rate, Regular rhythm, No murmurs Respiratory: No distress, CTA bilaterally, Chest nontender Abdomen: Soft, Nontender, Nondistended, Normal bowel sounds Back: Nontender, Normal Inspection Extremities: Nontender, No edema Skin: Normal color, No rash Neurological: Alert, Oriented x3, Cranial nerves II-XII grossly intact, Normal Strength, Normal Sensation Psychological: Normal affect, Normal Mood Diagnostic/Tx/Re-eval Abnormal Lab Results 02/16/20 02/16/20 02/17/20 23:50 23:50 00:30 WBC 3.6 L RBC 3.97 L Hgb 12.5 L Hct 38.1 L MCV 96.0 H MCH 31.5 MCHC 32.8 RDW Std Deviation 52.6 H RDW Coeff of Raghu 15.0 H Plt Count 68 L MPV 11.9 Immature Gran % (Auto) 0.300 Neut % (Auto) 59.7 Lymph % (Auto) 23.6 [place] % (Auto) 10.0 Eos % (Auto) 5.8 H Baso % (Auto) 0.6 Absolute Neuts (auto) 2.2 Absolute Lymphs (auto) 0.85 Nucleated RBC % 0 Differential Comment SCANNED Platelet Estimate MOD DEC Sodium 141 Potassium 3.5 Chloride 111 H Carbon Dioxide 22.0 Anion Gap 8 BUN 13 Creatinine 1.63 H Estim Creat Clear Calc 59.09 Est GFR (MDRD) Af Amer 59 L Est GFR (MDRD) Non-Af 49 L BUN/Creatinine Ratio 8.0 L Glucose 113 H Calcium 8.9 Total Bilirubin 1.30 H AST 58 H ALT 36 Alkaline Phosphatase 76 Total Protein 5.7 L Albumin 2.7 L Globulin 3.0 Albumin/Globulin Ratio 0.9 Ethyl Alcohol < 3.0 - Medical Decision Making Patient presents with breakthrough seizure. On arrival, he is awake and alert. I do feel this is secondary to his medication noncompliance. Patient was given IV dose of his Keppra. He was observed for 2 hours. Metabolic work-up was pursued and was relatively unremarkable. The patient does have pancytopenia, but has had this chronically secondary to his underlying liver disease. Electrolytes were unremarkable. The patient has had multiple negative head CTs, and a recent negative brain MRI last month. I do not feel that imaging was necessary. Patient had no further seizure activity. At this point, he will be discharged back to his sober house. Impression 1. Breakthrough seizure secondary to medication noncompliance ED Disposition - Plan for ED Patient: Instructions: ED Seizure Recurrent Adult Referrals: Pawan Mcfadden MD [Primary Care Provider] -
[2020-02-17] LABS: Absolute Lymphocyte Count 0.85 X10^3/uL (0.83-4.51); Absolute Neutrophil Count 2.2 X10^3/uL (2.0-7.7); Basophil# 0.02 X10^3/uL; Basophil% 0.6 % (0-1); Eosinophil# 0.21 X10^3/uL; Eosinophils% 5.8 % (0-5); Hematocrit 38.1 % (40-54); Hemoglobin 12.5 g/dL (13.0-16.5); Lymphocyte # 0.85 X10^3/ul (4.0); Lymphocyte % 23.6 % (19-41); Mean Corp Hgb Conc 32.8 g/dL (32-36); Mean Corpuscular Hgb 31.5 pg (27.0-32.0); Mean Platelet Vol. 11.9 fl (6.2-12.0); Monocyte# 0.36 X10^3/uL; NRBC Flagged by Analyzer 0 % (0-5); Neutrophil # 2.15 X10^3/uL (2.7-7.7); Neutrophil % 59.7 % (47-70); POSITIVE COUNT YES; Platelet Count 68 K/mm3 (150-450); RBC Distribution Width SD 52.6 fl (35.1-43.9); Red Blood Count 3.97 M/mm3 (4.6-6.2); White Blood Count 3.6 K/mm3 (4.4-11.0)
[2020-02-17] MEDS: levETIRAcetam IV 1,000 MG/100 ML BAG 400 MG IV (00:04)
[2020-02-17 00:14] LABS: Alcohol, Blood (Medical)-Serum < 3.0 mg/dL
[2020-02-17 00:16] LABS: Differential Indicated SCAN CRITERIA MET
[2020-02-17 00:34] LABS: Differential Comment SCANNED; Platelet Estimate MOD DEC (ADEQ)
[2020-02-17 01:12] LABS: ALB/GLOB Ratio 0.9 RATIO (0.9-2.4); AST(SGOT) 58 U/L (15-37); Alanine Aminotransfer ALT/SGPT 36 U/L (16-61); Albumin, Serum 2.7 g/dL (3.2-5.0); Alkaline Phosphatase 76 U/L (45-117); Anion Gap 8 (5-15); BUN 13 mg/dL (7-18); Calcium,Total 8.9 mg/dL (8.5-10.1); Chloride 111 mmol/L (98-107); Creatinine, Serum 1.63 mg/dL (0.70-1.30); EST Glomerular Filtration Rate 49 mL/min (>60); Est Glom Filt Rate - Afr Amer 59 mL/min (>60); Estimated Creatinine Clearance 59.09 ml/min; Glucose 113 mg/dL (74-106); Potassium 3.5 mmol/L (3.5-5.1); Protein, Total 5.7 g/dL (6.4-8.2); Sodium Level 141 mmol/L (136-145)
[2020-02-17 01:23] VITALS: BP 99/48; PULSE 99; RESP 23; O2SAT 95
[2020-02-17 01:54] VITALS: BP 102/52; PULSE 102; RESP 17; O2SAT 96
== END 2020-02-17 01:55 | disposition home or self-care (01) ==
LOC: ED 02-17 00:26
PROVIDERS: Emergency Provider Emergency Medicine; PCP Family Medicine
DX: G40.909 Epilepsy, unspecified, not intractable, without status epilepticus (principal); Z91.14 Patient's other noncompliance with medication regimen; I10 Essential (primary) hypertension; E11.9 Type 2 diabetes mellitus without complications; K74.60 Unspecified cirrhosis of liver; Z79.899 Other long term (current) drug therapy; F17.200 Nicotine dependence, unspecified, uncomplicated
CPT/HCPCS: 80053; 80320; 85025; 96361; 96374; 99285; J7030; G0480

== ENCOUNTER 2020-02-23 12:53 | Emergency (ER) | payer MEDICAID, SELFPAY ==
[2020-02-23] VITALS (7 sets, daily range): BP systolic 139–164; BP diastolic 73–90; PULSE 75–104; RESP 18–21; TEMP 36.1–37.1; O2SAT 93–99; BMI 39.4
[2020-02-23 13:25] LABS: Absolute Lymphocyte Count 1.32 X10^3/uL (0.83-4.51); Absolute Neutrophil Count 4.9 X10^3/uL (2.0-7.7); Basophil# 0.07 X10^3/uL; Eosinophils% 6.8 % (0-5); Hematocrit 46.5 % (40-54); Hemoglobin 15.1 g/dL (13.0-16.5); Lymphocyte # 1.32 X10^3/ul (4.0); Mean Corp Hgb Conc 32.5 g/dL (32-36); Mean Corpuscular Hgb 30.6 pg (27.0-32.0); Mean Corpuscular Volume 94.3 fL (80-94); Mean Platelet Vol. 11.2 fl (6.2-12.0); Monocyte# 0.53 X10^3/uL; Monocyte% 7.2 % (0-10); NRBC Flagged by Analyzer 0 % (0-5); Neutrophil # 4.89 X10^3/uL (2.7-7.7); Neutrophil % 66.7 % (47-70); Platelet Count 154 K/mm3 (150-450); RBC Distribution Width CV 15.1 % (11.6-14.6); RBC Distribution Width SD 52.3 fl (35.1-43.9); Red Blood Count 4.93 M/mm3 (4.6-6.2); White Blood Count 7.3 K/mm3 (4.4-11.0)
[2020-02-23 13:35] LABS: Bacteria 0 SEEN /hpf (None Seen); Mucous, Urine 0 SEEN /hpf (<or=2+); White Blood Cells 0 SEEN /hpf (0-5)
[2020-02-23] MEDS: 0.9% Normal Saline 1,000 ML 150 ML IV (13:35)
[2020-02-23 13:37] LABS: Color, Urine Yellow (Yellow); Glucose, Dipstick Normal (Normal); Ketone-Dipstick Negative (Negative); Leukocyte Esterase-Dipstick Negative /ul (Negative); Nitrite-Dipstick Negative (Negative); Occult Blood-Urine 10 /ul (Negative); Protein-Dipstick 30 mg/dl (Negative); Urine Bilirubin Dipstick Negative (Negative); Urine Clarity Clear (Clear); Urine Urobilinogen 1 mg/dl (Normal); Urine pH 6.5 (5.0 - 8.0)
[2020-02-23 13:38] LABS: Anion Gap 5 (5-15); BUN 12 mg/dL (7-18); BUN/Creat Ratio 8.9 RATIO (10-20); Calcium,Total 9.4 mg/dL (8.5-10.1); Chloride 109 mmol/L (98-107); Creatinine, Serum 1.35 mg/dL (0.70-1.30); EST Glomerular Filtration Rate 61 mL/min (>60); Est Glom Filt Rate - Afr Amer 73 mL/min (>60); Estimated Creatinine Clearance 71.35 ml/min; Glucose 77 mg/dL (74-106); Potassium 4.2 mmol/L (3.5-5.1); Sodium Level 140 mmol/L (136-145)
[2020-02-23 13:47] LABS: Amphetamine Urine VISTA NEGATIVE (<1000 ng/mL); Barbiturate Urine VISTA NEGATIVE (< 200 ng/mL); Benzodiazepine Urine VISTA NEGATIVE (< 200 ng/mL); Cocaine Urine VISTA NEGATIVE (< 300 ng/mL); Ecstacy Urine VISTA NEGATIVE (< 500 ng/mL); Methadone Urine VISTA NEGATIVE (< 300 ng/mL); PCP Urine VISTA NEGATIVE (< 25 ng/mL); THC Urine VISTA NEGATIVE (< 50 ng/mL); Vista UDS pH Range 6
[2020-02-23 14:04] LABS: Red Blood Cells-Urine 0-5 SEEN /hpf (0-5); Squamous Epithelial Cells - UA 0-5 SEEN /hpf (0-5)
--- NOTE | 2020-02-23 14:48 | ED.DCSUM_ITS ---
- ER Visit Summary Date of Service: 02/23/20 Chief Complaint: [Seizure] History of Present Illness: The patient is a 44 M [presents to the emergency department after having a seizure today. Patient's roommates apparently called EMS. Unclear how long patient seizure lasted. Patient has known seizure disor barbara and takes Keppra. He denies missing any doses. Patient denies recent illness. Also patient states that he has been depressed and is having suicidal thoughts. Patient states that he recently went through a divorce. He is having thoughts of overdosing on heroin. Patient is a recovering addict and states that he has been clean for about a year. His last alcohol drink was about 2 months ago. 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 Patient denies recent illness or fever. Patient was in bed when he had a seizure and therefore did not injure himself. He did not lose control of bowel or bladder.] Patient states that he has been without antidepressants for quite some time. Physical Examination: [HEENT-PERRLA, EOMI. Cranial nerves II through XII grossly intact. TMs clear. Mucous membranes moist. No adenopathy. No bite wounds noted to the tongue or mouth. Cardiovascular-regular rate and rhythm without murmur or ectopy Lungs-clear to auscultation, chest wall stable without crepitus or subcu emphysema Abdomen-normoactive bowel sounds, soft, nontender, no rebound or rigidity, no peritoneal signs. [id number]-glun and heel rodriguez testing within normal limits, negative Romberg, negative pronator drift. Extremities-intact ?4, normal range of motion, normal pulses, atraumatic] Test Results: [CBC with differential obtained showing a 7.3, hemoglobin 15, hematocrit 46, plates 154. Chemistries unremarkable. Urinalysis normal. Toxicology screen was negative. Alcohol was 145.] Emergency Department Course and Treatment: [IV line established. Patient was given Keppra 1 g IV. Case was discussed with continuous pillowcase cutter who will evaluate pat ient for possible placement to psychiatric facility for further treatment of his depression and suicidal ideation.] Treatment Plan: [Pending evaluation by crisis care will be turned over to evening physician.] Disposition: [Pending] Impression: [Recurrent seizure Depression Suicidal ideation] This note was generated with [employer] software. It may contain incorrect words, spelling, and punctuation that were not noted in review of the chart prior to signing ED Disposition - Plan for ED Patient: Referrals: Pawan Mcfadden MD [Primary Care Provider] -
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
[2020-02-23] MEDS: levETIRAcetam IV 1,000 MG/100 ML BAG 400 MG IV (15:58)
[2020-02-23] MEDS: Ketorolac 15 MG/ML Vial IV (16:17)
--- NOTE | 2020-02-23 17:34 | CM.ED ---
SOCIAL WORK Patient medically cleared. Negative COVID-19 results received. Referral faxed and called to [facility]. Pending review at this time. Mauricio Jones, SPONGE HOOKER, RENAL DIETITIAN
--- NOTE | 2020-02-23 18:13 | ED.RN ---
FALLING ASLEEP SPO2 DROPPED TO 87% AND SNORING. WOKEN AND OXYGEN RETURNED TO 96%. OXYGEN APPLIED WHILE SLEEPING.
--- NOTE | 2020-02-23 18:35 | CM.ED ---
SOCIAL WORK Call to [facility] to check on status of referral. Sherri reports issues with printer. Referral received and under review. Sherri to call this worker back. Mauricio Jones, BROADCAST TECHNICIAN, DIRECTOR REGULATORY AFFAIRS
--- NOTE | 2020-02-23 18:40 | CM.ED ---
SOCIAL WORK Call from Sherri with [facility] with questions regarding patient history of seizures. All questions answered. Sherri to review with physician. Mauricio Jones, CUSTOMER MANAGEMENT SPECIALIST, TESTING AND REGULATING CHIEF
--- NOTE | 2020-02-23 19:09 | CM.ED ---
Addendum entered by Iesla Jones 02/23/20 19:33: [facility] unable to provide transport. [facility] [employer] set up transport. ETA 1 hour. Original Note: SOCIAL WORK Call from Sherri with [facility]. Patient accepted by Dr. Sánchez to [address]. Nurse to call report to [phone]. Sherri to call An[facility] for transportation. Patient and staff updated. Mauricio Jones, COORDINATOR OF REHABILITATION SERVICES, CUPOLA WORKER
== END 2020-02-23 20:33 ==
LOC: ED 13:52
PROVIDERS: Emergency Provider Emergency Medicine; PCP Family Medicine
DX: G40.909 Epilepsy, unspecified, not intractable, without status epilepticus (principal); F32.9 Major depressive disorder, single episode, unspecified; R45.851 Suicidal ideations; M79.606 Pain in leg, unspecified; I10 Essential (primary) hypertension; E03.9 Hypothyroidism, unspecified; K70.30 Alcoholic cirrhosis of liver without ascites; Z90.49 Acquired absence of other specified parts of digestive tract; Z79.899 Other long term (current) drug therapy; F17.200 Nicotine dependence, unspecified, uncomplicated
CPT/HCPCS: 80048; 80307; 80320; 81001; 85025; 87635; 96361; 96365; 96375; 99285; J7030; J7050; A4216; G0480; U0002

== ENCOUNTER 2020-03-06 21:15 | Emergency (ER) | payer MEDICAID, SELFPAY ==
[2020-02-23 12:56] VITALS: BMI 39.4
[2020-03-06 21:16] VITALS: BP 153/97; PULSE 101; RESP 16; TEMP 36.4; O2SAT 92; BMI 44.2
--- NOTE | 2020-03-06 22:15 | ED.RN ---
per dr miranda no need for 1:1 sitter. rn will continue to monitor patient.
--- NOTE | 2020-03-06 22:22 | ED.DCSUM_ITS ---
History of Present Illness Chief Complaint: Back Informant: Patient Narrative: Patient is a 44-year-old male who presents to the emergency department for multiple complaints. He states that he is having low back pain that started yesterday. He denies any trauma. He was not doing anything in particular when the pain started. He currently rates the pain as an 8 out of 10. He denies having this before in the past. Does go down his left leg to the foot. He denies any saddle anesthesia or urinary incontinence/retention. He denies any fevers or chills. Patient also complaining of a cough for the past 2 days. No known sick contacts. No known coronavirus exposures. This has been mildly productive. He denies any chest pain or shortness of breath. Patient also complaining of suicidal ideation. He has been feeling this way for the past couple of days. He states that he has thought about this before in the past. He is never acted on it before. His plan would be to get something off the street to overdose. He denies any illicit drug use. He does drink alcohol. He was drinking today. Past Medical History - Allergies and Home Meds Allergies/Adverse Reactions: Allergies No Known Allergies Allergy (Verified 03/06/20 21:18) Primary Care Physician: Pawan Mcfadden MD [Primary Care Provider] - Prior records reviewed: Yes - Polysubstance abuse Surgical History: cholecystectomy, herniorrhaphy Smoking Status: Current every day smoker - Family History Paternal Family History: Reports: Heart Disease Maternal Family History: Reports: - - Patient denies any market maternal family history including heart disease, diabetes, cancer. Review of Systems All systems negative except as indicated General: Denies: Chills, Fever, Sweats Eyes: Denies: Visual changes - bilaterally, Diplopia ENT: Denies: Rhinorrhea, Sore throat Cardiovascular: Denies: Chest pain, Palpitations Respiratory: Reports: Cough, Sputum. Denies: Dyspnea, Dyspnea on exertion Gastrointestinal: Denies: Abdominal pain, Nausea, Vomiting, Diarrhea Genitourinary: Denies: Dysuria, Hematuria, Frequency Musculoskeletal: Reports: Back pain. Denies: Neck pain, Extremity Pain Skin: Denies: Rash, Wounds Neurological: Denies: Headache, Weakness, Numbness Psych: Reports: Suicidal ideations Physical Exam Vital Signs/Narrative: Vital Signs Temp Pulse Resp BP Pulse Ox 03/06/20 21:16 97.6 F L 101 H 16 153/97 H 92 Inital Vital Signs reviewed: Yes General: Well nourished, Well developed, No Acute Distress Head: Normocephalic, Atraumatic Eyes: Perrl, EOMI ENT: Moist mucous membranes, No rhinorrhea Neck: Supple, Nontender Cardiovascular: Regular rate, Regular rhythm, No murmurs Respiratory: No distress, CTA bilaterally, Chest nontender Abdomen: Soft, Nontender, Nondistended, Normal bowel sounds Back: Nontender, Normal Inspection, Spinal tenderness - Mostly on the right paraspinal musculature of the lower thoracic and upper lumbar region. Extremities: Nontender, No edema, - - Neurovascular intact. 5 out of 5 muscle strength lower extremities. Skin: Normal color, No rash Neurological: Alert, Oriented x3, Cranial nerves II-XII grossly intact, Normal Strength, Normal Sensation Psychological: Normal affect, Normal Mood Diagnostic/Tx/Re-eval Chest X-Ray - ED: 1 View - X-ray interpretation by myself. Single view chest x- ray. No evidence of consolidation. Normal cardiac silhouette. Agree with radiologist interpretation. - Medical Decision Making Patient presents the emerge department for nontraumatic back pain, cough without any fevers as well as suicidal ideations. We will give a dose of Toradol as he has been drinking so hold off on Tylenol for the back pain. No trauma so do not feel imaging necessary at this time. No red flag symptoms for acute surgical spinal emergency. Will obtain chest x-ray to evaluate for evidence of pneumonia as well as coronavirus screen. Will check basic lab work for medical clearance for psychiatric evaluation. Patient's work-up is currently pending. His x-ray does not show any acute consolidation to require antibiotic treatment for pneumonia. Patient is sleeping on my reevaluation. The is intoxicated and will be reevaluated once sober. Patient signed out due to end of shift. He otherwise has been stable throughout ED stay. ED Disposition - Plan for ED Patient: Diagnosis: Back pain, Cough, Suicidal ideation, Alcohol intoxication Referrals: Pawan Mcfadden MD [Primary Care Provider] -
[2020-03-06] MEDS: Ketorolac 30 MG/ML Syringe IM (22:24)
[2020-03-06 22:29] VITALS: RESP 18
--- NOTE | 2020-03-06 22:37 | RAD_ITS ---
STUDY: X-RAY CHEST REASON FOR EXAM: Male, 44 years old. BACK PAIN. COUGH FOR 2 DAYS. TECHNIQUE: Single AP portable view of the chest. COMPARISON: None. FINDINGS: The lungs are clear and expanded. There is no demonstrated pleural abnormality. Normal size heart. Normal mediastinum and tony. Normal visualized pulmonary arteries. Normal visualized aortic arch and descending thoracic aorta. Normal visualized thoracic spine. Normal visualized ribs, clavicles, and shoulders. There is no demonstrated abnormality of the visualized soft tissue structures of the upper abdomen. RAD/Chest 1 View (Portable) IMPRESSION: Normal x-ray examination of the chest. Electronically Signed: Garrick Napier DO at 22:47 EST Tel , Service support ,
[2020-03-06 22:42] LABS: Absolute Lymphocyte Count 1.07 X10^3/uL (0.83-4.51); Absolute Neutrophil Count 5.5 X10^3/uL (2.0-7.7); Basophil% 1.3 % (0-1); Eosinophil# 0.27 X10^3/uL; Eosinophils% 3.4 % (0-5); Hematocrit 41.7 % (40-54); Hemoglobin 13.8 g/dL (13.0-16.5); Lymphocyte # 1.07 X10^3/ul (4.0); Lymphocyte % 13.6 % (19-41); Mean Corp Hgb Conc 33.1 g/dL (32-36); Mean Corpuscular Hgb 31.5 pg (27.0-32.0); Mean Corpuscular Volume 95.2 fL (80-94); Mean Platelet Vol. 11.5 fl (6.2-12.0); Monocyte# 0.83 X10^3/uL; Monocyte% 10.6 % (0-10); NRBC Flagged by Analyzer 0 % (0-5); Neutrophil # 5.51 X10^3/uL (2.7-7.7); Neutrophil % 70.2 % (47-70); Platelet Count 120 K/mm3 (150-450); RBC Distribution Width CV 15.4 % (11.6-14.6); RBC Distribution Width SD 53.7 fl (35.1-43.9); Red Blood Count 4.38 M/mm3 (4.6-6.2); White Blood Count 7.9 K/mm3 (4.4-11.0)
[2020-03-06 22:53] LABS: Amphetamine Urine VISTA NEGATIVE (<1000 ng/mL); Barbiturate Urine VISTA NEGATIVE (< 200 ng/mL); Benzodiazepine Urine VISTA NEGATIVE (< 200 ng/mL); Cocaine Urine VISTA NEGATIVE (< 300 ng/mL); Ecstacy Urine VISTA NEGATIVE (< 500 ng/mL); Methadone Urine VISTA NEGATIVE (< 300 ng/mL); PCP Urine VISTA NEGATIVE (< 25 ng/mL); THC Urine VISTA NEGATIVE (< 50 ng/mL); Vista UDS pH Range 6
[2020-03-06 22:57] LABS: Anion Gap 5 (5-15); BUN 16 mg/dL (7-18); BUN/Creat Ratio 14.2 RATIO (10-20); Calcium,Total 9.6 mg/dL (8.5-10.1); Chloride 109 mmol/L (98-107); Creatinine, Serum 1.13 mg/dL (0.70-1.30); EST Glomerular Filtration Rate 74 mL/min (>60); Est Glom Filt Rate - Afr Amer 90 mL/min (>60); Estimated Creatinine Clearance 85.24 ml/min; Glucose 100 mg/dL (74-106); Sodium Level 138 mmol/L (136-145)
[2020-03-06 23:19] VITALS: RESP 16
[2020-03-07] VITALS (12 sets, daily range): BP systolic 123–139; BP diastolic 74–78; PULSE 81–99; RESP 16–20; O2SAT 94–98
--- NOTE | 2020-03-07 07:24 | NURSING ---
called crisis. talked to answering service
--- NOTE | 2020-03-07 08:01 | NURSING ---
0627 FAXED CHART TO [facility]
--- NOTE | 2020-03-07 08:13 | NURSING ---
[facility], CRISIS, ON PHONE FOR
--- NOTE | 2020-03-07 08:17 | NURSING ---
DAVID CONDON, FOR PATIENT.
--- NOTE | 2020-03-07 12:45 | NURSING ---
[facility]XED LABS TO [facility].
--- NOTE | 2020-03-07 13:22 | NURSING ---
CALLED [facility], ETA IS 30 MIN
== END 2020-03-07 14:07 | disposition home or self-care (01) ==
PROVIDERS: Emergency Medicine; Emergency Provider Emergency Medicine; PCP Family Medicine
DX: M54.5 Low back pain (principal); R05 Cough; R45.851 Suicidal ideations; F10.129 Alcohol abuse with intoxication, unspecified; Y90.9 Presence of alcohol in blood, level not specified; F17.200 Nicotine dependence, unspecified, uncomplicated
CPT/HCPCS: 36415; 71045; 80048; 80307; 80320; 85025; 87635; 96372; 99285; G0480; U0002

== ENCOUNTER 2020-12-03 19:12 | Observation (INO) | payer MEDICAID, SELFPAY ==
[2020-12-03] VITALS (9 sets, daily range): BP systolic 125–146; BP diastolic 74–86; PULSE 102–112; RESP 10–27; TEMP 36.6–37.2; O2SAT 83–98; BMI 42.0; BMI 41.3
--- NOTE | 2020-12-03 19:35 | RAD_ITS ---
INDICATION: SOB EXAMINATION/TECHNIQUE: X-RAY - XR Chest 1 View COMPARISON: Chest x-ray 03/06/2020. FINDINGS: LINES/DEVICES: None. LUNGS: Right renal lower lobe, thick linear airspace disease representing pneumonia or possible atelectasis. There is also a new nodule in the right costophrenic angle region. No pneumothorax. MEDIASTINUM AND CARDIOVASCULAR STRUCTURES: Cardiac silhouette not enlarged. Central airways and mediastinal contour are unremarkable. BONES AND SOFT TISSUES: No fracture or focal osseous lesion. Vascular stent projects over the right subclavian artery region. RAD/Chest 1 View (Portable) IMPRESSION: Right lower lobe thick linear airspace opacity concerning for compressive atelectasis or pneumonia. Short-term follow-up is recommended following treatment to ensure resolution. Electronically Signed: Lee Mendez DO at 20:19 EDT Tel , Service support ,
[2020-12-03] MEDS: Naloxone 2 MG/2 ML Syringe NASAL (19:40)
[2020-12-03 19:45] LABS: Absolute Lymphocyte Count 2.91 X10^3/uL (0.83-4.51); Absolute Neutrophil Count 5.4 X10^3/uL (2.0-7.7); Basophil# 0.04 X10^3/uL; Basophil% 0.4 % (0-1); Eosinophil# 0.29 X10^3/uL; Eosinophils% 3.1 % (0-5); Hematocrit 45.4 % (40-54); Hemoglobin 15.7 g/dL (13.0-16.5); Lymphocyte # 2.91 X10^3/ul (0.83-4.51); Mean Corp Hgb Conc 34.6 g/dL (32-36); Mean Corpuscular Hgb 30.7 pg (27.0-32.0); Mean Corpuscular Volume 88.7 fL (80-94); Monocyte# 0.71 X10^3/uL; Monocyte% 7.6 % (0-10); NRBC Flagged by Analyzer 0 % (0-5); Neutrophil % 57.5 % (47-70); Platelet Count 180 K/mm3 (150-450); RBC Distribution Width CV 15.7 % (11.6-14.6); RBC Distribution Width SD 50.7 fl (35.1-43.9); Red Blood Count 5.12 M/mm3 (4.6-6.2); White Blood Count 9.4 K/mm3 (4.4-11.0)
[2020-12-03 19:57] LABS: Anion Gap 9 (5-15); BUN 18 mg/dL (7-18); BUN/Creat Ratio 12.1 RATIO (10-20); Chloride 113 mmol/L (98-107); Creatinine, Serum 1.49 mg/dL (0.70-1.30); EST Glomerular Filtration Rate 54 mL/min (>60); Est Glom Filt Rate - Afr Amer 65 mL/min (>60); Estimated Creatinine Clearance 63.96 ml/min; Glucose 111 mg/dL (74-106); Potassium 3.7 mmol/L (3.5-5.1); Sodium Level 144 mmol/L (136-145)
[2020-12-03 20:16] LABS: Lactic Acid 1.8 mmol/L (0.4-1.9)
[2020-12-03 20:31] LABS: Salicylate < 1.7 mg/dL (2.8-20.0)
[2020-12-03 20:32] LABS: Acetaminophen (Tylenol) Level < 2.0 ug/mL (10.0-30.0)
--- NOTE | 2020-12-03 21:47 | EDS_ITS ---
HPI History of Present Illness Chief Complaint: Overdose Narrative Narrative: Patient presenting for evaluation secondary to an accidental opiate overdose. Patient admits to using a large amount of injection heroin. Patient states that he was also drinking a couple of beers today. Patient states that he was not trying to get high, but he was trying to forget. When questioned about whether or not he was suicidal he states no. EMS was contacted secondary to an overdose and the patient was administered Narcan was brought to the emergency department. Patient was persistently hypoxic and required supplemental oxygen. Patient denies any other somatic complaints currently. He denies any coingestants other than the heroin and the alcohol. [facility] Medical History Alcoholic cirrhosis of liver Cocaine abuse Heroin abuse HTN (hypertension) Hypothyroidism Polysubstance abuse Home Medications furosemide 40 mg PO DAILY 08/25/19 [History Last Taken 10/11/19] lactulose 45 ml PO TID 09/13/19 [History Last Taken Unknown] levothyroxine 75 mcg PO DAILY 09/13/19 [History Last Taken 10/11/19] olanzapine 10 mg PO QHS 09/13/19 [History Last Taken Unknown] levetiracetam 1,000 mg PO DAILY 01/22/20 [History Last Taken Unknown] Xifaxan 550 mg PO DAILY 02/02/20 [History Last Taken Unknown] cetirizine 10 mg PO DAILY 02/02/20 [History Last Taken Unknown] folic acid 1 mg PO DAILY 02/02/20 [History Last Taken Unknown] lisinopril 5 mg PO DAILY 02/02/20 [History Last Taken Unknown] Allergy/AdvReac Type Severity Reaction Status Date / Time No Known Allergies Allergy Verified 12/03/20 19:13 Family History Other Diabetes Heart disease Surgical History History of appendectomy Status post insertion of dialysis catheter Social History Smoking Status: Current every day smoker tobacco type: cigarettes ROS ROS ED Constitutional Constitutional ED: Denies chills, fever(s) or weight loss Eyes Eyes: Denies change in vision ENT ENT ED: Denies rhinorrhea or sore throat Cardiovascular Cardiovascular: Denies chest pain Respiratory/Chest Respiratory/Chest: Denies cough Gastrointestinal Gastrointestinal: Denies abdominal pain, constipation, diarrhea, nausea or vomiting Genitourinary Genitourinary ED: Denies dysuria Musculoskeletal Musculoskeletal: Denies myalgias Integumentary Denies rash Neurologic Neurologic: Denies paresthesias or weakness Psychiatric Psychiatric: Reports depression Endocrine Endocrinology: Denies polydipsia or polyuria Hematologic/Lymphatic Hematologic/Lymphatic: Denies easy bleeding or easy bruising Allergic/Immunologic Allergic/Immunologic ED: Denies urticaria EXAM Physical Exam Const Vital Signs: 12/03/20 19:13 12/03/20 19:28 12/03/20 20:18 Temperature 98.9 F Temperature Source Oral Pulse Rate 112 H Respiratory Rate 10 L Blood Pressure 133/77 H Blood Pressure Mean 95 Pulse Ox 92 92 89 Oxygen Delivery Method Nasal Cannula Nasal Cannula Venturi Mask Oxygen Flow Rate (L/min) 3 4 4 12/03/20 20:25 12/03/20 20:27 12/03/20 21:40 Temperature 97.9 F Temperature Source Temporal Pulse Rate 108 H 108 H Respiratory Rate 27 H 26 H Blood Pressure 125/82 H 146/74 H Blood Pressure Mean 96 98 Pulse Ox 94 89 96 Oxygen Delivery Method Non-Rebreather Venturi Mask Non-Rebreather Oxygen Flow Rate (L/min) 15 6 16 Positive well nourished and well developed Constitutional Narrative: Heavyset male that is sedate but easily arousable, not acutely distressed General Appearance ED: well developed and NAD HEENT atraumatic; Negative for tenderness Eyes EOMs intact bilaterally Eyes Narrative: There is evidence of myosis, but the pupils are not pinpoint and they are reactive General Eye ED: Negative for pale conjunctiva or scleral icterus Neck no lymphadenopathy and supple Chest Wall inspection of chest normal Resp normal respiratory effort and clear to auscultation bilaterally Cardio regular rate, regular rhythm, no murmurs and peripheral pulses 2+ throughout GI soft to palpation, non-tender, non-distended and no masses Extremity General Extremety ED: Negative for edema or tenderness General Extremity: Negative for edema Neuro oriented x3 and no sensory deficits noted Sensorium / Orientation: alert Motor Exam: strength 5/5 throughout Psych Psych Narrative: Patient is intoxicated and sedate but easily arousable No suicidal homicidal ideations, no signs of hallucinations Skin Lesions: no lesions Rashes: no rashes MDM MDM MDM Narrative Medical decision making narrative: Patient presented secondary to an overdose. Upon arrival the patient continued to be hypoxic he was administered an additional dose of Narcan this did not change his respiratory status, he continues to have a good respiratory rate but is somewhat sedate. He required supplemental oxygen. Work-up was obtained on the patient, he shows a right- sided aspiration pneumonia by my personal review as well as radiology. He was administered Unasyn. Patient's alcohol level was 390. Patient continues to be hypoxic, and I believe that he requires admission. Patient will be admitted for further antibiotics, supplemental oxygen, and further observation. Lab Data Labs: Laboratory Results - last 24 hr 12/03/20 12/03/20 12/03/20 19:22 19:22 19:22 WBC 9.4 RBC 5.12 Hgb 15.7 Hct 45.4 MCV 88.7 MCH 30.7 MCHC 34.6 RDW Std Deviation 50.7 H RDW Coeff of Raghu 15.7 H Plt Count 180 MPV 11.0 Immature Gran % (Auto) 0.400 Neut % (Auto) 57.5 Lymph % (Auto) 31.0 [place] % (Auto) 7.6 Eos % (Auto) 3.1 Baso % (Auto) 0.4 Absolute Neuts (auto) 5.4 Absolute Lymphs (auto) 2.91 Nucleated RBC % 0 Sodium 144 Potassium 3.7 Chloride 113 H Carbon Dioxide 22.0 Anion Gap 9 BUN 18 Creatinine 1.49 H Estim Creat Clear Calc 63.96 Est GFR (MDRD) Af Amer 65 Est GFR (MDRD) Non-Af 54 L BUN/Creatinine Ratio 12.1 Glucose 111 H Lactic Acid Calcium 9.0 Salicylates < 1.7 L Acetaminophen < 2.0 L Ethyl Alcohol 393.0 H* 12/03/20 19:22 WBC RBC Hgb Hct MCV MCH MCHC RDW Std Deviation RDW Coeff of Raghu Plt Count MPV Immature Gran % (Auto) Neut % (Auto) Lymph % (Auto) [place] % (Auto) Eos % (Auto) Baso % (Auto) Absolute Neuts (auto) Absolute Lymphs (auto) Nucleated RBC % Sodium Potassium Chloride Carbon Dioxide Anion Gap BUN Creatinine Estim Creat Clear Calc Est GFR (MDRD) Af Amer Est GFR (MDRD) Non-Af BUN/Creatinine Ratio Glucose Lactic Acid 1.8 Calcium Salicylates Acetaminophen Ethyl Alcohol Radiography Diagnostic Testing: Radiology Impression Chest X-Ray 12/03/20 19:35 IMPRESSION: Right lower lobe thick linear airspace opacity concerning for compressive atelectasis or pneumonia. Short-term follow-up is recommended following treatment to ensure resolution. Electronically Signed: Lee Mendez DO at 20:19 EDT Tel , Service support , Discharge Plan Triage Chief Complaint: Overdose ED Provider: Lee Littlejohn Dx/Rx/DC Orders Clinical Impression: Alcohol intoxication, Heroin abuse, Aspiration pneumonia, Hypoxia Primary Care Provider: Pawan Mcfadden Disposition Disposition: Acute Care Hospital [facility] Discharge Date/Time: 12/03/20 22:19
--- NOTE | 2020-12-03 21:50 | NURSING ---
PCU ASPIRATION PENUMONIA, ETOH INTOX, OPIATE OD DR RAINEY
--- NOTE | 2020-12-03 22:19 | PCM.HP.STD ---
HPI - General General Date of Admission: 12/03/20 HPI Narrative CHRISTIE CARTWRIGHT, is a 45 M with a significant history of polysubstance abuse who lives at the sober house presenting with altered mental status. Patient was brought by squad. Patient admitted to emergent department doctor that he gave himself heroin shot. However at hospital's examination he denied use of heroin. He reported that he was an addict but he stopped using IV drug about 2 years ago. In the last 4 months he has lived at a sober house. He reported that on the day of presentation he went to a friend's son's soccer game where he was offered beer that he drank. Reportedly the squad gave patient Narcan. Also the emergent department patient was given Narcan without any effect. At the ED patient required nonrebreather mask. [facility] Medical History Alcoholic cirrhosis of liver Cocaine abuse Heroin abuse HTN (hypertension) Hypothyroidism Polysubstance abuse Home Medications furosemide 40 mg PO DAILY 08/25/19 [History Last Taken 10/11/19] lactulose 45 ml PO TID 09/13/19 [History Last Taken Unknown] levothyroxine 75 mcg PO DAILY 09/13/19 [History Last Taken 10/11/19] olanzapine 10 mg PO QHS 09/13/19 [History Last Taken Unknown] levetiracetam 1,000 mg PO DAILY 01/22/20 [History Last Taken Unknown] Xifaxan 550 mg PO DAILY 02/02/20 [History Last Taken Unknown] cetirizine 10 mg PO DAILY 02/02/20 [History Last Taken Unknown] folic acid 1 mg PO DAILY 02/02/20 [History Last Taken Unknown] lisinopril 5 mg PO DAILY 02/02/20 [History Last Taken Unknown] Allergy/AdvReac Type Severity Reaction Status Date / Time No Known Allergies Allergy Verified 12/03/20 19:13 Family History Other Diabetes Heart disease Surgical History History of appendectomy Status post insertion of dialysis catheter Social History Smoking Status: Current every day smoker tobacco type: cigarettes ROS ROS Narrative Constitutional: Denies anorexia and change in weight Eyes: Denies blurry vision, change in eye color, change in vision, discharge from eye(s), double vision, erythema, eye pain, loss of vision or other HEENT: Denies abnormal hearing, dysphagia, ear pain, epistaxis, headache(s), hearing loss, nasal congestion, nasal discharge, post nasal drip, sinus pressure, sore throat or other Cardiovascular: Denies chest pain. Denies dyspnea on exertion, orthopnea and paroxysmal nocturnal dyspnea Respiratory/Chest: Reports nonproductive cough. Denies shortness of breath with exertion and wheezing Gastrointestinal: Denies abdominal pain, coffee ground emesis, constipation, diarrhea, dyspepsia, hematemesis, hematochezia, loose stools, melena, nausea, vomiting or other Genitourinary: Denies burning urination, difficulty urinating, dysuria, hematuria, nocturia, urinary frequency, urinary hesitancy, urinary incontinence, urinary urgency or other Musculoskeletal: Denies arthralgias, back pain, joint pain, joint stiffness, joint swelling, myalgias, neck pain or other Neurologic: Somnolent. Denies abnormal gait, abnormal speech, disequilibrium, dizziness, focal weakness, headache(s), numbness, paresthesias, seizure-like activity, seizures, tingling, tremor(s) or other Psychiatric: Denies anxiety, depression, homicidal ideation, suicidal ideation or other Endocrinology: Denies change in body appearance, cold intolerance, excessive sweating, heat intolerance, polydipsia, polyuria or other Hematologic/Lymphatic: Denies anemia, easy bleeding, easy bruising, lymphadenopathy or other Integumentary: Denies rashes Allergic/Immunologic: Denies rhinitis, hives, eczema, asthma or other Vital Signs Vital Signs Vital Signs: 12/03/20 19:13 12/03/20 19:28 12/03/20 20:18 Temperature 98.9 F Temperature Source Oral Pulse Rate 112 H Respiratory Rate 10 L Blood Pressure 133/77 H Blood Pressure Mean 95 Pulse Ox 92 92 89 Oxygen Delivery Method Nasal Cannula Nasal Cannula Venturi Mask Oxygen Flow Rate (L/min) 3 4 4 12/03/20 20:25 12/03/20 20:27 12/03/20 21:40 Temperature 97.9 F Temperature Source Temporal Pulse Rate 108 H 108 H Respiratory Rate 27 H 26 H Blood Pressure 125/82 H 146/74 H Blood Pressure Mean 96 98 Pulse Ox 94 89 96 Oxygen Delivery Method Non-Rebreather Venturi Mask Non-Rebreather Oxygen Flow Rate (L/min) 15 6 16 Weight Weight: 132.7 kg Body Mass Index (BMI) 42.0 Physical Exam Narrative Physical exam: General: Well-nourished, well-developed, no acute distress Head: Normocephalic, atraumatic, no tenderness Eyes: PERRLA, EOMI ENT, no trauma, moist mucous membranes, no rhinorrhea Neck: Nontender, full range of motion, no spinal tenderness, deformities, step-off CVS: Regular rate and rhythm Respiratory: Coughing at the time of examination. Rales, chest wall nontender, no wheezing Abdomen: Soft, nontender, nondistended, normal bowel sounds, no masses : Deferred Back: Nontender, no CVA tenderness, no midline spinal tenderness, deformities, step-offs Extremities: Nontender full range of motion, no trauma Skin: Normal color, no trauma, abrasions Neuro: Lethargic. Cranial nerves II through XII grossly intact. Psychiatry: Normal mood. Normal affect. Not depressed. Not anxious. Results Lab / Micro Data Result Diagrams: 12/03/20 19:22 12/03/20 19:22 Labs: Laboratory Results - last 24 hr 12/03/20 19:22: WBC 9.4, RBC 5.12, Hgb 15.7, Hct 45.4, MCV 88.7, MCH 30.7, MCHC 34.6, RDW Std Deviation 50.7 H, RDW Coeff of Raghu 15.7 H, Plt Count 180, MPV 11.0, Immature Gran % (Auto) 0.400, Neut % (Auto) 57.5, Lymph % (Auto) 31.0, [place] % (Auto) 7.6, Eos % (Auto) 3.1, Baso % (Auto) 0.4, Absolute Neuts (auto) 5.4, Absolute Lymphs (auto) 2.91, Nucleated RBC % 0 12/03/20 19:22: Sodium 144, Potassium 3.7, Chloride 113 H, Carbon Dioxide 22.0, Anion Gap 9, BUN 18, Creatinine 1.49 H, Estim Creat Clear Calc 63.96, Est GFR (MDRD) Af Amer 65, Est GFR (MDRD) Non-Af 54 L, BUN/Creatinine Ratio 12.1, Glucose 111 H, Calcium 9.0 12/03/20 19:22: Salicylates < 1.7 L, Acetaminophen < 2.0 L, Ethyl Alcohol 393.0 H* 12/03/20 19:22: Lactic Acid 1.8 Micro: Microbiology 12/03/20 19:35 Mucosa - Nose SARS-CoV-2 Antigen (Rapid) - Final Radiology Impression Chest X-Ray 12/03/20 19:35 IMPRESSION: Right lower lobe thick linear airspace opacity concerning for compressive atelectasis or pneumonia. Short-term follow-up is recommended following treatment to ensure resolution. Electronically Signed: Lee Mendez DO at 20:19 EDT Tel , Service support , Assessment & Plan Assessment/Plan (1) Acute encephalopathy: (2) Alcohol intoxication: QUALIFIERS: Complication of substance-induced condition: uncomplicated Qualified Code(s): F10.920 - Alcohol use, unspecified with intoxication, uncomplicated PLAN: Acute encephalopathy/alcohol intoxication/overdose Will observe at the progressive care unit on telemetry. Continue on nonrebreather mask. De-escalate/escalate to other oxygen modalities as necessary. Urine toxicology reviewed. Toxicology showed ethanol level of 393. Aspiration pneumonia Impression of chest x-ray by radiology:Right lower lobe thick linear airspace opacity concerning for compressive atelectasis or pneumonia. Actual chest xray was independently interpreted and agree with radiologist interpretation. CBC reviewed showed normal white count. Trend CBC and BMP SCD: Low risk. Charges/Coding Visit Charges OBSV E&M: [id number] Initial observation care L3
--- NOTE | 2020-12-03 22:31 | PCS.PANDOC ---
PANDEMIC DOCUMENTATION INITIATED: Date: 11/27/2020 Time: 190
[2020-12-04 00:33] VITALS: O2SAT 94
[2020-12-04 05:00] VITALS: BP 146/81; PULSE 86; RESP 18; TEMP 36.9; O2SAT 88
--- NOTE | 2020-12-04 05:22 | NURSING ---
Patient stated that is feeling better this morning and is ready to leave. I explained that he is still requiring oxygen and has more IV antibiotics that are ordered. Pt states that he still wants to leave. I explained the risks of leaving and notified the MD. Pt requested the AMA, he signed it. His IV was removed and belongings were given to patient. He ambulated off the floor on his own.
== END 2020-12-04 05:15 | disposition left against medical advice (07) ==
LOC: ED 21:54 → PCU 23:40
PROVIDERS: Admitting Provider Hospitalist; Emergency Provider Emergency Medicine; PCP Family Medicine; Visit Provider Hospitalist
DX: T40.1X1A Poisoning by heroin, accidental (unintentional), initial encounter (principal); G93.40 Encephalopathy, unspecified; F11.10 Opioid abuse, uncomplicated; J69.0 Pneumonitis due to inhalation of food and vomit; R09.02 Hypoxemia; F14.10 Cocaine abuse, uncomplicated; K70.30 Alcoholic cirrhosis of liver without ascites; I10 Essential (primary) hypertension; E03.9 Hypothyroidism, unspecified; Z79.899 Other long term (current) drug therapy; F17.210 Nicotine dependence, cigarettes, uncomplicated; Y90.8 Blood alcohol level of 240 mg/100 ml or more; F10.220 Alcohol dependence with intoxication, uncomplicated
CPT/HCPCS: 71045; 80048; 80329; 82077; 83605; 85025; 87426; 96365; 96366; 99218; 99285; J7050; A4216; G0378; G0480; J0295

== ENCOUNTER 2022-09-12 15:13 | Emergency (ER) | payer MEDICAID, SELFPAY ==
[2022-09-12] VITALS (16 sets, daily range): BP systolic 116–149; BP diastolic 76–94; PULSE 92–109; RESP 14–24; TEMP 37.1; O2SAT 86–99; BMI 49.7
--- NOTE | 2022-09-12 15:42 | ED.VIS.FALL ---
HPI HPI - Fall History of Present Illness Chief Complaint: Fall Informant: patient Occured/Mechanism Occurred: Today Mechanism/Context: Yes same level fall Usually ambulates: Without assistance Pain/Injury Pain Location: head, chest and upper extremity (Left wrist) Quality of Pain: Aching Worsened by: Hiccups Relieved by: Nothing Associated Symptoms Associated Symptoms: Positive for Weakness; Negative for Parasthesias, Loss of function, Inability to ambulate or Loss of consciousness Narrative Narrative: Patient presents after a fall that occurred today. Patient states he was walking when he fell. Patient did hit his head but denies any loss of consciousness. Patient landed on his left wrist and left chest. Patient admits to some shortness of breath since the fall. Patient states his pain is aching. Patient states it is worse whenever he has a hiccup. Patient states he did feel lightheaded prior to the fall. Patient also admits to drinking 5 beers today. Patient states he does feel weak all over. [facility] Medical History Alcoholic cirrhosis of liver Cocaine abuse Heroin abuse HTN (hypertension) Hypothyroidism Polysubstance abuse Home Medications furosemide 40 mg tablet 40 mg PO DAILY diuretic 08/25/19 [History Last Taken 10/11/19] lactulose 10 gram/15 mL oral solution 45 ml PO TID liver disease 09/13/19 [History Last Taken Unknown] levothyroxine 100 mcg tablet 75 mcg PO DAILY thyroid 09/13/19 [History Last Taken 10/11/19] olanzapine 10 mg tablet 10 mg PO QHS depression 09/13/19 [History Last Taken Unknown] levetiracetam 1,000 mg tablet 1,000 mg PO DAILY 01/22/20 [History Last Taken Unknown] Xifaxan 550 mg PO DAILY 02/02/20 [History Last Taken Unknown] cetirizine 10 mg capsule 10 mg PO DAILY 02/02/20 [History Last Taken Unknown] folic acid 1 mg tablet 1 mg PO DAILY 02/02/20 [History Last Taken Unknown] lisinopril 5 mg tablet 5 mg PO DAILY 02/02/20 [History Last Taken Unknown] Allergy/AdvReac Type Severity Reaction Status Date / Time No Known Allergies Allergy Verified 09/12/22 15:21 Family History Other Diabetes Heart disease Surgical History History of appendectomy Status post insertion of dialysis catheter Social History (Updated 09/12/22 @ 15:[address] Jonathan Johnson DO) Smoking Status: Current every day smoker tobacco type: cigarettes alcohol intake: current substance use type: marijuana ROS ROS ED Constitutional Constitutional ED: Denies chills or fever(s) Eyes Eyes: Denies blurry vision or change in vision ENT ENT ED: Denies rhinorrhea or sore throat Cardiovascular Cardiovascular: Reports chest pain; Denies palpitations Respiratory/Chest Respiratory/Chest: Denies cough or dyspnea Gastrointestinal Gastrointestinal: Denies nausea or vomiting Genitourinary Genitourinary ED: Denies dysuria or hematuria Musculoskeletal Musculoskeletal: Reports neck pain; Denies back pain Integumentary Denies abscess or rash Neurologic Neurologic: Reports headache(s); Denies weakness Allergic/Immunologic Allergic/Immunologic ED: Denies mouth swelling or urticaria EXAM Physical Exam Const Vital Signs: 09/12/22 15:14 09/12/22 15:19 09/12/22 15:21 Temperature 98.8 F 98.8 F Temperature Source Oral Pulse Rate 109 H 105 H Respiratory Rate 23 H 21 H Respiratory Effort Short of Breath Respiratory Depth Normal Respiratory Pattern Tachypnea Blood Pressure 149/80 H 149/80 H Blood Pressure Mean 103 103 Pulse Ox 88 89 89 Oxygen Delivery Method Room Air Nasal Cannula Nasal Cannula Oxygen Flow Rate (L/min) 4 4 09/12/22 15:43 09/12/22 16:26 09/12/22 17:08 Temperature Temperature Source Pulse Rate 97 109 H Respiratory Rate 24 H 14 Respiratory Effort Respiratory Depth Respiratory Pattern Blood Pressure 133/77 H 116/76 Blood Pressure Mean 95 89 Pulse Ox 90 95 97 Oxygen Delivery Method Nasal Cannula Nasal Cannula Nasal Cannula Oxygen Flow Rate (L/min) 5 5 5 09/12/22 17:56 09/12/22 18:05 09/12/22 19:15 Temperature Temperature Source Pulse Rate 98 99 100 Respiratory Rate 19 H 21 H 19 H Respiratory Effort Respiratory Depth Respiratory Pattern Blood Pressure 146/91 H 134/94 H 139/93 H Blood Pressure Mean 109 107 108 Pulse Ox 98 99 96 Oxygen Delivery Method Nasal Cannula Room Air Room Air Oxygen Flow Rate (L/min) 5 09/12/22 20:10 09/12/22 20:14 09/12/22 20:43 Temperature Temperature Source Pulse Rate 92 100 Respiratory Rate 18 Respiratory Effort Respiratory Depth Respiratory Pattern Normal Blood Pressure 136/86 H Blood Pressure Mean 102 Pulse Ox 86 93 Oxygen Delivery Method Room Air Nasal Cannula Oxygen Flow Rate (L/min) 4 09/12/22 21:07 09/12/22 22:00 09/12/22 22:10 Temperature Temperature Source Pulse Rate 101 H 100 103 H Respiratory Rate 17 20 H 16 Respiratory Effort Respiratory Depth Respiratory Pattern Blood Pressure 147/83 H 146/88 H 146/88 H Blood Pressure Mean 104 107 Pulse Ox 93 96 92 Oxygen Delivery Method Nasal Cannula Room Air Oxygen Flow Rate (L/min) 2 09/12/22 22:19 Temperature Temperature Source Pulse Rate 103 H Respiratory Rate 16 Respiratory Effort Respiratory Depth Respiratory Pattern Blood Pressure 146/88 H Blood Pressure Mean Pulse Ox 92 Oxygen Delivery Method Oxygen Flow Rate (L/min) Positive well nourished, well developed and obese General Appearance ED: well developed and NAD Nutritional Appearance: obese HEENT Reports normocephalic Neck full ROM and supple Chest Wall Chest Narrative: There is tenderness over the left anterior lateral ribs. There is no edema or ecchymosis. There is no bony crepitance or step-off. Resp normal respiratory effort and clear to auscultation bilaterally Cardio regular rhythm Rate: tachycardic GI non-tender and non-distended Palpation: soft Extremity Extremity Narrative: There is tenderness over the left wrist. There is mild edema. There is no obvious deformity. Range of motion was limited in all motions of the left wrist secondary to pain. Radial pulses are equal bilaterally. Strength is 5/5 in the radial, median, and ulnar areas. Sensation was intact to light touch in the radial, median, and ulnar areas. Neuro oriented x3, CN's II-XII intact bilaterally, moves all extremities, no focal motor deficits and no sensory deficits noted Ivette Coma Scale: document GCS findings Spontaneous Obeys Commands Oriented 15 Sensorium / Orientation: alert Motor Exam: strength 5/5 throughout Skin Skin Narrative: There are multiple areas of ecchymosis over his upper extremities, chest, and abdomen. There is mild tenderness. MDM MDM MDM Narrative Medical decision making narrative: Differential diagnosis includes alcohol intoxication, intracranial bleeding, closed head injury, anemia, coagulopathy, left wrist fracture, left rib fracture, pneumothorax, and hepatic encephalopathy. PA and lateral chest x-ray will be obtained to assess for pneumothorax and rib fracture. X-ray of the left wrist will be obtained to assess for left rib fracture. CT scan of the brain will be obtained to assess for intracranial bleeding. CBC will be obtained to assess for anemia and leukocytosis. Comprehensive metabolic profile will be obtained to assess for hepatic function, renal function, and electrolyte abnormality. Serum alcohol level will be obtained to assess for alcohol intoxication. PT with INR and PTT will be obtained to assess for coagulopathy. History & Record Review Additional record(s) reviewed:: Prior ED visit Lab Data Attestation: I reviewed the patient's lab results. Lab results narrative: CBC was reviewed and was essentially within normal limits with the exception of a mild thrombocytopenia of 98. Comprehensive metabolic profile was reviewed. Potassium was slightly low at 2.7. Total bilirubin was elevated at 4.7. AST was 285. ALT was 132. Alkaline phosphatase was 169. Serum alcohol level was elevated at 294. Labs: Laboratory Results - last 24 hr 09/12/22 09/12/22 09/12/22 15:30 15:30 15:30 WBC 5.5 RBC 3.98 L Hgb 13.5 Hct 37.9 L MCV 95.2 H MCH 33.9 H MCHC 35.6 RDW Std Deviation 60.4 H RDW Coeff of Raghu 17.6 H Plt Count 98 L MPV 12.0 Immature Gran % (Auto) 0.500 Neut % (Auto) 58.2 Lymph % (Auto) 19.2 [place] % (Auto) 14.9 H Eos % (Auto) 6.5 H Baso % (Auto) 0.7 Absolute Neuts (auto) 3.2 Absolute Lymphs (auto) 1.06 Nucleated RBC % 0 Platelet Estimate SLT DEC Plt Morphology Comment LARGE RBC Morphology N CHROM Anisocytosis RARE Macrocytosis RARE PT 15.6 H INR 1.2 APTT 32.5 Sodium 133 L Potassium 2.7 L* Chloride 99 Carbon Dioxide 24.0 Anion Gap 10 BUN 7 Creatinine 1.11 Estim Creat Clear Calc 84.03 Est GFR (MDRD) Af Amer 91 Est GFR (MDRD) Non-Af 75 BUN/Creatinine Ratio 6.3 L Glucose 146 H Calcium 10.5 H Total Bilirubin 4.70 H AST 285 H ALT 132 H Alkaline Phosphatase 169 H Total Protein 6.2 L Albumin 2.5 L Globulin 3.7 Albumin/Globulin Ratio 0.7 L Ethyl Alcohol 09/12/22 15:30 WBC RBC Hgb Hct MCV MCH MCHC RDW Std Deviation RDW Coeff of Raghu Plt Count MPV Immature Gran % (Auto) Neut % (Auto) Lymph % (Auto) [place] % (Auto) Eos % (Auto) Baso % (Auto) Absolute Neuts (auto) Absolute Lymphs (auto) Nucleated RBC % Platelet Estimate Plt Morphology Comment RBC Morphology Anisocytosis Macrocytosis PT INR APTT Sodium Potassium Chloride Carbon Dioxide Anion Gap BUN Creatinine Estim Creat Clear Calc Est GFR (MDRD) Af Amer Est GFR (MDRD) Non-Af BUN/Creatinine Ratio Glucose Calcium Total Bilirubin AST ALT Alkaline Phosphatase Total Protein Albumin Globulin Albumin/Globulin Ratio Ethyl Alcohol 294.0 Radiography Diagnostic Testing: Clinical Impression(s) from Imaging Studies Brain CT 09/12/22 15:43 IMPRESSION: No acute intracranial abnormality. No interval change. Electronically Signed: Hector Almaraz MD at 16:43 EDT , Chest X-Ray 09/12/22 16:10 IMPRESSION: No acute findings in the chest. Electronically Signed: Hector Almaraz MD at 16:47 EDT , Wrist X-Ray 09/12/22 16:10 IMPRESSION: Acute/subacute fracture of the distal ulnar shaft. Electronically Signed: Hector Almaraz MD at 16:49 EDT , Abdomen/Pelvis CT 09/12/22 20:13 IMPRESSION: Interval progression of hepatic steatosis and cirrhosis. Extensive varices unchanged. Possible gallbladder polyp or gallstone. Electronically Signed: Antwan Cortez MD at 21:13 EDT Reading Location ID and State: [facility] / [place] , Service support , Chest CTA 09/12/22 20:13 IMPRESSION: Right lower lobe subsegmental atelectasis. No major central pulmonary embolism but more peripheral emboli are difficult to exclude due to technique. COPD. Cirrhosis. Electronically Signed: Antwan Cortez MD at 21:26 EDT Reading Location ID and State: [place] / [place] , Service support , CT scan of the brain was obtained. There is no acute intracranial abnormality. This was interpreted by the radiologist and was also independently reviewed by myself. PA and lateral chest x-ray was obtained. There are 2 views. On my independent interpretation, lung phillips are clear. There is normal cardiac silhouette. Bony thorax is normal. There is no acute process noted. Radiologist also interpreted the x-ray and agrees. X-rays of the left wrist were obtained. There are 3 views. On my independent interpretation, there is a subacute fracture of the distal ulnar shaft. There are screws and a plate in place. There is no dislocation. There is no soft tissue swelling. Radiologist also interpreted the x-rays and agrees. Treatment and Re-Evaluation Narrative: Patient was advised of his findings. Patient was given a dose of oral potassium here. Patient was able to ambulate here in the emergency department on room air and maintaining oxygen saturation of 91%. Patient was advised to stop drinking alcohol as it is starting to cause more cirrhosis. Patient does not want to stay in the hospital. Patient states he will decrease his alcohol intake. Patient was instructed to follow-up with his primary care physician in 3 to 5 days. Patient understands and is agreeable with the plan. All questions were answered. Prior to discharge, patient started to have hypoxic episode on room air. Because of this, CTA of the chest was obtained. There is no evidence of pulmonary embolism or pneumonia. There is no subtle pneumothorax noted. This was interpreted by the radiologist and was also independently reviewed by myself. Since the patient was already ordered a CTA of his chest, and his liver function tests have increased, CTA of the abdomen pelvis was also ordered. There is interval progression of his hepatic steatosis and cirrhosis. There are esophageal varices which are unchanged. There is a possible gallbladder polyp or gallstone. This was interpreted by the radiologist and was also independently reviewed by myself. Patient was given a DuoNeb aerosol here. Patient was feeling better after this. Patient was noted to have pulse oximeter reading of 92% on room air on my reevaluation. Patient wants to go home. Patient does not want to be admitted to the hospital. Patient was instructed to follow-up with his primary care physician in 3 to 5 days. Patient was instructed return if worse in any way. Patient understood and was agreeable with the plan. All questions were answered. Discharge Plan Triage Chief Complaint: Fall ED Provider: Jonathan Johnson Dx/Rx/DC Orders Clinical Impression: Fall, Alcohol abuse, Left wrist sprain, Alcohol intoxication, Hypokalemia Instructions: ED Alcohol Intoxication, ED Wrist Sprain, ED Alcohol Abuse Prescriptions: No Action furosemide 40 MG tablet 40 mg PO DAILY olanzapine 10 MG tablet 10 mg PO QHS Rx Instructions: may repeat x1 lactulose 10 GM/15 ML solution 45 ml PO TID levothyroxine 100 MCG tablet 75 mcg PO DAILY levetiracetam 1,000 MG tablet 1,000 mg PO DAILY folic acid 1 MG tablet 1 mg PO DAILY lisinopril 5 MG tablet 5 mg PO DAILY cetirizine 10 MG capsule 10 mg PO DAILY Xifaxan 550 MG 550 mg PO DAILY Primary Care Provider: Pawan Mcfadden Referrals: Pawan Mcfadden MD [Primary Care Provider] - 3-5 Days Disposition Disposition: Home, Self Care Discharge Date/Time: 09/12/22 22:20
--- NOTE | 2022-09-12 15:43 | CT_ITS ---
EXAM: CT HEAD WITHOUT INTRAVENOUS CONTRAST CLINICAL INDICATION: Head injury TECHNIQUE: Multiple axial images were obtained of the head without intravenous contrast. This CT exam was performed using one or more of the following dose reduction techniques: automated exposure control, adjustment of the mA and/or kV according to patient size, and/or use of iterative reconstruction technique. COMPARISON: CT Head dated 02/02/2020 FINDINGS: BRAIN AND EXTRA-AXIAL SPACES: Bilateral basal ganglion calcification again seen. Brain attenuation is normal. No hemorrhage or mass effect is no acute ischemia. Posterior fossa is normal. Basal cisterns are normal. BONES/JOINTS: No suspicious lytic or blastic abnormality. SINUSES: No acute sinusitis. MASTOID AIR CELLS: Normal. Clear. ORBITS: Visualized globes, extraocular muscles, optic nerves and retrobulbar fat appear unremarkable. CT/Brain/Head without Contrast IMPRESSION: No acute intracranial abnormality. No interval change. Electronically Signed: Hector Almaraz MD at 16:43 EDT ,
[2022-09-12 16:08] LABS: Absolute Lymphocyte Count 1.06 X10^3/uL (0.83-4.51); Absolute Neutrophil Count 3.2 X10^3/uL (2.0-7.7); Basophil# 0.04 X10^3/uL; Basophil% 0.7 % (0-1); Eosinophil# 0.36 X10^3/uL; Eosinophils% 6.5 % (0-5); Hematocrit 37.9 % (40-54); Hemoglobin 13.5 g/dL (13.0-16.5); Lymphocyte # 1.06 X10^3/ul (0.83-4.51); Lymphocyte % 19.2 % (19-41); Mean Corp Hgb Conc 35.6 g/dL (32-36); Mean Corpuscular Hgb 33.9 pg (27.0-32.0); Mean Corpuscular Volume 95.2 fL (80-94); Monocyte# 0.82 X10^3/uL; Monocyte% 14.9 % (0-10); NRBC Flagged by Analyzer 0 % (0-5); Neutrophil % 58.2 % (47-70); POSITIVE COUNT YES; Platelet Count 98 K/mm3 (150-450); RBC Distribution Width CV 17.6 % (11.6-14.6); RBC Distribution Width SD 60.4 fl (35.1-43.9); Red Blood Count 3.98 M/mm3 (4.6-6.2); White Blood Count 5.5 K/mm3 (4.4-11.0)
--- NOTE | 2022-09-12 16:10 | RAD_ITS ---
EXAM: XR CHEST, 2 VIEWS CLINICAL INDICATION: Chest pain TECHNIQUE: Frontal and lateral views of the chest. COMPARISON: XR Chest dated 12/01/2020 FINDINGS: LUNGS AND PLEURAL SPACES: Shallow inspiration. Bilateral linear densities may represent scarring and/or atelectasis. Bilateral linear scarring/atelectasis. No pneumothorax. No effusion. HEART: Normal heart size. MEDIASTINUM: No mediastinal or hilar mass. Right subclavian vascular stent again seen. BONES/JOINTS: No acute abnormality. RAD/Chest PA and Lateral IMPRESSION: No acute findings in the chest. Electronically Signed: Hector Almaraz MD at 16:47 EDT ,
--- NOTE | 2022-09-12 16:10 | RAD_ITS ---
EXAM: XR LEFT WRIST COMPLETE, 3 OR MORE VIEWS CLINICAL INDICATION: Injury/Pain TECHNIQUE: Frontal, lateral and oblique views of the left wrist. COMPARISON: No relevant prior studies available. FINDINGS: BONES/JOINTS: Surgical plate in place across acute/subacute fracture of the distal ulna shaft. Old fracture deformity of the distal radius. SOFT TISSUES: No soft tissue swelling or gas. RAD/Wrist min 3 Views IMPRESSION: Acute/subacute fracture of the distal ulnar shaft. Electronically Signed: Hector Almaraz MD at 16:49 EDT ,
[2022-09-12 16:13] LABS: International Normalized Ratio 1.2; Prothrombin Time (Protime)PT. 15.6 SECONDS (11.7-14.9)
[2022-09-12 16:14] LABS: Partial Thromboplast Time 32.5 Seconds (24.1-36.2)
[2022-09-12 16:33] LABS: Differential Indicated SCAN CRITERIA MET
[2022-09-12 16:35] LABS: Anisocytosis RARE; Macrocytosis RARE; Platelet Estimate SLT DEC (ADEQ); Platelet Morphology LARGE; Red Cell Morphology N CHROM NORMAL (NORM C&C)
[2022-09-12 16:42] LABS: ALB/GLOB Ratio 0.7 RATIO (0.9-2.4); AST(SGOT) 285 U/L (15-37); Alanine Aminotransfer ALT/SGPT 132 U/L (16-61); Albumin, Serum 2.5 g/dL (3.2-5.0); Alkaline Phosphatase 169 U/L (45-117); Anion Gap 10 (5-15); BUN 7 mg/dL (7-18); BUN/Creat Ratio 6.3 RATIO (10-20); Calcium,Total 10.5 mg/dL (8.5-10.1); Chloride 99 mmol/L (98-107); Creatinine, Serum 1.11 mg/dL (0.70-1.30); EST Glomerular Filtration Rate 75 mL/min (>60); Est Glom Filt Rate - Afr Amer 91 mL/min (>60); Estimated Creatinine Clearance 84.03 ml/min; Globulin 3.7 g/dL (2.2-4.2); Glucose 146 mg/dL (74-106); Potassium 2.7 mmol/L (3.5-5.1); Protein, Total 6.2 g/dL (6.4-8.2); Sodium Level 133 mmol/L (136-145)
[2022-09-12] MEDS: Potassium Chloride Oral Tablet 20 MEQ 40 MEQ PO (17:16)
--- NOTE | 2022-09-12 18:08 | ED.RN ---
THIS RN SPOKE TO PT MOTHER (YULIANA BROOKS) PER PT REQUEST. UPDATED HER ON PLAN OF CARE SHE DENIES HAVING ANY OTHER QUESTIONS.
--- NOTE | 2022-09-12 20:13 | CT_ITS ---
STUDY: CTA CHEST REASON FOR EXAM: Male, 47 years old. Hypoxia RADIATION DOSAGE (If Supplied By Facility): CTDIvol = ( 20.38 ) mGy, DLP = ( 2218.70 ) mGycm TECHNIQUE: The examination was performed with the intravenous administration of IV 100mL Isovue-370. Post-processing of the angiographic images was performed, with multiplanar reformation and 3D reconstruction. Individualized dose optimization techniques were used for this CT. COMPARISON: CTA chest August 25, 2019 FINDINGS: Normal enhancement of the main pulmonary artery and right and left pulmonary arteries. There is limited enhancement of the bilateral peripheral pulmonary arteries. Beam hardening artifact limits sensitivity and specificity. No major central pulmonary embolism identified however more peripheral emboli cannot be excluded from this study. Normal thoracic aorta and visualized great vessels. There is no demonstrated aortic dissection. Normal heart and pericardium. Normal mediastinum. Normal hilar regions. Normal visualized trachea and bronchi. Right lower lobe subsegmental atelectasis. Calcified granuloma right lower lobe. Centrilobular and paraseptal emphysema. Normal pleura. Normal chest wall structures. Normal osseous structures. cirrhosis. CT/CTA Chest W/WO Contrast IMPRESSION: Right lower lobe subsegmental atelectasis. No major central pulmonary embolism but more peripheral emboli are difficult to exclude due to technique. COPD. Cirrhosis. Electronically Signed: Antwan Cortez MD at 21:26 EDT ,
--- NOTE | 2022-09-12 20:13 | CT_ITS ---
STUDY: CT ABDOMEN AND PELVIS WITH CONTRAST REASON FOR EXAM: Male, 47 years old. Transaminitis -- IV RADIATION DOSAGE (If Supplied By Facility): CTDIvol = ( 20.38 ) mGy, DLP = ( 2218.70 ) mGycm TECHNIQUE: Transaxial images were obtained from the dome of the diaphragm to the symphysis pubis without oral contrast. IV 100mL Isovue-370 was administered. Sagittal and coronal images were reconstructed. Individualized dose optimization techniques were used for this CT. COMPARISON: August 24, 2021 CT abdomen and pelvis FINDINGS: Subsegmental atelectasis right lung base and calcified granulomas. The visualized portions of the heart are within normal limits. Lobulated hypodense heterogeneous liver. Calcified granuloma right lobe. Gallbladder appears contracted with possible polyp or gallstone. Normal spleen. Normal pancreas. Multiple splenic and mesenteric varices. Normal bilateral adrenal glands. Normal right kidney. Normal left kidney. Normal visualized stomach. Normal small intestine. Normal colon. The appendix is visualized and appears normal. Right gonadal varices extending into the inguinal canal and scrotum. Normal abdominal aorta. Normal inferior vena cava. Normal retroperitoneum. Normal urinary bladder. Surgical clips right lower quadrant and right inguinal region. Normal abdominal wall. Normal osseous structures. CT/Abdomen/Pelvis W IV Cont ONLY IMPRESSION: Interval progression of hepatic steatosis and cirrhosis. Extensive varices unchanged. Possible gallbladder polyp or gallstone. Electronically Signed: Antwan Cortez MD at 21:13 EDT ,
[2022-09-12] MEDS: Ipratropium/Albuterol Sulfate 3 ML AMPUL.NEB INHALATION (20:43)
== END 2022-09-12 22:20 | disposition home or self-care (01) ==
PROVIDERS: Emergency Provider Emergency Medicine; PCP Family Medicine; Visit Provider Emergency Medicine
DX: S63.502A Unspecified sprain of left wrist, initial encounter (principal); Z99.2 Dependence on renal dialysis; K70.30 Alcoholic cirrhosis of liver without ascites; F10.129 Alcohol abuse with intoxication, unspecified; E87.6 Hypokalemia; I10 Essential (primary) hypertension; F17.210 Nicotine dependence, cigarettes, uncomplicated; Y90.8 Blood alcohol level of 240 mg/100 ml or more; E03.9 Hypothyroidism, unspecified; Z79.899 Other long term (current) drug therapy; Z90.49 Acquired absence of other specified parts of digestive tract; W18.30XA Fall on same level, unspecified, initial encounter
CPT/HCPCS: 71046; 80053; 70450; A4216; 80320; 74177; 99285; 71275; 85025; 85730; 73110; 85610; Q9967; 94640; 82077

== ENCOUNTER 2022-09-15 15:35 | Inpatient (IN) | payer MEDICAID, SELFPAY ==
[2022-09-15] VITALS (10 sets, daily range): BP systolic 136–170; BP diastolic 71–97; PULSE 96–118; RESP 12–20; TEMP 36.6–37.1; O2SAT 91–99; BMI 47.9; BMI 46.7
--- NOTE | 2022-09-15 16:10 | EKG12_ITS ---
Test Reason : GENERAL Blood Pressure : / mmHG Vent. Rate : 101 BPM Atrial Rate : 101 BPM P-R Int : 162 ms QRS Dur : 102 ms QT Int : 346 ms P-R-T Axes : 051 092 032 degrees QTc Int : 448 ms Sinus tachycardia Rightward axis Borderline ECG Confirmed by TAYLOR CHAIREZ, ROBBIN ([id number]), editor & co founder SHANE VERA ([id number]) on 09/17/2022 8:50:53 AM Referred By: Confirmed By:ROBBIN VAZQUEZ MD
--- NOTE | 2022-09-15 16:11 | EX.ED.SAOD ---
HPI History of Present Illness Chief Complaint: Substance Abuse Informant: patient Narrative Narrative: Patient is a 47-year-old male with history of polysubstance abuse, alcohol abuse, alcohol withdrawal seizure per patient, PTSD and alcoholic cirrhosis of the liver as well as leg swelling for which she is supposed to take Lasix for presenting for detox as well as shortness of breath. Patient states he uses IV heroin daily. He last use last night and feels like he is starting to withdraw from that. He feels that he is going to have diarrhea. He drinks regularly but he states his drinking is not as bad he just uses it to get rid of the sickness referring to opioid withdrawal symptoms. His last drink was earlier today. Patient also notes that he has been more short of breath. He does have a cough. He states has been off his Lasix for about a week and off his Wellbutrin for at least a month. Denies any chest pain but notes he does have some tightness in his chest. Patient was seen in our ER 3 days ago where he was evaluated for fall and shortness of breath. At that time patient alcohol level of 294. Is found to have an acute/subacute fracture of the distal ulnar shaft and had a CTA of the chest which showed COPD and CTA of the abdomen pelvis which showed cirrhotic findings and extensive varices are unchanged. [facility] Medical History Alcoholic cirrhosis of liver Cocaine abuse Heroin abuse HTN (hypertension) Hypothyroidism Polysubstance abuse Home Medications furosemide 40 mg tablet 40 mg PO DAILY diuretic 08/25/19 [History Last Taken 09/02/22 10:00] lactulose 10 gram/15 mL oral solution 45 ml PO TID liver disease 09/13/19 [History Last Taken 09/02/22 10:00] levothyroxine 100 mcg tablet 75 mcg PO DAILY thyroid 09/13/19 [History Last Taken 09/02/22 10:00] olanzapine 10 mg tablet 10 mg PO QHS depression 09/13/19 [History Last Taken 09/02/22 10:00] levetiracetam 1,000 mg tablet 1,000 mg PO DAILY DIARRHEA 01/22/20 [History Last Taken 09/02/22 10:00] Xifaxan 550 mg PO DAILY Check with primary doctor 02/02/20 [History Last Taken 09/02/22 10:00] cetirizine 10 mg capsule 10 mg PO DAILY Check with primary doctor 02/02/20 [History Last Taken 08/12/22 10:00] folic acid 1 mg tablet 1 mg PO DAILY diarrhea 02/02/20 [History Last Taken 09/02/22 10:00] lisinopril 5 mg tablet 5 mg PO DAILY diarrhea 02/02/20 [History Last Taken 09/02/22 10:00] bupropion HCl 100 mg tablet,12 hr sustained-release 100 mg PO BID ptsd 09/15/22 [History Last Taken 09/02/22 10:00] Allergy/AdvReac Type Severity Reaction Status Date / Time No Known Allergies Allergy Verified 09/15/22 15:38 Family History Other Diabetes Heart disease Surgical History History of appendectomy Status post insertion of dialysis catheter Social History Smoking Status: Current every day smoker tobacco type: cigarettes alcohol intake: current substance use type: marijuana ROS ROS ED Constitutional Constitutional ED: Denies chills or fever(s) ENT ENT ED: Denies rhinorrhea or sore throat Cardiovascular Cardiovascular: Denies chest pain or palpitations Respiratory/Chest Respiratory/Chest: Reports cough, dyspnea, dyspnea on exertion and other Details: chest tightness Gastrointestinal Gastrointestinal: Reports diarrhea and nausea; Denies abdominal pain or vomiting Musculoskeletal Musculoskeletal: Denies arthralgias or myalgias Integumentary Denies rash Neurologic Neurologic: Reports weakness; Denies headache(s) Psychiatric Psychiatric: Denies anxiety Hematologic/Lymphatic Hematologic/Lymphatic: Reports easy bleeding and easy bruising EXAM Physical Exam Const Vital Signs: 09/15/22 15:36 09/15/22 16:26 Temperature 98.8 F Temperature Source Temporal Pulse Rate 110 H 112 H Respiratory Rate 20 H 20 H Respiratory Pattern Normal Blood Pressure 170/88 H Blood Pressure Mean 115 Pulse Ox 91 Oxygen Delivery Method Room Air Positive well nourished, well developed and obese General Appearance ED: well developed Nutritional Appearance: obese HEENT Reports moist mucous membranes atraumatic Eyes PERRL and EOMs intact bilaterally General Eye ED: Yes scleral icterus Neck supple and no JVD Chest Wall inspection of chest normal Resp Resp Narrative: Tachypneic, tight breath sounds are diminished at the bases. No wheezing appreciated Cardio regular rhythm Rate: tachycardic GI soft to palpation, non-tender and non-distended Extremity General Extremety ED: Yes edema; Negative for tenderness General Extremity: edema Neuro oriented x3 Neuro Narrative: Generalized weakness. No focal deficits. No tremor at this time appreciated Sensorium / Orientation: alert Psych mental status grossly normal and thought process normal Skin Skin Narrative: Scattered ecchymosis on the extremities and very stages of healing. Intermittent track hunter. No signs of abscess. MDM MDM MDM Narrative Medical decision making narrative: Patient is evaluated for request of alcohol and heroin detox. In addition he is having shortness of breath. Patient was evaluated for shortness of breath 2 days ago and actually a CTA of his chest. It was negative for any central PE or other acute process. Patient been discharged home. Patient is given aerosol in the emergency room as he does have some tight breath sounds. He does not appear to be frankly fluid overloaded he does have some peripheral edema however he states has been off his Lasix. His BNP is normal. No signs of pleural effusion or significant vascular congestion on his chest x-ray. In addition medical screening labs are obtained for substance abuse admission. He will be admitted for his shortness of breath which I question is a COPD exacerbation as well as for detox. He does have chronic thrombocytopenia as well as chronic elevation of his liver enzymes and bilirubin which I suspect is more secondary to his cirrhosis of his liver likely secondary to his alcohol abuse. Patient is given a dose of Ativan in the emergency room as he is hypertensive and feeling like he is withdrawing. Addition he is given Zofran. Patient is mildly short of breath but is acting appropriate in the emergency room. Case discussed admitting physician, Dr. Steve. Will give the patient Lasix especially as he has been noncompliant with it, his leg swelling and has questionable cephalization of the lungs on chest x-ray however it is underpenetrated. Lab Data Attestation: I reviewed the patient's lab results. Labs: Laboratory Results - last 24 hr 09/15/22 09/15/22 09/15/22 16:30 16:30 16:30 WBC 5.6 RBC 3.94 L Hgb 13.4 Hct 39.5 L MCV 100.3 H D MCH 34.0 H MCHC 33.9 RDW Std Deviation 66.7 H RDW Coeff of Raghu 18.4 H Plt Count 83 L MPV 11.8 Immature Gran % (Auto) 0.200 Neut % (Auto) 63.7 Lymph % (Auto) 16.6 L [place] % (Auto) 10.9 H Eos % (Auto) 7.7 H Baso % (Auto) 0.9 Absolute Neuts (auto) 3.6 Absolute Lymphs (auto) 0.93 Nucleated RBC % 0 Differential Comment SCANNED Platelet Estimate SLT DEC Anisocytosis 2+ Microcytosis 1+ Macrocytosis 1+ PT INR Sodium 140 Potassium 3.5 Chloride 114 H Carbon Dioxide 21.0 Anion Gap 5 BUN 5 L Creatinine 0.86 Estim Creat Clear Calc 108.46 Est GFR (MDRD) Af Amer 121 Est GFR (MDRD) Non-Af 100 BUN/Creatinine Ratio 5.8 L Glucose 125 H Calcium 10.8 H Phosphorus 1.5 L Magnesium 1.9 Total Bilirubin 3.30 H AST 274 H ALT 136 H Alkaline Phosphatase 174 H B-Natriuretic Peptide Total Protein 6.0 L Albumin 1.6 L Globulin 4.4 H Albumin/Globulin Ratio 0.4 L Urine Opiates Screen Urine Methadone Screen Ur Barbiturates Screen Ur Phencyclidine Scrn Ur Amphetamines Screen MDMA (Ecstasy) Screen U Benzodiazepines Scrn Urine Cocaine Screen U Cannabinoids Screen Ur Drug Screen Comment Ethyl Alcohol 09/15/22 09/15/22 09/15/22 16:39 16:39 16:39 WBC RBC Hgb Hct MCV MCH MCHC RDW Std Deviation RDW Coeff of Raghu Plt Count MPV Immature Gran % (Auto) Neut % (Auto) Lymph % (Auto) [place] % (Auto) Eos % (Auto) Baso % (Auto) Absolute Neuts (auto) Absolute Lymphs (auto) Nucleated RBC % Differential Comment Platelet Estimate Anisocytosis Microcytosis Macrocytosis PT 15.2 H INR 1.2 Sodium Potassium Chloride Carbon Dioxide Anion Gap BUN Creatinine Estim Creat Clear Calc Est GFR (MDRD) Af Amer Est GFR (MDRD) Non-Af BUN/Creatinine Ratio Glucose Calcium Phosphorus Magnesium Total Bilirubin AST ALT Alkaline Phosphatase B-Natriuretic Peptide 41.8 Total Protein Albumin Globulin Albumin/Globulin Ratio Urine Opiates Screen Urine Methadone Screen Ur Barbiturates Screen Ur Phencyclidine Scrn Ur Amphetamines Screen MDMA (Ecstasy) Screen U Benzodiazepines Scrn Urine Cocaine Screen U Cannabinoids Screen Ur Drug Screen Comment Ethyl Alcohol 298.0 09/15/22 17:17 WBC RBC Hgb Hct MCV MCH MCHC RDW Std Deviation RDW Coeff of Raghu Plt Count MPV Immature Gran % (Auto) Neut % (Auto) Lymph % (Auto) [place] % (Auto) Eos % (Auto) Baso % (Auto) Absolute Neuts (auto) Absolute Lymphs (auto) Nucleated RBC % Differential Comment Platelet Estimate Anisocytosis Microcytosis Macrocytosis PT INR Sodium Potassium Chloride Carbon Dioxide Anion Gap BUN Creatinine Estim Creat Clear Calc Est GFR (MDRD) Af Amer Est GFR (MDRD) Non-Af BUN/Creatinine Ratio Glucose Calcium Phosphorus Magnesium Total Bilirubin AST ALT Alkaline Phosphatase B-Natriuretic Peptide Total Protein Albumin Globulin Albumin/Globulin Ratio Urine Opiates Screen NEGATIVE Urine Methadone Screen NEGATIVE Ur Barbiturates Screen NEGATIVE Ur Phencyclidine Scrn NEGATIVE Ur Amphetamines Screen NEGATIVE MDMA (Ecstasy) Screen NEGATIVE U Benzodiazepines Scrn NEGATIVE Urine Cocaine Screen NEGATIVE U Cannabinoids Screen POSITIVE H Ur Drug Screen Comment Ethyl Alcohol Radiography Chest X-Ray - ED: Read by ED Physician, Read by Radiologist and No Acute Disease Diagnostic Testing: Clinical Impression(s) from Imaging Studies Chest X-Ray 09/15/22 17:18 IMPRESSION: No radiographic evidence of acute cardiopulmonary disease. Electronically Signed: Tito Rose MD at 18:18 EDT Reading Location ID and State: [address] [place] [address] Tel , Service support , Rhythm Strip Rhythm Strip: Sinus Tach Rate: 101 Ectopy: None EKG Initial EKG: Attestation: I personally reviewed and interpreted this EKG as follows: Interpretation: Sinus Rhythm Comments: Sinus tachycardia at a rate of 101 bpm Right axis deviation Normal ST segments Discharge Plan Dx/Rx/DC Orders Clinical Impression: Acute hyperactive alcohol withdrawal delirium, Alcoholic cirrhosis of liver, HTN (hypertension), Heroin abuse, Thrombocytopenia Disposition Disposition: Acute Care Hospital [facility] Discharge Date/Time: 09/15/22 19:20
[2022-09-15] MEDS: Ipratropium/Albuterol Sulfate 3 ML AMPUL.NEB INHALATION (16:23)
[2022-09-15 16:38] LABS: Absolute Lymphocyte Count 0.93 X10^3/uL (0.83-4.51); Absolute Neutrophil Count 3.6 X10^3/uL (2.0-7.7); Basophil# 0.05 X10^3/uL; Basophil% 0.9 % (0-1); Eosinophil# 0.43 X10^3/uL; Eosinophils% 7.7 % (0-5); Hematocrit 39.5 % (40-54); Hemoglobin 13.4 g/dL (13.0-16.5); Lymphocyte # 0.93 X10^3/ul (0.83-4.51); Lymphocyte % 16.6 % (19-41); Mean Corp Hgb Conc 33.9 g/dL (32-36); Mean Corpuscular Volume 100.3 fL (80-94); Mean Platelet Vol. 11.8 fl (6.2-12.0); Monocyte# 0.61 X10^3/uL; Monocyte% 10.9 % (0-10); NRBC Flagged by Analyzer 0 % (0-5); Neutrophil # 3.56 X10^3/uL (2.7-7.7); Neutrophil % 63.7 % (47-70); POSITIVE COUNT YES; POSITIVE MORPHOLOGY YES; Platelet Count 83 K/mm3 (150-450); RBC Distribution Width CV 18.4 % (11.6-14.6); RBC Distribution Width SD 66.7 fl (35.1-43.9); Red Blood Count 3.94 M/mm3 (4.6-6.2); White Blood Count 5.6 K/mm3 (4.4-11.0)
[2022-09-15] MEDS: LORazepam 2 MG/ML Syringe 1 MG IV (16:50)
[2022-09-15] MEDS: Ondansetron ODT 4 MG Tablet PO (16:50)
[2022-09-15 16:56] LABS: Differential Indicated SCAN CRITERIA MET
[2022-09-15 17:00] LABS: International Normalized Ratio 1.2; Prothrombin Time (Protime)PT. 15.2 SECONDS (11.7-14.9)
[2022-09-15 17:07] LABS: ALB/GLOB Ratio 0.4 RATIO (0.9-2.4); AST(SGOT) 274 U/L (15-37); Alanine Aminotransfer ALT/SGPT 136 U/L (16-61); Albumin, Serum 1.6 g/dL (3.2-5.0); Alkaline Phosphatase 174 U/L (45-117); Anion Gap 5 (5-15); BUN 5 mg/dL (7-18); BUN/Creat Ratio 5.8 RATIO (10-20); Calcium,Total 10.8 mg/dL (8.5-10.1); Chloride 114 mmol/L (98-107); Creatinine, Serum 0.86 mg/dL (0.70-1.30); EST Glomerular Filtration Rate 100 mL/min (>60); Est Glom Filt Rate - Afr Amer 121 mL/min (>60); Estimated Creatinine Clearance 108.46 ml/min; Globulin 4.4 g/dL (2.2-4.2); Glucose 125 mg/dL (74-106); Potassium 3.5 mmol/L (3.5-5.1); Sodium Level 140 mmol/L (136-145)
[2022-09-15 17:08] LABS: BNP,B-Type NATRIURETIC PEPTIDE 41.8 pg/mL (0-100)
--- NOTE | 2022-09-15 17:18 | RAD_ITS ---
INDICATION: sob EXAMINATION/TECHNIQUE: X-RAY - XR Chest 2 Views COMPARISON: 09/12/2022, 12/03/2020 FINDINGS: LINES/DEVICES: None. LUNGS: Stable fibrosis right middle lobe. No consolidation, vascular congestion or pleural effusion. Vascular graft again projects at the right apex. MEDIASTINUM AND CARDIOVASCULAR STRUCTURES: Cardiac silhouette stable within normal limits. BONES AND SOFT TISSUES: No acute bony abnormalities. RAD/Chest PA and Lateral IMPRESSION: No radiographic evidence of acute cardiopulmonary disease. Electronically Signed: Tito Rose MD at 18:18 EDT ,
[2022-09-15 17:26] LABS: Differential Comment SCANNED
[2022-09-15 17:27] LABS: Anisocytosis 2+; Macrocytosis 1+; Microcytosis 1+; Platelet Estimate SLT DEC (ADEQ)
[2022-09-15 17:35] LABS: Amphetamine Urine VISTA NEGATIVE (<1000 ng/mL); Barbiturate Urine VISTA NEGATIVE (< 200 ng/mL); Benzodiazepine Urine VISTA NEGATIVE (< 200 ng/mL); Cocaine Urine VISTA NEGATIVE (< 300 ng/mL); Ecstacy Urine VISTA NEGATIVE (< 500 ng/mL); Methadone Urine VISTA NEGATIVE (< 300 ng/mL); PCP Urine VISTA NEGATIVE (< 25 ng/mL); THC Urine VISTA POSITIVE (< 50 ng/mL); Vista UDS pH Range 6
[2022-09-15] MEDS: Furosemide 40 MG/4 ML Vial IV (17:44)
--- NOTE | 2022-09-15 18:01 | HP.PCM.HOS_ITS ---
[facility] - General General Date of Admission: 09/15/22 Date of Service: 09/15/22 Chief Complaint: Came to ED for alcohol and opioid withdrawal symptoms but also fluid overloaded short of breath and jaundice. HPI Narrative CHRISTIE CARTWRIGHT, is a 47 M with history of chronic alcohol use and IVDA, opioid use disorder came to ED for acute alcohol and opioid withdrawal symptoms. Patient is also short of breath and is not taking his Lasix at home. Patient cannot give detailed history by himself as he is somnolent, obtunded and drowsy and does not remember well. At most he states he is short of breath for past few days denies chest pain or pressure or tightness. Patient has alcoholic decompensated cirrhosis with fluid overload, jaundice possible ascites. Last CT abdomen on September 12, 2022 reported progression of hepatic steatosis to cirrhosis with extensive splenic and mesenteric varices. He also has right gonadal varices extending into inguinal canal and scrotum. Normal spleen and pancreas reported. Patient given Lasix 40 mg IV in ED. Patient was in ED on 09/18/2022 after a fall but no loss of consciousness, landed on left wrist and left chest and some shortness of breath after fall. He had chest CTA and CT abdomen 09/12/2022 which reported right lower lobe subsegmental atelectasis with no major pulmonary embolism. COPD and cirrhosis. Chest x-ray done initially reviewed and looks underpenetrated with central venous congestion in lung phillips. Vitals in the ED shows high blood pressure 170/88, heart rate 110, respiratory rate 20 but no hypoxia. Labs reviewed and discussed in assessment and plan. [facility] Medical History Alcoholic cirrhosis of liver Cocaine abuse Heroin abuse HTN (hypertension) Hypothyroidism Polysubstance abuse Home Medications furosemide 40 mg tablet 40 mg PO DAILY diuretic 08/25/19 [History Last Taken 10/11/19] lactulose 10 gram/15 mL oral solution 45 ml PO TID liver disease 09/13/19 [History Last Taken Unknown] levothyroxine 100 mcg tablet 75 mcg PO DAILY thyroid 09/13/19 [History Last Taken 10/11/19] olanzapine 10 mg tablet 10 mg PO QHS depression 09/13/19 [History Last Taken Unknown] levetiracetam 1,000 mg tablet 1,000 mg PO DAILY 01/22/20 [History Last Taken Unknown] Xifaxan 550 mg PO DAILY 02/02/20 [History Last Taken Unknown] cetirizine 10 mg capsule 10 mg PO DAILY 02/02/20 [History Last Taken Unknown] folic acid 1 mg tablet 1 mg PO DAILY 02/02/20 [History Last Taken Unknown] lisinopril 5 mg tablet 5 mg PO DAILY 02/02/20 [History Last Taken Unknown] Allergy/AdvReac Type Severity Reaction Status Date / Time No Known Allergies Allergy Verified 09/15/22 15:38 Family History Other Diabetes Heart disease Surgical History History of appendectomy Status post insertion of dialysis catheter Social History Smoking Status: Current every day smoker tobacco type: cigarettes alcohol intake: current substance use type: marijuana ROS ROS Narrative Complete 14 ROS unobtainable as patient is confused, obtunded and somnolent with alcohol and IV heroin use. Patient currently in withdrawal. Review of Systems ROS Unobtainable: due to encephalopathy Vital Signs Vital Signs Vital Signs: 09/15/22 15:36 09/15/22 16:26 Temperature 98.8 F Temperature Source Temporal Pulse Rate 110 H 112 H Respiratory Rate 20 H 20 H Respiratory Pattern Normal Blood Pressure 170/88 H Blood Pressure Mean 115 Pulse Ox 91 Oxygen Delivery Method Room Air Weight Weight: 334 lb 7.06 oz Body Mass Index (BMI) 47.9 Physical Exam Narrative General: Alert, Oriented x3, Cooperative, BMI 48.0 kg/m?, morbid obesity HEENT: Deep icterus. Atraumatic, PERRLA, EOMI, Normocephalic Oral: Oral mucosa moist. No Gingival or Mucosal Lesions/ Ulcerations Neck: Supple, No JVD, Negative Carotid Bruits Lungs: Air entry severely diminished in all lung phillips. Lower lung phillips crepitations present bilaterally. Dyspnea at rest. Cardiovascular: Sinus tachycardia, normal S1, Normal S2, No murmurs Abdomen: Bowel Sounds Present, Soft, Non Tender, distended abdomen possible ascites. : No renal angle tenderness. No suprapubic tenderness. Extremities: Bilateral lower extremity pitting edema up to thigh level 3+, Capillary Refill Less than 3 Seconds Skin: Whole-body jaundice. Bruise over right chest and shoulder region probably from fall on 09/12/2022 Musculoskeletal: No Tenderness to Palpation of Joints or Extremities. ROM restricted due to morbid obesity habitus. Neurological: DTR 2+/4, detailed neuro exam unobtainable as patient obtunded and somnolent Psych/Mental Status: Somnolent, confused, does not remember. Results Lab / Micro Data Result Diagrams: 09/15/22 16:30 09/15/22 16:30 Labs: Laboratory Results - last 24 hr 09/15/22 16:30: WBC 5.6, RBC 3.94 L, Hgb 13.4, Hct 39.5 L, MCV 100.3 H D, MCH 34.0 H, MCHC 33.9, RDW Std Deviation 66.7 H, RDW Coeff of Raghu 18.4 H, Plt Count 83 L, MPV 11.8, Immature Gran % (Auto) 0.200, Neut % (Auto) 63.7, Lymph % (Auto) 16.6 L, [place] % (Auto) 10.9 H, Eos % (Auto) 7.7 H, Baso % (Auto) 0.9, Absolute Neuts (auto) 3.6, Absolute Lymphs (auto) 0.93, Nucleated RBC % 0, Differential Comment SCANNED, Platelet Estimate SLT DEC, Anisocytosis 2+, Microcytosis 1+, Macrocytosis 1+ 09/15/22 16:30: Sodium 140, Potassium 3.5, Chloride 114 H, Carbon Dioxide 21.0, Anion Gap 5, BUN 5 L, Creatinine 0.86, Estim Creat Clear Calc 108.46, Est GFR (MDRD) Af Amer 121, Est GFR (MDRD) Non-Af 100, BUN/Creatinine Ratio 5.8 L, Glucose 125 H, Calcium 10.8 H, Total Bilirubin 3.30 H, AST 274 H, ALT 136 H, Alkaline Phosphatase 174 H, Total Protein 6.0 L, Albumin 1.6 L, Globulin 4.4 H, Albumin/Globulin Ratio 0.4 L 09/15/22 16:39: PT 15.2 H, INR 1.2 09/15/22 16:39: Ethyl Alcohol 298.0 09/15/22 16:39: B-Natriuretic Peptide 41.8 09/15/22 17:17: Urine Opiates Screen NEGATIVE, Urine Methadone Screen NEGATIVE, Ur Barbiturates Screen NEGATIVE, Ur Phencyclidine Scrn NEGATIVE, Ur Amphetamines Screen NEGATIVE, MDMA (Ecstasy) Screen NEGATIVE, U Benzodiazepines Scrn NEGATIVE, Urine Cocaine Screen NEGATIVE, U Cannabinoids Screen POSITIVE H, Ur Drug Screen Comment Assessment & Plan Assessment/Plan (1) Acute opioid withdrawal: (2) Acute hyperactive alcohol withdrawal delirium: (3) Heart failure: PLAN: Plan This 47-year-old gentleman who came to ED for acute alcohol and opioid use w ithdrawal symptoms but found to be short of breath, fluid overloaded and jaundiced. 1. 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 Last echo in December 2018 reported EF 65%, PASP 60 mmHg, mildly dilated RV with mild to moderate global RV systolic dysfunction LA mildly enlarged overall suggestive of chronic HFpEF and moderate pulmonary hypertension from right-sided heart failure. Lasix 40 mg IV twice daily. Heart failure core measures including intake and output, fluid restriction less than 1500 mL, daily weight monitoring, kidney and electrolytes monitoring. Repeat 2D echo. 2. Possible COPD exacerbation: Patient is smokes about half pack per day. Patient is short of breath and wheezing. Bronchodilator, IV Solu-Medrol, incentive spirometry chest Peppin Mucinex ordered. BiPAP as needed during nap and night time. Patient might have also obesity hypoventilation syndrome/obstructive sleep apnea. Will need outpatient PFT and polysomnography test. 3. Decompensated alcoholic cirrhosis with jaundice, possible ascites and portosystemic anastomosis on CT scan: Patient has elevated liver chemistry ALT 136, AST 274, total bilirubin 3.3 with alkaline phosphatase 174. Albumin 1.6. Platelet count 83,000. Monitor liver chemistry daily. INR 1.[address] abdomen on September 12, 2022 reported progression of hepatic steatosis to cirrhosis with extensive splenic and mesenteric varices. He also has right gonadal varices extending into inguinal canal and scrotum. Normal spleen and pancreas reported. Avoid Tylenol and NSAIDs. Avoid hepatotoxic medications. 4. Acute alcohol withdrawal syndrome with history of chronic alcohol use disorder, dependence and tolerance and history of alcohol withdrawal seizure: Patient on phenobarbital based order set along with other adjunctive medications as needed for alcohol withdrawal symptom control. CIWA monitor. On folic acid, thiamine and multivitamin. Patient on Keppra 1000 mg daily at home but increased to 1000 mg twice daily. Patient not clear about seizure, exact type but vaguely says he had 5 seizure although when asked about details he could not answer it and does not remember. 5. Acute opioid withdrawal syndrome with history of chronic opioid use/IVDA: Patient uses IV heroin and fentanyl about 1 to 2 g daily. He states he usually is wherever he can find veins. The patient is started on buprenorphine along with other adjunctive medications as needed for medical stabilization as per order set of opioid withdrawal syndrome.Patient also on trazodone, hydroxyzine, gabapentin as needed ordered. monitoring manager consult. 6. Nonadherence with complications [place] high risk for life. Patient is not cognizant enough right now for education. Living will/advanced directive/end of life care: Patient does not have living will or advanced directive. For now when I asked about resuscitation effort he wants to to have full resuscitation effort. He does not have designated power of ic designer standard cells for health. Total time spent in [id number] encounter in discussion of advanced directive 17 minutes. Laboratory Results 09/15/22 16:30: WBC 5.6, RBC 3.94 L, Hgb 13.4, Hct 39.5 L, MCV 100.3 H D, MCH 34.0 H, MCHC 33.9, RDW Std Deviation 66.7 H, RDW Coeff of Raghu 18.4 H, Plt Count 83 L, MPV 11.8, Immature Gran % (Auto) 0.200, Neut % (Auto) 63.7, Lymph % (Auto) 16.6 L, [place] % (Auto) 10.9 H, Eos % (Auto) 7.7 H, Baso % (Auto) 0.9, Absolute Ne uts (auto) 3.6, Absolute Lymphs (auto) 0.93, Nucleated RBC % 0, Differential Comment SCANNED, Platelet Estimate SLT DEC, Anisocytosis 2+, Microcytosis 1+, Macrocytosis 1+ 09/15/22 16:30: Sodium 140, Potassium 3.5, Chloride 114 H, Carbon Dioxide 21.0, Anion Gap 5, BUN 5 L, Creatinine 0.86, Estim Creat Clear Calc 108.46, Est GFR (MDRD) Af Amer 121, Est GFR (MDRD) Non-Af 100, BUN/Creatinine Ratio 5.8 L, Glucose 125 H, Calcium 10.8 H, Total Bilirubin 3.30 H, AST 274 H, ALT 136 H, Alkaline Phosphatase 174 H, Total Protein 6.0 L, Albumin 1.6 L, Globulin 4.4 H, Albumin/Globulin Ratio 0.4 L 09/15/22 16:39: PT 15.2 H, INR 1.2 09/15/22 16:39: Ethyl Alcohol 298.0 09/15/22 16:39: B-Natriuretic Peptide 41.8 09/15/22 17:17: Urine Opiates Screen NEGATIVE, Urine Methadone Screen NEGATIVE, Ur Barbiturates Screen NEGATIVE, Ur Phencyclidine Scrn NEGATIVE, Ur Amphetamines Screen NEGATIVE, MDMA (Ecstasy) Screen NEGATIVE, U Benzodiazepines Scrn NEGATIVE, Urine Cocaine Screen NEGATIVE, U Cannabinoids Screen POSITIVE H, Ur Drug Screen Comment Charges/Coding Visit Charges Inpatient E&M: 24013 Init Hosp L3 Procedures Hospitalists Procedures: 01331 Advncd Care Plan 30 Min
--- NOTE | 2022-09-15 18:34 | ED.RN ---
PATIENT HIT CALL LIGHT TO GO TO BATHROOM. THIS RN WALKED INTO PATIENTS ROOM AND PATIENT HAD ALREADY TAKEN HIMSELF TO THE BATHROOM. WHEN HE CAME OUT, RN NOTIFIED PATIENT HAD PEED ALL OVER THE BATHROOM AND GOWN WAS ON FLOOR SOILED. PT INFORMED BEHAVIOR IS NOT TOLERATED HERE. PT STATES I HAD TO PEE AND COULDNT WAIT. PT GIVEN BATH WIPES AND NEW GOWN
[2022-09-15 19:13] LABS: Magnesium 1.9 mg/dL (1.6-2.6); Phosphorus 1.5 mg/dL (2.5-4.9)
[2022-09-15] MEDS: Phenobarbital 32.4 MG Tablet 97.2 MG PO (20:14)
[2022-09-15] MEDS: Lisinopril 5 MG Tablet PO (20:14)
[2022-09-15] MEDS: levETIRAcetam 1,000 MG Tablet 1000 MG PO (20:14)
--- NOTE | 2022-09-15 20:14 | CPS ---
[1949] Pt. has no interest in trying out the BiPAP tonight. Pt. is in agreement to wear 2-3L NC for comfort at night time.
[2022-09-15] MEDS: Dicyclomine 10 MG Capsule 20 MG PO (20:15)
[2022-09-15] MEDS: Ondansetron 8 MG Tablet PO (20:15)
[2022-09-15] MEDS: Buprenorphine HCl 2 MG TAB.SUBL SL (20:23)
[2022-09-15] MEDS: 0.9% Saline Lock 10 ML Syringe IV (22:04)
[2022-09-15] MEDS: rifAXIMin 550 MG Tablet PO (22:54)
[2022-09-15] MEDS: Carvedilol 3.125 MG TABLET PO (22:54)
[2022-09-15] MEDS: guaiFENesin 1,200 MG Tablet 1200 MG PO (22:54)
--- NOTE | 2022-09-15 23:37 | CPS ---
[2322] Pt. agreed to try BiPAP at this time.
[2022-09-16] VITALS (10 sets, daily range): BP systolic 136–148; BP diastolic 73–95; PULSE 73–98; RESP 14–18; TEMP 36.3–36.8; O2SAT 93–96
[2022-09-16] MEDS: hydrOXYzine PAM 25 MG Capsule PO (03:04)
[2022-09-16] MEDS: Buprenorphine HCl 2 MG TAB.SUBL SL ×3 (04:02→19:49)
[2022-09-16] MEDS: Phenobarbital 32.4 MG Tablet PO ×6 (04:04→23:45)
[2022-09-16] MEDS: Levothyroxine 75 MCG Tablet PO (04:06)
--- NOTE | 2022-09-16 05:55 | ECHOD_ITS ---
Reason For Study: HEART FAILURE Procedure This was a 2D Doppler, Color Flow transthoracic echocardiogram. Technically diffiuclt study due to uncooperative patient. Patient scanned in sitting position. Definity deferred due to no on axis windows. Exam performed portable in patient room. Left Ventricle Normal LV size. Left ventricular systolic function is normal. The estimated ejection fraction is 65 %. Normal diastology for age. No regional wall motion abnormalities noted. Right Ventricle Normal RV size. Normal systolic function. Atria The left atrium is mildly enlarged. Normal right atrium. Mitral Valve Normal mitral valve. Tricuspid Valve Normal tricuspid valve. Aortic Valve Trisinus/trileaflet aortic valve. Pulmonic Valve The pulmonic valve is not well visualized. Great Vessels Normal aortic root. The pulmonary artery is normal size. Normal inferior vena cava. Pericardium/Pleural No pericardial effusion. MMode/2D Measurements & Calculations LVIDd: 5.0 cm IVSd: 0.93 cm Ao root diam: 3.2 cm LVIDs: 3.7 cm LVPWd: 1.1 cm FS: 26.2 % LAV(MOD-bp): 77.4 ml LA A4 area: 25.4 cm2 LA dimension(2D): 4.1 cm LAV(MOD-bp) Indexed: 30.2 ml/m2 LAV(MOD-sp2): 60.8 ml LAV(MOD-sp4): 74.3 ml RA A4 area: 16.0 cm2 Time Measurements MV dec time: 0.30 sec Doppler Measurements & Calculations MV E max brenden: 63.7 cm/sec Lat Peak E' Brenden: 13.4 cm/sec Med Peak E' Brenden: 10.2 cm/sec MV A max brenden: 52.2 cm/sec E/E' lat: 4.8 E/E' med: 6.2 MV E/A: 1.2 MV V2 max: 87.4 cm/sec MV dec slope: 230.5 cm/sec2 Ao V2 max: 135.6 cm/sec MV max P.1 mmHg Ao max P.4 mmHg MV V2 mean: 68.2 cm/sec Ao V2 mean: 103.0 cm/sec MV mean P.9 mmHg Ao mean P.7 mmHg MV V2 VTI: 22.3 cm Ao V2 VTI: 30.0 cm LV V1 max: 95.1 cm/sec PA V2 max: 139.5 cm/sec LV V1 max P.6 mmHg PA V2 mean: 90.3 cm/sec ECHO/Echo Complete Interpretation Summary Normal LV size. Left ventricular systolic function is normal. The estimated ejection fraction is 65 %. The left atrium is mildly enlarged. Ordering Physician: Hiram Steve Referring Physician: MICHAEL HERNANDEZ Performed By: Trisha Sanchez RCS
[2022-09-16 06:44] LABS: ALB/GLOB Ratio 0.5 RATIO (0.9-2.4); AST(SGOT) 281 U/L (15-37); Alanine Aminotransfer ALT/SGPT 142 U/L (16-61); Albumin, Serum 2.1 g/dL (3.2-5.0); Alkaline Phosphatase 181 U/L (45-117); Anion Gap 7 (5-15); BUN 7 mg/dL (7-18); BUN/Creat Ratio 7.5 RATIO (10-20); Calcium,Total 10.4 mg/dL (8.5-10.1); Chloride 111 mmol/L (98-107); Cholesterol 106 mg/dL (200); Creatinine, Serum 0.94 mg/dL (0.70-1.30); EST Glomerular Filtration Rate 91 mL/min (>60); Est Glom Filt Rate - Afr Amer 110 mL/min (>60); Estimated Creatinine Clearance 99.23 ml/min; Globulin 4.1 g/dL (2.2-4.2); Glucose 135 mg/dL (74-106); High Density Lipoprotein 45 mg/dL; Potassium 4.3 mmol/L (3.5-5.1); Protein, Total 6.2 g/dL (6.4-8.2); Sodium Level 140 mmol/L (136-145); Triglycerides 58 mg/dL; Very Low Density Lipoprotein 12 mg/dL (5-40)
[2022-09-16 07:36] LABS: Absolute Lymphocyte Count 0.41 X10^3/uL (0.83-4.51); Absolute Neutrophil Count 2.9 X10^3/uL (2.0-7.7); Basophil# 0.02 X10^3/uL; Basophil% 0.6 % (0-1); Hemoglobin 13.6 g/dL (13.0-16.5); Lymphocyte # 0.41 X10^3/ul (0.83-4.51); Lymphocyte % 12.1 % (19-41); Mean Corp Hgb Conc 32.4 g/dL (32-36); Mean Corpuscular Hgb 33.7 pg (27.0-32.0); Mean Platelet Vol. 12.1 fl (6.2-12.0); Monocyte# 0.07 X10^3/uL; Monocyte% 2.1 % (0-10); NRBC Flagged by Analyzer 0 % (0-5); Neutrophil # 2.87 X10^3/uL (2.7-7.7); Neutrophil % 84.9 % (47-70); POSITIVE COUNT YES; POSITIVE DIFFERENTIAL YES; POSITIVE MORPHOLOGY YES; Platelet Count 83 K/mm3 (150-450); RBC Distribution Width CV 18.5 % (11.6-14.6); RBC Distribution Width SD 70.1 fl (35.1-43.9); Red Blood Count 4.04 M/mm3 (4.6-6.2); White Blood Count 3.4 K/mm3 (4.4-11.0)
[2022-09-16 07:54] LABS: Differential Indicated SCAN CRITERIA MET
[2022-09-16] MEDS: Folic Acid 1 MG Tablet PO (08:35)
[2022-09-16] MEDS: Thiamine Hydrochloride 100 MG Tablet PO (08:35)
[2022-09-16] MEDS: levETIRAcetam 1,000 MG Tablet 1000 MG PO ×2 (08:35→21:50)
[2022-09-16] MEDS: guaiFENesin 1,200 MG Tablet 1200 MG PO ×2 (08:35→21:50)
[2022-09-16] MEDS: Lisinopril 5 MG Tablet PO (08:35)
[2022-09-16] MEDS: rifAXIMin 550 MG Tablet PO ×2 (08:35→21:50)
[2022-09-16] MEDS: Carvedilol 3.125 MG TABLET PO ×2 (08:35→21:50)
[2022-09-16] MEDS: Furosemide 40 MG/4 ML Vial IV ×3 (08:36→17:42)
[2022-09-16 09:23] LABS: Anisocytosis 1+; Platelet Estimate MOD DEC (ADEQ)
--- NOTE | 2022-09-16 10:20 | CASEMGMT ---
Sw met with patient to complete SDOH assessment. Sw introduced self to patient and explained sw role during admission. Sw explained to patient that he expressed he has some concerns with housing. Sw completed SDOH assessment and notes that patient would benefit from resources on housing, transportation and food. Patient states that he is tired from current medications. Sw to meet with patient tomorrow to provide information on resources available to patient at this time. Sw contacted Madhavi through [employer] and made her aware that patient provided consent to engage in services. Madhavi reports she will meet with patient tomorrow morning (09/17). Archana Bernal, [employer] OPERATOR HELPER, DIVISION COMMANDER
--- NOTE | 2022-09-16 11:54 | PCM.PN.HOSP ---
Subjective Subjective Doing well, no issues overnight. Shortness of breath improved Objective Data Objective Data Vital Signs: Vital Signs Temp Pulse Resp BP Pulse Ox O2 Del Method O2 Flow Rate 98.2 F 73 18 137/73 H 95 Nasal Cannula 4 09/16/22 08:24 09/16/22 08:24 09/16/22 08:24 09/16/22 08:24 09/16/22 08:24 09/16/22 08:48 09/16/22 08:48 FiO2 30 09/16/22 00:40 Oxygen Flow Rate (L/min) 4 Oxygen Delivery Method Nasal Cannula Weight: 325 lb 6.436 oz Body Mass Index (BMI) 46.7 Intake & Output: Intake and Output for Last 24 Hours 09/15/22 09/16/22 09/17/22 03:59 03:59 03:59 Intake Total 200 / 200 Balance 200 / 200 Lab / Micro Data Result Diagrams: 09/16/22 07:25 09/16/22 04:42 Labs: Laboratory Results - last 24 hr 09/15/22 16:30: WBC 5.6, RBC 3.94 L, Hgb 13.4, Hct 39.5 L, MCV 100.3 H D, MCH 34.0 H, MCHC 33.9, RDW Std Deviation 66.7 H, RDW Coeff of Raghu 18.4 H, Plt Count 83 L, MPV 11.8, Immature Gran % (Auto) 0.200, Neut % (Auto) 63.7, Lymph % (Auto) 16.6 L, Emmons % (Auto) 10.9 H, Eos % (Auto) 7.7 H, Baso % (Auto) 0.9, Absolute Neuts (auto) 3.6, Absolute Lymphs (auto) 0.93, Nucleated RBC % 0, Differential Comment SCANNED, Platelet Estimate SLT DEC, Anisocytosis 2+, Microcytosis 1+, Macrocytosis 1+ 09/15/22 16:30: Sodium 140, Potassium 3.5, Chloride 114 H, Carbon Dioxide 21.0, Anion Gap 5, BUN 5 L, Creatinine 0.86, Estim Creat Clear Calc 108.46, Est GFR (MDRD) Af Amer 121, Est GFR (MDRD) Non-Af 100, BUN/Creatinine Ratio 5.8 L, Glucose 125 H, Calcium 10.8 H, Total Bilirubin 3.30 H, AST 274 H, ALT 136 H, Alkaline Phosphatase 174 H, Total Protein 6.0 L, Albumin 1.6 L, Globulin 4.4 H, Albumin/Globulin Ratio 0.4 L 09/15/22 16:30: Phosphorus 1.5 L, Magnesium 1.9 09/15/22 16:39: PT 15.2 H, INR 1.2 09/15/22 16:39: Ethyl Alcohol 298.0 09/15/22 16:39: B-Natriuretic Peptide 41.8 09/15/22 17:17: Urine Opiates Screen NEGATIVE, Urine Methadone Screen NEGATIVE, Ur Barbiturates Screen NEGATIVE, Ur Phencyclidine Scrn NEGATIVE, Ur Amphetamines Screen NEGATIVE, MDMA (Ecstasy) Screen NEGATIVE, U Benzodiazepines Scrn NEGATIVE, Urine Cocaine Screen NEGATIVE, U Cannabinoids Screen POSITIVE H, Ur Drug Screen Comment 09/16/22 04:42: WBC Cancelled, Corrected WBC Cancelled, RBC Cancelled, Hgb Cancelled, Hct Cancelled, MCV Cancelled, MCH Cancelled, MCHC Cancelled, RDW Std Deviation Cancelled, RDW Coeff of Raghu Cancelled, Plt Count Cancelled, MPV Cancelled, Immature Gran % (Auto) Cancelled, Neut % (Auto) Cancelled, Lymph % (Auto) Cancelled, Emmons % (Auto) Cancelled, Eos % (Auto) Cancelled, Baso % (Auto) Cancelled, Absolute Neuts (auto) Cancelled, Absolute Lymphs (auto) Cancelled, Total Counted Cancelled, Neutrophils % (Manual) Cancelled, Band Neutrophils % Cancelled, Lymphocytes % (Manual) Cancelled, Monocytes % (Manual) Cancelled, Eosinophils % (Manual) Cancelled, Basophils % (Manual) Cancelled, Metamyelocytes % Cancelled, Myelocytes % Cancelled, Promyelocytes % Cancelled, Blast Cells % Cancelled, Plasma Cell % (Manual) Cancelled, Other Cells % Cancelled, Nucleated RBC % Cancelled, Nucleated RBCs/100 WBC Cancelled, Differential Comment Cancelled, Diff Path Review Cancelled, Hypersegmented Neuts Cancelled, Atypical Lymphocytes Cancelled, Reactive Lymphocytes Cancelled, Smudge Cells Cancelled, Toxic Granulation Cancelled, Toxic Vacuolation Cancelled, Dohle Bodies Cancelled, Magy Rods Cancelled, Platelet Estimate Cancelled, Plt Morphology Comment Cancelled, RBC Morphology Cancelled, Polychromasia Cancelled, Hypochromasia Cancelled, Poikilocytosis Cancelled, Basophilic Stippling Cancelled, Anisocytosis Cancelled, Microcytosis Cancelled, Macrocytosis Cancelled, Spherocytes Cancelled, Sickle Cells Cancelled, Target Cells Cancelled, Tear Drop Cells Cancelled, Ovalocytes Cancelled, Stomatocytes Cancelled, [place] Bodies Cancelled, Constance Cells Cancelled, Bite Cells Cancelled, Crenated Cell Cancelled, Acanthocytes (Spur) Cancelled, Rouleaux Cancelled, Schistocytes Cancelled 09/16/22 04:42: Sodium 140, Potassium 4.3, Chloride 111 H, Carbon Dioxide 22.0, Anion Gap 7, BUN 7, Creatinine 0.94, Estim Creat Clear Calc 99.23, Est GFR (MDRD) Af Amer 110, Est GFR (MDRD) Non-Af 91, BUN/Creatinine Ratio 7.5 L, Glucose 135 H, Calcium 10.4 H, Total Bilirubin 3.50 H, AST 281 H, ALT 142 H, Alkaline Phosphatase 181 H, Total Protein 6.2 L, Albumin 2.1 L, Globulin 4.1, Albumin/Globulin Ratio 0.5 L, Triglycerides 58, Cholesterol 106, LDL Cholesterol 49, VLDL Cholesterol 12, HDL Cholesterol 45 09/16/22 07:25: WBC 3.4 L, RBC 4.04 L, Hgb 13.6, Hct 42.0, MCV 104.0 H, MCH 33.7 H, MCHC 32.4, RDW Std Deviation 70.1 H, RDW Coeff of Raghu 18.5 H, Plt Count 83 L, MPV 12.1 H, Immature Gran % (Auto) 0.300, Neut % (Auto) 84.9 H, Lymph % (Auto) 12.1 L, Emmons % (Auto) 2.1, Eos % (Auto) 0.0, Baso % (Auto) 0.6, Absolute Neuts (auto) 2.9, Absolute Lymphs (auto) 0.41 L, Nucleated RBC % 0, Differential Comment COMMENT, Diff Path Review August foll, Platelet Estimate MOD DEC, Anisocytosis 1+ Radiography Diagnostic Testing: Radiology Impression Chest X-Ray 09/15/22 17:18 IMPRESSION: No radiographic evidence of acute cardiopulmonary disease. Electronically Signed: Tito Rose MD at 18:18 EDT , Rhythm Strip Rhythm Strip: Sinus Tach Rate: 101 Ectopy: None Physical Exam Narrative General: Alert, Oriented x3, Cooperative, No apparent distress HEENT: Atraumatic, PERRLA, EOMI, Normocephalic Oral: Moist Mucosa Neck: Supple, No JVD Lungs: Diminished, Normal air movement, No rhonchi, No wheeze, No rales Cardiovascular: Regular rate, Regular Rhythm, Normal S1, Normal S2, No murmurs Abdomen: Soft, Non Tender, mild distended, No Hepato-splenomegaly Extremities: Bilateral edema, Capillary Refill Less than 3 Seconds Skin: No rashes, No breakdown Musculoskeletal: No Tenderness to Palpation of Joints or Extremities Neurological: Cranial nerves II-XII grossly intact, Motor Exam 5/5 strength throughout, Sensory exam intact to light touch and pain Psych/Mental Status: Normal Affect, Appropriate Assessment & Plan Assessment/Plan (1) Acute opioid withdrawal: (2) Acute hyperactive alcohol withdrawal delirium: (3) Heart failure: PLAN: Plan 1. 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 Last echo in December 2018 reported EF 65%, PASP 60 mmHg, mildly dilated RV with mild to moderate global RV systolic dysfunction LA mildly enlarged overall suggestive of chronic HFpEF and moderate pulmonary hypertension from right-sided heart failure. Lasix 40 mg IV twice daily. Heart failure core measures including intake and output, fluid restriction less than 1500 mL, daily weight monitoring, kidney and electrolytes monitoring. Repeat 2D echo. 09/16: Echo was unremarkable with no signs of heart failure and pulmonary artery systolic pressure this time around is normal continue with diuretics may need to Aldactone 2. Possible COPD exacerbation: Patient is smokes about half pack per day. Patient is short of breath and wheezing. Bronchodilator, IV Solu-Medrol, incentive spirometry chest Peppin Mucinex ordered. BiPAP as needed during nap and night time. Patient might have also obesity hypoventilation syndrome/obstructive sleep apnea. Will need outpatient PFT and polysomnography test. 09/16: Continue with steroids 3. Decompensated alcoholic cirrhosis with jaundice, possible ascites and portosystemic anastomosis on CT scan: Patient has elevated liver chemistry ALT 136, AST 274, total bilirubin 3.3 with alkaline phosphatase 174. Albumin 1.6. Platelet count 83,000. Monitor liver chemistry daily. INR 1.[address] abdomen on September 12, 2022 reported progression of hepatic steatosis to cirrhosis with extensive splenic and mesenteric varices. He also has right gonadal varices extending into inguinal canal and scrotum. Normal spleen and pancreas reported. Avoid Tylenol and NSAIDs. Avoid hepatotoxic medications. 6/5: Would benefit from outpatient follow-up with gastroenterology for management of his cirrhosis 4. Acute alcohol withdrawal syndrome with history of chronic alcohol use disorder, dependence and tolerance and history of alcohol withdrawal seizure: Patient on phenobarbital based order set along with other adjunctive medications as needed for alcohol withdrawal symptom control. CIWA monitor. On folic acid, thiamine and multivitamin. Patient on Keppra 1000 mg daily at home but increased to 1000 mg twice daily. Patient not clear about seizure, exact type but vaguely says he had 5 seizure although when asked about details he could not answer it and does not remember. 5. Acute opioid withdrawal syndrome with history of chronic opioid use/IVDA: Patient uses IV heroin and fentanyl about 1 to 2 g daily. He states he usually is wherever he can find veins. The patient is started on buprenorphine along with other adjunctive medications as needed for medical stabilization as per order set of opioid withdrawal syndrome.Patient also on trazodone, hydroxyzine, gabapentin as needed ordered. emergency department manager consult. 6. Hypothyroidism ? Stable ? Continue with Synthroid DVT: SCDs Charges/Coding Visit Charges Inpatient E&M: 78987 Subs Hosp L2
[2022-09-16] MEDS: Ondansetron 8 MG Tablet PO (16:11)
--- NOTE | 2022-09-16 16:23 | NURSING ---
Pt asked that I call the [facility] dept and inform them that he is here. He has been dealing with lieutenant Shirley and needs to check in. I spoke with another officer and he will write it down that pt is here for the next 3 days.
[2022-09-16] MEDS: 0.9% Saline Lock 10 ML Syringe IV ×3 (17:42→23:45)
[2022-09-16] MEDS: Dicyclomine 10 MG Capsule 20 MG PO (19:57)
--- NOTE | 2022-09-16 22:07 | NURSING ---
Patient is a drug user and has poor veins, Today he has pulled out 2 ivs. The second one was pulled out and was found when attempting to give him his scheduled Solumedrol. Attempted to place a new one but was unsuccessful on 1 attempt. Will get charge nurse to try.
[2022-09-17] VITALS (7 sets, daily range): BP systolic 127–155; BP diastolic 71–102; PULSE 66–81; RESP 12–18; TEMP 36.5–36.7; O2SAT 92–97
[2022-09-17] MEDS: Buprenorphine HCl 2 MG TAB.SUBL SL ×3 (03:46→20:46)
[2022-09-17] MEDS: Phenobarbital 32.4 MG Tablet PO ×5 (03:46→20:46)
[2022-09-17 05:15] LABS: Absolute Lymphocyte Count 0.52 X10^3/uL (0.83-4.51); Absolute Neutrophil Count 8.4 X10^3/uL (2.0-7.7); Basophil# 0.01 X10^3/uL; Basophil% 0.1 % (0-1); Hematocrit 40.7 % (40-54); Hemoglobin 13.4 g/dL (13.0-16.5); Lymphocyte # 0.52 X10^3/ul (0.83-4.51); Lymphocyte % 5.6 % (19-41); Mean Corp Hgb Conc 32.9 g/dL (32-36); Mean Corpuscular Hgb 34.1 pg (27.0-32.0); Mean Corpuscular Volume 103.6 fL (80-94); Mean Platelet Vol. 12.3 fl (6.2-12.0); Monocyte# 0.33 X10^3/uL; Monocyte% 3.6 % (0-10); NRBC Flagged by Analyzer 0 % (0-5); Neutrophil # 8.39 X10^3/uL (2.7-7.7); Neutrophil % 90.4 % (47-70); POSITIVE DIFFERENTIAL YES; POSITIVE MORPHOLOGY YES; Platelet Count 104 K/mm3 (150-450); RBC Distribution Width CV 18.1 % (11.6-14.6); RBC Distribution Width SD 68.1 fl (35.1-43.9); Red Blood Count 3.93 M/mm3 (4.6-6.2); White Blood Count 9.3 K/mm3 (4.4-11.0)
[2022-09-17] MEDS: Levothyroxine 75 MCG Tablet PO (05:34)
[2022-09-17] MEDS: 0.9% Saline Lock 10 ML Syringe IV (05:34)
[2022-09-17 05:36] LABS: Differential Indicated SCAN CRITERIA MET
[2022-09-17 05:48] LABS: ALB/GLOB Ratio 0.6 RATIO (0.9-2.4); AST(SGOT) 206 U/L (15-37); Alanine Aminotransfer ALT/SGPT 126 U/L (16-61); Albumin, Serum 2.3 g/dL (3.2-5.0); Alkaline Phosphatase 175 U/L (45-117); Anion Gap 5 (5-15); BUN 13 mg/dL (7-18); BUN/Creat Ratio 11.7 RATIO (10-20); Calcium,Total 10.8 mg/dL (8.5-10.1); Chloride 104 mmol/L (98-107); Creatinine, Serum 1.11 mg/dL (0.70-1.30); EST Glomerular Filtration Rate 75 mL/min (>60); Est Glom Filt Rate - Afr Amer 91 mL/min (>60); Estimated Creatinine Clearance 84.03 ml/min; Globulin 3.7 g/dL (2.2-4.2); Glucose 129 mg/dL (74-106); Sodium Level 134 mmol/L (136-145)
[2022-09-17 06:13] LABS: Differential Comment SCANNED
[2022-09-17 06:14] LABS: Anisocytosis 1+
[2022-09-17] MEDS: Thiamine Hydrochloride 100 MG Tablet PO (08:18)
[2022-09-17] MEDS: Folic Acid 1 MG Tablet PO (08:18)
[2022-09-17] MEDS: guaiFENesin 1,200 MG Tablet 1200 MG PO ×2 (10:54→20:48)
[2022-09-17] MEDS: rifAXIMin 550 MG Tablet PO ×2 (10:54→20:48)
[2022-09-17] MEDS: Lisinopril 5 MG Tablet PO (10:54)
[2022-09-17] MEDS: levETIRAcetam 1,000 MG Tablet 1000 MG PO ×2 (10:54→20:47)
[2022-09-17] MEDS: Carvedilol 3.125 MG TABLET PO ×2 (10:54→20:47)
--- NOTE | 2022-09-17 11:23 | ADDICTION ---
This policy writer sales met with PT to conduct ASAM, MSE, AUDIT, DUDIT assessments and to plan for d/c. PT A+Ox4 and participated actively. All assessments completed and placed in PT's chart. PT plans to f/u with [facility] for follow-up in patient treatment services on Friday. [facility] will transport to treatment.
--- NOTE | 2022-09-17 12:13 | PCM.PN.HOSP ---
Subjective Subjective Breathing little bit easier, no issues overnight Objective Data Objective Data Vital Signs: Vital Signs Temp Pulse Resp BP Pulse Ox O2 Del Method O2 Flow Rate 97.8 F 66 12 143/78 H 92 Nasal Cannula 3 09/17/22 07:55 09/17/22 07:55 09/17/22 07:55 09/17/22 07:55 09/17/22 07:55 09/17/22 08:30 09/17/22 08:30 FiO2 30 09/16/22 00:40 Oxygen Flow Rate (L/min) 3 Oxygen Delivery Method Nasal Cannula Weight: 325 lb 6.436 oz Body Mass Index (BMI) 46.7 Intake & Output: Intake and Output for Last 24 Hours 09/16/22 09/17/22 09/18/22 03:59 03:59 03:59 Intake Total 200 / 200 257 / 257 0 / 0 Balance 200 / 200 257 / 257 0 / 0 Lab / Micro Data Result Diagrams: 09/17/22 04:02 09/17/22 04:02 Labs: Laboratory Results - last 24 hr 09/17/22 04:02: WBC 9.3, RBC 3.93 L, Hgb 13.4, Hct 40.7, MCV 103.6 H, MCH 34.1 H, MCHC 32.9, RDW Std Deviation 68.1 H, RDW Coeff of Raghu 18.1 H, Plt Count 104 L, MPV 12.3 H, Immature Gran % (Auto) 0.300, Neut % (Auto) 90.4 H, Lymph % (Auto) 5.6 L, [place] % (Auto) 3.6, Eos % (Auto) 0.0, Baso % (Auto) 0.1, Absolute Neuts (auto) 8.4 H, Absolute Lymphs (auto) 0.52 L, Nucleated RBC % 0, Differential Comment SCANNED, Anisocytosis 1+ 09/17/22 04:02: Sodium 134 L, Potassium 4.0, Chloride 104, Carbon Dioxide 25.0, Anion Gap 5, BUN 13, Creatinine 1.11, Estim Creat Clear Calc 84.03, Est GFR (MDRD) Af Amer 91, Est GFR (MDRD) Non-Af 75, BUN/Creatinine Ratio 11.7, Glucose 129 H, Calcium 10.8 H, Total Bilirubin 3.70 H, AST 206 H, ALT 126 H, Alkaline Phosphatase 175 H, Total Protein 6.0 L, Albumin 2.3 L, Globulin 3.7, Albumin/Globulin Ratio 0.6 L Micro: Microbiology 09/16/22 15:50 Nasal Secretion SARS-CoV-2 & FLU Antigen (Rapid) - Final Radiography Diagnostic Testing: Radiology Impression Echocardiogram 09/16/22 05:55 Interpretation Summary Normal LV size. Left ventricular systolic function is normal. The estimated ejection fraction is 65 %. The left atrium is mildly enlarged. Ordering Physician: Hiram Steve Referring Physician: MICHAEL HERNANDEZ Performed By: Trisha Sanchez RCS Rhythm Strip Rhythm Strip: Sinus Tach Rate: 101 Ectopy: None Physical Exam Narrative General: Alert, Oriented x3, Cooperative, No apparent distress HEENT: Atraumatic, PERRLA, EOMI, Normocephalic Oral: Moist Mucosa Neck: Supple, No JVD Lungs: Diminished, Normal air movement, No rhonchi, No wheeze, No rales Cardiovascular: Regular rate, Regular Rhythm, Normal S1, Normal S2, No murmurs Abdomen: Soft, Non Tender, mild distended, No Hepato-splenomegaly Extremities: Bilateral edema, Capillary Refill Less than 3 Seconds Skin: No rashes, No breakdown Musculoskeletal: No Tenderness to Palpation of Joints or Extremities Neurological: Cranial nerves II-XII grossly intact, Motor Exam 5/5 strength throughout, Sensory exam intact to light touch and pain Psych/Mental Status: Normal Affect, Appropriate Assessment & Plan Assessment/Plan (1) Acute opioid withdrawal: (2) Acute hyperactive alcohol withdrawal delirium: (3) Heart failure: PLAN: Plan 1. 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 Last echo in December 2018 reported EF 65%, PASP 60 mmHg, mildly dilated RV with mild to moderate global RV systolic dysfunction LA mildly enlarged overall suggestive of chronic HFpEF and moderate pulmonary hypertension from right-sided heart failure. Lasix 40 mg IV twice daily. Heart failure core measures including intake and output, fluid restriction less than 1500 mL, daily weight monitoring, kidney and electrolytes monitoring. Repeat 2D echo. 09/16: Echo was unremarkable with no signs of heart failure and pulmonary artery systolic pressure this time around is normal continue with diuretics may need to Aldactone 2. Possible COPD exacerbation: Patient is smokes about half pack per day. Patient is short of breath and wheezing. Bronchodilator, IV Solu-Medrol, incentive spirometry chest Peppin Mucinex ordered. BiPAP as needed during nap and night time. Patient might have also obesity hypoventilation syndrome/obstructive sleep apnea. Will need outpatient PFT and polysomnography test. 09/16: Continue with steroids 3. Decompensated alcoholic cirrhosis with jaundice, possible ascites and portosystemic anastomosis on CT scan: Patient has elevated liver chemistry ALT 136, AST 274, total bilirubin 3.3 with alkaline phosphatase 174. Albumin 1.6. Platelet count 83,000. Monitor liver chemistry daily. INR 1.[address] abdomen on September 12, 2022 reported progression of hepatic steatosis to cirrhosis with extensive splenic and mesenteric varices. He also has right gonadal varices extending into inguinal canal and scrotum. Normal spleen and pancreas reported. Avoid Tylenol and NSAIDs. Avoid hepatotoxic medications. 09/16: Would benefit from outpatient follow-up with gastroenterology for management of his cirrhosis 09/17: Since plan is for discharge to inpatient drug rehab, will consult gastroenterology today to initiate evaluation while he is in inpatient rehab 4. Acute alcohol withdrawal syndrome with history of chronic alcohol use disorder, dependence and tolerance and history of alcohol withdrawal seizure: Patient on phenobarbital based order set along with other adjunctive medications as needed for alcohol withdrawal symptom control. CIWA monitor. On folic acid, thiamine and multivitamin. Patient on Keppra 1000 mg daily at home but increased to 1000 mg twice daily. Patient not clear about seizure, exact type but vaguely says he had 5 seizure although when asked about details he could not answer it and does not remember. 5. Acute opioid withdrawal syndrome with history of chronic opioid use/IVDA: Patient uses IV heroin and fentanyl about 1 to 2 g daily. He states he usually is wherever he can find veins. The patient is started on buprenorphine along with other adjunctive medications as needed for medical stabilization as per order set of opioid withdrawal syndrome.Patient also on trazodone, hydroxyzine, gabapentin as needed ordered. dairy cattle farm manager consult. 6. Hypothyroidism ? Stable ? Continue with Synthroid DVT: SCDs Charges/Coding Visit Charges Inpatient E&M: 32473 Subs Hosp L2
[2022-09-17 14:18] LABS: Pathologist Review Reviewed
[2022-09-17] MEDS: Ondansetron 8 MG Tablet PO (14:37)
[2022-09-17] MEDS: hydrOXYzine PAM 25 MG Capsule PO (14:37)
--- NOTE | 2022-09-17 17:15 | NURSING ---
upon assessing pt @ 0800, he had removed his IV in his sleep. Attempted x2 to restart. NO IV access, notified , Awaiting orders for PO meds to replace IV meds ordered.
--- NOTE | 2022-09-17 18:11 | CON.PCM.GI_ITS ---
HPI Consult Data Date of Consult: 09/17/22 HPI Narrative Reason for Consultation: Cirrhosis HPI Narrative: CHRISTIE CARTWRIGHT, is a 47 M who presents to get into a drug program. He has a history of chronic alcohol use and IVDA, opioid use disorder came to ED for acute alcohol and opioid withdrawal symptoms.? Patient is also short of breath and is not taking his Lasix at home.? Patient cannot give detailed history by himself as he is somnolent, obtunded and drowsy and does not remember well. At most he states he is short of breath for past few days denies chest pain or pressure or tightness.? Patient has alcoholic decompensated cirrhosis with fluid overload, jaundice possible ascites.? Last CT abdomen on September 12, 2022 reported progression of hepatic steatosis to cirrhosis with extensive splenic and mesenteric varices.? He also has right gonadal varices extending into inguinal canal and scrotum.? Normal spleen and pancreas reported. Patient given Lasix 40 mg IV in ED. Patient was in ED on 09/18/2022 after a fall but no loss of consciousness, landed on left wrist and left chest and some shortness of breath after fall.? He had chest CTA and CT abdomen 09/12/2022 which reported right lower lobe subsegmental atelectasis with no major pulmonary embolism.? COPD and cirrhosis.? Chest x-ray done initially reviewed and looks underpenetrated with central venous congestion in lung phillips. He has been getting diuresed very well. I was asked to see him due to his cirrhosis. [facility] Medical History Alcoholic cirrhosis of liver Cocaine abuse Heroin abuse HTN (hypertension) Hypothyroidism Polysubstance abuse Home Medications furosemide 40 mg tablet 40 mg PO DAILY diuretic 08/25/19 [History Last Taken 09/02/22 10:00] lactulose 10 gram/15 mL oral solution 45 ml PO TID liver disease 09/13/19 [History Last Taken 09/02/22 10:00] levothyroxine 100 mcg tablet 75 mcg PO DAILY thyroid 09/13/19 [History Last Taken 09/02/22 10:00] olanzapine 10 mg tablet 10 mg PO QHS depression 09/13/19 [History Last Taken 09/02/22 10:00] levetiracetam 1,000 mg tablet 1,000 mg PO DAILY DIARRHEA 10/10/20 [History Last Taken 09/02/22 10:00] Xifaxan 550 mg PO DAILY Check with primary doctor 02/02/20 [History Last Taken 09/02/22 10:00] cetirizine 10 mg capsule 10 mg PO DAILY Check with primary doctor 02/02/20 [History Last Taken 08/12/22 10:00] folic acid 1 mg tablet 1 mg PO DAILY diarrhea 02/02/20 [History Last Taken 09/02/22 10:00] lisinopril 5 mg tablet 5 mg PO DAILY diarrhea 02/02/20 [History Last Taken 09/02/22 10:00] bupropion HCl 100 mg tablet,12 hr sustained-release 100 mg PO BID ptsd 09/15/22 [History Last Taken 09/02/22 10:00] Allergy/AdvReac Type Severity Reaction Status Date / Time No Known Allergies Allergy Verified 09/15/22 15:38 Family History Other Diabetes Heart disease Surgical History History of appendectomy Status post insertion of dialysis catheter Social History Smoking Status: Current every day smoker tobacco type: cigarettes alcohol intake: current substance use type: marijuana ROS ROS Narrative Complete 14 ROS unobtainable as patient is confused, obtunded and somnolent with alcohol and IV heroin use. Patient currently in withdrawal. Review of Systems ROS Unobtainable: due to encephalopathy Physical Exam Narrative General: Alert, Oriented x3, Cooperative, No apparent distress HEENT: Atraumatic, PERRLA, EOMI, Normocephalic Oral: Moist Mucosa Neck: Supple, No JVD Lungs: Diminished, Normal air movement, No rhonchi, No wheeze, No rales Cardiovascular: Regular rate, Regular Rhythm, Normal S1, Normal S2, No murmurs Abdomen: Soft, Non Tender, mild distended, No Hepato-splenomegaly Extremities: Bilateral edema, Capillary Refill Less than 3 Seconds Skin: No rashes, No breakdown Musculoskeletal: No Tenderness to Palpation of Joints or Extremities Neurological: Cranial nerves II-XII grossly intact, Motor Exam 5/5 strength thro ughout, Sensory exam intact to light touch and pain Psych/Mental Status: Normal Affect, Appropriate Lab / Micro Data Result Diagrams: 09/17/22 04:02 09/17/22 04:02 Labs: Laboratory Results - last 24 hr 09/16/22 07:25: Diff Path Review Reviewed 09/17/22 04:02: WBC 9.3, RBC 3.93 L, Hgb 13.4, Hct 40.7, MCV 103.6 H, MCH 34.1 H , MCHC 32.9, RDW Std Deviation 68.1 H, RDW Coeff of Raghu 18.1 H, Plt Count 104 L, MPV 12.3 H, Immature Gran % (Auto) 0.300, Neut % (Auto) 90.4 H, Lymph % (Auto) 5.6 L, [place] % (Auto) 3.6, Eos % (Auto) 0.0, Baso % (Auto) 0.1, Absolute Neuts (auto) 8.4 H, Absolute Lymphs (auto) 0.52 L, Nucleated RBC % 0, Differential Comment SCANNED, Anisocytosis 1+ 09/17/22 04:02: Sodium 134 L, Potassium 4.0, Chloride 104, Carbon Dioxide 25.0, Anion Gap 5, BUN 13, Creatinine 1.11, Estim Creat Clear Calc 84.03, Est GFR (MDRD) Af Amer 91, Est GFR (MDRD) Non-Af 75, BUN/Creatinine Ratio 11.7, Glucose 129 H, Calcium 10.8 H, Total Bilirubin 3.70 H, AST 206 H, ALT 126 H, Alkaline Phosphatase 175 H, Total Protein 6.0 L, Albumin 2.3 L, Globulin 3.7, Albumin/Globulin Ratio 0.6 L Micro: Microbiology 09/16/22 15:50 Nasal Secretion SARS-CoV-2 & FLU Antigen (Rapid) - Final Rhythm Strip Rhythm Strip: Sinus Tach Rate: 101 Ectopy: None Assessment & Plan Assessment/Plan (1) Acute opioid withdrawal: (2) Acute hyperactive alcohol withdrawal delirium: (3) Heart failure: PLAN: Plan This 47-year-old gentleman who came to ED for acute alcohol and opioid use withdrawal symptoms but found to be short of breath, fluid overloaded and jaundiced. 1. 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 Lasix 40 mg IV twice daily. Heart failure core measures including intake and output, fluid restriction less than 1500 mL, daily weight monitoring, kidney and electrolytes monitoring. Repeat 2D echo. 2. Possible COPD exacerbation: Patient is smokes about half pack per day. Patient is short of breath and wheezing. Bronchodilator, IV Solu-Medrol, incentive spirometry chest Peppin Mucinex ordered. BiPAP as needed during nap and night time. Patient might have also obesity hypoventilation syndrome/obstructive sleep apnea. Will need outpatient PFT and polysomnography test. 3. Decompensated alcoholic cirrhosis with jaundice, possible ascites and portosystemic anastomosis on CT scan: Patient has elevated liver chemistry ALT 136, AST 274, total bilirubin 3.3 with alkaline phosphatase 174. Albumin 1.6. Platelet count 83,000. Monitor liver chemistry daily. INR 1.[address] abdomen on September 12, 2022 reported progression of hepatic steatosis to cirrhosis with extensive splenic and mesenteric varices. He also has right gonadal varices extending into inguinal canal and scrotum. Normal spleen and pancreas reported. Avoid Tylenol and NSAIDs. Avoid hepatotoxic medications. He needs to be on lactulose 45 cc 2-3 times a day. He also needs to be on light nadolol 10 mg p.o. twice daily, Protonix 40 mg daily and lactulose 3 times a day. 4. Acute alcohol withdrawal syndrome with history of chronic alcohol use disorder, dependence and tolerance and history of alcohol withdrawal seizure: Patient on phenobarbital based order set along with other adjunctive medications as needed for alcohol withdrawal symptom control. [facility] monitor. On folic acid, thiamine and multivitamin. Patient on Keppra 1000 mg daily at home but increased to 1000 mg twice daily. Patient not clear about seizure, exact type but vaguely says he had 5 seizure although when asked about details he could not answer it and does not remember. 5. Acute opioid withdrawal syndrome with history of chronic opioid use/IVDA: Patient uses IV heroin and fentanyl about 1 to 2 g daily. He states he usually is wherever he can find veins. The patient is started on buprenorphine along with other adjunctive medications as needed for medical stabilization as per order set of opioid withdrawal syndrome.Patient also on trazodone, hydroxyzine, gabapentin as needed ordered. recreational vehicle resort manager consult. 6. Nonadherence with complications [place] high risk for life. Patient is not cognizant enough right now for education. 7. Alcoholic hepatitis. His Madrey score is 30. He does not reach criteria for medical treatment for alcoholic hepatitis at this time. Continue to monitor INR, PT, PTT, CBC and LFTs. Living will/advanced directive/end of life care: Patient does not have living will or advanced directive. For now when I asked about resuscitation effort he wants to to have full resuscitation effort. He does not have designated power of trade mark attorney for health. Total time spent in [id number] encounter in discussion of advanced directive 17 minutes. Laboratory Results 09/15/22 16:30: WBC 5.6, RBC 3.94 L, Hgb 13.4, Hct 39.5 L, MCV 100.3 H D, MCH 34.0 H, MCHC 33.9, RDW Std Deviation 66.7 H, RDW Coeff of Raghu 18.4 H, Plt Count 83 L, MPV 11.8, Immature Gran % (Auto) 0.200, Neut % (Auto) 63.7, Lymph % (Auto) 16.6 L, [place] % (Auto) 10.9 H, Eos % (Auto) 7.7 H, Baso % (Auto) 0.9, Absolute Neuts (auto) 3.6, Absolute Lymphs (auto) 0.93, Nucleated RBC % 0, Differential Comment SCANNED, Platelet Estimate SLT DEC, Anisocytosis 2+, Microcytosis 1+, M acrocytosis 1+ 09/15/22 16:30: Sodium 140, Potassium 3.5, Chloride 114 H, Carbon Dioxide 21.0, Anion Gap 5, BUN 5 L, Creatinine 0.86, Estim Creat Clear Calc 108.46, Est GFR (MDRD) Af Amer 121, Est GFR (MDRD) Non-Af 100, BUN/Creatinine Ratio 5.8 L, Glucose 125 H, Calcium 10.8 H, Total Bilirubin 3.30 H, AST 274 H, ALT 136 H, Alkaline Phosphatase 174 H, Total Protein 6.0 L, Albumin 1.6 L, Globulin 4.4 H, Albumin/Globulin Ratio 0.4 L 09/15/22 16:39: PT 15.2 H, INR 1.2 09/15/22 16:39: Ethyl Alcohol 298.0 09/15/22 16:39: B-Natriuretic Peptide 41.8 09/15/22 17:17: Urine Opiates Screen NEGATIVE, Urine Methadone Screen NEGATIVE, Ur Barbiturates Screen NEGATIVE, Ur Phencyclidine Scrn NEGATIVE, Ur Amphetamines Screen NEGATIVE, MDMA (Ecstasy) Screen NEGATIVE, U Benzodiazepines Scrn NEGATIVE, Urine Cocaine Screen NEGATIVE, U Cannabinoids Screen POSITIVE H, Ur Drug Screen Comment Charges/Coding Visit Charges Inpatient E&M: 11505 Init Hosp L3
[2022-09-18] MEDS: Phenobarbital 32.4 MG Tablet PO ×5 (00:11→22:14)
[2022-09-18 03:00] VITALS: BP 133/88; PULSE 71; RESP 14; TEMP 36.6; O2SAT 92
[2022-09-18] MEDS: Levothyroxine 75 MCG Tablet PO (05:11)
[2022-09-18 05:56] VITALS: BMI 47.0
[2022-09-18 06:30] LABS: Absolute Lymphocyte Count 1.18 X10^3/uL (0.83-4.51); Absolute Neutrophil Count 7.2 X10^3/uL (2.0-7.7); Basophil# 0.02 X10^3/uL; Basophil% 0.2 % (0-1); Eosinophil# 0.03 X10^3/uL; Eosinophils% 0.3 % (0-5); Hematocrit 43.1 % (40-54); Lymphocyte # 1.18 X10^3/ul (0.83-4.51); Lymphocyte % 12.4 % (19-41); Mean Corp Hgb Conc 32.5 g/dL (32-36); Mean Corpuscular Hgb 34.1 pg (27.0-32.0); Mean Corpuscular Volume 104.9 fL (80-94); Mean Platelet Vol. 11.9 fl (6.2-12.0); Monocyte# 1.06 X10^3/uL; Monocyte% 11.1 % (0-10); NRBC Flagged by Analyzer 0 % (0-5); Neutrophil # 7.18 X10^3/uL (2.7-7.7); Neutrophil % 75.6 % (47-70); POSITIVE MORPHOLOGY YES; Platelet Count 120 K/mm3 (150-450); RBC Distribution Width CV 18.5 % (11.6-14.6); RBC Distribution Width SD 70.3 fl (35.1-43.9); Red Blood Count 4.11 M/mm3 (4.6-6.2); White Blood Count 9.5 K/mm3 (4.4-11.0)
[2022-09-18 06:36] LABS: Differential Indicated SCAN CRITERIA MET
[2022-09-18 06:59] LABS: Anisocytosis 1+; Differential Comment SCANNED; Macrocytosis 1+
[2022-09-18 07:08] LABS: Phosphorus 3.1 mg/dL (2.5-4.9)
[2022-09-18 07:09] LABS: ALB/GLOB Ratio 0.6 RATIO (0.9-2.4); AST(SGOT) 157 U/L (15-37); Alanine Aminotransfer ALT/SGPT 113 U/L (16-61); Albumin, Serum 2.3 g/dL (3.2-5.0); Alkaline Phosphatase 171 U/L (45-117); Anion Gap 4 (5-15); BUN 19 mg/dL (7-18); BUN/Creat Ratio 14.7 RATIO (10-20); Calcium,Total 11.1 mg/dL (8.5-10.1); Chloride 105 mmol/L (98-107); Creatinine, Serum 1.29 mg/dL (0.70-1.30); EST Glomerular Filtration Rate 63 mL/min (>60); Est Glom Filt Rate - Afr Amer 76 mL/min (>60); Estimated Creatinine Clearance 72.31 ml/min; Globulin 3.6 g/dL (2.2-4.2); Glucose 87 mg/dL (74-106); Magnesium 1.5 mg/dL (1.6-2.6); Potassium 4.1 mmol/L (3.5-5.1); Protein, Total 5.9 g/dL (6.4-8.2); Sodium Level 136 mmol/L (136-145)
[2022-09-18 07:48] VITALS: BP 123/81; PULSE 66; RESP 14; TEMP 36.9; O2SAT 95
[2022-09-18 07:50] VITALS: BP 123/81; PULSE 66; RESP 14; TEMP 36.9; O2SAT 95
[2022-09-18] MEDS: Thiamine Hydrochloride 100 MG Tablet PO (08:43)
[2022-09-18] MEDS: levETIRAcetam 1,000 MG Tablet 1000 MG PO ×2 (08:44→22:13)
[2022-09-18] MEDS: Folic Acid 1 MG Tablet PO (08:44)
[2022-09-18] MEDS: Lisinopril 5 MG Tablet PO (08:44)
[2022-09-18] MEDS: guaiFENesin 1,200 MG Tablet 1200 MG PO ×2 (08:45→22:14)
[2022-09-18] MEDS: rifAXIMin 550 MG Tablet PO ×2 (08:46→22:14)
[2022-09-18] MEDS: Buprenorphine HCl 2 MG TAB.SUBL SL (08:53)
--- NOTE | 2022-09-18 09:45 | PN.HOSP_ITS ---
Subjective Subjective Doing well, no issues overnight. CIWA scores are 3 Objective Data Objective Data Vital Signs: Vital Signs Temp Pulse Resp BP Pulse Ox O2 Del Method O2 Flow Rate 98.5 F 66 14 123/81 H 95 Nasal Cannula 3 09/18/22 07:50 09/18/22 07:50 09/18/22 07:50 09/18/22 07:50 09/18/22 07:50 09/18/22 08:59 09/18/22 08:59 FiO2 30 09/16/22 00:40 Oxygen Flow Rate (L/min) 3 Oxygen Delivery Method Nasal Cannula Weight: 328 lb 0.765 oz Body Mass Index (BMI) 47.0 Intake & Output: Intake and Output for Last 24 Hours 09/17/22 09/18/22 09/19/22 03:59 03:59 03:59 Intake Total 257 / 257 580 / 580 360 / 360 Balance 257 / 257 580 / 580 360 / 360 Lab / Micro Data Result Diagrams: 09/18/22 05:03 09/18/22 05:03 Labs: Laboratory Results - last 24 hr 09/16/22 07:25: Diff Path Review Reviewed 09/18/22 05:03: WBC 9.5, RBC 4.11 L, Hgb 14.0, Hct 43.1, MCV 104.9 H, MCH 34.1 H , MCHC 32.5, RDW Std Deviation 70.3 H, RDW Coeff of Raghu 18.5 H, Plt Count 120 L, MPV 11.9, Immature Gran % (Auto) 0.400, Neut % (Auto) 75.6 H, Lymph % (Auto) 12.4 L, [place] % (Auto) 11.1 H, Eos % (Auto) 0.3, Baso % (Auto) 0.2, Absolute Neuts (auto) 7.2, Absolute Lymphs (auto) 1.18, Nucleated RBC % 0, Differential Comment SCANNED, Anisocytosis 1+, Macrocytosis 1+ 09/18/22 05:03: Sodium 136, Potassium 4.1, Chloride 105, Carbon Dioxide 27.0, Anion Gap 4 L, BUN 19 H, Creatinine 1.29, Estim Creat Clear Calc 72.31, Est GFR (MDRD) Af Amer 76, Est GFR (MDRD) Non-Af 63, BUN/Creatinine Ratio 14.7, Glucose 87, Calcium 11.1 H, Magnesium 1.5 L, Total Bilirubin 3.10 H, AST 157 H, ALT 113 H, Alkaline Phosphatase 171 H, Total Protein 5.9 L, Albumin 2.3 L, Globulin 3.6, Albumin/Globulin Ratio 0.6 L 09/18/22 05:03: Phosphorus 3.1 Micro: Microbiology 09/16/22 15:50 Nasal Secretion SARS-CoV-2 & FLU Antigen (Rapid) - Final Rhythm Strip Rhythm Strip: Sinus Tach Rate: 101 Ectopy: None Physical Exam Narrative General: Alert, Oriented x3, Cooperative, No apparent distress HEENT: Atraumatic, PERRLA, EOMI, Normocephalic Oral: Moist Mucosa Neck: Supple, No JVD Lungs: Diminished, Normal air movement, No rhonchi, No wheeze, No rales Cardiovascular: Regular rate, Regular Rhythm, Normal S1, Normal S2, No murmurs Abdomen: Soft, Non Tender, mild distended, No Hepato-splenomegaly Extremities: Bilateral edema, Capillary Refill Less than 3 Seconds Skin: No rashes, No breakdown Musculoskeletal: No Tenderness to Palpation of Joints or Extremities Neurological: Cranial nerves II-XII grossly intact, Motor Exam 5/5 strength throughout, Sensory exam intact to light touch and pain Psych/Mental Status: Normal Affect, Appropriate Assessment & Plan Assessment/Plan (1) Acute opioid withdrawal: (2) Acute hyperactive alcohol withdrawal delirium: (3) Heart failure: PLAN: Plan 1. 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 Last echo in December 2018 reported EF 65%, PASP 60 mmHg, mildly dilated RV with mild to moderate global RV systolic dysfunction LA mildly enlarged overall suggestive of chronic HFpEF and moderate pulmonary hypertension from right-sided heart failure. Lasix 40 mg IV twice daily. Heart failure core measures including intake and output, fluid restriction less than 1500 mL, daily weight monitoring, kidney and electrolytes monitoring. Repeat 2D echo. 09/17: Echo was unremarkable with no signs of heart failure and pulmonary artery systolic pressure this time around is normal continue with diuretics may need to Aldactone 09/18: We will cancel Coreg as we are putting him on nadolol for his cirrhosis 2. Possible COPD exacerbation: Patient is smokes about half pack per day. Patient is short of breath and wheezing. Bronchodilator, IV Solu-Medrol, incentive spirometry chest Peppin Mucinex ordered. BiPAP as needed during nap and night time. Patient might have also obesity hypoventilation syndrome/obstructive sleep apnea. Will need outpatient PFT and polysomnography test. 09/16: Continue with steroids 3. Decompensated alcoholic cirrhosis with jaundice, possible ascites and portosystemic anastomosis on CT scan: Patient has elevated liver chemistry ALT 136, AST 274, total bilirubin 3.3 with alkaline phosphatase 174. Albumin 1.6. Platelet count 83,000. Monitor liver chemistry daily. INR 1.[address] abdomen on September 12, 2022 reported progression of hepatic steatosis to cirrhosis with extensive splenic and mesenteric varices. He also has right gonadal varices extending into inguinal canal and scrotum. Normal spleen and pancreas reported. Avoid Tylenol and NSAIDs. Avoid hepatotoxic medications. 09/16: Would benefit from outpatient follow-up with gastroenterology for management of his cirrhosis 09/17: Since plan is for discharge to inpatient drug rehab, will consult gastroenterology today to initiate evaluation while he is in inpatient rehab 09/18: Appreciate gastroenterology's assistance, will continue with lactulose and Xifaxan and will add nadolol at 20 mg p.o. twice daily 4. Acute alcohol withdrawal syndrome with history of chronic alcohol use disorder, dependence and tolerance and history of alcohol withdrawal seizure: Patient on phenobarbital based order set along with other adjunctive medications as needed for alcohol withdrawal symptom control. CIWA monitor. On folic acid, thiamine and multivitamin. Patient on Keppra 1000 mg daily at home but increased to 1000 mg twice daily. Patient not clear about seizure, exact type but vaguely says he had 5 seizure although when asked about details he could not answer it and does not remember. 09/18: Plan for inpatient rehab on discharge 5. Acute opioid withdrawal syndrome with history of chronic opioid use/IVDA: Patient uses IV heroin and fentanyl about 1 to 2 g daily. He states he usually is wherever he can find veins. The patient is started on buprenorphine along with other adjunctive medications as needed for medical stabilization as per order set of opioid withdrawal syndrome.Patient also on trazodone, hydroxyzine, gabapentin as needed ordered. insurance risk manager consult. 6. Hypothyroidism ? Stable ? Continue with Synthroid DVT: SCDs Charges/Coding Visit Charges Inpatient E&M: 62324 Subs Hosp L2
[2022-09-18] MEDS: Furosemide 40 MG/4 ML Vial IV (11:07)
[2022-09-18] MEDS: Nadolol 20 MG Tablet PO ×2 (11:12→22:14)
[2022-09-18] MEDS: 0.9% Saline Lock 10 ML Syringe IV ×2 (11:14→15:35)
[2022-09-18 14:00] VITALS: BP 125/70; PULSE 69; RESP 12; TEMP 37.1; O2SAT 90
[2022-09-18] MEDS: Lactulose 20 GM/30 ML UDC PO ×2 (14:18→22:14)
--- NOTE | 2022-09-18 17:45 | PN.GI_ITS ---
Subjective Subjective Patient is the same as he was yesterday and regarding his mental status. He has had 2 bowel movements today. He knows that he is in the hospital. He is complaining about his left arm hurting. This was from a previous fall. Objective Data Objective Data Vital Signs: Vital Signs Temp Pulse Resp BP Pulse Ox O2 Del Method O2 Flow Rate 98.7 F 69 12 125/70 H 90 Nasal Cannula 2 09/18/22 14:00 09/18/22 14:00 09/18/22 14:00 09/18/22 14:00 09/18/22 14:00 09/18/22 14:00 09/18/22 14:00 FiO2 30 09/16/22 00:40 Oxygen Flow Rate (L/min) 2 Oxygen Delivery Method Nasal Cannula Weight: 328 lb 0.765 oz Body Mass Index (BMI) 47.0 Intake & Output: Intake and Output for Last 24 Hours 09/16/22 09/17/22 09/18/22 23:59 23:59 23:59 Intake Total 257 / 257 300 / 580 964 / 964 Balance 257 / 257 300 / 580 964 / 964 Lab / Micro Data Result Diagrams: 09/18/22 05:03 09/18/22 05:03 Labs: Laboratory Results - last 24 hr 09/18/22 05:03: WBC 9.5, RBC 4.11 L, Hgb 14.0, Hct 43.1, MCV 104.9 H, MCH 34.1 H , MCHC 32.5, RDW Std Deviation 70.3 H, RDW Coeff of Raghu 18.5 H, Plt Count 120 L, MPV 11.9, Immature Gran % (Auto) 0.400, Neut % (Auto) 75.6 H, Lymph % (Auto) 12.4 L, [place] % (Auto) 11.1 H, Eos % (Auto) 0.3, Baso % (Auto) 0.2, Absolute Neuts (auto) 7.2, Absolute Lymphs (auto) 1.18, Nucleated RBC % 0, Differential Comment SCANNED, Anisocytosis 1+, Macrocytosis 1+ 09/18/22 05:03: Sodium 136, Potassium 4.1, Chloride 105, Carbon Dioxide 27.0, Anion Gap 4 L, BUN 19 H, Creatinine 1.29, Estim Creat Clear Calc 72.31, Est GFR (MDRD) Af Amer 76, Est GFR (MDRD) Non-Af 63, BUN/Creatinine Ratio 14.7, Glucose 87, Calcium 11.1 H, Magnesium 1.5 L, Total Bilirubin 3.10 H, AST 157 H, ALT 113 H, Alkaline Phosphatase 171 H, Total Protein 5.9 L, Albumin 2.3 L, Globulin 3.6, Albumin/Globulin Ratio 0.6 L 09/18/22 05:03: Phosphorus 3.1 Micro: Microbiology 09/16/22 15:50 Nasal Secretion SARS-CoV-2 & FLU Antigen (Rapid) - Final Rhythm Strip Rhythm Strip: Sinus Tach Rate: 101 Ectopy: None Physical Exam Narrative General: Alert, Oriented x3, Cooperative, No apparent distress HEENT: Atraumatic, PERRLA, EOMI, Normocephalic Oral: Moist Mucosa Neck: Supple, No JVD Lungs: Diminished, Normal air movement, No rhonchi, No wheeze, No rales Cardiovascular: Regular rate, Regular Rhythm, Normal S1, Normal S2, No murmurs Abdomen: Soft, Non Tender, mild distended, No Hepato-splenomegaly Extremities: Bilateral edema, Capillary Refill Less than 3 Seconds Skin: No rashes, No breakdown Musculoskeletal: No Tenderness to Palpation of Joints or Extremities Neurological: Cranial nerves II-XII grossly intact, Motor Exam 5/5 strength throughout, Sensory exam intact to light touch and pain Psych/Mental Status: Normal Affect, Appropriate Assessment & Plan Assessment/Plan (1) Acute opioid withdrawal: (2) Acute hyperactive alcohol withdrawal delirium: (3) Heart failure: PLAN: Plan This 47-year-old obese male with history of polysubstance abuse, alcoholic he patitis, alcoholism and diagnosis of cirrhosis complicated by thrombocytopenia, rash, encephalopathy, heart for a year gentleman who came to ED for acute alcohol and opioid use withdrawal symptoms but found to be short of breath, fluid overloaded and jaundiced. 1. Cirrhosis-he has a meld of 12 and a child [place] class A at this time. He is not showing any signs of severe encephalopathy. Recommend lactulose 20 cc p.o. 3 times daily. Titrate up to 3-4 bowel movements a day. Recommend nadolol for variceal prophylaxis. He will need outpatient screening for hepatocellular carcinoma with alpha-fetoprotein and triple phase CT scan abdomen pelvis or MRI. Follow INR, PT, PTT. He should be checked for chronic hepatitis B and hepatitis C. 2. Alcoholic hepatitis. His Madrey score is 30. He does not reach criteria for medical treatment for alcoholic hepatitis at this time. Continue to monitor INR, PT, PTT, CBC and LFTs. 3. Polysubstance abuse. Charges/Coding Visit Charges Inpatient E&M: 76232 Subs Hosp L3
[2022-09-18 21:56] VITALS: BP 129/87; PULSE 76; RESP 18; TEMP 36.7; O2SAT 94
[2022-09-19] VITALS (7 sets, daily range): BP systolic 122–151; BP diastolic 45–83; PULSE 64–85; RESP 16–18; TEMP 36.2–36.6; O2SAT 93–96; BMI 47.3
[2022-09-19] MEDS: Phenobarbital 32.4 MG Tablet PO ×4 (02:52→20:35)
[2022-09-19] MEDS: Lactulose 20 GM/30 ML UDC PO ×3 (05:46→20:35)
[2022-09-19] MEDS: Levothyroxine 75 MCG Tablet PO (05:46)
[2022-09-19] MEDS: Folic Acid 1 MG Tablet PO (08:24)
[2022-09-19] MEDS: Thiamine Hydrochloride 100 MG Tablet PO (08:24)
[2022-09-19] MEDS: Lisinopril 5 MG Tablet PO (08:24)
[2022-09-19] MEDS: Nadolol 20 MG Tablet PO ×2 (08:24→20:36)
[2022-09-19] MEDS: rifAXIMin 550 MG Tablet PO ×2 (08:25→20:35)
[2022-09-19] MEDS: guaiFENesin 1,200 MG Tablet 1200 MG PO ×2 (08:25→20:35)
[2022-09-19] MEDS: levETIRAcetam 1,000 MG Tablet 1000 MG PO ×2 (08:25→20:35)
[2022-09-19] MEDS: Furosemide 40 MG/4 ML Vial IV (08:25)
[2022-09-19] MEDS: 0.9% Saline Lock 10 ML Syringe IV (08:29)
--- NOTE | 2022-09-19 10:59 | CASEMGMT ---
Sw presented to bedside and reintroduced self to patient. Sw asked patient if he has advanced directives in place at this time and explained importance of establishing. Patient states that he does not have advanced directives in place but does understand the importance of them. Patient states that if he was given the documents to review he may consider completing them with sw. Sw provided advanced directives to patient to review and agreed to follow up later in day to see if patient wishes to complete them. Archana Bernal, STUMP SH[employer]OTER, ACCOUNT SERVICES SPECIALIST
--- NOTE | 2022-09-19 11:17 | PCM.PN.HOSP ---
Subjective Subjective Doing well, no issues overnight. Remains unchanged Objective Data Objective Data Vital Signs: Vital Signs Temp Pulse Resp BP Pulse Ox O2 Del Method O2 Flow Rate 97.1 F L 66 16 129/82 H 94 Nasal Cannula 2 09/19/22 08:10 09/19/22 08:10 09/19/22 08:10 09/19/22 08:10 09/19/22 08:10 09/19/22 08:13 09/19/22 08:13 FiO2 30 09/16/22 00:40 Oxygen Flow Rate (L/min) 2 Oxygen Delivery Method Nasal Cannula Weight: 330 lb 4.039 oz Body Mass Index (BMI) 47.3 Intake & Output: Intake and Output for Last 24 Hours 09/18/22 09/19/22 09/20/22 03:59 03:59 03:59 Intake Total 580 / 580 934 / 934 Output Total 0 / 0 Balance 580 / 580 934 / 934 0 / 0 Lab / Micro Data Result Diagrams: 09/18/22 05:03 09/18/22 05:03 Micro: Microbiology 09/16/22 15:50 Nasal Secretion SARS-CoV-2 & FLU Antigen (Rapid) - Final Rhythm Strip Rhythm Strip: Sinus Tach Rate: 101 Ectopy: None Physical Exam Narrative General: Alert, Oriented x3, Cooperative, No apparent distress HEENT: Atraumatic, PERRLA, EOMI, Normocephalic Oral: Moist Mucosa Neck: Supple, No JVD Lungs: Diminished, Normal air movement, No rhonchi, No wheeze, No rales Cardiovascular: Regular rate, Regular Rhythm, Normal S1, Normal S2, No murmurs Abdomen: Soft, Non Tender, mild distended, No Hepato-splenomegaly Extremities: Bilateral edema, Capillary Refill Less than 3 Seconds Skin: No rashes, No breakdown Musculoskeletal: No Tenderness to Palpation of Joints or Extremities Neurological: Cranial nerves II-XII grossly intact, Motor Exam 5/5 strength throughout, Sensory exam intact to light touch and pain Psych/Mental Status: Normal Affect, Appropriate Assessment & Plan Assessment/Plan (1) Acute opioid withdrawal: (2) Acute hyperactive alcohol withdrawal delirium: (3) Heart failure: PLAN: Plan 1. 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 Last echo in December 2018 reported EF 65%, PASP 60 mmHg, mildly dilated RV with mild to moderate global RV systolic dysfunction LA mildly enlarged overall suggestive of chronic HFpEF and moderate pulmonary hypertension from right-sided heart failure. Lasix 40 mg IV twice daily. Heart failure core measures including intake and output, fluid restriction less than 1500 mL, daily weight monitoring, kidney and electrolytes monitoring. Repeat 2D echo. 09/17: Echo was unremarkable with no signs of heart failure and pulmonary artery systolic pressure this time around is normal continue with diuretics may need to Aldactone 09/18: We will cancel Coreg as we are putting him on nadolol for his cirrhosis 2. Possible COPD exacerbation: Patient is smokes about half pack per day. Patient is short of breath and wheezing. Bronchodilator, IV Solu-Medrol, incentive spirometry chest Peppin Mucinex ordered. BiPAP as needed during nap and night time. Patient might have also obesity hypoventilation syndrome/obstructive sleep apnea. Will need outpatient PFT and polysomnography test. 09/16: Continue with steroids 09/19: We will transition to p.o. prednisone 3. Decompensated alcoholic cirrhosis with jaundice, possible ascites and portosystemic anastomosis on CT scan: Patient has elevated liver chemistry ALT 136, AST 274, total bilirubin 3.3 with alkaline phosphatase 174. Albumin 1.6. Platelet count 83,000. Monitor liver chemistry daily. INR 1.[address] abdomen on September 12, 2022 reported progression of hepatic steatosis to cirrhosis with extensive splenic and mesenteric varices. He also has right gonadal varices extending into inguinal canal and scrotum. Normal spleen and pancreas reported. Avoid Tylenol and NSAIDs. Avoid hepatotoxic medications. 09/16: Would benefit from outpatient follow-up with gastroenterology for management of his cirrhosis 09/17: Since plan is for discharge to inpatient drug rehab, will consult gastroenterology today to initiate evaluation while he is in inpatient rehab 09/18: Appreciate gastroenterology's assistance, will continue with lactulose and Xifaxan and will add nadolol at 20 mg p.o. twice daily 09/19: He will need outpatient evaluation for his liver disease when he is out of detox, will check a hepatitis panel to help with that work-up 4. Acute alcohol withdrawal syndrome with history of chronic alcohol use disorder, dependence and tolerance and history of alcohol withdrawal seizure: Patient on phenobarbital based order set along with other adjunctive medications as needed for alcohol withdrawal symptom control. CIWA monitor. On folic acid, thiamine and multivitamin. Patient on Keppra 1000 mg daily at home but increased to 1000 mg twice daily. Patient not clear about seizure, exact type but vaguely says he had 5 seizure although when asked about details he could not answer it and does not remember. 09/18: Plan for inpatient rehab on discharge 5. Acute opioid withdrawal syndrome with history of chronic opioid use/IVDA: Patient uses IV heroin and fentanyl about 1 to 2 g daily. He states he usually is wherever he can find veins. The patient is started on buprenorphine along with other adjunctive medications as needed for medical stabilization as per order set of opioid withdrawal syndrome.Patient also on trazodone, hydroxyzine, gabapentin as needed ordered. purchasing manager/sales consult. 6. Hypothyroidism ? Stable ? Continue with Synthroid DVT: SCDs Charges/Coding Visit Charges Inpatient E&M: 35098 Subs Hosp L2
[2022-09-19] MEDS: Menthol/Lanolin/Calamine/Znox 113 GM Tube 1 APPLIC TOPICAL ×2 (16:07→20:35)
[2022-09-20 03:10] VITALS: BP 142/85; PULSE 63; RESP 17; TEMP 36.4; O2SAT 95
[2022-09-20 03:23] VITALS: BMI 47.5
[2022-09-20] MEDS: Phenobarbital 32.4 MG Tablet PO (03:30)
[2022-09-20 05:34] LABS: ALB/GLOB Ratio 0.6 RATIO (0.9-2.4); AST(SGOT) 142 U/L (15-37); Alanine Aminotransfer ALT/SGPT 111 U/L (16-61); Albumin, Serum 2.5 g/dL (3.2-5.0); Alkaline Phosphatase 177 U/L (45-117); Anion Gap 5 (5-15); BUN 31 mg/dL (7-18); BUN/Creat Ratio 22.3 RATIO (10-20); Calcium,Total 11.3 mg/dL (8.5-10.1); Chloride 104 mmol/L (98-107); Creatinine, Serum 1.39 mg/dL (0.70-1.30); EST Glomerular Filtration Rate 58 mL/min (>60); Est Glom Filt Rate - Afr Amer 70 mL/min (>60); Estimated Creatinine Clearance 67.11 ml/min; Glucose 83 mg/dL (74-106); Potassium 3.8 mmol/L (3.5-5.1); Protein, Total 6.5 g/dL (6.4-8.2); Sodium Level 138 mmol/L (136-145)
[2022-09-20] MEDS: Lactulose 20 GM/30 ML UDC PO (05:35)
[2022-09-20] MEDS: Levothyroxine 75 MCG Tablet PO (05:35)
[2022-09-20] MEDS: Nystatin Powder 15gm Bottle 1 APPLIC TOPICAL (05:35)
[2022-09-20] MEDS: Menthol/Lanolin/Calamine/Znox 113 GM Tube 1 APPLIC TOPICAL (05:35)
[2022-09-20 07:20] VITALS: O2SAT 97
--- NOTE | 2022-09-20 07:51 | DCINST_ITS ---
Discharge Instructions Diet Discharge Diet: 6 Cup Fluid Restriction Activity Discharge Activity: Return to Normal Activity Dressing / Incision Call your doctor if you observe: Fever of 101 or Higher, Shortness of breath, Dizziness, Fainting spells, Swelling in the ankles, Chest pain and Increased palpitations (irregular heartbeat) Follow Up Care Test Results: Test results from this visit will be discussed in further detail at your follow- up appointment, if applicable. Discharge Plan Admission Admit Date/Time: 09/15/22 17:33 Attending Provider: Estrada Garland Primary Care Provider: Pawan Mcfadden Consulting Providers: Hiram Steve Discharge Orders/Prescriptions Prescriptions: New prednisone 20 mg Tablet 40 mg PO BREAKFAST 7 Days Qty: 14 0RF thiamine HCl (vitamin B1) [Vitamin B-1] 100 mg Tablet 100 mg PO DAILYCM 30 Days Qty: 30 0RF nadolol 20 mg Tablet 20 mg PO BID 30 Days Qty: 60 0RF Continued olanzapine 10 MG tablet 10 mg PO QHS Rx Instructions: may repeat x1 lactulose 10 GM/15 ML solution 45 ml PO TID levothyroxine 100 MCG tablet 75 mcg PO DAILY levetiracetam 1,000 MG tablet 1,000 mg PO DAILY folic acid 1 MG tablet 1 mg PO DAILY lisinopril 5 MG tablet 5 mg PO DAILY cetirizine 10 MG capsule 10 mg PO DAILY Xifaxan 550 MG 550 mg PO DAILY bupropion HCl 100 mg tablet sustained-release 12 hr 100 mg PO BID Label Comments: TAKE 1 TABLET BY MOUTH TWICE A DAY Held furosemide 40 MG tablet 40 mg PO DAILY Hold Instructions: Resume on 09/23/22. Referrals / Follow Up: Pawan Mcfadden MD [Primary Care Provider] - Disposition Disposition (needs filled in before D/C Order can be placed): DC/Tx to Another Type of HCF
--- NOTE | 2022-09-20 09:38 | PHA.DC.MR ---
Pharmacy Service has performed discharge medication reconciliation for this patient. The patient's discharge medication list was reviewed for discrepancies and discrepancies were resolved. Home Medications furosemide 40 mg tablet 40 mg PO DAILY diuretic 08/25/19 lactulose 10 gram/15 mL oral solution 45 ml PO TID liver disease 09/13/19 levothyroxine 100 mcg tablet 75 mcg PO DAILY thyroid 09/13/19 olanzapine 10 mg tablet 10 mg PO QHS depression 09/13/19 levetiracetam 1,000 mg tablet 1,000 mg PO DAILY DIARRHEA 01/22/20 Xifaxan 550 mg PO DAILY Check with primary doctor 02/02/20 cetirizine 10 mg capsule 10 mg PO DAILY Check with primary doctor 02/02/20 folic acid 1 mg tablet 1 mg PO DAILY diarrhea 02/02/20 lisinopril 5 mg tablet 5 mg PO DAILY diarrhea 02/02/20 bupropion HCl 100 mg tablet,12 hr sustained-release 100 mg PO BID ptsd 09/15/22 nadolol 20 mg tablet 20 mg PO BID 30 days #60 tabs 09/20/22 prednisone 20 mg tablet 40 mg PO BREAKFAST 7 days #14 tabs 09/20/22 thiamine HCl (vitamin B1) 100 mg tablet (Vitamin B-1) 100 mg PO DAILYCM 30 days #30 tabs 09/20/22
[2022-09-20 09:42] VITALS: BP 144/83; PULSE 66; RESP 20; TEMP 36.1; O2SAT 100
[2022-09-20] MEDS: Thiamine Hydrochloride 100 MG Tablet PO (09:48)
[2022-09-20] MEDS: Folic Acid 1 MG Tablet PO (09:48)
[2022-09-20] MEDS: Nadolol 20 MG Tablet PO (09:48)
[2022-09-20] MEDS: guaiFENesin 1,200 MG Tablet 1200 MG PO (09:48)
[2022-09-20] MEDS: predniSONE 20 MG Tablet 40 MG PO (09:48)
[2022-09-20] MEDS: Lisinopril 5 MG Tablet PO (09:48)
[2022-09-20] MEDS: rifAXIMin 550 MG Tablet PO (09:49)
[2022-09-20] MEDS: levETIRAcetam 1,000 MG Tablet 1000 MG PO (09:49)
--- NOTE | 2022-09-20 17:11 | PCM.DC.SUM ---
Providers Date of Admission: 09/15/22 Primary Care Physician: Dr. Pawan Mcfadden MD Consultations 09/17/22 12:12 Consult: Gastroenterology Routine Consulting Provider: [facility] Reason for Consult: EtOH Cirrhosis EMERGENT Consult: No MD Notified: Yes Date Notified: 09/17/22 Time Notified: 12:48 Method of Notification: Text Reason For Visit: ALCOHOL AND OPIATES WITHDRAWAL Diagnosis Discharge Diagnosis (1) Acute opioid withdrawal: Status: Acute Code(s): F11.23 - Opioid dependence with withdrawal (2) Acute hyperactive alcohol withdrawal delirium: Status: Acute Code(s): F10.931 - Alcohol use, unspecified with withdrawal delirium (3) Heart failure: Status: Acute Code(s): I50.9 - Heart failure, unspecified Medications at Discharge Home Medications furosemide 40 mg tablet 40 mg PO DAILY diuretic 08/25/19 lactulose 10 gram/15 mL oral solution 45 ml PO TID liver disease 09/13/19 levothyroxine 100 mcg tablet 75 mcg PO DAILY thyroid 09/13/19 olanzapine 10 mg tablet 10 mg PO QHS depression 09/13/19 levetiracetam 1,000 mg tablet 1,000 mg PO DAILY DIARRHEA 01/22/20 Xifaxan 550 mg PO DAILY Check with primary doctor 02/02/20 cetirizine 10 mg capsule 10 mg PO DAILY Check with primary doctor 02/02/20 folic acid 1 mg tablet 1 mg PO DAILY diarrhea 02/02/20 lisinopril 5 mg tablet 5 mg PO DAILY diarrhea 02/02/20 bupropion HCl 100 mg tablet,12 hr sustained-release 100 mg PO BID ptsd 09/15/22 nadolol 20 mg tablet 20 mg PO BID 30 days #60 tabs 09/20/22 prednisone 20 mg tablet 40 mg PO BREAKFAST 7 days #14 tabs 09/20/22 thiamine HCl (vitamin B1) 100 mg tablet (Vitamin B-1) 100 mg PO DAILYCM 30 days #30 tabs 09/20/22 Hospital Course Operations None Procedures 2-D Echocardiogram Summary of Care Provided Minutes Spent on Discharge: 32 Hospital Course: Per HPI: CHRISTIE CARTWRIGHT, is a 47 M with history of chronic alcohol use and IVDA, opioid use disorder came to ED for acute alcohol and opioid withdrawal symptoms.? Patient is also short of breath and is not taking his Lasix at home.? Patient cannot give detailed history by himself as he is somnolent, obtunded and drowsy and does not remember well. At most he states he is short of breath for past few days denies chest pain or pressure or tightness.? Patient has alcoholic decompensated cirrhosis with fluid overload, jaundice possible ascites.? Last CT abdomen on September 12, 2022 reported progression of hepatic steatosis to cirrhosis with extensive splenic and mesenteric varices.? He also has right gonadal varices extending into inguinal canal and scrotum.? Normal spleen and pancreas reported. Patient given Lasix 40 mg IV in ED. Patient was in ED on 09/18/2022 after a fall but no loss of consciousness, landed on left wrist and left chest and some shortness of breath after fall.? He had chest CTA and CT abdomen 09/12/2022 which reported right lower lobe subsegmental atelectasis with no major pulmonary embolism.? COPD and cirrhosis.? Chest x-ray done initially reviewed and looks underpenetrated with central venous congestion in lung phillips. Vitals in the ED shows high blood pressure 170/88, heart rate 110, respiratory rate 20 but no hypoxia.? Labs reviewed and discussed in assessment and plan. Hospital Course: 1.? 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 Last echo in December 2018 reported EF 65%, PASP 60 mmHg, mildly dilated RV with mild to moderate global RV systolic dysfunction LA mildly enlarged overall suggestive of chronic HFpEF and moderate pulmonary hypertension from right-sided heart failure. Lasix 40 mg IV twice daily.? Heart failure core measures including intake and output, fluid restriction less than 1500 mL, daily weight monitoring, kidney and electrolytes monitoring.? Repeat 2D echo. 09/17: Echo was unremarkable with no signs of heart failure and pulmonary artery systolic pressure this time around is normal continue with diuretics may need to Aldactone 09/18: We will cancel Coreg as we are putting him on nadolol for his cirrhosis 09/20: His hypoxia due to his COPD exacerbation and heart failure has resolved we will hold his diuretics as his creatinine did bump a little bit to 1.39, he can restart this in a couple of days. 2.? Possible COPD exacerbation: Patient is smokes about half pack per day.? Patient is short of breath and wheezing.? Bronchodilator, IV Solu-Medrol, incentive spirometry chest Peppin Mucinex ordered.? BiPAP as needed during nap and night time.? Patient might have also obesity hypoventilation syndrome/obstructive sleep apnea.? Will need outpatient PFT and polysomnography test. 09/16: Continue with steroids 09/19: We will transition to p.o. prednisone 09/20: We will plan for discharge for inpatient rehab with p.o. prednisone for 7 more days 3.? Decompensated alcoholic cirrhosis with jaundice, possible ascites and portosystemic anastomosis on CT scan: Patient has elevated liver chemistry ALT 136, AST 274, total bilirubin 3.3 with alkaline phosphatase 174.? Albumin 1.6.? Platelet count 83,000.? Monitor liver chemistry daily.? INR 1.[address] abdomen on September 12, 2022 reported progression of hepatic steatosis to cirrhosis with extensive splenic and mesenteric varices.? He also has right gonadal varices extending into inguinal canal and scrotum.? Normal spleen and pancreas reported.? Avoid Tylenol and NSAIDs.? Avoid hepatotoxic medications. 09/16: Would benefit from outpatient follow-up with gastroenterology for management of his cirrhosis 09/17: Since plan is for discharge to inpatient drug rehab, will consult gastroenterology today to initiate evaluation while he is in inpatient rehab 09/18: Appreciate gastroenterology's assistance, will continue with lactulose and Xifaxan and will add nadolol at 20 mg p.o. twice daily 09/19: He will need outpatient evaluation for his liver disease when he is out of detox, will check a hepatitis panel to help with that work-up 09/20: He will need outpatient follow-up, in the meantime we will continue with all of his medications including Xifaxan, lactulose, and nadolol 4.? Acute alcohol withdrawal syndrome with history of chronic alcohol use disorder, dependence and tolerance and history of alcohol withdrawal seizure: Patient on phenobarbital based order set along with other adjunctive medications as needed for alcohol withdrawal symptom control.? CIWA monitor.? On folic acid, thiamine and multivitamin.? Patient on Keppra 1000 mg daily at home but increased to 1000 mg twice daily.? Patient not clear about seizure, exact type but vaguely says he had 5 seizure although when asked about details he could not answer it and does not remember. 09/18: Plan for inpatient rehab on discharge 5.? Acute opioid withdrawal syndrome with history of chronic opioid use/IVDA: Patient uses IV heroin and fentanyl about 1 to 2 g daily.? He states he usually is wherever he can find veins.? The patient is started on buprenorphine along with other adjunctive medications as needed for medical stabilization as per order set of opioid withdrawal syndrome.Patient also on trazodone, hydroxyzine, gabapentin as needed ordered.? player development manager consult. 6.? Hypothyroidism ? Stable ? Continue with Synthroid Physical Exam Narrative General: Alert, Oriented x3, Cooperative, No apparent distress HEENT: Atraumatic, PERRLA, EOMI, Normocephalic Oral: Moist Mucosa Neck: Supple, No JVD Lungs: Diminished, Normal air movement, No rhonchi, No wheeze, No rales Cardiovascular: Regular rate, Regular Rhythm, Normal S1, Normal S2, No murmurs Abdomen: Soft, Non Tender, mild distended, No Hepato-splenomegaly Extremities: Bilateral edema, Capillary Refill Less than 3 Seconds Skin: No rashes, No breakdown Musculoskeletal: No Tenderness to Palpation of Joints or Extremities Neurological: Cranial nerves II-XII grossly intact, Motor Exam 5/5 strength throughout, Sensory exam intact to light touch and pain Psych/Mental Status: Normal Affect, Appropriate Weight / BMI Weight Weight: 331 lb 2.149 oz Body Mass Index (BMI) 47.5 ABG / Lab / Microbiology Data Result Diagrams: 09/18/22 05:03 09/20/22 04:00 Laboratory: Laboratory Results - last 24 hr 09/20/22 04:00: Sodium 138, Potassium 3.8, Chloride 104, Carbon Dioxide 29.0, Anion Gap 5, BUN 31 H, Creatinine 1.39 H, Estim Creat Clear Calc 67.11, Est GFR (MDRD) Af Amer 70, Est GFR (MDRD) Non-Af 58 L, BUN/Creatinine Ratio 22.3 H, Glucose 83, Calcium 11.3 H, Total Bilirubin 3.90 H, AST 142 H, ALT 111 H, Alkaline Phosphatase 177 H, Total Protein 6.5, Albumin 2.5 L, Globulin 4.0, Albumin/Globulin Ratio 0.6 L Microbiology: Microbiology 09/16/22 15:50 Nasal Secretion SARS-CoV-2 & FLU Antigen (Rapid) - Final D/C Instructions Discharge Diet: 6 Cup Fluid Restriction Call your doctor if you observe: Fever of 101 or Higher, Shortness of breath, Dizziness, Fainting spells, Swelling in the ankles, Chest pain and Increased palpitations (irregular heartbeat) Meaningful Use Info Meaningful Use Diagnoses (Choose all that apply): None applicable Discharge Plan Admission Admit Date/Time: 09/15/22 17:33 Attending Provider: Estrada Garland Primary Care Provider: Pawan Mcfadden Consulting Providers: Hiram Steve Discharge Orders/Prescriptions Prescriptions: New prednisone 20 mg Tablet 40 mg PO BREAKFAST 7 Days Qty: 14 0RF thiamine HCl (vitamin B1) [Vitamin B-1] 100 mg Tablet 100 mg PO DAILYCM 30 Days Qty: 30 0RF nadolol 20 mg Tablet 20 mg PO BID 30 Days Qty: 60 0RF Continued olanzapine 10 MG tablet 10 mg PO QHS Rx Instructions: may repeat x1 lactulose 10 GM/15 ML solution 45 ml PO TID levothyroxine 100 MCG tablet 75 mcg PO DAILY levetiracetam 1,000 MG tablet 1,000 mg PO DAILY folic acid 1 MG tablet 1 mg PO DAILY lisinopril 5 MG tablet 5 mg PO DAILY cetirizine 10 MG capsule 10 mg PO DAILY Xifaxan 550 MG 550 mg PO DAILY bupropion HCl 100 mg tablet sustained-release 12 hr 100 mg PO BID Label Comments: TAKE 1 TABLET BY MOUTH TWICE A DAY Held furosemide 40 MG tablet 40 mg PO DAILY Hold Instructions: Resume on 09/23/22. Referrals / Follow Up: Pawan Mcfadden MD [Primary Care Provider] - Disposition Disposition (needs filled in before D/C Order can be placed): DC/Tx to Another Type of HCF Charges/Coding Visit Charges Inpatient E&M: 36405 Disch Hosp >30min
== END 2022-09-20 10:59 | disposition other institution (70) | DRG 194 ==
LOC: ED 16:54 → PCU 09-16 06:15
PROVIDERS: Admitting Provider Internal Medicine; Emergency Provider Emergency Medicine; PCP Family Medicine; Visit Provider Family Medicine
DX: I11.0 Hypertensive heart disease with heart failure (principal); F10.231 Alcohol dependence with withdrawal delirium; J44.1 Chronic obstructive pulmonary disease with (acute) exacerbation; K70.31 Alcoholic cirrhosis of liver with ascites; K76.82 Hepatic encephalopathy; I42.6 Alcoholic cardiomyopathy; I50.33 Acute on chronic diastolic (congestive) heart failure; E66.01 Morbid (severe) obesity due to excess calories; Z68.42 Body mass index [BMI] 45.0-49.9, adult; F11.23 Opioid dependence with withdrawal; G47.33 Obstructive sleep apnea (adult) (pediatric); F12.90 Cannabis use, unspecified, uncomplicated; F17.210 Nicotine dependence, cigarettes, uncomplicated; E03.9 Hypothyroidism, unspecified; K70.10 Alcoholic hepatitis without ascites; R79.1 Abnormal coagulation profile; Z51.5 Encounter for palliative care; Y90.8 Blood alcohol level of 240 mg/100 ml or more
CPT/HCPCS: 36415; 70450; 71046; 71275; 73110; 74177; 80053; 80061; 80074; 80307; 82077; 83735; 83880; 84100; 85025; 85610; 85730; 87428; 93005; 93306; 94002; 94003; 94640; 94762; 99283; 99285; J7050; Q9967; A4216; J1940

== ENCOUNTER 2022-10-18 15:02 | Emergency (ER) | payer MEDICAID, SELFPAY ==
[2022-10-18] VITALS (9 sets, daily range): BP systolic 133–139; BP diastolic 81–85; PULSE 16–94; RESP 16–18; TEMP 36.2; O2SAT 93; BMI 40.1
--- NOTE | 2022-10-18 15:27 | EDS_ITS ---
HPI HPI - Psych History of Present Illness Chief Complaint: Suicidal Detail of Chief Complaint: Auditory hallucinations Informant: patient Narrative Narrative: Patient presents with depression and auditory hallucinations for the past 3 weeks. He states he recently went to the [facility] in [facility] to make himself a better person. They took him off of his Wellbutrin about a month ago. He states that seem to be the only thing that was helping his hallucinations and his PTSD. For the last 3 weeks he has now hearing multiple voices telling him things such as he is not worth anything, you have no family, nobody loves you, just do it. Patient states that he had been on Wellbutrin for several years. He believes that there was a psychiatrist out of [place] that was prescribing it for him but states he had not seen him in years. He states typically he will just go to the pharmacy and get it refilled. He states he is currently homeless and living on the streets. He does have a history of alcohol and substance abuse. He does admit to having 4 beers today and used heroin 4 days ago. [facility] Medical History Alcoholic cirrhosis of liver Cocaine abuse Heroin abuse HTN (hypertension) Hypothyroidism Polysubstance abuse Seizure Home Medications furosemide 40 mg tablet 40 mg PO DAILY diuretic 08/25/19 [History Last Taken 10/17/22] lactulose 10 gram/15 mL oral solution 45 ml PO TID liver disease 09/13/19 [History Last Taken 09/02/22 10:00] levothyroxine 100 mcg tablet 75 mcg PO DAILY thyroid 09/13/19 [History Last Taken 09/02/22 10:00] olanzapine 10 mg tablet 10 mg PO QHS depression 09/13/19 [History Last Taken 09/02/22 10:00] levetiracetam 1,000 mg tablet 1,000 mg PO DAILY DIARRHEA 01/22/20 [History Last Taken 09/02/22 10:00] Xifaxan 550 mg PO DAILY Check with primary doctor 02/02/20 [History Last Taken 09/10/22] cetirizine 10 mg capsule 10 mg PO DAILY Check with primary doctor 02/02/20 [History Last Taken 08/12/22 10:00] folic acid 1 mg tablet 1 mg PO DAILY diarrhea 02/02/20 [History Last Taken 09/02/22 10:00] lisinopril 5 mg tablet 5 mg PO DAILY diarrhea 02/02/20 [History Last Taken 09/02/22 10:00] bupropion HCl 100 mg tablet,12 hr sustained-release 100 mg PO BID ptsd 09/15/22 [History Last Taken 09/02/22 10:00] nadolol 20 mg tablet 20 mg PO BID 30 days #60 tabs 09/20/22 [Rx Last Taken Unknown] prednisone 20 mg tablet 40 mg (2 x 20 mg) PO BREAKFAST 7 days #14 tabs 09/20/22 [Rx Last Taken Unknown] thiamine HCl (vitamin B1) 100 mg tablet (Vitamin B-1) 100 mg PO DAILYCM 30 days #30 tabs 09/20/22 [Rx Last Taken Unknown] apixaban 5 mg tablet (Eliquis) mg 10/18/22 [History Last Taken 10/18/22] Allergy/AdvReac Type Severity Reaction Status Date / Time No Known Allergies Allergy Verified 09/15/22 15:38 Family History Other Diabetes Heart disease Surgical History History of appendectomy Status post insertion of dialysis catheter Social History Smoking Status: Current every day smoker tobacco type: cigarettes alcohol intake: current substance use type: marijuana ROS ROS ED Constitutional Constitutional ED: Denies chills or fever(s) Eyes Eyes: Denies change in vision or discharge from eye(s) ENT ENT ED: Denies discharge from eye(s), rhinorrhea or sore throat Cardiovascular Cardiovascular: Denies chest pain or palpitations Respiratory/Chest Respiratory/Chest: Denies cough or dyspnea Gastrointestinal Gastrointestinal: Denies abdominal pain, nausea or vomiting Genitourinary Genitourinary ED: Denies dysuria Musculoskeletal Musculoskeletal: Denies back pain or extremity pain Integumentary Denies Abrasions or rash Neurologic Neurologic: Denies headache(s) or weakness Psychiatric Psychiatric: Reports depression; Denies anxiety Allergic/Immunologic Allergic/Immunologic ED: Denies lip swelling or urticaria EXAM Physical Exam Const Vital Signs: 10/18/22 15:04 10/18/22 16:20 10/18/22 17:00 Temperature 97.2 F L Temperature Source Temporal Pulse Rate 94 Respiratory Rate 18 16 16 Blood Pressure 133/85 H Blood Pressure Mean 101 Pulse Ox 93 Oxygen Delivery Method Room Air 10/18/22 18:21 10/18/22 19:08 10/18/22 20:00 Temperature Temperature Source Pulse Rate 18 L 86 Respiratory Rate 18 16 Blood Pressure 139/81 H Blood Pressure Mean 100 Pulse Ox 93 Oxygen Delivery Method Room Air 10/18/22 21:00 10/18/22 22:00 10/18/22 23:00 Temperature Temperature Source Pulse Rate 16 L Respiratory Rate 16 16 Blood Pressure Blood Pressure Mean Pulse Ox Oxygen Delivery Method Positive well nourished and well developed General Appearance ED: well developed HEENT Reports normocephalic and head/scalp atraumatic Eyes PERRL and EOMs intact bilaterally Neck supple Chest Wall inspection of chest normal and palpation of chest normal Resp normal respiratory effort and clear to auscultation bilaterally Cardio regular rate and regular rhythm GI normal to inspection, nondistended, normoactive bowel sounds Palpation: soft Extremity normal to inspection Neuro oriented x3 and no sensory deficits noted Sensorium / Orientation: alert Motor Exam: strength 5/5 throughout Psych mental status grossly normal and cooperative Psych Narrative: Patient midst auditory hallucinations of multiple voices. He states they tell him to just do it. He believes this means to just kill himself. He denies wanting to harm himself in any prior attempts. He states he just wants the voices to go away. He does admit to being in a deep depression. Skin no rashes or lesions noted MDM MDM MDM Narrative Medical decision making narrative: Lab work for addiction medicine/psychiatric treatment obtained. Lab Data Attestation: I reviewed the patient's lab results. Labs: Laboratory Results - last 24 hr 10/18/22 10/18/22 10/18/22 15:40 15:50 21:10 WBC 8.3 RBC 4.13 L Hgb 13.5 Hct 38.5 L MCV 93.2 MCH 32.7 H MCHC 35.1 RDW Std Deviation 46.9 H RDW Coeff of Raghu 13.9 Plt Count 216 MPV 10.6 Immature Gran % (Auto) 0.800 Neut % (Auto) 69.3 Lymph % (Auto) 18.3 L [place] % (Auto) 9.7 Eos % (Auto) 1.2 Baso % (Auto) 0.7 Absolute Neuts (auto) 5.7 Absolute Lymphs (auto) 1.52 Nucleated RBC % 0 Sodium 134 L Potassium 3.7 Chloride 101 Carbon Dioxide 23.0 Anion Gap 10 BUN 17 Creatinine 1.39 H Estim Creat Clear Calc 67.11 Est GFR (MDRD) Af Amer 70 Est GFR (MDRD) Non-Af 58 L BUN/Creatinine Ratio 12.2 Glucose 99 Calcium 9.2 Total Bilirubin 1.70 H AST 75 H ALT 33 Alkaline Phosphatase 113 Total Protein 6.9 Albumin 2.2 L Globulin 4.7 H Albumin/Globulin Ratio 0.5 L TSH 20.70 H Urine Opiates Screen NEGATIVE Urine Methadone Screen NEGATIVE Ur Barbiturates Screen POSITIVE H Ur Phencyclidine Scrn NEGATIVE Ur Amphetamines Screen NEGATIVE MDMA (Ecstasy) Screen POSITIVE H U Benzodiazepines Scrn NEGATIVE Urine Cocaine Screen NEGATIVE U Cannabinoids Screen NEGATIVE Ur Drug Screen Comment Ethyl Alcohol 197.0 169.0 Treatment and Re-Evaluation Narrative: CBC reveals normal white count 8.3 normal hemoglobin at 13.5. Chemistry studies significant only for a creatinine of 1.39. Total bilirubin is 1.7 and AST is 75. TSH is elevated at 20.7. On review of records this has not been checked in several years. Patient is unsure when he last took his Synthroid. He is given a dose of oral Synthroid at this time and will need to be restarted on this medication. His TSH will need to be checked again in 4 to 6 weeks. COVID test is obtained and negative. Urine tox screen is positive for barbiturates and MDMA. Initial EtOH level is 197. Repeat EtOH level is obtained after approximately 6 hours. EtOH remains elevated at 169. Patient denied suicidal plan or intention, so therefore did not have a sitter in the room. With his alcohol level not dropping I am concerned that he has alcohol with him that he has been consuming. When nurse went back into the room to clear all of his belongings, he was holding a cup under the hand juvenile probation officer. He stated that he was using it to bathe. We are concerned that he was ingesting this for the alcohol content. Everything including the hand juvenile probation officer has been cleared out of the room. Patient's alcohol level will be redrawn at 7 AM. Patient was given a dose of Wellbutrin here to get him restarted on this medication. Patient be signed out to oncoming physician for further monitoring overnight. Discharge Plan Triage Chief Complaint: Suicidal Other Complaint: Depression ED Provider: Sherri Henderson Dx/Rx/DC Orders Clinical Impression: Auditory hallucination, Alcohol intoxication, Depression, Hypothyroidism Prescriptions: No Action furosemide 40 MG tablet 40 mg PO DAILY Hold Instructions: Resume on 09/23/22. olanzapine 10 MG tablet 10 mg PO QHS Rx Instructions: may repeat x1 lactulose 10 GM/15 ML solution 45 ml PO TID Hold Instructions: pt stopped taking levothyroxine 100 MCG tablet 75 mcg PO DAILY levetiracetam 1,000 MG tablet 1,000 mg PO DAILY folic acid 1 MG tablet 1 mg PO DAILY lisinopril 5 MG tablet 5 mg PO DAILY cetirizine 10 MG capsule 10 mg PO DAILY Xifaxan 550 MG 550 mg PO DAILY bupropion HCl 100 mg tablet sustained-release 12 hr 100 mg PO BID Patient Comments: TAKE 1 TABLET BY MOUTH TWICE A DAY prednisone 20 mg Tablet 40 mg PO BREAKFAST 7 Days Qty: 14 0RF thiamine HCl (vitamin B1) [Vitamin B-1] 100 mg Tablet 100 mg PO DAILYCM 30 Days Qty: 30 0RF nadolol 20 mg Tablet 20 mg PO BID 30 Days Qty: 60 0RF Eliquis 5 mg tablet Patient Comments: TAKE 1 TABLET BY MOUTH TWICE A DAY Primary Care Provider: Pawan Mcfadden Referrals: Pawan Mcfadden MD [Primary Care Provider] - Disposition Disposition: Psychiatric Hospital or Unit
--- NOTE | 2022-10-18 15:35 | ED.RN ---
PER DR. NAGY PT PAULINO SNOT REQUIRE A SITTER, AND DOES NOT NEED TO CHANGE INTO A GOWN. PER DR. NAGY, PT IS NOT SUICIDAL, BUT REPORTS THAT HE WANTS THE VOICES TO STOP.
[2022-10-18 15:52] LABS: Absolute Lymphocyte Count 1.52 X10^3/uL (0.83-4.51); Absolute Neutrophil Count 5.7 X10^3/uL (2.0-7.7); Basophil# 0.06 X10^3/uL; Basophil% 0.7 % (0-1); Eosinophils% 1.2 % (0-5); Hematocrit 38.5 % (40-54); Hemoglobin 13.5 g/dL (13.0-16.5); Lymphocyte # 1.52 X10^3/ul (0.83-4.51); Lymphocyte % 18.3 % (19-41); Mean Corp Hgb Conc 35.1 g/dL (32-36); Mean Corpuscular Hgb 32.7 pg (27.0-32.0); Mean Corpuscular Volume 93.2 fL (80-94); Mean Platelet Vol. 10.6 fl (6.2-12.0); Monocyte% 9.7 % (0-10); NRBC Flagged by Analyzer 0 % (0-5); Neutrophil # 5.74 X10^3/uL (2.7-7.7); Neutrophil % 69.3 % (47-70); Platelet Count 216 K/mm3 (150-450); RBC Distribution Width CV 13.9 % (11.6-14.6); RBC Distribution Width SD 46.9 fl (35.1-43.9); Red Blood Count 4.13 M/mm3 (4.6-6.2); White Blood Count 8.3 K/mm3 (4.4-11.0)
[2022-10-18 16:22] LABS: ALB/GLOB Ratio 0.5 RATIO (0.9-2.4); AST(SGOT) 75 U/L (15-37); Alanine Aminotransfer ALT/SGPT 33 U/L (16-61); Albumin, Serum 2.2 g/dL (3.2-5.0); Alkaline Phosphatase 113 U/L (45-117); Anion Gap 10 (5-15); BUN 17 mg/dL (7-18); BUN/Creat Ratio 12.2 RATIO (10-20); Calcium,Total 9.2 mg/dL (8.5-10.1); Chloride 101 mmol/L (98-107); Creatinine, Serum 1.39 mg/dL (0.70-1.30); EST Glomerular Filtration Rate 58 mL/min (>60); Est Glom Filt Rate - Afr Amer 70 mL/min (>60); Estimated Creatinine Clearance 67.11 ml/min; Globulin 4.7 g/dL (2.2-4.2); Glucose 99 mg/dL (74-106); Potassium 3.7 mmol/L (3.5-5.1); Protein, Total 6.9 g/dL (6.4-8.2); Sodium Level 134 mmol/L (136-145)
[2022-10-18 16:55] LABS: Amphetamine Urine VISTA NEGATIVE (<1000 ng/mL); Barbiturate Urine VISTA POSITIVE (< 200 ng/mL); Benzodiazepine Urine VISTA NEGATIVE (< 200 ng/mL); Cocaine Urine VISTA NEGATIVE (< 300 ng/mL); Ecstacy Urine VISTA POSITIVE (< 500 ng/mL); Methadone Urine VISTA NEGATIVE (< 300 ng/mL); PCP Urine VISTA NEGATIVE (< 25 ng/mL); THC Urine VISTA NEGATIVE (< 50 ng/mL)
[2022-10-18 16:56] LABS: Vista UDS pH Range 6
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
[2022-10-18] MEDS: Levothyroxine 100 MCG Tablet PO (18:20)
--- NOTE | 2022-10-18 20:57 | CM.ED ---
Social Work [facility] accepting patient to behavioral unit. Accepting [facility] and patient can arrive after 10am. Nurse to nurse and fax info given to nursing. Carla Corey WINDOWS SERVER ENGINEER, SALES COUNSELOR
[2022-10-18] MEDS: buPROPion 100 MG Tablet PO (21:57)
--- NOTE | 2022-10-18 22:52 | ED.RN ---
2245: Patient found filling a cup in room with hand automotive tire testing supervisor. All personal belongings and hand automotive tire testing supervisor removed from the room.
[2022-10-19] VITALS: RESP 16
[2022-10-19 01:25] VITALS: RESP 16
[2022-10-19 02:25] VITALS: RESP 16
[2022-10-19 03:00] VITALS: RESP 16
[2022-10-19 05:00] VITALS: BP 134/80; PULSE 76; RESP 16; O2SAT 98
[2022-10-19 09:23] VITALS: BP 128/76; PULSE 72; RESP 16; O2SAT 98
== END 2022-10-19 09:25 ==
PROVIDERS: Emergency Provider Emergency Medicine; PCP Family Medicine; Visit Provider Emergency Medicine
DX: F32.A Depression, unspecified (principal); F10.129 Alcohol abuse with intoxication, unspecified; I10 Essential (primary) hypertension; E03.9 Hypothyroidism, unspecified; F17.210 Nicotine dependence, cigarettes, uncomplicated; R44.0 Auditory hallucinations; Z79.899 Other long term (current) drug therapy; Y90.6 Blood alcohol level of 120-199 mg/100 ml
CPT/HCPCS: 80053; 80307; 82077; 84443; 85025; 87811; 99284; A4216